=== PATIENT | male | born 1955 | race Caucasian/White ===

== ENCOUNTER → 2020-03-28 09:00 | Outpatient (BNVA) | payer MEDICARE, SELFPAY | PROVIDERS: PCP Internal Medicine; Visit Provider Internal Medicine | DX: I26.99 Other pulmonary embolism without acute cor pulmonale (principal); Z51.81 Encounter for therapeutic drug level monitoring; Z79.01 Long term (current) use of anticoagulants | CPT/HCPCS: 85610 ==

== ENCOUNTER → 2020-04-18 08:00 | Outpatient (BNVA) | payer MEDICARE, SELFPAY | PROVIDERS: PCP Internal Medicine; Visit Provider Internal Medicine | DX: I26.99 Other pulmonary embolism without acute cor pulmonale (principal); Z51.81 Encounter for therapeutic drug level monitoring; Z79.01 Long term (current) use of anticoagulants | CPT/HCPCS: 85610; 99211 ==

== ENCOUNTER 2020-05-01 13:41 | Outpatient (REF) | payer MEDICARE, SELFPAY ==
[2020-05-01 14:38] LABS: Influenza A PCR NEGATIVE (Negative); Influenza B PCR NEGATIVE (Negative); Resp Syncy Virus RNA Qual PCR NEGATIVE (Negative); SARS COV2 PCR INHOUSE NEGATIVE (Negative)
== END 2020-05-01 13:42 | disposition home or self-care (01) ==
LOC: HO.LNP 13:41
PROVIDERS: Visit Provider Internal Medicine
DX: Z20.828 Contact with and (suspected) exposure to other viral communicable diseases (principal)
CPT/HCPCS: 0241U

== ENCOUNTER → 2020-05-16 08:02 | Outpatient (BNVA) | payer MEDICARE, SELFPAY | PROVIDERS: PCP Internal Medicine; Visit Provider Internal Medicine | DX: I26.99 Other pulmonary embolism without acute cor pulmonale (principal); Z51.81 Encounter for therapeutic drug level monitoring; Z79.01 Long term (current) use of anticoagulants | CPT/HCPCS: 85610; 99211 ==

== ENCOUNTER → 2020-06-13 08:08 | Outpatient (BNVA) | payer MEDICARE, SELFPAY | PROVIDERS: PCP Internal Medicine; Visit Provider Internal Medicine | DX: I26.99 Other pulmonary embolism without acute cor pulmonale (principal); Z51.81 Encounter for therapeutic drug level monitoring; Z79.01 Long term (current) use of anticoagulants | CPT/HCPCS: 85610; 99211 ==

== ENCOUNTER → 2020-06-27 08:12 | Outpatient (BNVA) | payer MEDICARE, SELFPAY | PROVIDERS: PCP Internal Medicine; Visit Provider Internal Medicine | DX: I26.99 Other pulmonary embolism without acute cor pulmonale (principal); Z51.81 Encounter for therapeutic drug level monitoring; Z79.01 Long term (current) use of anticoagulants | CPT/HCPCS: 85610; 99211 ==

== ENCOUNTER → 2020-07-11 07:59 | Outpatient (BNVA) | payer MEDICARE, SELFPAY | PROVIDERS: PCP Internal Medicine; Visit Provider Internal Medicine | DX: I26.99 Other pulmonary embolism without acute cor pulmonale (principal); Z51.81 Encounter for therapeutic drug level monitoring; Z79.01 Long term (current) use of anticoagulants | CPT/HCPCS: 85610; 99211 ==

== ENCOUNTER 2020-08-10 06:35 | Outpatient (REF) | payer MEDICARE, SELFPAY ==
[2020-08-10 07:39] LABS: Appearance Urine CLEAR; Color Urine YELLOW; Glucose Urine UA NEG (NEG); Leukocyte Esterase Urine NEG (NEG); Nitrite Urine NEG (NEG); Specific Gravity - Urine 1.025 (1.005-1.025); Urine Blood TRACE (NEG); Urine Ketones NEG (NEG); Urine Protein 1+ MG/DL (NEG-TRACE)
[2020-08-10 07:39] LABS: MANUAL DIFF FLAG NO
[2020-08-10 07:43] LABS: Basophils Percent Auto 0.8 % (0-2); Eosinophils Absolute Auto 0.2 X10*3/uL (0.0-0.4); Hematocrit 40.6 % (42-52); Hemoglobin 13.8 g/dl (14.0-18.0); Imm Gran Abs Auto 0.01 X10*3/uL (0.00-0.03); Imm Gran Pct Auto 0.3 % (0.0-0.4); Lymphocytes Absolute Auto 1.4 X10*3/uL (1.2-4.9); Lymphocytes Percent Auto 35.3 % (20-40); Mean Corpuscular Hemoglobin 30.4 pg (27.0-33.0); Mean Corpuscular Volume 89.4 fL (80-98); Mean Platelet Volume 9.3 fL (9.4-12.4); Monocytes Absolute Auto 0.5 X10*3/uL (0.1-1.2); Monocytes Percent Auto 11.8 % (2-11); Neutrophils Absolute Auto 1.9 X10*3/uL (2.0-8.3); Neutrophils Percent Auto 47.8 % (45-73); Platelet Count 221 X10*3/uL (160-400); Red Blood Count 4.54 X10*6/uL (4.60-5.80); Red Cell Distribution Width 13.1 % (11.0-16.0)
[2020-08-10 07:49] LABS: RBC Urine 0-2 /HPF (0); Squamous Epithelial Cell Urine TRACE /LPF; WBC Urine 0 /HPF (0-4)
[2020-08-10 08:14] LABS: Creatinine Urine 102.89 mg/dL; Microalbum/Creatinine Ratio Ur 250.7 ug/mg cr
[2020-08-10 08:28] LABS: Alanine Aminotransferase 26 U/L (0-40); Albumin Level 4.5 g/dL (3.5-5.0); Alkaline Phosphatase 39 U/L (39-117); Anion Gap 16 (12-20); Aspartate Amino Transferase 19 U/L (5-37); Bilirubin Total 1.1 mg/dL (0.0-1.0); Blood Urea Nitrogen 23 mg/dL (9-16); Calcium 9.4 mg/dL (8.4-10.2); Carbon Dioxide 24 mmol/L (22-29); Chloride 105 mmol/L (96-108); Cholesterol 192 mg/dL; Estimated Glomerular Filt Rate > 60; Glucose Fasting 143 mg/dL (60-99); HDL Cholesterol 59 mg/dL; LDL Cholesterol Calculated 118 mg/dl; Potassium 4.8 mmol/L (3.3-5.1); Sodium 140 mmol/L (135-145); Total Protein 7.4 g/dL (6.5-8.0); Triglycerides 75 mg/dL
[2020-08-10 09:20] LABS: Estimated Average Glucose 151 mg/dL; Hemoglobin A1c % 6.9 %
[2020-08-10 11:11] LABS: Prostate Specific Antigen 0.61 ng/mL (<0.05-4.0)
== END 2020-08-10 06:36 | disposition home or self-care (01) ==
LOC: HO.LAB 06:35
PROVIDERS: PCP Internal Medicine; Visit Provider Internal Medicine
DX: I10 Essential (primary) hypertension (principal); E11.9 Type 2 diabetes mellitus without complications; K21.9 Gastro-esophageal reflux disease without esophagitis; R35.1 Nocturia; Z86.718 Personal history of other venous thrombosis and embolism; Z12.5 Encounter for screening for malignant neoplasm of prostate
CPT/HCPCS: 36415; 80053; 80061; 81001; 82043; 83036; 84153; 85025

== ENCOUNTER → 2020-08-15 08:11 | Outpatient (BNVA) | payer MEDICARE, SELFPAY | PROVIDERS: PCP Internal Medicine; Visit Provider Internal Medicine | DX: Z13.89 Encounter for screening for other disorder (principal) | CPT/HCPCS: 85610; 99211 ==

== ENCOUNTER 2020-08-15 11:17 | Outpatient (REF) | payer MEDICARE, SELFPAY ==
[2020-08-15 12:52] LABS: C Reactive Protein 0.04 mg/dL (< or = 0.50); Iron 90 mcg/dL (45-160); Percent Iron Saturation 22 % (15-50); Total Iron Binding Capacity 418 mcg/dL (228-428); Unsaturated Iron Binding 328 ug/dL
[2020-08-15 13:12] LABS: Free T4 (Free Thyroxine) 0.84 ng/dL (0.71-1.85); Thyroid Stimulating Hormone 1.12 uIU/mL (0.32-4.0)
[2020-08-15 13:27] LABS: Vitamin B12 273 pg/mL (200-900)
== END 2020-08-15 11:18 | disposition home or self-care (01) ==
LOC: HO.10HDL 11:17
PROVIDERS: Visit Provider Internal Medicine
DX: R53.83 Other fatigue (principal); I10 Essential (primary) hypertension; D64.9 Anemia, unspecified
CPT/HCPCS: 36415; 82550; 82607; 83540; 84439; 84443; 85610; 86140; 99211

== ENCOUNTER → 2020-08-29 08:17 | Outpatient (BNVA) | payer MEDICARE, SELFPAY | PROVIDERS: PCP Internal Medicine; Visit Provider Internal Medicine | DX: I26.99 Other pulmonary embolism without acute cor pulmonale (principal); Z51.81 Encounter for therapeutic drug level monitoring; Z79.01 Long term (current) use of anticoagulants | CPT/HCPCS: 85610; 99211 ==

== ENCOUNTER → 2020-09-05 08:10 | Outpatient (BNVA) | payer MEDICARE, SELFPAY | PROVIDERS: PCP Internal Medicine; Visit Provider Internal Medicine | DX: I26.99 Other pulmonary embolism without acute cor pulmonale (principal); Z51.81 Encounter for therapeutic drug level monitoring; Z79.01 Long term (current) use of anticoagulants | CPT/HCPCS: 85610; 99211 ==

== ENCOUNTER → 2020-09-12 08:18 | Outpatient (BNVA) | payer MEDICARE, SELFPAY | PROVIDERS: PCP Internal Medicine; Visit Provider Internal Medicine | DX: I26.99 Other pulmonary embolism without acute cor pulmonale (principal); Z51.81 Encounter for therapeutic drug level monitoring; Z79.01 Long term (current) use of anticoagulants | CPT/HCPCS: 85610; 99211 ==

== ENCOUNTER → 2020-09-26 09:49 | Outpatient (BNVA) | payer MEDICARE, SELFPAY | PROVIDERS: PCP Internal Medicine; Visit Provider Internal Medicine | DX: I26.99 Other pulmonary embolism without acute cor pulmonale (principal); Z79.01 Long term (current) use of anticoagulants; Z51.81 Encounter for therapeutic drug level monitoring | CPT/HCPCS: 85610; 99211 ==

== ENCOUNTER → 2020-10-10 09:49 | Outpatient (BNVA) | payer MEDICARE, SELFPAY | PROVIDERS: PCP Internal Medicine; Visit Provider Internal Medicine | DX: I26.99 Other pulmonary embolism without acute cor pulmonale (principal); Z51.81 Encounter for therapeutic drug level monitoring; Z79.01 Long term (current) use of anticoagulants | CPT/HCPCS: 85610; 99211 ==

== ENCOUNTER → 2020-10-31 08:10 | Outpatient (BNVA) | payer MEDICARE, SELFPAY | PROVIDERS: PCP Internal Medicine; Visit Provider Internal Medicine | DX: I26.99 Other pulmonary embolism without acute cor pulmonale (principal); Z51.81 Encounter for therapeutic drug level monitoring; Z79.01 Long term (current) use of anticoagulants | CPT/HCPCS: 85610; 99211 ==

== ENCOUNTER 2020-11-17 07:41 | Outpatient (REF) | payer MEDICARE, SELFPAY ==
[2020-11-17 10:11] LABS: MANUAL DIFF FLAG NO
[2020-11-17 10:17] LABS: Basophils Percent Auto 0.7 % (0-2); Eosinophils Absolute Auto 0.3 X10*3/uL (0.0-0.4); Eosinophils Percent Auto 6.9 % (0-4); Hematocrit 39.7 % (42-52); Hemoglobin 13.2 g/dl (14.0-18.0); Imm Gran Abs Auto 0.01 X10*3/uL (0.00-0.03); Imm Gran Pct Auto 0.2 % (0.0-0.4); Lymphocytes Absolute Auto 1.4 X10*3/uL (1.2-4.9); Lymphocytes Percent Auto 33.1 % (20-40); Mean Corpuscular HGB Conc 33.2 g/dl (31.0-36.0); Mean Corpuscular Hemoglobin 30.2 pg (27.0-33.0); Mean Corpuscular Volume 90.8 fL (80-98); Mean Platelet Volume 9.6 fL (9.4-12.4); Monocytes Absolute Auto 0.5 X10*3/uL (0.1-1.2); Monocytes Percent Auto 12.4 % (2-11); Neutrophils Percent Auto 46.7 % (45-73); Platelet Count 237 X10*3/uL (160-400); Red Blood Count 4.37 X10*6/uL (4.60-5.80); Red Cell Distribution Width 13.2 % (11.0-16.0); White Blood Count 4.2 X10*3/uL (4.8-10.8)
[2020-11-17 10:40] LABS: Alanine Aminotransferase 18 U/L (0-40); Albumin Level 4.4 g/dL (3.5-5.0); Alkaline Phosphatase 46 U/L (39-117); Anion Gap 13 (12-20); Aspartate Amino Transferase 17 U/L (5-37); Bilirubin Total 0.3 mg/dL (0.0-1.0); Blood Urea Nitrogen 15 mg/dL (9-16); Calcium 8.9 mg/dL (8.4-10.2); Carbon Dioxide 24 mmol/L (22-29); Chloride 105 mmol/L (96-108); Estimated Glomerular Filt Rate > 60; Glucose Random 129 mg/dL (60-115); Potassium 4.4 mmol/L (3.3-5.1); Sodium 138 mmol/L (135-145); Total Protein 7.2 g/dL (6.5-8.0)
[2020-11-17 10:43] LABS: Estimated Average Glucose 143 mg/dL; Hemoglobin A1c % 6.6 %
[2020-11-17 12:26] LABS: Creatinine Urine 106.26 mg/dL; Microalbum/Creatinine Ratio Ur 234.3 ug/mg cr
== END 2020-11-17 07:42 | disposition home or self-care (01) ==
LOC: HO.10HDL 07:41
PROVIDERS: Visit Provider Internal Medicine
DX: E11.9 Type 2 diabetes mellitus without complications (principal); D64.9 Anemia, unspecified; I10 Essential (primary) hypertension; I26.99 Other pulmonary embolism without acute cor pulmonale; Z51.81 Encounter for therapeutic drug level monitoring; Z79.01 Long term (current) use of anticoagulants
CPT/HCPCS: 36415; 80053; 82043; 83036; 85025; 85610; 99211

== ENCOUNTER 2020-11-20 07:10 | Outpatient (REF) | payer MEDICARE, SELFPAY ==
--- NOTE | ~2020-11-20 | XR_ITS ---
EXAMINATION: XR ELBOW, LEFT CLINICAL INFORMATION: Left elbow pain. COMPARISON: None TECHNIQUE: AP, lateral, and oblique views of the left elbow. FINDINGS: There is a lateral epicondyle or enthesophyte. No acute fracture or joint effusion. Alignment is anatomic. Joint spaces are maintained. XR/XR elbow LT min 3V IMPRESSION: Lateral elbow enthesophyte. No visible acute fracture or dislocation seen. No abnormal joint effusion.
== END 2020-11-20 07:11 | disposition home or self-care (01) ==
LOC: HO.HOSX 07:10
PROVIDERS: Visit Provider Physician Assistant
DX: M25.822 Other specified joint disorders, left elbow (principal)
CPT/HCPCS: 73080; 99202

== ENCOUNTER → 2020-12-15 08:06 | Outpatient (BNVA) | payer MEDICARE, SELFPAY | PROVIDERS: PCP Internal Medicine; Visit Provider Internal Medicine | DX: I26.99 Other pulmonary embolism without acute cor pulmonale (principal); Z51.81 Encounter for therapeutic drug level monitoring; Z79.01 Long term (current) use of anticoagulants | CPT/HCPCS: 85610; 99211 ==

== ENCOUNTER → 2021-01-12 08:02 | Outpatient (BNVA) | payer MEDICARE, SELFPAY | PROVIDERS: PCP Internal Medicine; Visit Provider Internal Medicine | DX: I26.99 Other pulmonary embolism without acute cor pulmonale (principal); Z51.81 Encounter for therapeutic drug level monitoring; Z79.01 Long term (current) use of anticoagulants | CPT/HCPCS: 85610; 99211 ==

== ENCOUNTER → 2021-02-09 08:03 | Outpatient (BNVA) | payer MEDICARE, SELFPAY | PROVIDERS: PCP Internal Medicine; Visit Provider Internal Medicine | DX: I26.99 Other pulmonary embolism without acute cor pulmonale (principal); Z51.81 Encounter for therapeutic drug level monitoring; Z79.01 Long term (current) use of anticoagulants | CPT/HCPCS: 85610; 99211 ==

== ENCOUNTER 2021-02-22 11:11 | Outpatient (REF) | payer MEDICARE, SELFPAY ==
[2021-02-22 14:00] LABS: MANUAL DIFF FLAG NO
[2021-02-22 14:24] LABS: Creatinine Urine 65.93 mg/dL; Microalbum/Creatinine Ratio Ur 241.1 ug/mg cr
[2021-02-22 14:32] LABS: Basophils Percent Auto 0.7 % (0-2); Eosinophils Absolute Auto 0.2 X10*3/uL (0.0-0.4); Eosinophils Percent Auto 5.5 % (0-4); Hematocrit 37.3 % (42-52); Hemoglobin 12.6 g/dl (14.0-18.0); Imm Gran Abs Auto 0.01 X10*3/uL (0.00-0.03); Imm Gran Pct Auto 0.3 % (0.0-0.4); Lymphocytes Absolute Auto 1.1 X10*3/uL (1.2-4.9); Lymphocytes Percent Auto 38.7 % (20-40); Mean Corpuscular HGB Conc 33.8 g/dl (31.0-36.0); Mean Corpuscular Hemoglobin 30.4 pg (27.0-33.0); Mean Corpuscular Volume 90.1 fL (80-98); Mean Platelet Volume 9.5 fL (9.4-12.4); Monocytes Absolute Auto 0.4 X10*3/uL (0.1-1.2); Neutrophils Absolute Auto 1.2 X10*3/uL (2.0-8.3); Neutrophils Percent Auto 41.8 % (45-73); Platelet Count 223 X10*3/uL (160-400); Red Blood Count 4.14 X10*6/uL (4.60-5.80); White Blood Count 2.9 X10*3/uL (4.8-10.8)
[2021-02-22 14:46] LABS: Estimated Average Glucose 134 mg/dL; Hemoglobin A1c % 6.3 %
[2021-02-22 14:48] LABS: Vitamin B12 214 pg/mL (200-900)
[2021-02-22 14:54] LABS: Alanine Aminotransferase 34 U/L (0-40); Albumin Level 4.4 g/dL (3.5-5.0); Alkaline Phosphatase 35 U/L (39-117); Anion Gap 13 (12-20); Aspartate Amino Transferase 25 U/L (5-37); Bilirubin Total 0.7 mg/dL (0.0-1.0); Blood Urea Nitrogen 14 mg/dL (9-16); Calcium 9.2 mg/dL (8.4-10.2); Carbon Dioxide 25 mmol/L (22-29); Chloride 104 mmol/L (96-108); Estimated Glomerular Filt Rate > 60; Glucose Random 115 mg/dL (60-115); Potassium 4.1 mmol/L (3.3-5.1); Sodium 138 mmol/L (135-145)
[2021-02-22 15:14] LABS: Free T4 (Free Thyroxine) 0.86 ng/dL (0.71-1.85); Thyroid Stimulating Hormone 0.98 uIU/mL (0.32-4.0)
== END 2021-02-22 11:12 | disposition home or self-care (01) ==
LOC: HO.10HDL 11:11
PROVIDERS: Visit Provider Internal Medicine
DX: E11.9 Type 2 diabetes mellitus without complications (principal); R53.83 Other fatigue; Z86.718 Personal history of other venous thrombosis and embolism
CPT/HCPCS: 36415; 80053; 82043; 82607; 83036; 84439; 84443; 85025

== ENCOUNTER → 2021-03-16 08:03 | Outpatient (BNVA) | payer MEDICARE, SELFPAY | PROVIDERS: PCP Internal Medicine; Visit Provider Internal Medicine | DX: I26.99 Other pulmonary embolism without acute cor pulmonale (principal); Z51.81 Encounter for therapeutic drug level monitoring; Z79.01 Long term (current) use of anticoagulants | CPT/HCPCS: 85610; 99211 ==

== ENCOUNTER 2021-03-28 08:13 | Outpatient (REF) | payer MEDICARE, SELFPAY ==
--- NOTE | 2021-03-28 08:17 | EMG_ITS ---
This is a 66-year-old man with history of numbness mostly along the left thumb and pain. He denies any numbness in the 5th finger. There is no weakness. No history of diabetes. Currently not on any medications. His neurological exam is normal. IMPRESSION: Rule out nerve entrapment. 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 No evidence of diffuse neuropathy. Normal EMG of the left C5-T1 innervated muscles. MD EVANGELISTA Jones/ALDEN / [phone]
== END 2021-03-28 08:14 | disposition home or self-care (01) ==
LOC: HO.NEURO 08:13
PROVIDERS: Visit Provider Physician Assistant
DX: M25.822 Other specified joint disorders, left elbow (principal); G56.22 Lesion of ulnar nerve, left upper limb
CPT/HCPCS: 95885; 95910

== ENCOUNTER → 2021-04-23 08:03 | Outpatient (BNVA) | payer MEDICARE, SELFPAY | PROVIDERS: PCP Internal Medicine; Visit Provider Internal Medicine | DX: I26.99 Other pulmonary embolism without acute cor pulmonale (principal); Z51.81 Encounter for therapeutic drug level monitoring; Z79.01 Long term (current) use of anticoagulants | CPT/HCPCS: 85610; 99211 ==

== ENCOUNTER → 2021-05-21 08:03 | Outpatient (BNVA) | payer MEDICARE, SELFPAY | PROVIDERS: PCP Internal Medicine; Visit Provider Internal Medicine | DX: I26.99 Other pulmonary embolism without acute cor pulmonale (principal); Z51.81 Encounter for therapeutic drug level monitoring; Z79.01 Long term (current) use of anticoagulants | CPT/HCPCS: 85610; 99211 ==

== ENCOUNTER 2021-06-07 08:24 | Outpatient (REF) | payer MEDICARE, SELFPAY ==
[2021-06-07 13:25] LABS: MANUAL DIFF FLAG NO
[2021-06-07 13:37] LABS: Basophils Percent Auto 1.1 % (0-2); Eosinophils Absolute Auto 0.2 X10*3/uL (0.0-0.4); Hemoglobin 13.2 g/dl (14.0-18.0); Imm Gran Abs Auto 0.01 X10*3/uL (0.00-0.03); Imm Gran Pct Auto 0.3 % (0.0-0.4); Lymphocytes Absolute Auto 1.1 X10*3/uL (1.2-4.9); Lymphocytes Percent Auto 31.1 % (20-40); Mean Corpuscular HGB Conc 33.8 g/dl (31.0-36.0); Mean Corpuscular Hemoglobin 30.6 pg (27.0-33.0); Mean Corpuscular Volume 90.3 fL (80.0-98.0); Mean Platelet Volume 9.6 fL (9.4-12.4); Monocytes Absolute Auto 0.4 X10*3/uL (0.1-1.2); Monocytes Percent Auto 11.6 % (2-11); Neutrophils Absolute Auto 1.9 x10*3/uL (2.0-8.3); Neutrophils Percent Auto 50.9 % (45-73); Platelet Count 234 X10*3/uL (160-400); Red Blood Count 4.32 X10*6/uL (4.60-5.80); Red Cell Distribution Width 13.4 % (11.0-16.0); White Blood Count 3.6 X10*3/uL (4.8-10.8)
[2021-06-07 13:54] LABS: Alanine Aminotransferase 38 U/L (0-40); Albumin Level 4.2 g/dL (3.5-5.0); Alkaline Phosphatase 34 U/L (39-117); Anion Gap 11 (12-20); Aspartate Amino Transferase 24 U/L (5-37); Bilirubin Total 0.8 mg/dL (0.0-1.0); Blood Urea Nitrogen 20 mg/dL (9-16); C Reactive Protein 0.04 mg/dL (< or = 0.50); Calcium 9.4 mg/dL (8.4-10.2); Carbon Dioxide 26 mmol/L (22-29); Chloride 106 mmol/L (96-108); Cholesterol 167 mg/dL; Estimated Glomerular Filt Rate > 60; Glucose Fasting 145 mg/dL (60-99); HDL Cholesterol 58 mg/dL; LDL Cholesterol Calculated 97 mg/dl; Potassium 4.3 mmol/L (3.3-5.1); Sodium 139 mmol/L (135-145); Triglycerides 63 mg/dL
[2021-06-07 13:55] LABS: Estimated Average Glucose 148 mg/dL; Hemoglobin A1c % 6.8 %
[2021-06-07 14:17] LABS: Vitamin B12 236 pg/mL (200-900)
[2021-06-07 14:18] LABS: Free T4 (Free Thyroxine) 0.95 ng/dL (0.71-1.85); Thyroid Stimulating Hormone 1.68 uIU/mL (0.32-4.0)
[2021-06-07 14:38] LABS: Creatinine Urine 104.44 mg/dL; Microalbum/Creatinine Ratio Ur 214.4 ug/mg cr
== END 2021-06-07 08:25 | disposition home or self-care (01) ==
LOC: HO.10HDL 08:24
PROVIDERS: Visit Provider Internal Medicine
DX: E11.9 Type 2 diabetes mellitus without complications (principal); R53.83 Other fatigue; Z86.718 Personal history of other venous thrombosis and embolism
CPT/HCPCS: 36415; 80053; 80061; 82043; 82607; 83036; 84439; 84443; 85025; 86140

== ENCOUNTER → 2021-06-18 08:01 | Outpatient (BNVA) | payer MEDICARE, SELFPAY | PROVIDERS: PCP Internal Medicine; Visit Provider Internal Medicine | DX: I26.99 Other pulmonary embolism without acute cor pulmonale (principal); Z51.81 Encounter for therapeutic drug level monitoring; Z79.01 Long term (current) use of anticoagulants | CPT/HCPCS: 85610; 99211 ==

== ENCOUNTER 2021-06-21 09:10 | Emergency (ER) | payer MEDICARE, SELFPAY ==
[2021-06-21 09:39] VITALS: BP 174/104; PULSE 74; RESP 16; TEMP 36.4; O2SAT 98; BMI 26.4
--- NOTE | 2021-06-21 10:25 | ED_ITS ---
HPI - Wound/Laceration General Chief Complaint: Wound/Laceration Stated Complaint: finger lac Time Seen by Provider: 06/21/21 10:25 History of Present Illness HPI narrative: Patient complains of laceration to left index finger sustained 24 hours ago, it has had some mild bleeding which has since stopped and he is concerned because he is on Coumadin inr was checked 2 days ago and was 2.2, he has no other bruising issue no bleeding from any orifice or any other site Related Data Home Medications Medication Instructions Recorded Confirmed amlodipine 2.5 mg tablet 2.5 mg PO DAILY 11/20/20 06/18/21 gemfibrozil 600 mg tablet 600 mg PO BID 11/20/20 06/18/21 losartan 50 mg tablet 50 mg PO DAILY 11/20/20 06/18/21 metformin 500 mg tablet 500 mg PO TID 11/20/20 06/18/21 lgrmrsey-cgo-ghbxk acid 0.4 1 tab PO DAILY 11/20/20 06/18/21 mg-lycopene 300 mcg-lutein 250 mcg tablet (Centrum Silver) omega-3 fatty acids [Fish Oil PO 11/20/20 06/18/21 Concentrate] omeprazole 20 mg capsule,delayed 20 mg PO DAILY 11/20/20 06/18/21 release blood sugar diagnostic (FreeStyle #10 ea 01/12/21 05/21/21 Lite Strips) Previous Rx's Medication Instructions Recorded warfarin 5 mg tablet 5 mg PO DAILY #90 tab 03/28/20 Allergies Allergy/AdvReac Type Severity Reaction Status Date / Time latex [Latex] Allergy Mild ALLERGIC Verified 06/18/21 08:05 TO POWDER glipizide [GLIPIZIDE] Allergy Unknown MUSCLES Verified 06/18/21 08:05 WEAK Review of Systems Review of Systems: Positive for left index finger laceration Negatives no fever no chills no redness no swelling no joint pains no numbness weakness or tingling no bleeding from any other site Yes all other systems are reviewed and are negative [facility] Past Medical History Source: nursing notes reviewed Medical History (Updated 06/21/21 @ 10:46 by MARIBEL Dennison) Diabetes History of blood clots Hypercholesteremia Hypertension Surgical History (Updated 11/20/20 @ 08:31 by Umu Farah CMA) History of appendectomy History of gastric surgery S/P hip replacement Social History Social History (Updated 11/20/20 @ 08:31 by Umu Farah CMA) Advance Directives: Yes Advance Directives Information Provided: No Advance Directives on File: No Current occupational status: employed Current occupation: [employer] Physical Exam Vital Signs: Vital Signs: Last Vital Signs Temp 97.5 F 06/21/21 09:39 Pulse 74 06/21/21 09:39 Resp 16 06/21/21 09:39 BP 174/104 H 06/21/21 09:39 Pulse Ox 98 06/21/21 09:39 BMI result Body Mass Index 26.4 General appearance is no acute distress Head is normocephalic atraumatic Neck is supple Respiratory no distress Extremities full range of motion x4 including left index finger which has of very small 0.5 cm laceration that is mostly closed but loses a drop of blood occasionally no significant bleeding, finger is otherwise neurovascular intact Skin no obvious bruising Course Course Course Narrative: Patient on Coumadin with INR checked 2 days ago and was 2.2 with very mild continued bleeding when he removed the bandage from his finger The wound was cleansed with saline and then Steri-Strips were placed with very good control of bleeding and bandage was placed over this and patient was discharged Discharge Plan Discharge Clinical Impression: Laceration of left index finger Patient Disposition: Home, Self-Care Additional Instructions: You can remove Steri-Strips in 3 or 4 days If they come off before just keep covered with a Band-Aid We gave you a small finger splint see do not keep the bending the finger which might open the wound Return any sign of infection You got a tetanus shot today Prescriptions: No Action (DME) FreeStyle Lite Strips Strip See Rx Instructions ea Not Applicable DAILY Qty: 10 RF: 0 warfarin 5 mg tablet 5 mg PO DAILY Qty: 90 RF: 0 metformin 500 mg tablet 500 mg PO TID RF: 0 gemfibrozil 600 mg tablet 600 mg PO BID RF: 0 amlodipine 2.5 mg tablet 2.5 mg PO DAILY RF: 0 omeprazole 20 mg capsule,delayed release(DR/EC) 20 mg PO DAILY RF: 0 losartan 50 mg tablet 50 mg PO DAILY RF: 0 omega-3 fatty acids PO RF: 0 Centrum Silver 0.4-300-250 mg-mcg-mcg tablet 1 tab PO DAILY RF: 0 Discharge Date/Time: 06/21/21 11:25
[2021-06-21] MEDS: Diphth,Pertus(ACell),Tet Adult 0.5 ML SYRINGE IM (11:01)
== END 2021-06-21 11:25 | disposition home or self-care (01) ==
PROVIDERS: Emergency Provider Emergency Medicine; PCP Internal Medicine
DX: S61.211A Laceration without foreign body of left index finger without damage to nail, initial encounter (principal); E11.9 Type 2 diabetes mellitus without complications; I10 Essential (primary) hypertension; Z86.718 Personal history of other venous thrombosis and embolism; Z79.01 Long term (current) use of anticoagulants
CPT/HCPCS: 29130; 90471; 90715; 99281; 99284

== ENCOUNTER → 2021-07-11 08:19 | Outpatient (REF) | payer MEDICARE, SELFPAY ==
--- NOTE | 2021-07-11 08:23 | CA_ITS ---
Transthoracic Echocardiogram Patient (Last, First, Middle): Dexter Francis W Gender: Male Date of : 1955 Age: 66 Procedure Date: 07/11/2021 Procedure Type: Transthoracic Echocardiogram Location: OP Height: 182.88 cm Weight: 87.54 kg BSA: 2.10 m2 Heart Rate: bpm BP: 142 / 86 mmHg Drawing Frame Tender: KAUSHIK Referring MD: Tj Bird MD Symptoms: R53.83 OTHER FATIGUE. R06.02 SOB Study Quality: Good ECG Rhythm: Sinus Conclusions: - The left ventricular systolic function is normal. The calculated ejection fraction is 61% by biplane method. - No obvious valvular pathology seen on this study. - Top normal ascending aortic size at 3.7 cm. Findings Left Ventricle Normal left ventricular cavity size. There is normal left ventricular wall thickness. The left ventricular systolic function is normal. The calculated ejection fraction is 61% by biplane method. There is no evidence of regional wall motion abnormalities. Diastolic function is normal for age. Right Ventricle Normal right ventricular cavity size and systolic function. Atria Both atria are normal in size. Aortic Valve There is a normal trileaflet aortic valve. There is no aortic valve stenosis. There is no aortic valve regurgitation. Mitral Valve There is mild anterior mitral leaflet thickening. There is trace mitral valve regurgitation. There is no mitral valve stenosis. Pulmonic Valve The pulmonic valve was not well visualized. Tricuspid Valve Normal tricuspid valve structure. There is trace tricuspid valve regurgitation. The pulmonary artery systolic pressure is normal. Great Vessels Top normal ascending aortic size at 3.7 cm. Venous The inferior vena cava is normal in size and collapses greater than 50% with inspiration. Pericardium/Pleural There is no evidence of pericardial effusion. Prior Study Comparison No prior study available for comparison. Recommendations, Care & Conclusions No obvious valvular pathology seen on this study. Measurements 2D Linear Measurements IVSd: 0.93 0.6-0.9/0.6-1.0 cm LVIDd: 5.01 3.9-5.3/4.2-5.9 cm LVIDd Index: 2.39 2.4-3.2/2.2-3.1 cm/m2 LVIDs: 3.03 2.0-3.6 cm LVPWd: 1.06 0.7-1.1 cm Ao Root: 3.70 2.1-3.5 cm LA Diam: 3.70 2.7-3.8/3.0-4.0 cm LAIDs Index: 1.76 1.5-2.3 cm/m2 LV Mass: 226.55 67-162/88-224 g LV Mass Index: 107.88 43-95/49-115 g/m2 LVOT Diam: 2.00 3.0+(-)1.3 cm 2D Systolic Function EF 4C: 59.00 >55% EF 2C: 63.00 >55% EF BiP: 60.50 >55% Mitral Valve MV Pk E: 0.89 MV PK A: 0.68 MV Decel Time: 196.00 E/A: 1.30 E'Lateral: 9.14 E'Medial: 7.40 E/E' Med: 12.10 E/E' Lat: 9.80 PHT: 57.00 MVA PHT: 3.86 Decel [place]: 4.56 Aortic Valve AoV Pk Jaya: 1.40 AoV Mn Jaya: 0.96 AoV VTI: 0.30 AoV Pk Grad: 8.00 Aov Mn Grad: 4.00 GUNNER Cont.VTI: 2.47 LVOT LVOT Pk Jaya: 1.13 LVOT Mn Jaya: 0.75 LVOT VTI: 0.24 LVOT Pk Grad: 5.00 LVOT Mn Grad: 3.00 LVOT Diam: 2.00 LVOT Area: 3.14 Diastolic Function MV Pk E: 0.89 MV Pk A: 0.68 E/A: 1.30 E'Medial: 7.40 E/E' Med: 12.10 E' Laterial: 9.14 E/E' Lat: 9.80 Right Ventricle TAPSE (mm): 27.80 TVS' Jaya: 12.40 Tricuspid Valve TR Pk Jaya: 1.44 TR Pk Grad: 8.00 RA Press: 3.00 RVSP: 11.00 Great Vessels Aorta Ao Root-2D: 3.70 2.0-3.7 cm Ao Asc: 3.70 2.1-3.4 cm Ao Arch: 3.20 Updated in Other Vendor System with Status of Final Oren Whitlock MD electronically signed on 07/13/2021 11:34:27 AM with status of Final
== END ==
LOC: HO.CARD 08:19
PROVIDERS: PCP Internal Medicine; Visit Provider Internal Medicine
DX: R06.02 Shortness of breath (principal); R53.83 Other fatigue
CPT/HCPCS: 93306

== ENCOUNTER → 2021-07-16 08:04 | Outpatient (BNVA) | payer MEDICARE, SELFPAY | PROVIDERS: PCP Internal Medicine; Visit Provider Internal Medicine | DX: I26.99 Other pulmonary embolism without acute cor pulmonale (principal); Z51.81 Encounter for therapeutic drug level monitoring; Z79.01 Long term (current) use of anticoagulants | CPT/HCPCS: 85610; 99211 ==

== ENCOUNTER → 2021-07-31 08:03 | Outpatient (BNVA) | payer MEDICARE, SELFPAY | PROVIDERS: PCP Internal Medicine; Visit Provider Internal Medicine | DX: I26.99 Other pulmonary embolism without acute cor pulmonale (principal); Z51.81 Encounter for therapeutic drug level monitoring; Z79.01 Long term (current) use of anticoagulants | CPT/HCPCS: 85610; 99211 ==

== ENCOUNTER → 2021-08-30 08:14 | Outpatient (BNVA) | payer MEDICARE, SELFPAY | PROVIDERS: PCP Internal Medicine; Visit Provider Internal Medicine | DX: I26.99 Other pulmonary embolism without acute cor pulmonale (principal); Z51.81 Encounter for therapeutic drug level monitoring; Z79.01 Long term (current) use of anticoagulants | CPT/HCPCS: 85610; 99211 ==

== ENCOUNTER 2021-09-05 11:26 | Outpatient (REF) | payer MEDICARE, SELFPAY ==
[2021-09-05 13:17] LABS: MANUAL DIFF FLAG NO
[2021-09-05 13:28] LABS: Basophils Percent Auto 0.8 % (0-2); Eosinophils Absolute Auto 0.2 X10*3/uL (0.0-0.4); Eosinophils Percent Auto 6.1 % (0-4); Hematocrit 39.5 % (42.0-52.0); Hemoglobin 13.4 g/dl (14.0-18.0); Lymphocytes Absolute Auto 1.2 X10*3/uL (1.2-4.9); Lymphocytes Percent Auto 34.2 % (20-40); Mean Corpuscular HGB Conc 33.9 g/dl (31.0-36.0); Mean Corpuscular Hemoglobin 30.2 pg (27.0-33.0); Mean Platelet Volume 9.5 fL (9.4-12.4); Monocytes Absolute Auto 0.5 X10*3/uL (0.1-1.2); Monocytes Percent Auto 13.2 % (2-11); Neutrophils Absolute Auto 1.7 x10*3/uL (2.0-8.3); Neutrophils Percent Auto 45.7 % (45-73); Platelet Count 234 X10*3/uL (160-400); Red Blood Count 4.44 X10*6/uL (4.60-5.80); Red Cell Distribution Width 13.2 % (11.0-16.0); White Blood Count 3.6 X10*3/uL (4.8-10.8)
[2021-09-05 13:33] LABS: Estimated Average Glucose 148 mg/dL; Hemoglobin A1c % 6.8 %
[2021-09-05 13:42] LABS: Anion Gap 15 (12-20); Blood Urea Nitrogen 16 mg/dL (9-16); Calcium 9.7 mg/dL (8.4-10.2); Carbon Dioxide 24 mmol/L (22-29); Chloride 104 mmol/L (96-108); Estimated Glomerular Filt Rate > 60; Glucose Random 128 mg/dL (60-115); Potassium 5.2 mmol/L (3.3-5.1); Sodium 138 mmol/L (135-145)
[2021-09-05 13:58] LABS: Vitamin B12 203 pg/mL (200-900)
[2021-09-06 19:45] LABS: Triiodothyronine T3 Free 3.2 pg/mL (2.3-4.2)
== END 2021-09-05 11:27 | disposition home or self-care (01) ==
LOC: HO.10HDL 11:26
PROVIDERS: Visit Provider Internal Medicine
DX: E11.9 Type 2 diabetes mellitus without complications (principal); R53.83 Other fatigue; D64.9 Anemia, unspecified; D72.819 Decreased white blood cell count, unspecified
CPT/HCPCS: 36415; 80048; 82607; 83036; 84481; 85025

== ENCOUNTER 2021-09-18 13:30 | Outpatient (REF) | payer MEDICARE, SELFPAY ==
[2021-09-18 14:42] LABS: Alanine Aminotransferase 41 U/L (0-40); Albumin Level 4.2 g/dL (3.5-5.0); Alkaline Phosphatase 37 U/L (39-117); Anion Gap 13 (12-20); Aspartate Amino Transferase 28 U/L (5-37); Bilirubin Direct 0.2 mg/dL (0.0-0.5); Bilirubin Total 0.4 mg/dL (0.0-1.0); Blood Urea Nitrogen 13 mg/dL (9-16); Calcium 9.4 mg/dL (8.4-10.2); Carbon Dioxide 25 mmol/L (22-29); Chloride 105 mmol/L (96-108); Estimated Glomerular Filt Rate 56; Glucose Random 164 mg/dL (60-115); Potassium 4.8 mmol/L (3.3-5.1); Sodium 138 mmol/L (135-145); Total Protein 7.2 g/dL (6.5-8.0)
[2021-09-18 14:54] LABS: Thyroid Stimulating Hormone 1.19 uIU/mL (0.32-4.0)
[2021-09-18 15:09] LABS: Folate 19.1 ng/mL (> or = 4.0); Vitamin B12 257 pg/mL (200-900)
== END 2021-09-18 13:31 | disposition home or self-care (01) ==
LOC: HO.LAB 13:30
PROVIDERS: PCP Internal Medicine; Visit Provider Psychiatry & Neurology Neurology
DX: G31.84 Mild cognitive impairment of uncertain or unknown etiology (principal)
CPT/HCPCS: 36415; 80048; 80076; 82607; 82746; 84443

== ENCOUNTER 2021-09-26 09:00 | Outpatient (REF) | payer MEDICARE, SELFPAY ==
--- NOTE | ~2021-09-26 | CT_ITS ---
EXAMINATION: CT HEAD WITHOUT CONTRAST CLINICAL INFORMATION: Mild cognitive impairment. COMPARISON: None TECHNIQUE: Contiguous axial imaging was performed from the skull base to vertex without intravenous administration of contrast. This CT examination was performed using dose optimization techniques as appropriate, variously including the following: *Automated exposure control *Adjustment of mA and/or kV according to patient size (this includes techniques or standardized protocols for targeted exams where dose is matched to indication/reason for exam; i.e. extremities or head) *Use of iterative reconstruction technique DLP: 793 mGy-cm FINDINGS: There is no evidence of acute intracranial hemorrhage or territorial infarction. No abnormal mass effect or midline shift is seen. Reynolds to white matter differentiation is well preserved. No extra-axial fluid collections are identified. The ventricles are normal in size. There is no abnormal attenuation within the brain parenchyma. The osseous structures and soft tissues are normal. The mastoid air cells and visualized portions of the paranasal sinuses are well aerated. CT/CT head/brain wo con IMPRESSION: No acute intracranial process seen.
== END 2021-09-26 09:01 | disposition home or self-care (01) ==
LOC: HO.CT 09:00
PROVIDERS: PCP Internal Medicine; Visit Provider Psychiatry & Neurology Neurology
DX: G31.84 Mild cognitive impairment of uncertain or unknown etiology (principal)
CPT/HCPCS: 70450

== ENCOUNTER → 2021-09-28 08:25 | Outpatient (BNVA) | payer MEDICARE, SELFPAY | PROVIDERS: PCP Internal Medicine; Visit Provider Internal Medicine | DX: I26.99 Other pulmonary embolism without acute cor pulmonale (principal); Z79.01 Long term (current) use of anticoagulants; Z51.81 Encounter for therapeutic drug level monitoring | CPT/HCPCS: 85610; 99211 ==

== ENCOUNTER → 2021-10-12 08:17 | Outpatient (BNVA) | payer MEDICARE, SELFPAY | PROVIDERS: PCP Internal Medicine; Visit Provider Internal Medicine | DX: I26.99 Other pulmonary embolism without acute cor pulmonale (principal); Z79.01 Long term (current) use of anticoagulants; Z51.81 Encounter for therapeutic drug level monitoring | CPT/HCPCS: 85610; 99211 ==

== ENCOUNTER → 2021-10-26 08:01 | Outpatient (BNVA) | payer MEDICARE, SELFPAY | PROVIDERS: PCP Internal Medicine; Visit Provider Internal Medicine | DX: I26.99 Other pulmonary embolism without acute cor pulmonale (principal); Z79.01 Long term (current) use of anticoagulants; Z51.81 Encounter for therapeutic drug level monitoring | CPT/HCPCS: 85610; 99211 ==

== ENCOUNTER → 2021-11-13 08:25 | Outpatient (BNVA) | payer MEDICARE, SELFPAY | PROVIDERS: PCP Internal Medicine; Visit Provider Internal Medicine | DX: I26.99 Other pulmonary embolism without acute cor pulmonale (principal); Z79.01 Long term (current) use of anticoagulants; Z51.81 Encounter for therapeutic drug level monitoring | CPT/HCPCS: 85610; 99211 ==

== ENCOUNTER 2021-11-30 09:40 | Outpatient (REF) | payer MEDICARE, SELFPAY ==
[2021-11-30 11:17] LABS: Estimated Average Glucose 148 mg/dL; Hemoglobin A1c % 6.8 %
[2021-11-30 11:31] LABS: Anion Gap 13 (12-20); Blood Urea Nitrogen 14 mg/dL (9-16); Calcium 9.3 mg/dL (8.4-10.2); Carbon Dioxide 24 mmol/L (22-29); Chloride 105 mmol/L (96-108); Estimated Glomerular Filt Rate > 60; Glucose Random 138 mg/dL (60-115); Potassium 4.7 mmol/L (3.3-5.1); Sodium 137 mmol/L (135-145)
[2021-11-30 12:08] LABS: Vitamin B12 301 pg/mL (200-900)
== END 2021-11-30 09:41 | disposition home or self-care (01) ==
LOC: HO.10HDL 09:40
PROVIDERS: Visit Provider Internal Medicine
DX: I10 Essential (primary) hypertension (principal); E11.9 Type 2 diabetes mellitus without complications; E53.8 Deficiency of other specified B group vitamins
CPT/HCPCS: 36415; 80048; 82607; 83036

== ENCOUNTER → 2021-12-11 07:58 | Outpatient (BNVA) | payer MEDICARE, SELFPAY | PROVIDERS: PCP Internal Medicine; Visit Provider Internal Medicine | DX: I26.99 Other pulmonary embolism without acute cor pulmonale (principal); Z51.81 Encounter for therapeutic drug level monitoring; Z79.01 Long term (current) use of anticoagulants | CPT/HCPCS: 85610; 99211 ==

== ENCOUNTER → 2021-12-25 08:03 | Outpatient (BNVA) | payer MEDICARE, SELFPAY | PROVIDERS: PCP Internal Medicine; Visit Provider Internal Medicine | DX: I26.99 Other pulmonary embolism without acute cor pulmonale (principal); Z79.01 Long term (current) use of anticoagulants; Z51.81 Encounter for therapeutic drug level monitoring | CPT/HCPCS: 85610; 99211 ==

== ENCOUNTER → 2022-01-31 13:10 | Outpatient (BNVA) | payer MEDICARE, SELFPAY | PROVIDERS: PCP Internal Medicine; Visit Provider Internal Medicine | DX: I26.99 Other pulmonary embolism without acute cor pulmonale (principal); Z79.01 Long term (current) use of anticoagulants; Z51.81 Encounter for therapeutic drug level monitoring | CPT/HCPCS: 85610; 99211 ==

== ENCOUNTER → 2022-02-13 08:12 | Outpatient (BNVA) | payer MEDICARE, SELFPAY | PROVIDERS: PCP Internal Medicine; Visit Provider Internal Medicine | DX: I26.99 Other pulmonary embolism without acute cor pulmonale (principal); Z79.01 Long term (current) use of anticoagulants; Z51.81 Encounter for therapeutic drug level monitoring | CPT/HCPCS: 85610; 99211 ==

== ENCOUNTER → 2022-02-21 08:00 | Outpatient (BNVA) | payer MEDICARE, SELFPAY | PROVIDERS: PCP Internal Medicine; Visit Provider Internal Medicine | DX: I26.99 Other pulmonary embolism without acute cor pulmonale (principal); Z79.01 Long term (current) use of anticoagulants; Z51.81 Encounter for therapeutic drug level monitoring | CPT/HCPCS: 85610; 99211 ==

== ENCOUNTER 2022-02-25 07:53 | Outpatient (REF) | payer MEDICARE, SELFPAY ==
[2022-02-25 10:28] LABS: MANUAL DIFF FLAG NO
[2022-02-25 10:37] LABS: Basophils Percent Auto 0.8 % (0-2); Eosinophils Absolute Auto 0.3 X10*3/uL (0.0-0.4); Eosinophils Percent Auto 7.3 % (0-4); Hematocrit 39.1 % (42.0-52.0); Hemoglobin 13.1 g/dl (14.0-18.0); Lymphocytes Absolute Auto 1.2 X10*3/uL (1.2-4.9); Lymphocytes Percent Auto 32.4 % (20-40); Mean Corpuscular HGB Conc 33.5 g/dl (31.0-36.0); Mean Corpuscular Hemoglobin 30.4 pg (27.0-33.0); Mean Corpuscular Volume 90.7 fL (80.0-98.0); Mean Platelet Volume 9.4 fL (9.4-12.4); Monocytes Absolute Auto 0.4 X10*3/uL (0.1-1.2); Monocytes Percent Auto 10.1 % (2-11); Neutrophils Absolute Auto 1.8 x10*3/uL (2.0-8.3); Neutrophils Percent Auto 49.4 % (45-73); Platelet Count 220 X10*3/uL (160-400); Red Blood Count 4.31 X10*6/uL (4.60-5.80); Red Cell Distribution Width 13.2 % (11.0-16.0); White Blood Count 3.6 X10*3/uL (4.8-10.8)
[2022-02-25 10:49] LABS: Estimated Average Glucose 154 mg/dL
[2022-02-25 11:05] LABS: Alanine Aminotransferase 67 U/L (0-40); Albumin Level 4.3 g/dL (3.5-5.0); Alkaline Phosphatase 29 U/L (39-117); Anion Gap 14 (12-20); Aspartate Amino Transferase 29 U/L (5-37); Bilirubin Total 0.4 mg/dL (0.0-1.0); Blood Urea Nitrogen 17 mg/dL (9-16); Calcium 9.3 mg/dL (8.4-10.2); Carbon Dioxide 22 mmol/L (22-29); Chloride 107 mmol/L (96-108); Cholesterol 190 mg/dL; Estimated Glomerular Filt Rate > 60; Glucose Fasting 142 mg/dL (60-99); HDL Cholesterol 45 mg/dL; LDL Cholesterol Calculated 128 mg/dl; Potassium 4.3 mmol/L (3.3-5.1); Sodium 139 mmol/L (135-145); Total Protein 7.2 g/dL (6.5-8.0); Triglycerides 88 mg/dL
[2022-02-25 11:27] LABS: Prostate Specific Antigen Scr 0.62 ng/mL (<0.05-4.0)
[2022-02-25 11:35] LABS: Microalbum/Creatinine Ratio Ur 163.6 ug/mg cr
== END 2022-02-25 07:54 | disposition home or self-care (01) ==
LOC: HO.10HDL 07:53
PROVIDERS: Visit Provider Internal Medicine
DX: Z12.5 Encounter for screening for malignant neoplasm of prostate (principal); E11.9 Type 2 diabetes mellitus without complications; I10 Essential (primary) hypertension; E78.00 Pure hypercholesterolemia, unspecified; E78.5 Hyperlipidemia, unspecified
CPT/HCPCS: 36415; 80053; 80061; 82043; 83036; 84153; 85025

== ENCOUNTER → 2022-02-27 08:08 | Outpatient (BNVA) | payer MEDICARE, SELFPAY | PROVIDERS: PCP Internal Medicine; Visit Provider Internal Medicine | DX: I26.99 Other pulmonary embolism without acute cor pulmonale (principal); Z79.01 Long term (current) use of anticoagulants; Z51.81 Encounter for therapeutic drug level monitoring | CPT/HCPCS: 85610; 99211 ==

== ENCOUNTER → 2022-03-13 08:02 | Outpatient (BNVA) | payer MEDICARE, SELFPAY | PROVIDERS: PCP Internal Medicine; Visit Provider Internal Medicine | DX: I26.99 Other pulmonary embolism without acute cor pulmonale (principal); Z79.01 Long term (current) use of anticoagulants; Z51.81 Encounter for therapeutic drug level monitoring | CPT/HCPCS: 85610; 99211 ==

== ENCOUNTER → 2022-03-28 08:29 | Outpatient (BNVA) | payer MEDICARE, SELFPAY | PROVIDERS: PCP Internal Medicine; Visit Provider Internal Medicine | DX: I26.99 Other pulmonary embolism without acute cor pulmonale (principal); Z79.01 Long term (current) use of anticoagulants; Z51.81 Encounter for therapeutic drug level monitoring | CPT/HCPCS: 85610; 99211 ==

== ENCOUNTER → 2022-04-11 08:13 | Outpatient (BNVA) | payer MEDICARE, SELFPAY | PROVIDERS: PCP Internal Medicine; Visit Provider Internal Medicine | DX: I26.99 Other pulmonary embolism without acute cor pulmonale (principal); Z79.01 Long term (current) use of anticoagulants; Z51.81 Encounter for therapeutic drug level monitoring | CPT/HCPCS: 85610; 99211 ==

== ENCOUNTER → 2022-04-30 08:24 | Outpatient (BNVA) | payer MEDICARE, SELFPAY | PROVIDERS: PCP Internal Medicine; Visit Provider Internal Medicine | DX: I26.99 Other pulmonary embolism without acute cor pulmonale (principal); Z79.01 Long term (current) use of anticoagulants; Z51.81 Encounter for therapeutic drug level monitoring | CPT/HCPCS: 85610; 99211 ==

== ENCOUNTER → 2022-05-14 08:11 | Outpatient (BNVA) | payer MEDICARE, SELFPAY | PROVIDERS: PCP Internal Medicine; Visit Provider Internal Medicine | DX: I26.99 Other pulmonary embolism without acute cor pulmonale (principal); Z79.01 Long term (current) use of anticoagulants; Z51.81 Encounter for therapeutic drug level monitoring | CPT/HCPCS: 85610; 99211 ==

== ENCOUNTER 2022-05-24 10:45 | Outpatient (REF) | payer MEDICARE, SELFPAY ==
--- NOTE | ~2022-05-24 | XR_ITS ---
EXAMINATION: XR CHEST CLINICAL INFORMATION: Question lesion. COMPARISON: Chest radiographs 07/06/2019, 07/14/2018 TECHNIQUE: 2 views of the chest were obtained. FINDINGS: The lungs are clear. There is no visible mass, airspace consolidation, groundglass opacity. No pleural reaction or effusion. Heart size normal. The hilar and mediastinal contours and visualized bony structures are unremarkable. XR/XR chest 2V IMPRESSION: Unremarkable examination.
[2022-05-24 15:03] LABS: Alanine Aminotransferase 55 U/L (0-40); Albumin Level 4.4 g/dL (3.5-5.0); Alkaline Phosphatase 35 U/L (39-117); Anion Gap 12 (12-20); Aspartate Amino Transferase 31 U/L (5-37); Bilirubin Total 0.5 mg/dL (0.0-1.0); Blood Urea Nitrogen 13 mg/dL (9-16); C Reactive Protein < 0.10 mg/dL (< or = 0.50); Calcium 9.6 mg/dL (8.4-10.2); Carbon Dioxide 27 mmol/L (22-29); Chloride 104 mmol/L (96-108); Estimated Glomerular Filt Rate > 60; Free T4 (Free Thyroxine) 0.96 ng/dL (0.71-1.85); Glucose Random 131 mg/dL (60-115); Sodium 138 mmol/L (135-145); Thyroid Stimulating Hormone 1.22 uIU/mL (0.32-4.0); Total Protein 7.2 g/dL (6.5-8.0)
[2022-05-24 15:07] LABS: Vitamin B12 336 pg/mL (200-900)
== END 2022-05-24 10:46 | disposition home or self-care (01) ==
LOC: HO.10HDL 10:45
PROVIDERS: Visit Provider Internal Medicine
DX: R53.83 Other fatigue (principal); E11.9 Type 2 diabetes mellitus without complications; R79.89 Other specified abnormal findings of blood chemistry
CPT/HCPCS: 36415; 71046; 80053; 82550; 82607; 84439; 84443; 86140

== ENCOUNTER → 2022-06-04 08:01 | Outpatient (BNVA) | payer MEDICARE, SELFPAY | PROVIDERS: PCP Internal Medicine; Visit Provider Internal Medicine | DX: I26.99 Other pulmonary embolism without acute cor pulmonale (principal); Z79.01 Long term (current) use of anticoagulants; Z51.81 Encounter for therapeutic drug level monitoring | CPT/HCPCS: 85610; 99211 ==

== ENCOUNTER → 2022-06-26 08:03 | Outpatient (BNVA) | payer MEDICARE, SELFPAY | PROVIDERS: PCP Internal Medicine; Visit Provider Internal Medicine | DX: I26.99 Other pulmonary embolism without acute cor pulmonale (principal); Z79.01 Long term (current) use of anticoagulants; Z51.81 Encounter for therapeutic drug level monitoring | CPT/HCPCS: 85610; 99211 ==

== ENCOUNTER → 2022-07-10 14:45 | Outpatient (BNVA) | payer MEDICARE, SELFPAY | PROVIDERS: PCP Internal Medicine; Referring Provider Internal Medicine; Visit Provider Internal Medicine | DX: R07.2 Precordial pain (principal); R06.02 Shortness of breath; I10 Essential (primary) hypertension; R53.83 Other fatigue; E78.00 Pure hypercholesterolemia, unspecified | CPT/HCPCS: 93005; 99202 ==

== ENCOUNTER → 2022-07-11 08:15 | Outpatient (BNVA) | payer MEDICARE, SELFPAY | PROVIDERS: PCP Internal Medicine; Visit Provider Internal Medicine | DX: I26.99 Other pulmonary embolism without acute cor pulmonale (principal); Z79.01 Long term (current) use of anticoagulants; Z51.81 Encounter for therapeutic drug level monitoring | CPT/HCPCS: 85610; 99211 ==

== ENCOUNTER → 2022-07-18 08:01 | Outpatient (REF) | payer MEDICARE, SELFPAY ==
--- NOTE | ~2022-07-18 | NM_ITS ---
Exercise Myocardial perfusion study Indication: Precordial chest pain Technique: The patient was brought in for an exercise perfusion study on 07/18/2022. Patient performed exercise as per Pascual protocol and was injected 35 mCi of sestamibi was given intravenously one target HR was achieved. Images were obtained using the SPECT gamma camera interlaced with the gating device. Images were obtained in supine position. Resting perfusion study was performed on 07/22/2022. Patient was administered 35 mCi of sestamibi intravenously at rest. Images were then obtained in supine position. Images obtained with and without CT attenuation. Total DLP 95 mGy-cm. Images were processed with the software and compared side to side in short axis, horizontal long axis and vertical long axis views. Findings: The stress perfusion study showed non attenuated images show minimally reduced uptake in the basal inferior wall of the LV myocardium. Remainder of the LV myocardium is normally perfused. Attenuation corrected images show normal uptake of radiotracer in all segments of LV myocardium. The gated study shows normal LV systolic function with calculated LVEF of 62%. LV cavity is normal in size. The gated study shows normal systolic wall thickening and contraction of all segments. There is no transient ischemic dilation. Resting study shows no change in perfusion pattern compared to stress perfusion study. Gating at rest reveals normal systolic wall motion with ejection fraction at 55%. The findings are consistent with normal myocardial perfusion. NM/NM cardiolite stress test Impression: 1. Normal myocardial perfusion 2. Gated LVEF is 62% 3. Transient ischemic dilatation not present Stress EKG is equivocal for ischemia
--- NOTE | 2022-07-18 08:04 | CA_ITS ---
Transthoracic Echocardiogram Patient (Last, First, Middle): Dexter Francis W Gender: Male Date of : 1955 Age: 67 Procedure Date: 07/18/2022 Procedure Type: Transthoracic Echocardiogram Location: OP Height: 182.88 cm Weight: 87.54 kg BSA: 2.10 m2 Heart Rate: bpm BP: 142 / 100 mmHg Offset Platemaker: KAUSHIK Referring MD: Oren Whitlock MD Rail Bender: Omi Ross MD Symptoms: I25.10 - Atherosclerotic heart disease of [place] coronary artery without... Study Quality: Adequate ECG Rhythm: Sinus Conclusions: - 1. Normal LV systolic function with impaired relaxation filling pattern 2. Normal cardiac valvular Doppler 3. Mildly dilated ascending aorta at 3.8 cm 4. Normal RV systolic pressure 5. No gross pericardial effusion Findings Left Ventricle Normal left ventricular size, thickness, and systolic function. The visually estimated ejection fraction is between 60-65%. Spectral Doppler is indicative of an impaired relaxation filling pattern. E/E prime ratio is between 8 and 15 consistent with indeterminate filling pressures. Peak GLS is -18.4%, within normal limits Right Ventricle Normal right ventricular cavity size and systolic function. Atria The left atrium is mildly dilated. There is no evidence of interatrial shunt. The right atrium is normal in size. Aortic Valve Normal aortic valve structure and function. There is mild thickening of the aortic valve. There is no aortic valve stenosis. There is no aortic valve regurgitation. Mitral Valve There is mild anterior and posterior mitral leaflet thickening. There is trace mitral valve regurgitation. There is no mitral valve stenosis. Pulmonic Valve The pulmonic valve is likely normal. There is trace pulmonic valve regurgitation. Tricuspid Valve Normal tricuspid valve structure. There is trace tricuspid valve regurgitation. The right ventricular systolic pressure is normal. The right ventricular systolic pressure is 18 mmHg. Normal right atrial pressure. Great Vessels The pulmonary artery was not well visualized. There is mild dilatation of the ascending aorta measuring 3.80 cm. Venous The inferior vena cava is normal in size and collapses greater than 50% with inspiration. Pericardium/Pleural There is no evidence of pericardial effusion. Prior Study Comparison Changes noted compared to prior study dated: 07/11/2021. Ascending aorta is 3.8 cm Measurements 2D Linear Measurements IVSd: 1.04 0.6-0.9/0.6-1.0 cm LVIDd: 4.74 3.9-5.3/4.2-5.9 cm LVIDd Index: 2.26 2.4-3.2/2.2-3.1 cm/m2 LVIDs: 3.16 2.0-3.6 cm LVPWd: 1.06 0.7-1.1 cm LA Diam: 3.20 2.7-3.8/3.0-4.0 cm LAIDs Index: 1.52 1.5-2.3 cm/m2 LV Mass: 222.06 67-162/88-224 g LV Mass Index: 105.74 43-95/49-115 g/m2 LVOT Diam: 2.00 3.0+(-)1.3 cm 2D Systolic Function EF 4C: 66.70 >55% EF 2C: 62.30 >55% EF BiP: 64.50 >55% Mitral Valve MV Pk E: 0.91 MV PK A: 1.02 MV Decel Time: 200.00 E/A: 0.90 E'Lateral: 10.30 E'Medial: 7.94 E/E' Med: 11.50 E/E' Lat: 8.80 PHT: 58.00 MVA PHT: 3.79 Decel [place]: 4.56 Aortic Valve AoV Pk Jaya: 1.98 AoV Mn Jaya: 1.27 AoV VTI: 0.42 AoV Pk Grad: 16.00 Aov Mn Grad: 8.00 GUNNER Cont.VTI: 2.05 LVOT LVOT Pk Jaya: 1.38 LVOT Mn Jaya: 0.95 LVOT VTI: 0.27 LVOT Pk Grad: 8.00 LVOT Mn Grad: 4.00 LVOT Diam: 2.00 LVOT Area: 3.14 Diastolic Function MV Pk E: 0.91 MV Pk A: 1.02 E/A: 0.90 E'Medial: 7.94 E/E' Med: 11.50 E' Laterial: 10.30 E/E' Lat: 8.80 Right Ventricle TAPSE (mm): 28.60 TVS' Jaya: 12.70 Tricuspid Valve TR Pk Jaya: 1.91 TR Pk Grad: 15.00 RA Press: 3.00 RVSP: 18.00 Great Vessels Aorta Sinus of Valsalva: 3.70 2.0-3.[address] [place]: 2.79 1.7-3.4 cm Ao Asc: 3.80 2.1-3.4 cm Ao Arch: 2.70 Updated in Other Vendor System with Status of Final Omi Ross MD electronically signed on 07/20/2022 12:39:02 PM with status of Final
--- NOTE | 2022-07-18 08:04 | CA_ITS ---
Acquisition Time: 2022-07-18 08:54:14 Total Exercise Time: 00:04:51 Test Indications: CP, SOB Medications: SEE CHART Protocol: ARYAN Max HR: 139 BPM 90% of Pred: 153 BPM Max BP: 194/088 mmHG Max Work Load: 6.8 METS Exercise stress test with exercise 4 min 51 sec of Aryan protocol, achieving 90% MPHR, 6.8 METs, with need to stop due to moderate sob, dizziness and 6/10 mid chest pressure, without arrythmia, with normal chronotropic response and hypertensive response to exercise with max BP 194/88, without EKG changes meeting criteria for ischemia. In recovery his symptoms gradually resolved and BP returned to 144/94. Nuclear images pending. Test reviewed with Dr. Ross Referred By: Oren Whitlock Overread By: CUBA PAR[place]
== END ==
LOC: HO.CARD 08:01
PROVIDERS: PCP Internal Medicine; Visit Provider Internal Medicine
DX: R07.2 Precordial pain (principal); I25.10 Atherosclerotic heart disease of native coronary artery without angina pectoris; R06.02 Shortness of breath
CPT/HCPCS: 78452; 93017; 93306; 93356; A9500

== ENCOUNTER → 2022-08-01 08:03 | Outpatient (BNVA) | payer MEDICARE, SELFPAY | PROVIDERS: PCP Internal Medicine; Visit Provider Internal Medicine | DX: I26.99 Other pulmonary embolism without acute cor pulmonale (principal); Z79.01 Long term (current) use of anticoagulants; Z51.81 Encounter for therapeutic drug level monitoring | CPT/HCPCS: 85610; 99211 ==

== ENCOUNTER → 2022-08-22 08:02 | Outpatient (BNVA) | payer MEDICARE, SELFPAY | PROVIDERS: PCP Internal Medicine; Visit Provider Internal Medicine | DX: I26.99 Other pulmonary embolism without acute cor pulmonale (principal); Z79.01 Long term (current) use of anticoagulants; Z51.81 Encounter for therapeutic drug level monitoring | CPT/HCPCS: 85610; 99211 ==

== ENCOUNTER → 2022-08-23 12:52 | Outpatient (BNVA) | payer MEDICARE, SELFPAY | PROVIDERS: PCP Internal Medicine; Referring Provider Internal Medicine; Visit Provider Nurse Practitioner Family | DX: R07.2 Precordial pain (principal); R06.02 Shortness of breath; R53.82 Chronic fatigue, unspecified; R94.39 Abnormal result of other cardiovascular function study; I10 Essential (primary) hypertension; E78.00 Pure hypercholesterolemia, unspecified; E11.9 Type 2 diabetes mellitus without complications; Z98.84 Bariatric surgery status | CPT/HCPCS: 99212 ==

== ENCOUNTER 2022-09-11 09:16 | Outpatient (REF) | payer MEDICARE, SELFPAY ==
[2022-09-11 10:49] LABS: MANUAL DIFF FLAG NO
[2022-09-11 11:06] LABS: Basophils Percent Auto 0.6 % (0-2); Eosinophils Absolute Auto 0.1 X10*3/uL (0.0-0.4); Eosinophils Percent Auto 4.2 % (0-4); Hematocrit 38.9 % (42.0-52.0); Hemoglobin 13.2 g/dl (14.0-18.0); Lymphocytes Absolute Auto 1.2 X10*3/uL (1.2-4.9); Lymphocytes Percent Auto 35.6 % (20-40); Mean Corpuscular HGB Conc 33.9 g/dl (31.0-36.0); Mean Corpuscular Hemoglobin 30.8 pg (27.0-33.0); Mean Corpuscular Volume 90.7 fL (80.0-98.0); Mean Platelet Volume 9.4 fL (9.4-12.4); Monocytes Absolute Auto 0.5 X10*3/uL (0.1-1.2); Monocytes Percent Auto 13.6 % (2-11); Neutrophils Absolute Auto 1.5 x10*3/uL (2.0-8.3); Platelet Count 218 X10*3/uL (160-400); Red Blood Count 4.29 X10*6/uL (4.60-5.80); Red Cell Distribution Width 13.5 % (11.0-16.0); White Blood Count 3.3 X10*3/uL (4.8-10.8)
[2022-09-11 11:14] LABS: Estimated Average Glucose 160 mg/dL; Hemoglobin A1c % 7.2 %
[2022-09-11 11:27] LABS: Alanine Aminotransferase 113 U/L (0-40); Albumin Level 4.4 g/dL (3.5-5.0); Alkaline Phosphatase 36 U/L (39-117); Anion Gap 13 (12-20); Aspartate Amino Transferase 111 U/L (5-37); Bilirubin Total 0.5 mg/dL (0.0-1.0); Blood Urea Nitrogen 14 mg/dL (9-16); Calcium 9.3 mg/dL (8.4-10.2); Carbon Dioxide 26 mmol/L (22-29); Chloride 104 mmol/L (96-108); Estimated Glomerular Filt Rate > 60; Glucose Random 132 mg/dL (60-115); Potassium 5.2 mmol/L (3.3-5.1); Sodium 138 mmol/L (135-145); Total Protein 7.2 g/dL (6.5-8.0)
[2022-09-11 11:29] LABS: Creatinine Urine 20.14 mg/dL; Microalbum/Creatinine Ratio Ur 198.6 ug/mg cr
== END 2022-09-11 09:17 | disposition home or self-care (01) ==
LOC: HO.10HDL 09:16
PROVIDERS: Visit Provider Internal Medicine
DX: E11.9 Type 2 diabetes mellitus without complications (principal); I10 Essential (primary) hypertension; Z86.718 Personal history of other venous thrombosis and embolism
CPT/HCPCS: 36415; 80053; 82043; 83036; 83735; 85025

== ENCOUNTER 2022-09-26 15:12 | Outpatient (REF) | payer MEDICARE, SELFPAY ==
--- NOTE | ~2022-09-26 | US_ITS ---
EXAMINATION: US ABDOMEN COMPLETE CLINICAL INFORMATION: Elevated liver enzymes. COMPARISON: CT abdomen and pelvis without contrast 12/08/2018. TECHNIQUE: Real-time imaging of the abdominal viscera. FINDINGS: PANCREAS: Normal. ABDOMINAL AORTA: The proximal, mid, and distal segments are normal in caliber. INFERIOR VENA CAVA: Visualized portions are normal. LIVER: Liver is borderline enlarged measuring 16.9 cm in span. The liver contour is normal. There is diffuse increased liver parenchymal echogenicity, consistent with hepatic steatosis, with focal fatty sparing. No focal hepatic lesion. There is no intrahepatic biliary duct dilatation seen. GALLBLADDER: Normal. The gallbladder is physiologically distended without evidence of stones, sludge, polyps, wall thickening or pericholecystic fluid. COMMON BILE DUCT: Normal in caliber measuring 0.4 cm in diameter. RIGHT KIDNEY: Normal. No hydronephrosis. No renal calculi or focal parenchymal lesions. The kidney measures 9.8 cm in maximum dimension. LEFT KIDNEY: Lobular renal contour. No hydronephrosis. No renal calculi or focal parenchymal lesions. The kidney measures 12.6 cm in maximum dimension. SPLEEN: Normal. The spleen measures 8.2 cm in maximum dimension. FREE FLUID: None. US/US abdomen complete IMPRESSION: Hepatic steatosis and borderline hepatomegaly.
== END 2022-09-26 15:13 | disposition home or self-care (01) ==
LOC: HO.US 15:12
PROVIDERS: PCP Internal Medicine; Visit Provider Internal Medicine
DX: I26.99 Other pulmonary embolism without acute cor pulmonale (principal); R74.01 Elevation of levels of liver transaminase levels; Z51.81 Encounter for therapeutic drug level monitoring; Z79.01 Long term (current) use of anticoagulants
CPT/HCPCS: 76700; 85610; 99211

== ENCOUNTER → 2022-10-25 08:04 | Outpatient (BNVA) | payer MEDICARE, SELFPAY | PROVIDERS: PCP Internal Medicine; Visit Provider Internal Medicine | DX: I26.99 Other pulmonary embolism without acute cor pulmonale (principal); Z79.01 Long term (current) use of anticoagulants; Z51.81 Encounter for therapeutic drug level monitoring | CPT/HCPCS: 85610; 99211 ==

== ENCOUNTER 2022-11-08 09:33 | Outpatient (REF) | payer MEDICARE, SELFPAY ==
[2022-11-08 11:19] LABS: Estimated Average Glucose 148 mg/dL; Hemoglobin A1c % 6.8 %
[2022-11-08 11:58] LABS: Alanine Aminotransferase 119 U/L (0-40); Albumin Level 4.5 g/dL (3.5-5.0); Alkaline Phosphatase 36 U/L (39-117); Anion Gap 15 (12-20); Aspartate Amino Transferase 127 U/L (5-37); Bilirubin Total 0.6 mg/dL (0.0-1.0); Blood Urea Nitrogen 17 mg/dL (9-16); Calcium 9.8 mg/dL (8.4-10.2); Carbon Dioxide 23 mmol/L (22-29); Chloride 103 mmol/L (96-108); Estimated Glomerular Filt Rate > 60; Glucose Random 117 mg/dL (60-115); Potassium 4.5 mmol/L (3.3-5.1); Sodium 136 mmol/L (135-145); Total Protein 7.7 g/dL (6.5-8.0)
== END 2022-11-08 09:34 | disposition home or self-care (01) ==
LOC: HO.10HDL 09:33
PROVIDERS: Visit Provider Internal Medicine
DX: E11.9 Type 2 diabetes mellitus without complications (principal); R94.5 Abnormal results of liver function studies
CPT/HCPCS: 36415; 80053; 83036

== ENCOUNTER → 2022-11-15 08:00 | Outpatient (BNVA) | payer MEDICARE, SELFPAY | PROVIDERS: PCP Internal Medicine; Visit Provider Internal Medicine | DX: I26.99 Other pulmonary embolism without acute cor pulmonale (principal); Z79.01 Long term (current) use of anticoagulants; Z51.81 Encounter for therapeutic drug level monitoring | CPT/HCPCS: 85610; 99211 ==

== ENCOUNTER 2022-11-22 09:59 | Outpatient (REF) | payer MEDICARE, SELFPAY ==
[2022-11-22 13:28] LABS: MANUAL DIFF FLAG NO
[2022-11-22 13:33] LABS: Basophils Percent Auto 0.8 % (0-2); Eosinophils Absolute Auto 0.2 X10*3/uL (0.0-0.4); Eosinophils Percent Auto 4.8 % (0-4); Hemoglobin 13.1 g/dl (14.0-18.0); Imm Gran Abs Auto 0.01 X10*3/uL (0.00-0.03); Imm Gran Pct Auto 0.3 % (0.0-0.4); Lymphocytes Absolute Auto 1.2 X10*3/uL (1.2-4.9); Lymphocytes Percent Auto 31.4 % (20-40); Mean Corpuscular HGB Conc 34.5 g/dl (31.0-36.0); Mean Corpuscular Hemoglobin 31.4 pg (27.0-33.0); Mean Corpuscular Volume 91.1 fL (80.0-98.0); Mean Platelet Volume 9.8 fL (9.4-12.4); Monocytes Absolute Auto 0.4 X10*3/uL (0.1-1.2); Monocytes Percent Auto 10.7 % (2-11); Neutrophils Absolute Auto 1.9 x10*3/uL (2.0-8.3); Platelet Count 242 X10*3/uL (160-400); Red Blood Count 4.17 X10*6/uL (4.60-5.80); Red Cell Distribution Width 13.2 % (11.0-16.0); White Blood Count 3.7 X10*3/uL (4.8-10.8)
[2022-11-22 13:41] LABS: INTERNATIONAL NORM RATIO 1.8 (0.9-1.1); Prothrombin Time 21.4 SEC (10.0-13.1)
[2022-11-22 14:10] LABS: Alanine Aminotransferase 76 U/L (0-40); Albumin Level 4.2 g/dL (3.5-5.0); Alkaline Phosphatase 34 U/L (39-117); Aspartate Amino Transferase 54 U/L (5-37); Bilirubin Direct 0.2 mg/dL (0.0-0.5); Bilirubin Total 0.7 mg/dL (0.0-1.0); Iron 96 mcg/dL (45-160); Percent Iron Saturation 25 % (15-50); Total Iron Binding Capacity 390 mcg/dL (228-428); Total Protein 7.5 g/dL (6.5-8.0); Unsaturated Iron Binding 294 ug/dL
[2022-11-22 14:29] LABS: Ferritin 119 ng/mL (20-250)
[2022-11-25 04:18] LABS: HBS Num1 12.73 mIU/mL (0-7.99); HBc Num1 0.06 S/CO (0.00-0.79); HBsAGNum1 0.34 S/CO (0.00-0.99); Hepatitis A Antibody IgM 0.16 Index (0-0.79); Hepatitis B Core Antibody Nonreactive (Nonreactive); Hepatitis B Surface Antigen Negative (Negative); ~HepC Num1 0.05 S/CO (0.00-0.79); ~Hepatitis A Antibody IgM Nonreactive (Nonreactive); ~Hepatitis B Surface Antibody REACTIVE (Nonreactive); ~Hepatitis C Antibody Nonreactive (Nonreactive)
[2022-11-25 16:59] LABS: Alpha 1 Anti-trypsin 132 mg/dL (83-199)
[2022-11-26 15:13] LABS: Mitochondrial Antibodies NEGATIVE (NEGATIVE)
[2022-11-26 16:19] LABS: Anti Nuclear Antibody Pattern Nuclear, Homogeneous; Anti Nuclear Antibody Screen POSITIVE (NEGATIVE)
[2022-11-29 16:08] LABS: Smooth Muscle Antibody <20 U (<20)
[2022-12-03 00:44] LABS: FIB-ALT 62 U/L (9-46); FIB-Alpha-2-Macroglobulin 291 mg/dL (106-279); FIB-Apolipoprotein A1 181 mg/dL (94-176); FIB-GGT 75 U/L (3-70); FIB-Haptoglobin 112 mg/dL (43-212); FIB-Total Bilirubin 0.4 mg/dL (0.2-1.2); Liver Fibrosis Score 0.47; Liver Fibrosis Stage F1-F2; Nec Inflam Act Grade A1-A2; Nec Inflam Act Score 0.43
== END 2022-11-22 10:00 | disposition home or self-care (01) ==
LOC: HO.10HDL 09:59
PROVIDERS: Visit Provider Internal Medicine
DX: R79.89 Other specified abnormal findings of blood chemistry (principal); Z11.59 Encounter for screening for other viral diseases; Z72.89 Other problems related to lifestyle
CPT/HCPCS: 36415; 80076; 81596; 82103; 82728; 83540; 85025; 85610; 86015; 86038; 86039; 86255; 86256; 86704; 86706; 86709; 86803; 87340

== ENCOUNTER 2022-12-20 08:12 | Outpatient (AMB) | payer MEDICARE, SELFPAY ==
[2022-12-20 08:26] LABS: Prothrombin Time Whole Bld POC 18.8 sec (11.1-13.5); ~PT, ~INR - Anti Coag Clinic 1.6 (0.9-1.1)
--- NOTE | 2022-12-20 08:30 | MHC.OFFVISCO ---
Intake Intake Visit Reasons: Anticoagulation Allergies latex [Latex] Allergy (Mild, Verified 12/20/22 08:21) ALLERGIC TO POWDER glipizide [GLIPIZIDE] Allergy (Unknown, Verified 12/20/22 08:21) MUSCLES WEAK Medication List - Last Reconciled 12/20/22 by Edelmira Hodges RN amlodipine 2.5 mg PO DAILY amoxicillin 2,000 mg PO blood sugar diagnostic (FreeStyle Lite Strips) As directed gemfibrozil 600 mg PO BID lancets (FreeStyle Lancets) As directed losartan 50 mg PO DAILY metformin 500 mg PO BID kgqahblz-veu-IK-lycopen-lutein 0.4 mg-300 mcg- 250 mcg (Centrum Silver) 1 tab PO DAILY omega-3 fatty acids (Fish Oil Concentrate) PO omeprazole 20 mg PO DAILY warfarin 5 mg See Protocol PO DAILY Nursing Note NO CP,SOB,DIET/MED CHANGES,FALLS OR SX OF BLEEDING. NO MISSED DOSES 12.5MGM TODAY THEN RESUME USUAL DOSE AND FOLLOW-UP IN 2 WEEKS. GOOD UNDERSTANDING OF DOSING INSTR. 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
== END 2022-12-20 08:35 | disposition home or self-care (01) ==
LOC: HO.ACS 08:12
PROVIDERS: PCP Internal Medicine; Visit Provider Internal Medicine
DX: Z79.01 Long term (current) use of anticoagulants (principal)

== ENCOUNTER → 2022-12-20 08:12 | Outpatient (BNVA) | payer MEDICARE, SELFPAY | PROVIDERS: PCP Internal Medicine; Visit Provider Internal Medicine | DX: I26.99 Other pulmonary embolism without acute cor pulmonale (principal); Z79.01 Long term (current) use of anticoagulants; Z51.81 Encounter for therapeutic drug level monitoring | CPT/HCPCS: 85610; 99211 ==

== ENCOUNTER 2023-01-02 08:12 | Outpatient (AMB) | payer MEDICARE, SELFPAY ==
[2023-01-02 08:22] LABS: Prothrombin Time Whole Bld POC 20.1 sec (11.1-13.5); ~PT, ~INR - Anti Coag Clinic 1.7 (0.9-1.1)
--- NOTE | 2023-01-02 08:25 | MHC.OFFVISCO ---
Intake Intake Visit Reasons: Anticoagulation Allergies latex [Latex] Allergy (Mild, Verified 01/02/23 08:16) ALLERGIC TO POWDER glipizide [GLIPIZIDE] Allergy (Unknown, Verified 01/02/23 08:16) MUSCLES WEAK Medication List - Last Reconciled 01/02/23 by Glenis Lantigua, RN amlodipine 2.5 mg PO DAILY amoxicillin 2,000 mg PO blood sugar diagnostic (FreeStyle Lite Strips) As directed gemfibrozil 600 mg PO BID lancets (FreeStyle Lancets) As directed losartan 50 mg PO DAILY metformin 500 mg PO BID kqhegbtg-lbu-QA-lycopen-lutein 0.4 mg-300 mcg- 250 mcg (Centrum Silver) 1 tab PO DAILY omega-3 fatty acids (Fish Oil Concentrate) PO omeprazole 20 mg PO DAILY warfarin 5 mg See Protocol PO DAILY Nursing Note Amb to [facility] feeling frustrated , sts he is undergoing lab testing for enlarged liver, sts he has had an enlarged liver for twenty years, sts now his A1C is also off Medications and supplements reviewed No other changes in health, diet, medications, or supplements Denies any unusual signs and symptoms of bruising, bleeding Denies any new Chest pain, SOB, or clotting INR: 1.7 just below his therapeutic range (1.8-2.5) Nutritional guidance given: no greens today then balance greens and reds in diet Dose: increase today to 7.5mg then resume usual dosing tomorrow 10mg x 3 days and 5mg x 4 days F/U INR: 2 weeks Patient verbalizes understanding of instructions given with accurate read back/ teach back of dosing Anti-Coag Initial Assessment Social Hx Patient Tobacco Use Status: Never used Tobacco alcohol intake: current Alcohol intake frequency: holidays/special occasions only Coding Level of Care Code Est Patient Level 1 Diagnoses Current use of anticoagulant therapy Z79.01 Time Spent (min) 15 Assessment & Plan Assessment & Plan (1) Current use of anticoagulant therapy: Code(s): Z79.01 - [facility] (current) use of anticoagulants Category: Medical
== END 2023-01-02 08:31 | disposition home or self-care (01) ==
LOC: HO.ACS 08:12
PROVIDERS: PCP Internal Medicine; Visit Provider Internal Medicine
DX: Z79.01 Long term (current) use of anticoagulants (principal)

== ENCOUNTER → 2023-01-02 08:12 | Outpatient (BNVA) | payer MEDICARE, SELFPAY | PROVIDERS: PCP Internal Medicine; Visit Provider Internal Medicine | DX: I26.99 Other pulmonary embolism without acute cor pulmonale (principal); Z79.01 Long term (current) use of anticoagulants; Z51.81 Encounter for therapeutic drug level monitoring | CPT/HCPCS: 85610; 99211 ==

== ENCOUNTER 2023-01-20 09:33 | Outpatient (AMB) | payer MEDICARE, SELFPAY ==
[2023-01-20 09:47] LABS: ~PT, ~INR - Anti Coag Clinic 1.6 (0.9-1.1)
--- NOTE | 2023-01-20 09:49 | MHC.OFFVISCO ---
Intake Intake Visit Reasons: Anticoagulation Allergies latex [Latex] Allergy (Mild, Verified 01/20/23 09:41) ALLERGIC TO POWDER glipizide [GLIPIZIDE] Allergy (Unknown, Verified 01/20/23 09:41) MUSCLES WEAK Medication List - Last Reconciled 01/20/23 by Kimber Patel, RN amlodipine 2.5 mg PO DAILY amoxicillin 2,000 mg PO blood sugar diagnostic (FreeStyle Lite Strips) As directed gemfibrozil 600 mg PO BID lancets (FreeStyle Lancets) As directed losartan 50 mg PO DAILY metformin 500 mg PO BID ttulieis-rwf-CC-lycopen-lutein 0.4 mg-300 mcg- 250 mcg (Centrum Silver) 1 tab PO DAILY omega-3 fatty acids (Fish Oil Concentrate) PO omeprazole 20 mg PO DAILY warfarin 5 mg See Protocol PO DAILY Nursing Note INR 1.6?? out of therapeutic range Medications and supplements reviewed Patient status: HAVING LIVER WORK UP WITH DR AMADO, HAS LOST 10LBS TO HELP WITH DIABETES Medications or supplements: NO CHANGES AT THIS TIME APPETITE IS GOOD, HAS DECREASED ETOH SIGNIFICANTLY BARELY ANY X 8 WEEKS Denies any signs and symptoms of bleeding or clotting or unusual bruising Bleeding, bruising, clotting discussed Nutritional guidance given: AVOID GREENS TODAY AND TOMORROW, Dose: INCREASE 10MG X 4 DAYS/ 5MG X 3 DAYS F/U INR Date : 2 WEEKS ?? Patient verbalizing understanding of instructions given. Anti-Coag Initial Assessment Social Hx Patient Tobacco Use Status: Never used Tobacco alcohol intake: current Alcohol intake frequency: holidays/special occasions only Coding Level of Care Code Est Patient Level 1 Diagnoses Current use of anticoagulant therapy Z79.01 Assessment & Plan Assessment & Plan (1) Current use of anticoagulant therapy: Code(s): Z79.01 - USP (current) use of anticoagulants Category: Medical
== END 2023-01-20 10:03 | disposition home or self-care (01) ==
LOC: HO.ACS 09:34
PROVIDERS: PCP Internal Medicine; Visit Provider Internal Medicine
DX: Z79.01 Long term (current) use of anticoagulants (principal)

== ENCOUNTER 2023-01-20 09:33 | Outpatient (REF) | payer MEDICARE, SELFPAY ==
[2023-01-20 10:17] LABS: MANUAL DIFF FLAG NO
[2023-01-20 10:29] LABS: Basophils Percent Auto 0.7 % (0-2); Eosinophils Absolute Auto 0.4 X10*3/uL (0.0-0.4); Eosinophils Percent Auto 9.6 % (0-4); Hematocrit 39.1 % (42.0-52.0); Hemoglobin 13.1 g/dl (14.0-18.0); Imm Gran Abs Auto 0.01 X10*3/uL (0.00-0.03); Imm Gran Pct Auto 0.2 % (0.0-0.4); Lymphocytes Absolute Auto 1.4 X10*3/uL (1.2-4.9); Lymphocytes Percent Auto 30.6 % (20-40); Mean Corpuscular HGB Conc 33.5 g/dl (31.0-36.0); Mean Corpuscular Hemoglobin 30.3 pg (27.0-33.0); Mean Corpuscular Volume 90.5 fL (80.0-98.0); Mean Platelet Volume 9.5 fL (9.4-12.4); Monocytes Absolute Auto 0.5 X10*3/uL (0.1-1.2); Monocytes Percent Auto 10.5 % (2-11); Neutrophils Absolute Auto 2.2 x10*3/uL (2.0-8.3); Neutrophils Percent Auto 48.4 % (45-73); Platelet Count 235 X10*3/uL (160-400); Red Blood Count 4.32 X10*6/uL (4.60-5.80); Red Cell Distribution Width 12.4 % (11.0-16.0); White Blood Count 4.6 X10*3/uL (4.8-10.8)
[2023-01-20 10:38] LABS: INTERNATIONAL NORM RATIO 1.6 (0.9-1.1); Prothrombin Time 19.1 SEC (11.1-13.3)
[2023-01-20 11:39] LABS: Alanine Aminotransferase 51 U/L (0-40); Albumin Level 4.2 g/dL (3.5-5.0); Alkaline Phosphatase 37 U/L (39-117); Aspartate Amino Transferase 31 U/L (5-37); Bilirubin Direct 0.2 mg/dL (0.0-0.5); Bilirubin Total 0.4 mg/dL (0.0-1.0); Total Protein 7.4 g/dL (6.5-8.0)
== END 2023-01-20 09:34 | disposition home or self-care (01) ==
LOC: HO.LAB 09:33
PROVIDERS: PCP Internal Medicine; Visit Provider Internal Medicine
DX: I26.99 Other pulmonary embolism without acute cor pulmonale (principal); R79.89 Other specified abnormal findings of blood chemistry; Z51.81 Encounter for therapeutic drug level monitoring; Z79.01 Long term (current) use of anticoagulants
CPT/HCPCS: 36415; 80076; 85025; 85610; 99211

== ENCOUNTER 2023-02-07 07:59 | Outpatient (AMB) | payer MEDICARE, SELFPAY ==
[2023-02-07 08:09] LABS: Prothrombin Time Whole Bld POC 30.1 sec (11.1-13.5); ~PT, ~INR - Anti Coag Clinic 2.5 (0.9-1.1)
--- NOTE | 2023-02-07 08:14 | MHC.OFFVISCO ---
Intake Intake Visit Reasons: Anticoagulation Allergies latex [Latex] Allergy (Mild, Verified 02/07/23 08:03) ALLERGIC TO POWDER glipizide [GLIPIZIDE] Allergy (Unknown, Verified 02/07/23 08:03) MUSCLES WEAK Medication List - Last Reconciled 02/07/23 by Edelmira Hodges, RN amlodipine 2.5 mg PO DAILY amoxicillin 2,000 mg PO blood sugar diagnostic (FreeStyle Lite Strips) As directed gemfibrozil 600 mg PO BID lancets (FreeStyle Lancets) As directed losartan 50 mg PO DAILY metformin 500 mg PO BID vigyioez-qln-RB-lycopen-lutein 0.4 mg-300 mcg- 250 mcg (Centrum Silver) 1 tab PO DAILY omega-3 fatty acids (Fish Oil Concentrate) PO omeprazole 20 mg PO DAILY warfarin 5 mg See Protocol PO DAILY Nursing Note NO CP,SOB,DIET/MED CHANGES,FALLS OR SX OF BLEEDING. CONTINUE PRESENT DOSE AND FOLLOW-UP IN WWWKS GOOD UNDERSTANDING OF DOSING INSTR. 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
== END 2023-02-07 08:17 | disposition home or self-care (01) ==
LOC: HO.ACS 07:59
PROVIDERS: PCP Internal Medicine; Visit Provider Internal Medicine
DX: Z79.01 Long term (current) use of anticoagulants (principal)

== ENCOUNTER → 2023-02-07 07:59 | Outpatient (BNVA) | payer MEDICARE, SELFPAY | PROVIDERS: PCP Internal Medicine; Visit Provider Internal Medicine | DX: I26.99 Other pulmonary embolism without acute cor pulmonale (principal); Z79.01 Long term (current) use of anticoagulants; Z51.81 Encounter for therapeutic drug level monitoring | CPT/HCPCS: 85610; 99211 ==

== ENCOUNTER 2023-02-21 07:14 | Outpatient (REF) | payer MEDICARE, SELFPAY ==
[2023-02-21 08:51] LABS: C Reactive Protein < 0.10 mg/dL (< or = 0.50); Cholesterol 148 mg/dL (<200); HDL Cholesterol 41 mg/dL (>40); LDL Cholesterol Calculated 99 mg/dL (<100); Triglycerides 41 mg/dL (<150)
[2023-02-21 08:57] LABS: Erythrocyte Sedimentation Rate 9 MM/HR (0-15)
[2023-02-21 09:12] LABS: Free T4 (Free Thyroxine) 0.73 ng/dL (0.71-1.85); Thyroid Stimulating Hormone 2.41 uIU/mL (0.32-4.0); Vitamin B12 372 pg/mL (200-900)
[2023-02-24 10:59] LABS: Free Prostate Spec Ag 0.2 ng/mL; Percent Free Prostate Spec Ag 25 % (calc) (>25); Prostate Specific Ag Total 0.8 ng/mL (< OR = 4.0)
== END 2023-02-21 07:15 | disposition home or self-care (01) ==
LOC: HO.LAB 07:14
PROVIDERS: PCP Internal Medicine; Visit Provider Internal Medicine
DX: E11.9 Type 2 diabetes mellitus without complications (principal); E78.00 Pure hypercholesterolemia, unspecified; R35.1 Nocturia; R53.83 Other fatigue; I26.99 Other pulmonary embolism without acute cor pulmonale; Z51.81 Encounter for therapeutic drug level monitoring; Z79.01 Long term (current) use of anticoagulants
CPT/HCPCS: 36415; 80061; 82607; 84154; 84439; 84443; 85610; 85652; 86140; 99211

== ENCOUNTER 2023-02-21 08:02 | Outpatient (AMB) | payer MEDICARE, SELFPAY ==
[2023-02-21 08:18] LABS: ~PT, ~INR - Anti Coag Clinic 2.1 (0.9-1.1)
--- NOTE | 2023-02-21 08:20 | MHC.OFFVISCO ---
Intake Intake Visit Reasons: Anticoagulation Allergies latex [Latex] Allergy (Mild, Verified 02/21/23 08:06) ALLERGIC TO POWDER glipizide [GLIPIZIDE] Allergy (Unknown, Verified 02/21/23 08:06) MUSCLES WEAK Medication List - Last Reconciled 02/21/23 by Kimber Patel RN amlodipine 2.5 mg PO DAILY amoxicillin 2,000 mg PO blood sugar diagnostic (FreeStyle Lite Strips) As directed gemfibrozil 600 mg PO BID lancets (FreeStyle Lancets) As directed losartan 50 mg PO DAILY metformin 500 mg PO BID enlsvrlr-mdj-UB-lycopen-lutein 0.4 mg-300 mcg- 250 mcg (Centrum Silver) 1 tab PO DAILY omega-3 fatty acids (Fish Oil Concentrate) PO omeprazole 20 mg PO DAILY warfarin 5 mg See Protocol PO DAILY Nursing Note INR: 2.1 in therapeutic range Medications and supplements reviewed No changes in health, diet, medications, or supplements, Denies any signs and symptoms of bleeding or bruising or clotting. 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
== END 2023-02-21 08:23 | disposition home or self-care (01) ==
LOC: HO.ACS 08:02
PROVIDERS: PCP Internal Medicine; Visit Provider Internal Medicine
DX: Z79.01 Long term (current) use of anticoagulants (principal)

== ENCOUNTER 2023-03-21 08:08 | Outpatient (AMB) | payer MEDICARE, SELFPAY ==
--- NOTE | 2023-03-21 08:13 | MHC.OFFVISCO ---
Intake Intake Visit Reasons: Anticoagulation Allergies latex [Latex] Allergy (Mild, Verified 03/21/23 08:09) ALLERGIC TO POWDER glipizide [GLIPIZIDE] Allergy (Unknown, Verified 03/21/23 08:09) MUSCLES WEAK Medication List - Last Reconciled 03/21/23 by Juanita Ibarra, RN amlodipine 2.5 mg PO DAILY amoxicillin 2,000 mg PO blood sugar diagnostic (FreeStyle Lite Strips) As directed gemfibrozil 600 mg PO BID lancets (FreeStyle Lancets) As directed losartan 50 mg PO DAILY metformin 500 mg PO BID dxiogphs-keg-LV-lycopen-lutein 0.4 mg-300 mcg- 250 mcg (Centrum Silver) 1 tab PO DAILY omega-3 fatty acids (Fish Oil Concentrate) PO omeprazole 20 mg PO DAILY warfarin 5 mg See Protocol PO DAILY Nursing Note INR: 1.8-in therapeutic range 1.8-2.5 Medications and supplements reviewed No changes in health, diet, medications, or supplements, Denies any signs and symptoms of bleeding or bruising or clotting. 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
[2023-03-21 08:14] LABS: Prothrombin Time Whole Bld POC 21.2 sec (11.1-13.5); ~PT, ~INR - Anti Coag Clinic 1.8 (0.9-1.1)
== END 2023-03-21 08:45 | disposition home or self-care (01) ==
LOC: HO.ACS 08:08
PROVIDERS: PCP Internal Medicine; Visit Provider Internal Medicine
DX: Z79.01 Long term (current) use of anticoagulants (principal)

== ENCOUNTER → 2023-03-21 08:08 | Outpatient (BNVA) | payer MEDICARE, SELFPAY | PROVIDERS: PCP Internal Medicine; Visit Provider Internal Medicine | DX: I26.99 Other pulmonary embolism without acute cor pulmonale (principal); Z79.01 Long term (current) use of anticoagulants; Z51.81 Encounter for therapeutic drug level monitoring | CPT/HCPCS: 85610; 99211 ==

== ENCOUNTER 2023-03-25 09:57 | Outpatient (REF) | payer MEDICARE, SELFPAY ==
[2023-03-25 11:06] LABS: MANUAL DIFF FLAG NO
[2023-03-25 11:13] LABS: Basophils Percent Auto 0.6 % (0-2); Eosinophils Absolute Auto 0.2 X10*3/uL (0.0-0.4); Eosinophils Percent Auto 4.6 % (0-4); Hematocrit 39.9 % (42.0-52.0); Hemoglobin 13.3 g/dl (14.0-18.0); Imm Gran Abs Auto 0.01 X10*3/uL (0.00-0.03); Imm Gran Pct Auto 0.2 % (0.0-0.4); Lymphocytes Absolute Auto 1.3 X10*3/uL (1.2-4.9); Mean Corpuscular HGB Conc 33.3 g/dl (31.0-36.0); Mean Corpuscular Hemoglobin 29.8 pg (27.0-33.0); Mean Corpuscular Volume 89.3 fL (80.0-98.0); Mean Platelet Volume 9.6 fL (9.4-12.4); Monocytes Absolute Auto 0.5 X10*3/uL (0.1-1.2); Monocytes Percent Auto 10.1 % (2-11); Neutrophils Absolute Auto 2.7 x10*3/uL (2.0-8.3); Neutrophils Percent Auto 56.5 % (45-73); Platelet Count 264 X10*3/uL (160-400); Red Blood Count 4.47 X10*6/uL (4.60-5.80); Red Cell Distribution Width 12.9 % (11.0-16.0); White Blood Count 4.8 X10*3/uL (4.8-10.8)
[2023-03-25 11:20] LABS: Estimated Average Glucose 131 mg/dL; Hemoglobin A1c % 6.2 % (<6.0)
[2023-03-25 11:30] LABS: Alanine Aminotransferase 20 U/L (0-40); Albumin Level 4.3 g/dL (3.5-5.0); Alkaline Phosphatase 42 U/L (39-117); Anion Gap 14 (12-20); Aspartate Amino Transferase 15 U/L (5-37); Bilirubin Total 0.3 mg/dL (0.0-1.0); Blood Urea Nitrogen 17 mg/dL (9-16); Calcium 9.7 mg/dL (8.4-10.2); Carbon Dioxide 25 mmol/L (22-29); Chloride 104 mmol/L (96-108); Estimated Glomerular Filt Rate > 60; Glucose Random 110 mg/dL (60-115); Potassium 4.9 mmol/L (3.3-5.1); Sodium 138 mmol/L (135-145); Total Protein 7.7 g/dL (6.5-8.0)
[2023-03-29 09:54] LABS: Apolipoprotein A1 134 mg/dL (>=115)
[2023-03-31 14:44] LABS: FIB-ALT 18 U/L (9-46); FIB-Alpha-2-Macroglobulin 274 mg/dL (106-279); FIB-Apolipoprotein A1 117 mg/dL (94-176); FIB-GGT 17 U/L (3-70); FIB-Haptoglobin 79 mg/dL (43-212); FIB-Total Bilirubin 0.4 mg/dL (0.2-1.2); Liver Fibrosis Score 0.52; Liver Fibrosis Stage F2; Nec Inflam Act Grade A0; Nec Inflam Act Score 0.09
== END 2023-03-25 09:58 | disposition home or self-care (01) ==
LOC: HO.10HDL 09:57
PROVIDERS: Visit Provider Internal Medicine
DX: R79.89 Other specified abnormal findings of blood chemistry (principal); E11.9 Type 2 diabetes mellitus without complications; D64.9 Anemia, unspecified; E78.5 Hyperlipidemia, unspecified; Z86.718 Personal history of other venous thrombosis and embolism
CPT/HCPCS: 36415; 80053; 81596; 82172; 82232; 83036; 85025

== ENCOUNTER 2023-04-10 09:44 | Outpatient (REF) | payer MEDICARE, SELFPAY ==
--- NOTE | ~2023-04-10 | XR_ITS ---
EXAMINATION: XR SHOULDER, LEFT CLINICAL INFORMATION: Left shoulder pain COMPARISON: None available. TECHNIQUE: AP external rotation, Grashey, scapular Y, and axillary views of the left shoulder. FINDINGS: The bones and soft tissues are normal. No fracture. Glenohumeral and acromioclavicular alignment is anatomic with normal glenohumeral joint space. There are mild degenerative changes of the acromioclavicular joint. No abnormal soft tissue calcifications. XR/XR shoulder LT min 2V IMPRESSION: Mild degenerative changes of the acromioclavicular joint.
== END 2023-04-10 09:45 | disposition home or self-care (01) ==
LOC: HO.XRAY 09:44
PROVIDERS: PCP Internal Medicine; Visit Provider Internal Medicine
DX: M25.512 Pain in left shoulder (principal); R53.83 Other fatigue
CPT/HCPCS: 73030

== ENCOUNTER 2023-04-18 08:01 | Outpatient (AMB) | payer MEDICARE, SELFPAY ==
--- NOTE | 2023-04-18 08:08 | MHC.OFFVISCO ---
Intake Intake Visit Reasons: Anticoagulation Allergies latex [Latex] Allergy (Mild, Verified 04/18/23 08:04) ALLERGIC TO POWDER glipizide [GLIPIZIDE] Allergy (Unknown, Verified 04/18/23 08:04) MUSCLES WEAK Medication List - Last Reconciled 04/18/23 by Juanita Ibarra, RN amlodipine 2.5 mg PO DAILY amoxicillin 2,000 mg PO blood sugar diagnostic (FreeStyle Lite Strips) As directed gemfibrozil 600 mg PO BID lancets (FreeStyle Lancets) As directed losartan 50 mg PO DAILY metformin 500 mg PO BID klfvruju-wtm-BP-lycopen-lutein 0.4 mg-300 mcg- 250 mcg (Centrum Silver) 1 tab PO DAILY omega-3 fatty acids (Fish Oil Concentrate) PO omeprazole 20 mg PO DAILY warfarin 5 mg See Protocol PO DAILY Nursing Note INR: 2.4- in therapeutic range of 1.8-2.5 Medications and supplements reviewed- had covid booster yesterday No changes in health, diet, medications, or supplements, Denies any signs and symptoms of bleeding or bruising or clotting. Bleeding, bruising, clotting discussed Nutritional guidance given Dose: 5mg x 3, 10mg x 4 F/U INR: 2 weeks due to covid booster Patient verbalizes understanding of instructions given Anti-Coag Initial Assessment Social Hx Patient Tobacco Use Status: Never used Tobacco alcohol intake: current Alcohol intake frequency: holidays/special occasions only Coding Level of Care Code Est Patient Level 1 Diagnoses Current use of anticoagulant therapy Z79.01 Assessment & Plan Assessment & Plan (1) Current use of anticoagulant therapy: Code(s): Z79.01 - residential (current) use of anticoagulants Category: Medical
[2023-04-18 08:09] LABS: ~PT, ~INR - Anti Coag Clinic 2.4 (0.9-1.1)
== END 2023-04-18 08:45 | disposition home or self-care (01) ==
LOC: HO.ACS 08:01
PROVIDERS: PCP Internal Medicine; Visit Provider Internal Medicine
DX: Z79.01 Long term (current) use of anticoagulants (principal)

== ENCOUNTER → 2023-04-18 08:01 | Outpatient (BNVA) | payer MEDICARE, SELFPAY | PROVIDERS: PCP Internal Medicine; Visit Provider Internal Medicine | DX: I26.99 Other pulmonary embolism without acute cor pulmonale (principal); Z79.01 Long term (current) use of anticoagulants; Z51.81 Encounter for therapeutic drug level monitoring | CPT/HCPCS: 85610; 99211 ==

== ENCOUNTER 2023-05-05 08:25 | Outpatient (AMB) | payer MEDICARE, SELFPAY ==
--- NOTE | 2023-05-05 08:33 | MHC.OFFVISCO ---
Intake Intake Visit Reasons: Anticoagulation Allergies latex [Latex] Allergy (Mild, Verified 05/05/23 08:26) ALLERGIC TO POWDER glipizide [GLIPIZIDE] Allergy (Unknown, Verified 05/05/23 08:26) MUSCLES WEAK Medication List - Last Reconciled 05/05/23 by Kimber Patel RN amlodipine 2.5 mg PO DAILY amoxicillin 2,000 mg PO blood sugar diagnostic (FreeStyle Lite Strips) As directed gemfibrozil 600 mg PO BID lancets (FreeStyle Lancets) As directed losartan 50 mg PO DAILY metformin 500 mg PO BID wwrbpgar-noz-SO-lycopen-lutein 0.4 mg-300 mcg- 250 mcg (Centrum Silver) 1 tab PO DAILY omega-3 fatty acids (Fish Oil Concentrate) PO omeprazole 20 mg PO DAILY warfarin 5 mg See Protocol PO DAILY Nursing Note INR: 2.6 in therapeutic range Medications and supplements reviewed No changes in health, diet, medications, or supplements, Denies any signs and symptoms of bleeding or bruising or clotting. Bleeding, bruising, clotting discussed Nutritional guidance given Dose: 5mg x 3 days/ 10mg x 4 days F/U INR: 06/04/23 Patient verbalizes understanding of instructions given Anti-Coag Initial Assessment Social Hx Patient Tobacco Use Status: Never used Tobacco alcohol intake: current Alcohol intake frequency: holidays/special occasions only Coding Level of Care Code Est Patient Level 1 Results AMB INR Fingerstick AMB INR Fingerstick 2.6 Last Edit by Kimber Patel RN on 05/05/23 08:31 interface issues!
[2023-05-05 08:40] LABS: Prothrombin Time Whole Bld POC 31.4 sec (11.1-13.5); ~PT, ~INR - Anti Coag Clinic 2.6 (0.9-1.1)
== END 2023-05-05 08:35 | disposition home or self-care (01) ==
LOC: HO.ACS 08:25
PROVIDERS: PCP Internal Medicine; Visit Provider Internal Medicine
DX: Z79.01 Long term (current) use of anticoagulants (principal)

== ENCOUNTER → 2023-05-05 08:25 | Outpatient (BNVA) | payer MEDICARE, SELFPAY | PROVIDERS: PCP Internal Medicine; Visit Provider Internal Medicine | DX: I26.99 Other pulmonary embolism without acute cor pulmonale (principal); Z79.01 Long term (current) use of anticoagulants; Z51.81 Encounter for therapeutic drug level monitoring | CPT/HCPCS: 85610; 99211 ==

== ENCOUNTER 2023-06-05 08:23 | Outpatient (AMB) | payer MEDICARE, SELFPAY ==
--- NOTE | 2023-06-05 08:28 | MHC.OFFVISCO ---
Intake Intake Visit Reasons: Anticoagulation Allergies latex [Latex] Allergy (Mild, Verified 06/05/23 08:25) ALLERGIC TO POWDER glipizide [GLIPIZIDE] Allergy (Unknown, Verified 06/05/23 08:25) MUSCLES WEAK Medication List - Last Reconciled 06/05/23 by Juanita Ibarra RN amlodipine 2.5 mg PO DAILY amoxicillin 2,000 mg PO blood sugar diagnostic (FreeStyle Lite Strips) As directed gemfibrozil 600 mg PO BID lancets (FreeStyle Lancets) As directed losartan 50 mg PO DAILY metformin 500 mg PO BID eouklttt-buy-CO-lycopen-lutein 0.4 mg-300 mcg- 250 mcg (Centrum Silver) 1 tab PO DAILY omega-3 fatty acids (Fish Oil Concentrate) PO omeprazole 20 mg PO DAILY warfarin 5 mg See Protocol PO DAILY Nursing Note INR: 1.9- in therapeutic range- 1.8-2.5 Medications and supplements reviewed- no changes No changes in health, diet, medications, or supplements, Denies any signs and symptoms of bleeding or bruising or clotting. Bleeding, bruising, clotting discussed Nutritional guidance given Dose: 5mg x 3, 10mg x 4 F/U INR: 4 weeks Patient verbalizes understanding of instructions given Anti-Coag Initial Assessment Social Hx Patient Tobacco Use Status: Never used Tobacco alcohol intake: current Alcohol intake frequency: holidays/special occasions only Coding Level of Care Code Est Patient Level 1 Diagnoses Current use of anticoagulant therapy Z79.01 Results AMB INR Fingerstick AMB INR Fingerstick 1.9 Last Edit by Juanita Ibarra RN on 06/05/23 08:30 Assessment & Plan Assessment & Plan (1) Current use of anticoagulant therapy: 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
[2023-06-05 08:30] LABS: Prothrombin Time Whole Bld POC 22.4 sec (11.1-13.5); ~PT, ~INR - Anti Coag Clinic 1.9 (0.9-1.1)
== END 2023-06-05 08:33 | disposition home or self-care (01) ==
LOC: HO.ACS 08:23
PROVIDERS: PCP Internal Medicine; Visit Provider Internal Medicine
DX: Z79.01 Long term (current) use of anticoagulants (principal)

== ENCOUNTER → 2023-06-05 08:23 | Outpatient (BNVA) | payer MEDICARE, SELFPAY | PROVIDERS: PCP Internal Medicine; Visit Provider Internal Medicine | DX: I26.99 Other pulmonary embolism without acute cor pulmonale (principal); Z51.81 Encounter for therapeutic drug level monitoring; Z79.01 Long term (current) use of anticoagulants | CPT/HCPCS: 85610; 99211 ==

== ENCOUNTER 2023-07-03 08:01 | Outpatient (AMB) | payer MEDICARE, SELFPAY ==
--- NOTE | 2023-07-03 08:09 | MHC.OFFVISCO ---
Intake Intake Visit Reasons: Anticoagulation Allergies latex [Latex] Allergy (Mild, Verified 07/03/23 08:02) ALLERGIC TO POWDER glipizide [GLIPIZIDE] Allergy (Unknown, Verified 07/03/23 08:02) MUSCLES WEAK Medication List - Last Reconciled 07/03/23 by Juanita Ibarra, RN amlodipine 2.5 mg PO DAILY amoxicillin 2,000 mg PO blood sugar diagnostic (FreeStyle Lite Strips) As directed gemfibrozil 600 mg PO BID lancets (FreeStyle Lancets) As directed losartan 50 mg PO DAILY metformin 500 mg PO BID wbeqdjzu-kso-YD-lycopen-lutein 0.4 mg-300 mcg- 250 mcg (Centrum Silver) 1 tab PO DAILY omega-3 fatty acids (Fish Oil Concentrate) PO omeprazole 20 mg PO DAILY warfarin 5 mg See Protocol PO DAILY Nursing Note INR: 2.3- in therapeutic range 1.8-2.5 Medications and supplements reviewed- no changes No changes in health, diet, medications, or supplements, Denies any signs and symptoms of bleeding or bruising or clotting. 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
[2023-07-03 08:10] LABS: Prothrombin Time Whole Bld POC 27.3 sec (11.1-13.5); ~PT, ~INR - Anti Coag Clinic 2.3 (0.9-1.1)
== END 2023-07-03 08:18 | disposition home or self-care (01) ==
LOC: HO.ACS 08:01
PROVIDERS: PCP Internal Medicine; Visit Provider Internal Medicine
DX: Z79.01 Long term (current) use of anticoagulants (principal)

== ENCOUNTER → 2023-07-03 08:01 | Outpatient (BNVA) | payer MEDICARE, SELFPAY | PROVIDERS: PCP Internal Medicine; Visit Provider Internal Medicine | DX: I26.99 Other pulmonary embolism without acute cor pulmonale (principal); Z79.01 Long term (current) use of anticoagulants; Z51.81 Encounter for therapeutic drug level monitoring | CPT/HCPCS: 85610; 99211 ==

== ENCOUNTER 2023-07-15 07:09 | Outpatient (REF) | payer MEDICARE, SELFPAY ==
[2023-07-15 08:31] LABS: Alanine Aminotransferase 18 U/L (0-40); Alkaline Phosphatase 49 U/L (39-117); Aspartate Amino Transferase 15 U/L (5-37); Bilirubin Direct 0.1 mg/dL (0.0-0.5); Bilirubin Total 0.3 mg/dL (0.0-1.0); Total Protein 7.3 g/dL (6.5-8.0)
== END 2023-07-15 07:10 | disposition home or self-care (01) ==
LOC: HO.LAB 07:09
PROVIDERS: Internal Medicine; Absent Provider Internal Medicine; PCP Internal Medicine; Visit Provider Internal Medicine
DX: R79.89 Other specified abnormal findings of blood chemistry (principal); K70.9 Alcoholic liver disease, unspecified
CPT/HCPCS: 36415; 80076

== ENCOUNTER 2023-07-17 10:12 | Outpatient (REF) | payer MEDICARE, SELFPAY ==
[2023-07-17 10:47] LABS: MANUAL DIFF FLAG NO
[2023-07-17 11:09] LABS: Basophils Percent Auto 0.7 % (0-2); Eosinophils Absolute Auto 0.2 X10*3/uL (0.0-0.4); Eosinophils Percent Auto 4.9 % (0-4); Hematocrit 40.8 % (42.0-52.0); Hemoglobin 13.6 g/dl (14.0-18.0); Imm Gran Abs Auto 0.01 X10*3/uL (0.00-0.03); Imm Gran Pct Auto 0.2 % (0.0-0.4); Lymphocytes Absolute Auto 1.5 X10*3/uL (1.2-4.9); Lymphocytes Percent Auto 32.5 % (20-40); Mean Corpuscular HGB Conc 33.3 g/dl (31.0-36.0); Mean Corpuscular Hemoglobin 28.9 pg (27.0-33.0); Mean Corpuscular Volume 86.8 fL (80.0-98.0); Mean Platelet Volume 9.2 fL (9.4-12.4); Monocytes Absolute Auto 0.5 X10*3/uL (0.1-1.2); Monocytes Percent Auto 10.4 % (2-11); Neutrophils Absolute Auto 2.3 x10*3/uL (2.0-8.3); Neutrophils Percent Auto 51.3 % (45-73); Platelet Count 252 X10*3/uL (160-400); Red Cell Distribution Width 13.5 % (11.0-16.0); White Blood Count 4.5 X10*3/uL (4.8-10.8)
[2023-07-17 11:12] LABS: Estimated Average Glucose 134 mg/dL; Hemoglobin A1c % 6.3 % (<6.0)
[2023-07-17 12:22] LABS: Anion Gap 14 (12-20); Blood Urea Nitrogen 16 mg/dL (9-16); Calcium 9.5 mg/dL (8.4-10.2); Carbon Dioxide 25 mmol/L (22-29); Chloride 103 mmol/L (96-108); Estimated Glomerular Filt Rate > 60; Glucose Random 102 mg/dL (60-115); Potassium 4.6 mmol/L (3.3-5.1); Sodium 137 mmol/L (135-145)
== END 2023-07-17 10:13 | disposition home or self-care (01) ==
LOC: HO.LAB 10:12
PROVIDERS: PCP Internal Medicine; Visit Provider Internal Medicine
DX: E11.9 Type 2 diabetes mellitus without complications (principal); I10 Essential (primary) hypertension; E78.5 Hyperlipidemia, unspecified; K21.9 Gastro-esophageal reflux disease without esophagitis
CPT/HCPCS: 36415; 80048; 83036; 85025

== ENCOUNTER 2023-07-31 08:04 | Outpatient (AMB) | payer MEDICARE, SELFPAY ==
--- NOTE | 2023-07-31 08:11 | MHC.OFFVISCO ---
Intake Intake Visit Reasons: Anticoagulation Allergies latex [Latex] Allergy (Mild, Verified 07/31/23 08:07) ALLERGIC TO POWDER glipizide [GLIPIZIDE] Allergy (Unknown, Verified 07/31/23 08:07) MUSCLES WEAK Medication List - Last Reconciled 07/31/23 by Juanita Ibarra RN amlodipine 2.5 mg PO DAILY amoxicillin 2,000 mg PO blood sugar diagnostic (FreeStyle Lite Strips) As directed gemfibrozil 600 mg PO BID lancets (FreeStyle Lancets) As directed losartan 50 mg PO DAILY metformin 500 mg PO BID mzuwqvxz-zlt-AW-lycopen-lutein 0.4 mg-300 mcg- 250 mcg (Centrum Silver) 1 tab PO DAILY omega-3 fatty acids (Fish Oil Concentrate) PO omeprazole 20 mg PO DAILY warfarin 5 mg See Protocol PO DAILY Nursing Note INR: 2.5- in therapeutic range of 1.8-2.5 Medications and supplements reviewed- no changes No changes in health, diet, medications, or supplements, Denies any signs and symptoms of bleeding or bruising or clotting. Bleeding, bruising, clotting discussed Nutritional guidance given Dose: 5mg x 3, 10mg x 4 F/U INR: 4 weeks Patient verbalizes understanding of instructions given Anti-Coag Initial Assessment Social Hx Patient Tobacco Use Status: Never used Tobacco alcohol intake: current Alcohol intake frequency: holidays/special occasions only Coding Level of Care Code Est Patient Level 1 Diagnoses Current use of anticoagulant therapy Z79.01 Results AMB INR Fingerstick AMB INR Fingerstick 2.5 Last Edit by Juanita Ibarra RN on 07/31/23 08:12 Assessment & Plan Assessment & Plan (1) Current use of anticoagulant therapy: 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
[2023-07-31 08:12] LABS: Prothrombin Time Whole Bld POC 30.3 sec (11.1-13.5); ~PT, ~INR - Anti Coag Clinic 2.5 (0.9-1.1)
== END 2023-07-31 08:31 | disposition home or self-care (01) ==
LOC: HO.ACS 08:04
PROVIDERS: PCP Internal Medicine; Visit Provider Internal Medicine
DX: Z79.01 Long term (current) use of anticoagulants (principal)

== ENCOUNTER → 2023-07-31 08:04 | Outpatient (BNVA) | payer MEDICARE, SELFPAY | PROVIDERS: PCP Internal Medicine; Visit Provider Internal Medicine | DX: I26.99 Other pulmonary embolism without acute cor pulmonale (principal); Z79.01 Long term (current) use of anticoagulants; Z51.81 Encounter for therapeutic drug level monitoring | CPT/HCPCS: 85610; 99211 ==

== ENCOUNTER 2023-08-28 07:57 | Outpatient (AMB) | payer MEDICARE, SELFPAY ==
[2023-08-28 08:05] LABS: Prothrombin Time Whole Bld POC 28.9 sec (11.1-13.5); ~PT, ~INR - Anti Coag Clinic 2.4 (0.9-1.1)
--- NOTE | 2023-08-28 08:10 | MHC.OFFVISCO ---
Intake Intake Visit Reasons: Anticoagulation Allergies latex [Latex] Allergy (Mild, Verified 08/28/23 07:59) ALLERGIC TO POWDER glipizide [GLIPIZIDE] Allergy (Unknown, Verified 08/28/23 07:59) MUSCLES WEAK Medication List - Last Reconciled 08/28/23 by Kimber Patel RN amlodipine 2.5 mg PO DAILY amoxicillin 2,000 mg PO blood sugar diagnostic (FreeStyle Lite Strips) As directed gemfibrozil 600 mg PO BID lancets (FreeStyle Lancets) As directed losartan 50 mg PO DAILY metformin 500 mg PO BID ktstdpew-glv-RU-lycopen-lutein 0.4 mg-300 mcg- 250 mcg (Centrum Silver) 1 tab PO DAILY omega-3 fatty acids (Fish Oil Concentrate) PO omeprazole 20 mg PO DAILY warfarin 5 mg See Protocol PO DAILY Nursing Note INR: 2.4 in therapeutic range Medications and supplements reviewed No changes in health, diet, medications, or supplements, Denies any signs and symptoms of bleeding or bruising or clotting. Bleeding, bruising, clotting discussed Nutritional guidance given Dose: 5MG X 3 DAYS/ 10MG X 4 DAYS F/U INR: 4 WEEKS Patient verbalizes understanding of instructions given Anti-Coag Initial Assessment Social Hx Patient Tobacco Use Status: Never used Tobacco alcohol intake: current Alcohol intake frequency: holidays/special occasions only Coding Level of Care Code Est Patient Level 1 Diagnoses Current use of anticoagulant therapy Z79.01 Assessment & Plan Assessment & Plan (1) Current use of anticoagulant therapy: Code(s): Z79.01 - [facility] (current) use of anticoagulants Category: Medical
== END 2023-08-28 08:11 | disposition home or self-care (01) ==
LOC: HO.ACS 07:57
PROVIDERS: PCP Internal Medicine; Visit Provider Internal Medicine
DX: Z79.01 Long term (current) use of anticoagulants (principal)

== ENCOUNTER → 2023-08-28 07:57 | Outpatient (BNVA) | payer MEDICARE, SELFPAY | PROVIDERS: PCP Internal Medicine; Visit Provider Internal Medicine | DX: I26.99 Other pulmonary embolism without acute cor pulmonale (principal); Z79.01 Long term (current) use of anticoagulants; Z51.81 Encounter for therapeutic drug level monitoring | CPT/HCPCS: 85610; 99211 ==

== ENCOUNTER → 2023-09-25 08:00 | Outpatient (BNVA) | payer MEDICARE, SELFPAY | PROVIDERS: PCP Internal Medicine; Visit Provider Internal Medicine | DX: I26.99 Other pulmonary embolism without acute cor pulmonale (principal); Z79.01 Long term (current) use of anticoagulants; Z51.81 Encounter for therapeutic drug level monitoring | CPT/HCPCS: 85610; 99211 ==

== ENCOUNTER 2023-10-09 08:13 | Outpatient (AMB) | payer MEDICARE, SELFPAY ==
[2023-10-09 08:32] LABS: Prothrombin Time Whole Bld POC 51.7 sec (11.1-13.5); ~PT, ~INR - Anti Coag Clinic 4.3 (0.9-1.1)
--- NOTE | 2023-10-09 08:34 | MHC.OFFVISCO ---
Intake Intake Visit Reasons: Anticoagulation Allergies latex [Latex] Allergy (Mild, Verified 10/09/23 08:19) ALLERGIC TO POWDER glipizide [GLIPIZIDE] Allergy (Unknown, Verified 10/09/23 08:19) MUSCLES WEAK Medication List - Last Reconciled 10/09/23 by Glenis Salinas, RN amlodipine 2.5 mg PO DAILY amoxicillin 2,000 mg PO blood sugar diagnostic (FreeStyle Lite Strips) As directed gemfibrozil 600 mg PO BID lancets (FreeStyle Lancets) As directed losartan 50 mg PO DAILY metformin 500 mg PO BID wvocpndt-opo-FI-lycopen-lutein 0.4 mg-300 mcg- 250 mcg (Centrum Silver) 1 tab PO DAILY omega-3 fatty acids (Fish Oil Concentrate) PO omeprazole 20 mg PO DAILY warfarin 5 mg See Protocol PO DAILY Nursing Note INR 4.3?out of therapeutic range of 1.8-2.5 Medications and supplements reviewed Patient status: well but states he has not slept well in 3 days as he is going on vacation to [place], leaving tomorrow, and his dogs sense this and have been waking him up at night Medications or supplements: no change Diet: no change Denies any signs and symptoms of bleeding or clotting or unusual bruising Bleeding, bruising, clotting discussed Nutritional guidance given: to have greens today and tomorrow and avoid foods that raise the INR. New food list discussed and given to pt Dose: decrease today to 5mg then resume usual dose of 5mg X 3 days and 10mg X 4 days F/U INR Date : 12 days?? Patient verbalizing understanding of instructions given. 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
== END 2023-10-09 09:16 | disposition home or self-care (01) ==
LOC: HO.ACS 08:13
PROVIDERS: PCP Internal Medicine; Visit Provider Internal Medicine
DX: Z79.01 Long term (current) use of anticoagulants (principal)

== ENCOUNTER → 2023-10-09 08:13 | Outpatient (BNVA) | payer MEDICARE, SELFPAY | PROVIDERS: PCP Internal Medicine; Visit Provider Internal Medicine | DX: I26.99 Other pulmonary embolism without acute cor pulmonale (principal); Z51.81 Encounter for therapeutic drug level monitoring; Z79.01 Long term (current) use of anticoagulants | CPT/HCPCS: 85610; 99211 ==

== ENCOUNTER 2023-10-21 08:13 | Outpatient (AMB) | payer MEDICARE, SELFPAY ==
--- NOTE | 2023-10-21 08:17 | MHC.OFFVISCO ---
Intake Intake Visit Reasons: Anticoagulation Allergies latex [Latex] Allergy (Mild, Verified 10/21/23 08:13) ALLERGIC TO POWDER glipizide [GLIPIZIDE] Allergy (Unknown, Verified 10/21/23 08:13) MUSCLES WEAK Medication List - Last Reconciled 10/21/23 by Juanita Ibarra, RN amlodipine 2.5 mg PO DAILY amoxicillin 2,000 mg PO blood sugar diagnostic (FreeStyle Lite Strips) As directed gemfibrozil 600 mg PO BID lancets (FreeStyle Lancets) As directed losartan 50 mg PO DAILY metformin 500 mg PO BID svpendto-mdp-MT-lycopen-lutein 0.4 mg-300 mcg- 250 mcg (Centrum Silver) 1 tab PO DAILY omega-3 fatty acids (Fish Oil Concentrate) PO omeprazole 20 mg PO DAILY warfarin 5 mg See Protocol PO DAILY Nursing Note INR 1.7-? out of therapeutic range of 1.8-2.5 denies missed dose, previously elev inr's, pt req dietary management rather than dose increase to raise inr Medications and supplements reviewed Patient status: pt returned from [place] Medications or supplements: no changes Diet: same Denies any signs and symptoms of bleeding or clotting or unusual bruising Bleeding, bruising, clotting discussed Nutritional guidance given: no greens, eat reds to raise Dose: 10mg x 4, 5mg x 3 F/U INR Date : 2 weeks?? Patient verbalizing understanding of instructions given. 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
[2023-10-21 08:18] LABS: Prothrombin Time Whole Bld POC 20.8 sec (11.1-13.5); ~PT, ~INR - Anti Coag Clinic 1.7 (0.9-1.1)
== END 2023-10-21 08:29 | disposition home or self-care (01) ==
LOC: HO.ACS 08:13
PROVIDERS: PCP Internal Medicine; Visit Provider Internal Medicine
DX: Z79.01 Long term (current) use of anticoagulants (principal)

== ENCOUNTER → 2023-10-21 08:13 | Outpatient (BNVA) | payer MEDICARE, SELFPAY | PROVIDERS: PCP Internal Medicine; Visit Provider Internal Medicine | DX: I26.99 Other pulmonary embolism without acute cor pulmonale (principal); Z51.81 Encounter for therapeutic drug level monitoring; Z79.01 Long term (current) use of anticoagulants | CPT/HCPCS: 85610; 99211 ==

== ENCOUNTER 2023-11-05 07:58 | Outpatient (AMB) | payer MEDICARE, SELFPAY ==
--- NOTE | 2023-11-05 08:08 | MHC.OFFVISCO ---
Intake Intake Visit Reasons: Anticoagulation Allergies latex [Latex] Allergy (Mild, Verified 11/05/23 08:04) ALLERGIC TO POWDER glipizide [GLIPIZIDE] Allergy (Unknown, Verified 11/05/23 08:04) MUSCLES WEAK Medication List - Last Reconciled 11/05/23 by Juanita Ibarra, RN amlodipine 2.5 mg PO DAILY amoxicillin 2,000 mg PO blood sugar diagnostic (FreeStyle Lite Strips) As directed gemfibrozil 600 mg PO BID lancets (FreeStyle Lancets) As directed losartan 50 mg PO DAILY metformin 500 mg PO BID yqjfdjxq-cle-EC-lycopen-lutein 0.4 mg-300 mcg- 250 mcg (Centrum Silver) 1 tab PO DAILY omega-3 fatty acids (Fish Oil Concentrate) PO omeprazole 20 mg PO DAILY warfarin 5 mg See Protocol PO DAILY Nursing Note INR 3.2-?? out of therapeutic range of 1.8-2.5 unsure why inr is elev Medications and supplements reviewed Patient status: no c.o Medications or supplements: no changes Diet: somewhat less Denies any signs and symptoms of bleeding or clotting or unusual bruising Bleeding, bruising, clotting discussed Nutritional guidance given: eat greens to lower Dose: 5 mg today and tomm then cont 5mg x 3 10mg x 4 F/U INR Date : 2 weeks? Patient verbalizing understanding of instructions given. 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
[2023-11-05 08:09] LABS: ~PT, ~INR - Anti Coag Clinic 3.2 (0.9-1.1)
== END 2023-11-05 08:15 | disposition home or self-care (01) ==
LOC: HO.ACS 07:58
PROVIDERS: PCP Internal Medicine; Visit Provider Internal Medicine
DX: Z79.01 Long term (current) use of anticoagulants (principal)

== ENCOUNTER → 2023-11-05 07:58 | Outpatient (BNVA) | payer MEDICARE, SELFPAY | PROVIDERS: PCP Internal Medicine; Visit Provider Internal Medicine | DX: I26.99 Other pulmonary embolism without acute cor pulmonale (principal); Z79.01 Long term (current) use of anticoagulants; Z51.81 Encounter for therapeutic drug level monitoring | CPT/HCPCS: 85610; 99211 ==

== ENCOUNTER 2023-11-18 08:16 | Outpatient (AMB) | payer MEDICARE, SELFPAY ==
--- NOTE | 2023-11-18 08:30 | MHC.OFFVISCO ---
Intake Intake Visit Reasons: Anticoagulation Allergies latex [Latex] Allergy (Mild, Verified 11/18/23 08:18) ALLERGIC TO POWDER glipizide [GLIPIZIDE] Allergy (Unknown, Verified 11/18/23 08:18) MUSCLES WEAK Medication List - Last Reconciled 11/18/23 by Gelnis Lantigua, RN amlodipine 2.5 mg PO DAILY amoxicillin 2,000 mg PO blood sugar diagnostic (FreeStyle Lite Strips) As directed gemfibrozil 600 mg PO BID lancets (FreeStyle Lancets) As directed losartan 50 mg PO DAILY metformin 500 mg PO BID exhmabow-ayj-FV-lycopen-lutein 0.4 mg-300 mcg- 250 mcg (Centrum Silver) 1 tab PO DAILY omega-3 fatty acids (Fish Oil Concentrate) PO omeprazole 20 mg PO DAILY warfarin 5 mg See Protocol PO DAILY Nursing Note AMb to [facility] feeling well Medications and supplements reviewed No changes in health, diet, medications, or supplements, Denies any signs and symptoms of bleeding or bruising or clotting. INR 3.5 above therapeutic range (1.8-2.5) pt denies any ETOH, INR labile since travel to [facility] (see prev) last visit INR 3.2 pt sts not coming back for 4 weeks, discussion regarding dosing and change in dosing best to return 2 weeks, pt adamant about 4 weeks Dose:To hold warfarin today, take 5mg on Fri and Friday, 10mg on and Friday this week then follow dosing week 2 10mg M/W/F and 5mg Hernandez///sat which is a decrease by 5mg Nutritional guidance given- ok for serving cooked spinach today only then balance and try to be consistent F/U INR:as noted above recommended 2 weeks booked for 4 weeks Patient verbalizes understanding of instructions given Anti-Coag Initial Assessment Social Hx Patient Tobacco Use Status: Never used Tobacco alcohol intake: current Alcohol intake frequency: holidays/special occasions only Coding Level of Care Code Est Patient Level 1 Diagnoses Current use of anticoagulant therapy Z79.01 Time Spent (min) 15 Results AMB INR Fingerstick AMB INR Fingerstick 3.5 Last Edit by Glenis Lantigua RN on 11/18/23 08:32 interface failure Assessment & Plan Assessment & Plan (1) Current use of anticoagulant therapy: 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
[2023-11-18 08:33] LABS: Prothrombin Time Whole Bld POC 42.5 sec (11.1-13.5); ~PT, ~INR - Anti Coag Clinic 3.5 (0.9-1.1)
== END 2023-11-18 08:44 | disposition home or self-care (01) ==
LOC: HO.ACS 08:16
PROVIDERS: PCP Internal Medicine; Visit Provider Internal Medicine
DX: Z79.01 Long term (current) use of anticoagulants (principal)

== ENCOUNTER → 2023-11-18 08:16 | Outpatient (BNVA) | payer MEDICARE, SELFPAY | PROVIDERS: PCP Internal Medicine; Visit Provider Internal Medicine | DX: I26.99 Other pulmonary embolism without acute cor pulmonale (principal); Z79.01 Long term (current) use of anticoagulants; Z51.81 Encounter for therapeutic drug level monitoring | CPT/HCPCS: 85610; 99211 ==

== ENCOUNTER 2023-12-19 08:00 | Outpatient (AMB) | payer MEDICARE, SELFPAY ==
[2023-12-19 08:07] LABS: Prothrombin Time Whole Bld POC 24.4 sec (11.1-13.5)
--- NOTE | 2023-12-19 08:10 | MHC.OFFVISCO ---
Intake Intake Visit Reasons: Anticoagulation Allergies latex [Latex] Allergy (Mild, Verified 12/19/23 08:02) ALLERGIC TO POWDER glipizide [GLIPIZIDE] Allergy (Unknown, Verified 12/19/23 08:02) MUSCLES WEAK Medication List - Last Reconciled 12/19/23 by Glenis Salinas, RN amlodipine 2.5 mg PO DAILY amoxicillin 2,000 mg PO blood sugar diagnostic (FreeStyle Lite Strips) As directed gemfibrozil 600 mg PO BID lancets (FreeStyle Lancets) As directed losartan 50 mg PO DAILY metformin 500 mg PO BID ezickycb-klb-UB-lycopen-lutein 0.4 mg-300 mcg- 250 mcg (Centrum Silver) 1 tab PO DAILY omega-3 fatty acids (Fish Oil Concentrate) PO omeprazole 20 mg PO DAILY warfarin 5 mg See Protocol PO DAILY Nursing Note INR: 2.0 in therapeutic range 1.8-2.5 Medications and supplements reviewed No changes in health, diet, medications, or supplements, Denies any signs and symptoms of bleeding or bruising or clotting. 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
== END 2023-12-19 08:26 | disposition home or self-care (01) ==
LOC: HO.ACS 08:00
PROVIDERS: PCP Internal Medicine; Visit Provider Internal Medicine
DX: Z79.01 Long term (current) use of anticoagulants (principal)

== ENCOUNTER → 2023-12-19 08:00 | Outpatient (BNVA) | payer MEDICARE, SELFPAY | PROVIDERS: PCP Internal Medicine; Visit Provider Internal Medicine | DX: I26.99 Other pulmonary embolism without acute cor pulmonale (principal); Z79.01 Long term (current) use of anticoagulants; Z51.81 Encounter for therapeutic drug level monitoring | CPT/HCPCS: 85610; 99211 ==

== ENCOUNTER 2023-12-19 09:18 | Outpatient (REF) | payer MEDICARE, SELFPAY ==
[2023-12-19 11:23] LABS: Alanine Aminotransferase 23 U/L (0-40); Albumin Level 4.2 g/dL (3.5-5.0); Alkaline Phosphatase 55 U/L (39-117); Anion Gap 14 (12-20); Aspartate Amino Transferase 17 U/L (5-37); Bilirubin Total 0.4 mg/dL (0.0-1.0); Blood Urea Nitrogen 17 mg/dL (9-16); C Reactive Protein < 0.04 mg/dL (< or = 0.50); Calcium 9.7 mg/dL (8.4-10.2); Carbon Dioxide 25 mmol/L (22-29); Chloride 103 mmol/L (96-108); Estimated Glomerular Filt Rate 55; Glucose Random 209 mg/dL (60-115); Iron 134 mcg/dL (45-160); MANUAL DIFF FLAG NO; Percent Iron Saturation 32 % (15-50); Sodium 137 mmol/L (135-145); Total Iron Binding Capacity 414 mcg/dL (228-428); Total Protein 7.6 g/dL (6.5-8.0); Unsaturated Iron Binding 280 ug/dL
[2023-12-19 11:38] LABS: Eosinophils Absolute Auto 0.2 X10*3/uL (0.0-0.4); Hemoglobin 13.2 g/dl (14.0-18.0); Lymphocytes Absolute Auto 1.1 X10*3/uL (1.2-4.9); Lymphocytes Percent Auto 27.1 % (20-40); Mean Corpuscular HGB Conc 33.8 g/dl (31.0-36.0); Mean Corpuscular Hemoglobin 29.9 pg (27.0-33.0); Mean Corpuscular Volume 88.4 fL (80.0-98.0); Mean Platelet Volume 9.8 fL (9.4-12.4); Monocytes Absolute Auto 0.5 X10*3/uL (0.1-1.2); Monocytes Percent Auto 11.2 % (2-11); Neutrophils Absolute Auto 2.4 x10*3/uL (2.0-8.3); Neutrophils Percent Auto 55.7 % (45-73); Platelet Count 239 X10*3/uL (160-400); Red Blood Count 4.41 X10*6/uL (4.60-5.80); Red Cell Distribution Width 13.9 % (11.0-16.0); White Blood Count 4.2 X10*3/uL (4.8-10.8)
[2023-12-19 11:46] LABS: Vitamin B12 339 pg/mL (200-900)
[2023-12-19 12:09] LABS: Estimated Average Glucose 157 mg/dL; Hemoglobin A1C 193.4026 umol/L; Hemoglobin A1c % 7.1 % (<6.0)
== END 2023-12-19 09:19 | disposition home or self-care (01) ==
LOC: HO.10HDL 09:18
PROVIDERS: Visit Provider Internal Medicine
DX: E11.9 Type 2 diabetes mellitus without complications (principal); D64.9 Anemia, unspecified; K21.9 Gastro-esophageal reflux disease without esophagitis; K76.0 Fatty (change of) liver, not elsewhere classified
CPT/HCPCS: 36415; 80053; 82607; 83036; 83540; 85025; 86140

== ENCOUNTER 2024-01-02 07:59 | Outpatient (AMB) | payer MEDICARE, SELFPAY ==
--- NOTE | 2024-01-02 08:10 | MHC.OFFVISCO ---
Intake Intake Visit Reasons: Anticoagulation Allergies latex [Latex] Allergy (Mild, Verified 01/02/24 08:05) ALLERGIC TO POWDER glipizide [GLIPIZIDE] Allergy (Unknown, Verified 01/02/24 08:05) MUSCLES WEAK Medication List - Last Reconciled 01/02/24 by Juanita Ibarra, RN amlodipine 2.5 mg PO DAILY amoxicillin 2,000 mg PO blood sugar diagnostic (FreeStyle Lite Strips) As directed gemfibrozil 600 mg PO BID lancets (FreeStyle Lancets) As directed losartan 50 mg PO DAILY metformin 500 mg PO BID mldojfpq-tny-MO-lycopen-lutein 0.4 mg-300 mcg- 250 mcg (Centrum Silver) 1 tab PO DAILY omega-3 fatty acids (Fish Oil Concentrate) PO omeprazole 20 mg PO DAILY warfarin 5 mg See Protocol PO DAILY Nursing Note INR 1.7-?? out of therapeutic range Medications and supplements reviewed Patient status: pt retired for 2 months Medications or supplements: no changes Diet: same Denies any signs and symptoms of bleeding or clotting or unusual bruising Bleeding, bruising, clotting discussed Nutritional guidance given: pt req to raise inr with dietary management- no greens for 2 days, eat reds tor raise Dose: pt req to cont same dosing- 5mg x 3, 10mg x 4 F/U INR Date : 2 weeks? Patient verbalizing understanding of instructions given. Anti-Coag Initial Assessment Social Hx Patient Tobacco Use Status: Never used Tobacco alcohol intake: current Alcohol intake frequency: holidays/special occasions only Coding Level of Care Code Est Patient Level 1 Diagnoses Current use of anticoagulant therapy Z79.01 Assessment & Plan Assessment & Plan (1) Current use of anticoagulant therapy: Code(s): Z79.01 - [facility] (current) use of anticoagulants Category: Medical
[2024-01-02 08:11] LABS: Prothrombin Time Whole Bld POC 20.5 sec (11.1-13.5); ~PT, ~INR - Anti Coag Clinic 1.7 (0.9-1.1)
== END 2024-01-02 08:18 | disposition home or self-care (01) ==
LOC: HO.ACS 07:59
PROVIDERS: PCP Internal Medicine; Visit Provider Internal Medicine
DX: Z79.01 Long term (current) use of anticoagulants (principal)

== ENCOUNTER → 2024-01-02 07:59 | Outpatient (BNVA) | payer MEDICARE, SELFPAY | PROVIDERS: PCP Internal Medicine; Visit Provider Internal Medicine | DX: I26.99 Other pulmonary embolism without acute cor pulmonale (principal); Z79.01 Long term (current) use of anticoagulants; Z51.81 Encounter for therapeutic drug level monitoring | CPT/HCPCS: 85610; 99211 ==

== ENCOUNTER 2024-01-21 08:23 | Outpatient (AMB) | payer MEDICARE, SELFPAY ==
--- NOTE | 2024-01-21 08:54 | MHC.OFFVISCO ---
Intake Intake Visit Reasons: Anticoagulation Allergies latex [Latex] Allergy (Mild, Verified 01/21/24 08:42) ALLERGIC TO POWDER glipizide [GLIPIZIDE] Allergy (Unknown, Verified 01/21/24 08:42) MUSCLES WEAK Medication List - Last Reconciled 01/21/24 by Glenis Salinas, RN amlodipine 2.5 mg PO DAILY amoxicillin 2,000 mg PO blood sugar diagnostic (FreeStyle Lite Strips) As directed gemfibrozil 600 mg PO BID lancets (FreeStyle Lancets) As directed losartan 50 mg PO DAILY metformin 500 mg PO BID cmsaoggt-opu-YF-lycopen-lutein 0.4 mg-300 mcg- 250 mcg (Centrum Silver) 1 tab PO DAILY omega-3 fatty acids (Fish Oil Concentrate) PO omeprazole 20 mg PO DAILY warfarin 5 mg See Protocol PO DAILY Nursing Note INR: 2.3 in therapeutic range of 1.8-2.5 Medications and supplements reviewed No changes in health, diet, medications, or supplements, Denies any signs and symptoms of bleeding or bruising or clotting. Bleeding, bruising, clotting discussed Nutritional guidance given to continue to balance reds and greens Dose: 10mg X4 days and 5mg X 3 days F/U INR: 1 month, 2 weeks preferred but pt insists on 4 weeks Patient verbalizes understanding of instructions given Anti-Coag Initial Assessment Social Hx Patient Tobacco Use Status: Never used Tobacco alcohol intake: current Alcohol intake frequency: holidays/special occasions only Coding Level of Care Code Est Patient Level 1 Diagnoses Current use of anticoagulant therapy Z79.01 Results AMB INR Fingerstick AMB INR Fingerstick 2.3 Last Edit by Glenis Salinas, TUAN on 01/21/24 08:52 interface delay Assessment & Plan Assessment & Plan (1) Current use of anticoagulant therapy: Code(s): Z79.01 - [facility] (current) use of anticoagulants Category: Medical
[2024-01-21 09:10] LABS: Prothrombin Time Whole Bld POC 27.8 sec (11.1-13.5); ~PT, ~INR - Anti Coag Clinic 2.3 (0.9-1.1)
== END 2024-01-21 10:35 | disposition home or self-care (01) ==
LOC: HO.ACS 08:23
PROVIDERS: PCP Internal Medicine; Visit Provider Internal Medicine
DX: Z79.01 Long term (current) use of anticoagulants (principal)

== ENCOUNTER → 2024-01-21 08:23 | Outpatient (BNVA) | payer MEDICARE, SELFPAY | PROVIDERS: PCP Internal Medicine; Visit Provider Internal Medicine | DX: I26.99 Other pulmonary embolism without acute cor pulmonale (principal); Z79.01 Long term (current) use of anticoagulants; Z51.81 Encounter for therapeutic drug level monitoring | CPT/HCPCS: 85610; 99211 ==

== ENCOUNTER 2024-02-18 07:59 | Outpatient (AMB) | payer MEDICARE, SELFPAY ==
--- NOTE | 2024-02-18 08:07 | MHC.OFFVISCO ---
Intake Intake Visit Reasons: Anticoagulation Allergies latex [Latex] Allergy (Mild, Verified 02/18/24 08:02) ALLERGIC TO POWDER glipizide [GLIPIZIDE] Allergy (Unknown, Verified 02/18/24 08:02) MUSCLES WEAK Medication List - Last Reconciled 02/18/24 by Juanita Ibarra, RN amlodipine 2.5 mg PO DAILY amoxicillin 2,000 mg PO blood sugar diagnostic (FreeStyle Lite Strips) As directed gemfibrozil 600 mg PO BID lancets (FreeStyle Lancets) As directed losartan 50 mg PO DAILY metformin 500 mg PO BID rdxmqhgt-ylk-YJ-lycopen-lutein 0.4 mg-300 mcg- 250 mcg (Centrum Silver) 1 tab PO DAILY omega-3 fatty acids (Fish Oil Concentrate) PO omeprazole 20 mg PO DAILY warfarin 5 mg See Protocol PO DAILY Nursing Note INR 2.6-?? out of therapeutic range of 1.8-2.5 Medications and supplements reviewed Patient status: no c.o Medications or supplements: no changes Diet: appetite good Denies any signs and symptoms of bleeding or clotting or unusual bruising Bleeding, bruising, clotting discussed Nutritional guidance given: eat greens to lower Dose: 5mg x 3, 10mg x 4 F/U INR Date : pt req 4 weeks?? Patient verbalizing understanding of instructions given. 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
[2024-02-18 08:08] LABS: Prothrombin Time Whole Bld POC 30.9 sec (11.1-13.5); ~PT, ~INR - Anti Coag Clinic 2.6 (0.9-1.1)
== END 2024-02-18 08:14 | disposition home or self-care (01) ==
LOC: HO.ACS 07:59
PROVIDERS: PCP Internal Medicine; Visit Provider Internal Medicine
DX: Z79.01 Long term (current) use of anticoagulants (principal)

== ENCOUNTER → 2024-02-18 07:59 | Outpatient (BNVA) | payer MEDICARE, SELFPAY | PROVIDERS: PCP Internal Medicine; Visit Provider Internal Medicine | DX: I26.99 Other pulmonary embolism without acute cor pulmonale (principal); Z79.01 Long term (current) use of anticoagulants; Z51.81 Encounter for therapeutic drug level monitoring | CPT/HCPCS: 85610; 99211 ==

== ENCOUNTER 2024-03-17 07:54 | Outpatient (AMB) | payer MEDICARE, SELFPAY ==
[2024-03-17 08:01] LABS: Prothrombin Time Whole Bld POC 26.7 sec (11.1-13.5); ~PT, ~INR - Anti Coag Clinic 2.2 (0.9-1.1)
--- NOTE | 2024-03-17 08:06 | MHC.OFFVISCO ---
Intake Intake Visit Reasons: Anticoagulation Allergies latex [Latex] Allergy (Mild, Verified 03/17/24 07:56) ALLERGIC TO POWDER glipizide [GLIPIZIDE] Allergy (Unknown, Verified 03/17/24 07:56) MUSCLES WEAK Medication List - Last Reconciled 03/17/24 by Edelmira Hodges RN amlodipine 2.5 mg PO DAILY amoxicillin 2,000 mg PO blood sugar diagnostic (FreeStyle Lite Strips) As directed gemfibrozil 600 mg PO BID lancets (FreeStyle Lancets) As directed losartan 50 mg PO DAILY metformin 500 mg PO BID mzigxcdt-nqn-HR-lycopen-lutein 0.4 mg-300 mcg- 250 mcg (Centrum Silver) 1 tab PO DAILY omega-3 fatty acids (Fish Oil Concentrate) PO omeprazole 20 mg PO DAILY warfarin 5 mg See Protocol PO DAILY Nursing Note NO CP, SOB,DIET/ME CHANGES,FALLS OR SX OF BLEEDING. CONTINUE PRESENT DOSE AND FOLLOW-UP IN 4 WEEKS. GOOD UNDERSTANDING OF DOSING INSTR. 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
== END 2024-03-17 08:09 | disposition home or self-care (01) ==
LOC: HO.ACS 07:54
PROVIDERS: PCP Internal Medicine; Visit Provider Internal Medicine
DX: Z79.01 Long term (current) use of anticoagulants (principal)

== ENCOUNTER → 2024-03-17 07:54 | Outpatient (BNVA) | payer MEDICARE, SELFPAY | PROVIDERS: PCP Internal Medicine; Visit Provider Internal Medicine | DX: I26.99 Other pulmonary embolism without acute cor pulmonale (principal); Z79.01 Long term (current) use of anticoagulants; Z51.81 Encounter for therapeutic drug level monitoring | CPT/HCPCS: 85610; 99211 ==

== ENCOUNTER 2024-03-29 15:22 | Outpatient (REF) | payer MEDICARE, SELFPAY ==
--- NOTE | ~2024-03-29 | XR_ITS ---
EXAMINATION: XR FOOT, RIGHT CLINICAL INFORMATION: Right foot injury COMPARISON: None available. TECHNIQUE: AP, lateral, and oblique views of the right foot. FINDINGS: Nondisplaced fracture identified at lateral base of the first distal phalanx with intra-articular extension. There is diffuse swelling of the great toe. Alignment is maintained. Benign-appearing sclerotic density identified medial aspect of second proximal phalanx distally. Calcaneal spurring. XR/XR foot RT min 3V IMPRESSION: First distal phalangeal fracture. Electronically signed by: Kailey Mcmnaus MD 03/30/2024 10:18 AM EDT
== END 2024-03-29 15:23 | disposition home or self-care (01) ==
LOC: HO.XRAY 15:22
PROVIDERS: PCP Internal Medicine; Visit Provider Internal Medicine
DX: M79.671 Pain in right foot (principal)
CPT/HCPCS: 73630

== ENCOUNTER 2024-04-14 08:01 | Outpatient (REF) | payer MEDICARE, SELFPAY ==
[2024-04-14 11:10] LABS: MANUAL DIFF FLAG NO
[2024-04-14 11:22] LABS: Basophils Percent Auto 0.5 % (0-2); Eosinophils Absolute Auto 0.2 X10*3/uL (0.0-0.4); Eosinophils Percent Auto 5.1 % (0-4); Hematocrit 37.2 % (42.0-52.0); Hemoglobin 12.8 g/dl (14.0-18.0); Imm Gran Abs Auto 0.01 X10*3/uL (0.00-0.03); Imm Gran Pct Auto 0.3 % (0.0-0.4); Lymphocytes Absolute Auto 1.3 X10*3/uL (1.2-4.9); Lymphocytes Percent Auto 36.2 % (20-40); Mean Corpuscular HGB Conc 34.4 g/dl (31.0-36.0); Mean Corpuscular Hemoglobin 30.5 pg (27.0-33.0); Mean Corpuscular Volume 88.8 fL (80.0-98.0); Mean Platelet Volume 9.2 fL (9.4-12.4); Monocytes Absolute Auto 0.5 X10*3/uL (0.1-1.2); Neutrophils Absolute Auto 1.7 x10*3/uL (2.0-8.3); Neutrophils Percent Auto 44.9 % (45-73); Platelet Count 243 X10*3/uL (160-400); Red Blood Count 4.19 X10*6/uL (4.60-5.80); Red Cell Distribution Width 13.9 % (11.0-16.0); White Blood Count 3.7 X10*3/uL (4.8-10.8)
[2024-04-14 11:43] LABS: Estimated Average Glucose 174 mg/dL; Hemoglobin A1C 205.2742 umol/L; Hemoglobin A1c % 7.7 % (<6.0); Total Hemoglobin (HGBA1C) 3395.0782 umol/L
[2024-04-14 12:23] LABS: Alanine Aminotransferase 70 U/L (0-40); Albumin Level 4.2 g/dL (3.5-5.0); Alkaline Phosphatase 45 U/L (39-117); Anion Gap 14 (12-20); Aspartate Amino Transferase 46 U/L (5-37); Bilirubin Total 0.3 mg/dL (0.0-1.0); Blood Urea Nitrogen 16 mg/dL (9-16); C Reactive Protein 0.13 mg/dL (< or = 0.50); Calcium 9.5 mg/dL (8.4-10.2); Carbon Dioxide 23 mmol/L (22-29); Chloride 106 mmol/L (96-108); Estimated Glomerular Filt Rate > 60; Glucose Random 173 mg/dL (60-115); Iron 76 mcg/dL (45-160); Percent Iron Saturation 19 % (15-50); Potassium 4.7 mmol/L (3.3-5.1); Sodium 138 mmol/L (135-145); Total Iron Binding Capacity 392 mcg/dL (228-428); Total Protein 7.5 g/dL (6.5-8.0); Unsaturated Iron Binding 316 ug/dL
[2024-04-14 12:32] LABS: Vitamin B12 296 pg/mL (200-900)
[2024-04-14 12:43] LABS: Free T4 (Free Thyroxine) 0.98 ng/dL (0.71-1.85); Thyroid Stimulating Hormone 1.49 uIU/mL (0.32-4.0)
== END 2024-04-14 08:02 | disposition home or self-care (01) ==
LOC: HO.10HDL 08:01
PROVIDERS: Visit Provider Internal Medicine
DX: R53.83 Other fatigue (principal); D64.9 Anemia, unspecified; E11.9 Type 2 diabetes mellitus without complications; I10 Essential (primary) hypertension; K21.9 Gastro-esophageal reflux disease without esophagitis
CPT/HCPCS: 36415; 80053; 82607; 83036; 83540; 84439; 84443; 85025; 85610; 86140; 99211

== ENCOUNTER 2024-04-14 08:01 | Outpatient (AMB) | payer MEDICARE, SELFPAY ==
[2024-04-14 08:08] LABS: Prothrombin Time Whole Bld POC 32.7 sec (11.1-13.5); ~PT, ~INR - Anti Coag Clinic 2.7 (0.9-1.1)
--- NOTE | 2024-04-14 08:13 | MHC.OFFVISCO ---
Intake Intake Visit Reasons: Anticoagulation Allergies latex [Latex] Allergy (Mild, Verified 04/14/24 08:02) ALLERGIC TO POWDER glipizide [GLIPIZIDE] Allergy (Unknown, Verified 04/14/24 08:02) MUSCLES WEAK Medication List - Last Reconciled 04/14/24 by Glenis Lantigua, RN amlodipine 2.5 mg PO DAILY amoxicillin 2,000 mg PO blood sugar diagnostic (FreeStyle Lite Strips) As directed gemfibrozil 600 mg PO BID lancets (FreeStyle Lancets) As directed losartan 50 mg PO DAILY metformin 500 mg PO BID deczrdom-uva-RQ-lycopen-lutein 0.4 mg-300 mcg- 250 mcg (Centrum Silver) 1 tab PO DAILY omega-3 fatty acids (Fish Oil Concentrate) PO omeprazole 20 mg PO DAILY warfarin 5 mg See Protocol PO DAILY Nursing Note Amb to [facility] feeling well- sts he saw PCP yesterday sts he is going for bloodwork after this visit sts he fractured his right big toe a couple weeks ago, denies any pain, denies use of tylenol or other pain meds sts no bruising to great toe Medications and supplements reviewed No other changes in health, diet, medications, or supplements, Denies any signs and symptoms of bleeding, bruising, or clotting. Bleeding, bruising, clotting discussed INR: 2.7 above pts therapeutic range (1.8-2.5) Dose: continue usual dosing 5mg x 3 days and 10mg x 4 days Nutritional guidance given: good green today then balance diet F/U INR: 1 month Patient verbalizes understanding of instructions given Anti-Coag Initial Assessment Social Hx Patient Tobacco Use Status: Never used Tobacco alcohol intake: current Alcohol intake frequency: holidays/special occasions only Questionnaires HAS-BLED Does the patient had uncontrolled Hypertension?: No Does the patient have renal disease?: No Does the patient have liver disease?: No Does the patient have a history of stroke?: No Has the patient had major bleeding or predisposition to bleeding?: No Does the patient have labile INRs?: No Is the patient over 65 years of age?: Yes Is the patient on medications that gives them a predisposition to bleeding?: Yes Does the patient use alcohol?: Yes HAS-BLED Score: 3 CHADSVASC Age: 66-74 Gender: Male Does the patient have a history of CHF?: No Does the patient have a history of Hypertension?: Yes Does the patient have a history of Stroke/TIA/Thromboembolism?: Yes Does the patient have a history of Vascular Disease (prior RI, PAD or aortic plaque)?: No Does the patient have a history of Diabetes?: Yes CHADS VACS Score: 5 Aime Prediction Score Rsk VTE Active Cancer: No Previous VTE, excluding superficial vein thrombosis: Yes Reduced mobility: No Already known Thrombophilic Condition: Yes With-in last month Trauma and/or Surgery: No Elderly 70 year or older: No Heart and/or Respiratory Failure: No Acute Myocardial infarction and/or Ischemic Stroke: No Acute Infection and/or Rheumatologic Disorder: No Obesity (BMI 30 or greater): No Ongoing Hormonal Treatment: No Score: 6 Aime Score less than 4; Low Risk of VTE Aime Score 4 or greater; High Risk of VTE Coding Level of Care Code Est Patient Level 1 Diagnoses Current use of anticoagulant therapy Z79.01 Time Spent (min) 15 Assessment & Plan Assessment & Plan (1) Current use of anticoagulant therapy: 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
== END 2024-04-14 08:21 | disposition home or self-care (01) ==
LOC: HO.ACS 08:01
PROVIDERS: PCP Internal Medicine; Visit Provider Internal Medicine
DX: Z79.01 Long term (current) use of anticoagulants (principal)

== ENCOUNTER 2024-05-12 08:06 | Outpatient (AMB) | payer MEDICARE, SELFPAY ==
--- NOTE | 2024-05-12 08:10 | MHC.OFFVISCO ---
Intake Intake Visit Reasons: Anticoagulation Allergies latex [Latex] Allergy (Mild, Verified 05/12/24 08:07) ALLERGIC TO POWDER glipizide [GLIPIZIDE] Allergy (Unknown, Verified 05/12/24 08:07) MUSCLES WEAK Medication List - Last Reconciled 05/12/24 by Juanita Ibarra, RN amlodipine 2.5 mg PO DAILY amoxicillin 2,000 mg PO blood sugar diagnostic (FreeStyle Lite Strips) As directed gemfibrozil 600 mg PO BID lancets (FreeStyle Lancets) As directed losartan 50 mg PO DAILY metformin 500 mg PO BID ayigcrfj-jes-HW-lycopen-lutein 0.4 mg-300 mcg- 250 mcg (Centrum Silver) 1 tab PO DAILY omega-3 fatty acids (Fish Oil Concentrate) PO omeprazole 20 mg PO DAILY warfarin 5 mg See Protocol PO DAILY Nursing Note INR: 2.5- in therapeutic range of 1.8-2.5 Medications and supplements reviewed- NO CHANGES No changes in health, diet, medications, or supplements, Denies any signs and symptoms of bleeding or bruising or clotting. 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
[2024-05-12 08:12] LABS: Prothrombin Time Whole Bld POC 30.1 sec (11.1-13.5); ~PT, ~INR - Anti Coag Clinic 2.5 (0.9-1.1)
== END 2024-05-12 08:34 | disposition home or self-care (01) ==
LOC: HO.ACS 08:06
PROVIDERS: PCP Internal Medicine; Visit Provider Internal Medicine
DX: Z79.01 Long term (current) use of anticoagulants (principal)

== ENCOUNTER → 2024-05-12 08:06 | Outpatient (BNVA) | payer MEDICARE, SELFPAY | PROVIDERS: PCP Internal Medicine; Visit Provider Internal Medicine | DX: I26.99 Other pulmonary embolism without acute cor pulmonale (principal); Z79.01 Long term (current) use of anticoagulants; Z51.81 Encounter for therapeutic drug level monitoring | CPT/HCPCS: 85610; 99211 ==

== ENCOUNTER 2024-06-04 07:55 | Outpatient (AMB) | payer MEDICARE, SELFPAY ==
[2024-06-04 08:04] LABS: Prothrombin Time Whole Bld POC 20.1 sec (11.1-13.5); ~PT, ~INR - Anti Coag Clinic 1.7 (0.9-1.1)
--- NOTE | 2024-06-04 08:10 | MHC.OFFVISCO ---
Intake Intake Visit Reasons: Anticoagulation Allergies latex [Latex] Allergy (Mild, Verified 06/04/24 07:58) ALLERGIC TO POWDER glipizide [GLIPIZIDE] Allergy (Unknown, Verified 06/04/24 07:58) MUSCLES WEAK Medication List - Last Reconciled 06/04/24 by Kimber Patel RN amlodipine 2.5 mg PO DAILY amoxicillin 2,000 mg PO blood sugar diagnostic (FreeStyle Lite Strips) As directed gemfibrozil 600 mg PO BID lancets (FreeStyle Lancets) As directed losartan 50 mg PO DAILY metformin 500 mg PO BID htdhyjiy-ovj-GP-lycopen-lutein 0.4 mg-300 mcg- 250 mcg (Centrum Silver) 1 tab PO DAILY omega-3 fatty acids (Fish Oil Concentrate) PO omeprazole 20 mg PO DAILY warfarin 5 mg See Protocol PO DAILY Nursing Note INR: 1.7 JUST BELOW therapeutic range- perhaps eatuing during the holidays Medications and supplements reviewed BLOOD SUGARS RUNNING HIGH - MD AWARE AND TO HAVE A SLEEP STUDY END OF MAY AND TO ALSO F/U WITH CARDIOLOGY Denies any signs and symptoms of bleeding or bruising or clotting. Bleeding, bruising, clotting discussed Nutritional guidance given -avoid greens today and tomorrow Dose: 5mg mwf/ 10mg x 4 days F/U INR: 2 weeks Patient verbalizes understanding of instructions given Anti-Coag Initial Assessment Social Hx Patient Tobacco Use Status: Never used Tobacco alcohol intake: current Alcohol intake frequency: holidays/special occasions only Coding Level of Care Code Est Patient Level 1 Diagnoses Current use of anticoagulant therapy Z79.01 Results AMB INR Fingerstick AMB INR Fingerstick 1.7 Last Edit by Kimber Patel RN on 06/04/24 08:04 manual entry Assessment & Plan Assessment & Plan (1) Current use of anticoagulant therapy: Code(s): Z79.01 - [facility] (current) use of anticoagulants Category: Medical
== END 2024-06-04 08:17 | disposition home or self-care (01) ==
LOC: HO.ACS 07:55
PROVIDERS: PCP Internal Medicine; Visit Provider Internal Medicine
DX: Z79.01 Long term (current) use of anticoagulants (principal)

== ENCOUNTER → 2024-06-04 07:55 | Outpatient (BNVA) | payer MEDICARE, SELFPAY | PROVIDERS: PCP Internal Medicine; Visit Provider Internal Medicine | DX: I26.99 Other pulmonary embolism without acute cor pulmonale (principal); Z79.01 Long term (current) use of anticoagulants; Z51.81 Encounter for therapeutic drug level monitoring | CPT/HCPCS: 85610; 99211 ==

== ENCOUNTER 2024-06-21 08:00 | Outpatient (AMB) | payer MEDICARE, SELFPAY ==
[2024-06-21 08:08] LABS: Prothrombin Time Whole Bld POC 28.3 sec (11.1-13.5); ~PT, ~INR - Anti Coag Clinic 2.4 (0.9-1.1)
--- NOTE | 2024-06-21 08:13 | MHC.OFFVISCO ---
Intake Intake Visit Reasons: Anticoagulation Allergies latex [Latex] Allergy (Mild, Verified 06/21/24 08:03) ALLERGIC TO POWDER glipizide [GLIPIZIDE] Allergy (Unknown, Verified 06/21/24 08:03) MUSCLES WEAK Medication List - Last Reconciled 06/21/24 by Glenis Salinas, RN amlodipine 2.5 mg PO DAILY amoxicillin 2,000 mg PO blood sugar diagnostic (FreeStyle Lite Strips) As directed gemfibrozil 600 mg PO BID lancets (FreeStyle Lancets) As directed losartan 50 mg PO DAILY metformin 500 mg PO BID nlctfsmh-dug-NS-lycopen-lutein 0.4 mg-300 mcg- 250 mcg (Centrum Silver) 1 tab PO DAILY omega-3 fatty acids (Fish Oil Concentrate) PO omeprazole 20 mg PO DAILY warfarin 5 mg See Protocol PO DAILY Nursing Note INR: 2.4 in therapeutic range of 1.8-2.5 Medications and supplements reviewed No changes in health, diet, medications, or supplements, Denies any signs and symptoms of bleeding or bruising or clotting. 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
== END 2024-06-21 08:15 | disposition home or self-care (01) ==
PROVIDERS: PCP Internal Medicine; Visit Provider Internal Medicine
DX: Z79.01 Long term (current) use of anticoagulants (principal)

== ENCOUNTER → 2024-06-21 08:00 | Outpatient (BNVA) | payer MEDICARE, SELFPAY | PROVIDERS: PCP Internal Medicine; Visit Provider Internal Medicine | DX: I26.99 Other pulmonary embolism without acute cor pulmonale (principal); Z79.01 Long term (current) use of anticoagulants; Z51.81 Encounter for therapeutic drug level monitoring | CPT/HCPCS: 85610; 99211 ==

== ENCOUNTER → 2024-07-15 10:17 | Outpatient (REF) | payer MEDICARE, SELFPAY | LOC: HO.SL 10:17 | PROVIDERS: PCP Internal Medicine; Visit Provider Internal Medicine | DX: G47.33 Obstructive sleep apnea (adult) (pediatric) (principal); R53.82 Chronic fatigue, unspecified; R06.83 Snoring | CPT/HCPCS: 95806 ==

== ENCOUNTER 2024-07-19 08:07 | Outpatient (AMB) | payer MEDICARE, SELFPAY ==
[2024-07-19 08:15] LABS: Prothrombin Time Whole Bld POC 33.9 sec (11.1-13.5); ~PT, ~INR - Anti Coag Clinic 2.8 (0.9-1.1)
--- NOTE | 2024-07-19 08:23 | MHC.OFFVISCO ---
Intake Intake Visit Reasons: Anticoagulation Allergies latex [Latex] Allergy (Mild, Verified 07/19/24 08:09) ALLERGIC TO POWDER glipizide [GLIPIZIDE] Allergy (Unknown, Verified 07/19/24 08:09) MUSCLES WEAK Medication List - Last Reconciled 07/19/24 by Kimber Patel RN amlodipine 2.5 mg PO DAILY amoxicillin 2,000 mg PO blood sugar diagnostic (FreeStyle Lite Strips) As directed gemfibrozil 600 mg PO BID lancets (FreeStyle Lancets) As directed losartan 50 mg PO DAILY metformin 500 mg PO BID dxipxiak-fdo-KC-lycopen-lutein 0.4 mg-300 mcg- 250 mcg (Centrum Silver) 1 tab PO DAILY omega-3 fatty acids (Fish Oil Concentrate) PO omeprazole 20 mg PO DAILY warfarin 5 mg See Protocol PO DAILY Nursing Note INR: 2.8 NOT therapeutic range-1.8-2.5 Medications and supplements reviewed No changes in diet, medications, or supplements, BLOOD SUGARS ELEVATED AND A1C ELEVATED - HAVING LAB WORK DONE - WILL ASK IF DR MERRITT CAN ORDER -ULTRA SOUND Denies any signs and symptoms of bleeding or bruising or clotting. Bleeding, bruising, clotting discussed Nutritional guidance given Dose: KEEP SAME [id number] X 3 DAYS/ 10MG X 4 DAYS F/U INR: 3 WEEKS Patient verbalizes understanding of instructions given Anti-Coag Initial Assessment Social Hx Patient Tobacco Use Status: Never used Tobacco alcohol intake: current Alcohol intake frequency: holidays/special occasions only Coding Level of Care Code Est Patient Level 1 Diagnoses Current use of anticoagulant therapy Z79.01 Results AMB INR Fingerstick AMB INR Fingerstick 2.8 Last Edit by Kimber Patel RN on 07/19/24 08:17 EXPANSE DELAYED INTERFACIN Assessment & Plan Assessment & Plan (1) Current use of anticoagulant therapy: Code(s): Z79.01 - intermediate (current) use of anticoagulants Category: Medical
== END 2024-07-19 08:26 | disposition home or self-care (01) ==
LOC: HO.ACS 08:07
PROVIDERS: PCP Internal Medicine; Visit Provider Internal Medicine
DX: Z79.01 Long term (current) use of anticoagulants (principal)

== ENCOUNTER → 2024-07-19 08:07 | Outpatient (BNVA) | payer MEDICARE, SELFPAY | PROVIDERS: PCP Internal Medicine; Visit Provider Internal Medicine | DX: I26.99 Other pulmonary embolism without acute cor pulmonale (principal); Z79.01 Long term (current) use of anticoagulants; Z51.81 Encounter for therapeutic drug level monitoring | CPT/HCPCS: 85610; 99211 ==

== ENCOUNTER 2024-07-20 08:41 | Outpatient (REF) | payer MEDICARE, SELFPAY ==
--- OUTSIDE RECORDS SUMMARY | 2024-07-20 09:00 | XMS_ITS | Patient Health Record ---
Author Organization [facility] Address [address] [place] [address] Care Team Providers Care Chief I Dispatcher Name Role Phone Tj Bird MD Primary Care Provider Al Vigil Unavailable [phone] ALLERGIES No Known Allergies REASON FOR REFERRAL No Information MEDICATIONS Medication SIG (Take, Route, Frequency, Duration) Notes Start Date End Date Status Gemfibrozil Active Losartan Potassium 50 MG TAKE 1 TABLET B Y MOUTH EVERY DAY Oral for 90 Active Centrum Silver Adult 50+ Active Fish Oil Active metFORMIN HCl Active Omeprazole 20 MG 1 capsule Orally Once a day Active Warfarin Sodium Acti ve SOCIAL HISTORY Sex Assigned At : Social History Observation Description Sex Assigned At Unknown Alcohol Screen Question Answer Notes Did you have a drink containing alcohol in the p ast year? No Points 0 Interpretation Negative PROBLEMS Problem Type ICD Code Onset Dates Problem Status W/U Status Risk SNOMED Code Notes Problem Change in bowel function (R19.4) Active confirmed 07047748 Problem Constipation, unspecified constipation type (K59.00) Active confirmed 17045641 Problem Elevated liver function tests (R79.89) Active confirmed 935631495 Problem Fatty liver (K76.0) Active confirmed 282044854 Problem Alcoholic liver disease (K70.9) Active confirmed 01906191 VITAL SIGNS Blood pressure diastolic 00 mm Hg 02/03/2024 Height 73 in 02/03/2024 Blood pressure systolic 00 mm Hg 02/03/2024 Weight 196 lbs 02/03/2024 BMI 25.86 kg/m2 02/03/2024 Encounters Encounter Location Date Provider Diagnosis [facility] [address] [place] [address] 02/03/2024 Al Martins Elevated liver function tests R79.89 and Fatty liver K76.0 ASSESSMENTS Encounter Date Diagnosis Assessment Notes Treatment Notes Treatment Clinical Notes 02/03/2024 Elevated liver function tests (ICD-10 - R79.89) Continue to avoid alcohol 02/03/2024 Fatty liver (ICD-10 - K76.0) 02/03/2024 Other Repeat colonosc opy in 2025 PLAN OF TREATMENT Pending Test Test Name Order Date LIVER PROFILE 01/31/2023 LIVER PROFILE 11/12/2022 LIVER PROFILE 12/04/2022 CBC w DIFF 11/12/2022 CBC w DIFF 12/04/2022 FLUOR. ANTINUCLEAR AB SCREEN (MARISA) 11/2022 Prothrombin Time INR 11/12/2022 Prothrombin Time INR 12/04/2022 IRON PROFILE 11/12/2022 Ferritin 11/12/2022 Alpha 1 Anti-trypsin 11/12/2022 Liver Fibrosis Pnl 11/12/2022 Mitochondrial Antibody 11/12/2022 Smooth Muscle Antibody 11/12/2022 Hepatitis A,B,C Profile 11/12/2022 US abdomen comp w elastography Future Test Test Name Order Date COLONOSCOPY 07/26/2015 Insurance Providers Payer Name Payer Address Payer Phone Subscriber Number Group Number Insured Name Patient Relationship to Insured Coverage Start Date Coverage End Date MEDICARE OF [place] [address] 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 Patino. No resection done.Everything appeared WNL. 2019
--- OUTSIDE RECORDS SUMMARY | 2024-07-20 09:00 | XMS_ITS ---
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 Role Phone Tj Bird MD Primary Care Provider Al Vigil [phone] ALLERGIES No Known Allergies REASON FOR VISIT Patient presents today for ELEVATED LFTS MEDICATIONS Medication SIG (Take, Route, Frequency, Duration) Notes Start Date End Date Status Fish Oil Active Losartan Potassium 50 MG TAKE 1 TABLET B Y MOUTH EVERY DAY Oral for 90 Active metFORMIN HCl Active Centrum Silver Adult 50+ Active Vitamin B12 100 MCG as directed Orally Active Gemfibrozil Active amLODIPine Besylate Active Omeprazole 20 MG 1 capsule Orally [...] W/U Status Risk SNOMED Code Notes Problem Fatty liver (K76.0) Active confirmed Problem Alcoholic liver disease (K70.9) Active confirmed [id number] VITAL SIGNS BMI 24.80 kg/m2 01/31/2023 Blood pressure systolic 000 mm Hg 02/01/20 23 Blood pressure diastolic 00 mm Hg 023 Height 73 in 01/31/2023 Temperature 98.9 degrees Fahrenheit 02/01/20 23 Weight 188 lbs 01/31/2023 Encounters Encounter Location Date Provider Diagnosis [facility] [address] [place] [address] 01/31/2023 Al Martins Elevated liver function tests R79.89 ; Fatty liver K76.0 and Alcoholic liver disease K70.9 ASSESSMENTS Encounter Date Diagnosis Assessment Notes Treatment Notes Treatment Clinical Notes 01/31/2023 Elevated liver function tests (ICD-10 - R79.89) For the liver: Avoid beer and all other alcohol, watch weight and diet, and keep the diabetes well-controlled 01/31/2023 Fatty liver (ICD-10 - K76.0) 01/31/2023 Alcoholic liver disease (ICD-10 - K70.9) 01/31/2023 Other Repeat colonosc opy in 2025 PLAN OF TREATMENT Treatment Notes Assessment Notes Elevated liver function tests For the liver: Avoid beer and all other alcohol, watch weight and diet, and keep the diabetes well-controlled Other Repeat colonoscopy i n 2025 Pending Test Test Name Order Date LIVER PROFILE 01/31/2023 Next Appt Details Follow Up: 1 Year, Reason: Progress Notes * Examination Category Sub-Category Detail Notes General Examination GENERAL APPEARANCE: pleasant , well nourished, well developed, in no acute distress HEAD: EYES: sclera non-icteric EARS: NOSE: THROAT: NECK/THYROID: no cervical lymphade nopathy, neck supple HEART: S1, S2 normal CHEST: LUNGS: clear to auscultatio n bilaterally ABDOMEN: normal bowel sounds, no guarding or rigidity, no guarding or rigidity, no masses palpable, soft, nontender, nondistended NEUROLOGIC: alert and oriented SKIN: nonjaundiced, no spi cinyd angiomata EXTREMITIES: no edema PERIPHERAL PULSES: BACK: BREASTS: MUSCULOSKELETAL: MALE GENITOURINARY: LYMPH NODES: RECTAL EXAM: FEMALE GENITOURINARY: ORAL CAVITY: mucosa moist
--- OUTSIDE RECORDS SUMMARY | 2024-07-20 09:01 | XMS_ITS ---
Author Organization [facility] Address [address] [place] [address] Care Team Providers Care Microbiological Analyst Name Role Phone Tj Bird MD Primary Care Provider Al Vigil [phone] ALLERGIES No Known Allergies REASON FOR VISIT Patient presents today for elevated lft's MEDICATIONS Medication SIG (Take, Route, Frequency, Duration) Notes Start Date End Date Status Losartan Potassium 50 MG TAKE 1 TABLET B Y MOUTH EVERY DAY Oral for 90 Active Centrum Silver Adult 50+ Active Fish Oil Active metFORMIN HCl Active Warfarin Sodium Acti ve Gemfibrozil Active Omeprazole 20 MG 1 capsule Orally Once a day Active SOCIAL HISTORY Sex Assigned At : Social History Observation Description Sex Assigned At Unknown Alcohol Screen Question Answer Notes Did you have a drink containing alcohol in the p ast year? No Points 0 Interpretation Negative VITAL SIGNS BMI 25.86 kg/m2 02/03/2024 Blood pressure systolic 00 mm Hg 02/03/20 24 Blood pressure diastolic 00 mm Hg 024 Height 73 in 02/03/2024 Weight 196 lbs 02/03/2024 Encounters Encounter Location Date Provider Diagnosis [facility] [address] [place] [phone] 02/03/2024 Al Martins Elevated liver function tests R79.89 and Fatty liver K76.0 ASSESSMENTS Encounter Date Diagnosis Assessment Notes Treatment Notes Treatment Clinical Notes 02/03/2024 Elevated liver function tests (ICD-10 - R79.89) Continue to avoid alcohol 02/03/2024 Fatty liver (ICD-10 - K76.0) 02/03/2024 Other Repeat colonosc opy in 2025 PLAN OF TREATMENT Treatment Notes Assessment Notes Elevated liver function tests Continue t o avoid alcohol Other Repeat colonoscopy i n 2025 Next Appt Details Follow Up: prn, Reason: Progress Notes * Examination Category Sub-Category [...] alert and oriented SKIN: nonjaundiced, no spi cindy angiomata EXTREMITIES: no edema PERIPHERAL PULSES: BACK: BREASTS: MUSCULOSKELETAL: MALE GENITOURINARY: LYMPH NODES: RECTAL EXAM: FEMALE GENITOURINARY: ORAL CAVITY: mucosa moist
[2024-07-20 10:24] LABS: MANUAL DIFF FLAG NO
[2024-07-20 10:31] LABS: Basophils Percent Auto 0.8 % (0-2); Eosinophils Absolute Auto 0.2 X10*3/uL (0.0-0.4); Eosinophils Percent Auto 6.2 % (0-4); Hematocrit 36.5 % (42.0-52.0); Hemoglobin 12.1 g/dl (14.0-18.0); Imm Gran Abs Auto 0.01 X10*3/uL (0.00-0.03); Imm Gran Pct Auto 0.3 % (0.0-0.4); Lymphocytes Percent Auto 28.2 % (20-40); Mean Corpuscular HGB Conc 33.2 g/dl (31.0-36.0); Mean Corpuscular Hemoglobin 29.9 pg (27.0-33.0); Mean Corpuscular Volume 90.1 fL (80.0-98.0); Mean Platelet Volume 9.3 fL (9.4-12.4); Monocytes Absolute Auto 0.5 X10*3/uL (0.1-1.2); Monocytes Percent Auto 13.8 % (2-11); Neutrophils Absolute Auto 1.8 x10*3/uL (2.0-8.3); Neutrophils Percent Auto 50.7 % (45-73); Platelet Count 224 X10*3/uL (160-400); Red Blood Count 4.05 X10*6/uL (4.60-5.80); Red Cell Distribution Width 13.3 % (11.0-16.0); White Blood Count 3.5 X10*3/uL (4.8-10.8)
[2024-07-20 10:37] LABS: Appearance Urine Clear; Color Urine Yellow; Glucose Urine UA 100 mg/dL (Negative); Leukocyte Esterase Urine Negative (Negative); Nitrite Urine Negative (Negative); PH 5.5 (5.0-9.0); Specific Gravity - Urine 1.015 (1.005-1.025); UMIC TRIGGER UA YES; Urine Blood Negative (Negative); Urine Ketones Negative (Negative); Urine Protein 30 (1+) mg/dL (Neg-Trace)
[2024-07-20 10:39] LABS: Bacteria Urine None Seen (None Seen); Hyaline Casts Urine 0-2 /LPF (0-2); RBC Urine 0-2 /HPF (0-2); Squamous Epithelial Cell Urine 0-2 /HPF (0-2); WBC Urine 0-5 /HPF (0-5)
[2024-07-20 10:57] LABS: Estimated Average Glucose 189 mg/dL; Hemoglobin A1C 249.5519 umol/L; Hemoglobin A1c % 8.2 % (<6.0); Total Hemoglobin (HGBA1C) 3752.1575 umol/L
[2024-07-20 11:02] LABS: Alanine Aminotransferase 59 U/L (0-40); Alkaline Phosphatase 36 U/L (39-117); Anion Gap 10 (12-20); Aspartate Amino Transferase 34 U/L (5-37); Bilirubin Total 0.2 mg/dL (0.0-1.0); Blood Urea Nitrogen 18 mg/dL (9-16); Calcium 8.6 mg/dL (8.4-10.2); Carbon Dioxide 23 mmol/L (22-29); Chloride 111 mmol/L (96-108); Cholesterol 170 mg/dL (<200); Estimated Glomerular Filt Rate > 60; Glucose Fasting 123 mg/dL (60-99); HDL Cholesterol 42 mg/dL (>40); LDL Cholesterol Calculated 110 mg/dL (<100); Sodium 140 mmol/L (135-145); Total Protein 7.3 g/dL (6.5-8.0); Triglycerides 91 mg/dL (<150)
[2024-07-20 11:13] LABS: Prostate Specific Antigen Scr 0.96 ng/mL (<0.05-4.0)
[2024-07-20 11:16] LABS: Microalbum/Creatinine Ratio Ur 278.2 ug/mg cr (<30)
== END 2024-07-20 08:42 | disposition home or self-care (01) ==
LOC: HO.10HDL 08:41
PROVIDERS: Visit Provider Internal Medicine
DX: E11.65 Type 2 diabetes mellitus with hyperglycemia (principal); I10 Essential (primary) hypertension; E78.00 Pure hypercholesterolemia, unspecified; Z12.5 Encounter for screening for malignant neoplasm of prostate
CPT/HCPCS: 36415; 80053; 80061; 81001; 82043; 82570; 83036; 84153; 85025

== ENCOUNTER 2024-08-09 07:55 | Outpatient (AMB) | payer MEDICARE, SELFPAY ==
--- OUTSIDE RECORDS SUMMARY | 2024-08-09 07:59 | XMS_ITS ---
Author Organization [facility] Address [address] [place] [address] Care Team Providers Care Wireless Development Manager Name Role Phone Tj Bird MD Primary Care Provider Al Vigil [phone] ALLERGIES No Known Allergies REASON FOR VISIT [...] No Points 0 Interpretation Negative VITAL SIGNS Blood pressure systolic 00 mm Hg 02/03/20 24 Blood pressure diastolic 00 mm Hg 024 Height 73 in 02/03/2024 Weight 196 lbs 02/03/2024 BMI 25.86 kg/m2 02/03/2024 Encounters Encounter Location Date Provider Diagnosis [facility] [address] [place] [phone] 02/03/2024 Al Martins Elevated liver function tests [...]
--- OUTSIDE RECORDS SUMMARY | 2024-08-09 07:59 | XMS_ITS | Patient Health Record ---
Author Organization [facility] Address [address] [place] [address] Care Team Providers Care Qa Automation Architect Name Role Phone Tj Bird MD Primary Care Provider Al Vigil Unavailable [phone] ALLERGIES No Known Allergies REASON FOR REFERRAL [...] W/U Status Risk SNOMED Code Notes Problem Elevated liver function tests (R79.89) Active confirmed 107191995 Problem Fatty liver (K76.0) Active confirmed 253979597 Problem Change in bowel function (R19.4) Active confirmed 01052366 Problem Alcoholic liver disease (K70.9) Active confirmed 31589970 Problem Constipation, unspecified constipation type (K59.00) Active confirmed 00153002 VITAL SIGNS Blood pressure diastolic 00 mm Hg 02/03/2024 Height 73 in 02/03/2024 Blood pressure systolic 00 mm Hg 02/03/2024 Weight 196 lbs 02/03/2024 BMI 25.86 kg/m2 02/03/2024 Encounters Encounter Location Date Provider Diagnosis [facility] [address] [place] [address] 02/03/2024 Al Martins Elevated liver function tests [...] Date MEDICARE OF [place] [address] [place] [address] [phone] [id number] REINIER LOUIS Self - patient is the insured [employer] ATTN CLAIMS [address] [place] [address] [id number] REINIER LOUIS Self - patient is the insured MEDICAL (GENERAL) HISTORY Medical History History ICD Code Screening Colonoscopy,09/2006--hyperplast ic polyp, internal hemorrhoids Denies [place],CVA,Lung disease,renal disease NIDDM Left LE DVT in [...]
[2024-08-09 08:10] LABS: ~PT, ~INR - Anti Coag Clinic 1.9 (0.9-1.1)
--- NOTE | 2024-08-09 08:14 | MHC.OFFVISCO ---
Intake Intake Visit Reasons: Anticoagulation Allergies latex [Latex] Allergy (Mild, Verified 08/09/24 08:04) ALLERGIC TO POWDER glipizide [GLIPIZIDE] Allergy (Unknown, Verified 08/09/24 08:04) MUSCLES WEAK Medication List - Last Reconciled 08/09/24 by Glenis Salinas, RN amlodipine 2.5 mg PO DAILY amoxicillin 2,000 mg PO blood sugar diagnostic (FreeStyle Lite Strips) As directed gemfibrozil 600 mg PO BID lancets (FreeStyle Lancets) As directed losartan 50 mg PO DAILY metformin 500 mg PO BID xikuauqd-kss-KM-lycopen-lutein 0.4 mg-300 mcg- 250 mcg (Centrum Silver) 1 tab PO DAILY omega-3 fatty acids (Fish Oil Concentrate) PO omeprazole 20 mg PO DAILY warfarin 5 mg See Protocol PO DAILY Nursing Note INR: 1.9 in therapeutic range of 1.8-2.5 Medications and supplements reviewed No changes in health, diet, medications, or supplements, Denies any signs and symptoms of bleeding or bruising or clotting. Bleeding, bruising, clotting discussed Nutritional guidance given Dose: same dose of 10mg X 4 days and 5mg X 3 days (Mon, Wed & Fri) F/U INR: 4 weeks Patient verbalizes understanding of instructions given Anti-Coag Initial Assessment Social Hx Patient Tobacco Use Status: Never used Tobacco alcohol intake: current Alcohol intake frequency: holidays/special occasions only Coding Level of Care Code Est Patient Level 1 Diagnoses Current use of anticoagulant therapy Z79.01 Results AMB INR Fingerstick AMB INR Fingerstick 1.9 Last Edit by Glenis Salinas RN on 08/09/24 08:10 interface delay Assessment & Plan Assessment & Plan (1) Current use of anticoagulant therapy: Code(s): Z79.01 - support staff (current) use of anticoagulants Category: Medical
== END 2024-08-09 08:16 | disposition home or self-care (01) ==
LOC: HO.ACS 07:55
PROVIDERS: PCP Internal Medicine; Visit Provider Internal Medicine
DX: Z79.01 Long term (current) use of anticoagulants (principal)

== ENCOUNTER → 2024-08-09 07:55 | Outpatient (BNVA) | payer MEDICARE, SELFPAY | PROVIDERS: PCP Internal Medicine; Visit Provider Internal Medicine | DX: I26.99 Other pulmonary embolism without acute cor pulmonale (principal); Z79.01 Long term (current) use of anticoagulants; Z51.81 Encounter for therapeutic drug level monitoring | CPT/HCPCS: 85610; 99211 ==

== ENCOUNTER 2024-08-23 08:05 | Outpatient (AMB) | payer MEDICARE, SELFPAY ==
--- OUTSIDE RECORDS SUMMARY | 2024-08-23 08:09 | XMS_ITS ---
Author Organization [facility] Address [address] [place] [phone] Care Team Providers Care Contract Specialist Name Role Phone Tj Bird MD Primary Care Provider Al Vigil [phone] Allergies No Known Allergies REASON FOR VISIT Patient presents today for elevated lft's Medications Medication SIG (Take, Route, Frequency, Duration) Notes Start Date End Date Status Losartan Potassium 50 MG TAKE 1 TABLET B Y MOUTH EVERY DAY Oral for 90 Active Centrum Silver Adult 50+ Active Fish Oil Active metFORMIN HCl Active Warfarin Sodium Acti ve Gemfibrozil Active Omeprazole 20 MG 1 capsule Orally Once a day Active Social History Alcohol Screen Question Answer Notes Did you have a drink containing alcohol in the p ast year? No Points 0 Interpretation Negative Section Notes: Nonsmoker; few beers daily, but cut down dramatically summer Vital Signs Blood pressure systolic 00 mm Hg 02/03/20 24 Blood pressure diastolic 00 mm Hg 024 Height 73 in 02/03/2024 Weight 196 lbs 02/03/2024 BMI 25.86 kg/m2 02/03/2024 Encounters Encounter Location Date Provider Diagnosis [facility] [address] [place] [phone] 02/03/2024 Al Martins Elevated liver function tests R79.89 and Fatty liver K76.0 Assessments Encounter Date Diagnosis (ICD Code) Assessment Notes Treatment Notes Treatment Clinical Notes Section Notes 02/03/2024 Elevated liver function tests (ICD-10 - R79.89) Continue to avoid alcohol Overall, Reinier appears well. His significant decrease in his alcohol use has clearly helped his liver laboratories to normalize. We did review that he needs to continue avoiding alcohol long-term both in regard to his underlying fatty liver, and also in regard to his overall health. We did review that watching his diet, losing weight, and maintaining good control of his diabetes will help maintain a healthy liver as well. I don't think he needs any further workup in regard to his liver at this time. I did advised to continue to followup with you for periodic liver tests. We did review that he will be due for a followup screening colonoscopy in 2025. I will see him otherwise on a p.r.n. basis. Reinier was comfortable with this plan. Thank you again for allowing me to participate in Reinier's care. I shall continue to keep you advised of his progress. 02/03/2024 Fatty liver (ICD-10 - K76.0) Overall, Reinier appears well. His significant decrease in his alcohol use has clearly helped his liver laboratories to normalize. We did review that he needs to continue avoiding alcohol long-term both in regard to his underlying fatty liver, and also in regard to his overall health. We did review that watching his diet, losing weight, and maintaining good control of his diabetes will help maintain a healthy liver as well. I don't think he needs any further workup in regard to his liver at this time. I did advised to continue to followup with you for periodic liver tests. We did review that he will be due for a followup screening colonoscopy in 2025. I will see him otherwise on a p.r.n. basis. Reinier was comfortable with this plan. Thank you again for allowing me to participate in Reinier's care. I shall continue to keep you advised of his progress. 02/03/2024 Other Repeat colonoscopy in 2025 Overall, Reinier appears well. His significant decrease in his alcohol use has clearly helped his liver laboratories to normalize. We did review that he needs to continue avoiding alcohol long-term both in regard to his underlying fatty liver, and also in regard to his overall health. We did review that watching his diet, losing weight, and maintaining good control of his diabetes will help maintain a healthy liver as well. I don't think he needs any further workup in regard to his liver at this time. I did advised to continue to followup with you for periodic liver tests. We did review that he will be due for a followup screening colonoscopy in 2025. I will see him otherwise on a p.r.n. basis. Reinier was comfortable with this plan. Thank you again for allowing me to participate in Reinier's care. I shall continue to keep you advised of his progress. Plan Of Treatment Treatment Notes Assessment Notes Elevated liver function tests Continue t o avoid alcohol Other Repeat colonoscopy i n 2025 Next Appt Details Follow Up: prn, Reason: Progress Notes * REINIER LOUIS WDOB: (68 yo M)Acc No.[id number]:02/03/2024 Progress Notes Patient:?REINIER LOUIS W Provider:?Al Martins MD :1955???Age:68 Y???Sex:Male Malik e:02/03/2024 Address: [address], [place], [facility] Pcp:Tj Bird MD Subjective: * Chief Complaints: * ???Patient presents today fo r elevated lft's * HPI: ???incontinence:? I saw Reinier in followup today in regard to his previously elevated LFTs in relation to fatty liver and some alcohol related liver issues. ?Since I last saw Reinier in January of 2023 he reports that he has been feeling well. He describes a significantly diminished use of alcohol since that time. He describes having one or 2 beers per week and occasional small amount of alcohol if he goes to a wedding. Prior to that he had been having at least several beers every day. He enjoys a good appetite and denies any significant heartburn or dysphagia. His bowel movements have been regular and without any signs of bleeding. He denies abdominal pain, jaundice, increasing abdominal girth, pruritus, fatigue, edema, nor weight loss. ?His most recent laboratories from just last month revealed a hemoglobin of 13.2 with a normal MCV and platelet count, a normal liver profile, normal iron studies, and a normal B12 level. * ROS:?General/Constitutional:?Change in appetite?denies.?Chills?denies.?Fatigue?denies.?Ophthalmologic:?Comments?all negative.?ENT:?Comments?all negative.?Respiratory:?hemoptysis?denies.?Cough?denies.?Cardiovascular:?Chest pain?denies.?Orthopnea?denies.?Gastrointestinal:?Comments?See HPI for details.?Genitourinary:?Hematuria?denies.?Dysuria?denies.?Musculoskeletal:?Painful joints?both hips.?Weakness?denies.?Skin:?Itching?denies.?Rash?denies.?Neurologic:?Headache?denies.?Seizures?denies.?Psychiatric:?Comments?all negative.? * Medical History:? * Surgical History:?Appendecto my Left hip replacement Diagnostic laparoscopy for relief of a small bowel intussusception with Dr. Patino. No resection done.Everything appeared WNL. 2019 * Hospitalization/Major Diagno stic Procedure:?No Hospitalization History. * Family History:?Father: dece ased, diagnosed with HTN (hypertension), Diabetes, Heart disease.?Mother: , diagnosed with HTN (hypertension), Diabetes, Heart disease.? No colorectal cancer nor IBD. * Social History:?Tobacco Use:?Tobacco Use/Smoking?Are you a: nonsmoker.?Drugs/Alcohol:?Alcohol Screen?Did you have a drink containing alcohol in the past year??No,?Points?0,?Interpretation?Negative.?Miscellaneous:?Marital status: . 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 ???Nonsmoker; few beers daily, but cut down dramatically summer. * Medications:?TakingGemfibroz il Omeprazole 20 MG Capsule Delayed Release 1 capsule Orally Once a dayWarfarin Sodium metFORMIN HCl Centrum Silver Adult 50+ Fish Oil Losartan Potassium 50 MG Tablet TAKE 1 TABLET BY MOUTH EVERY DAY Oral Taking Gemfibrozil Taking Omeprazole 20 MG Capsule Delayed Release 1 capsule Orally Once a dayTaking Warfarin Sodium Taking metFORMIN HCl Taking Centrum Silver Adult 50+ Taking Fish Oil Taking Losartan Potassium 50 MG Tablet TAKE 1 TABLET BY MOUTH EVERY DAY Oral DiscontinuedVitamin B12 100 MCG Tablet as directed Orally amLODIPine Besylate Medication List reviewed and reconciled with the patientDiscontinued Vitamin B12 100 MCG Tablet as directed Orally Discontinued amLODIPine Besylate Medication List reviewed and reconciled with the patient * Allergies:?N.K.D.A.yes[Aller gies Verified] Objective: * Vitals:?Wt: 196 lbs, Ht: 73 in, BMI:25.86 Index, BP: 00/00 mm Hg. * Examination: ???General Examination: ?GENERAL APPEARANCE:?pleasant, well nourished, well developed, in no acute distress.?EYES:?sclera non-icteric.?ORAL CAVITY:?mucosa moist.?NECK/THYROID:?no cervical lymphadenopathy, neck supple.?SKIN:?nonjaundiced, no spider angiomata.?HEART:?S1, S2 normal.?LUNGS:?clear to auscultation bilaterally.?ABDOMEN:?normal bowel sounds, no guarding or rigidity, no guarding or rigidity, no masses palpable, soft, nontender, nondistended.?EXTREMITIES:?no edema.?NEUROLOGIC:?alert and oriented.? Assessment: * Assessment: 1.?Elevated liver function t ests - R79.89 (Primary)?2.?Fatty liver - K76.0? Overall, Reinier appears well. His significant decrease in his alcohol use has clearly helped his liver laboratories to normalize. We did review that he needs to continue avoiding alcohol long-term both in regard to his underlying fatty liver, and also in regard to his overall health. We did review that watching his diet, losing weight, and maintaining good control of his diabetes will help maintain a healthy liver as well. I don't think he needs any further workup in regard to his liver at this time. I did advised to continue to followup with you for periodic liver tests. We did review that he will be due for a followup screening colonoscopy in 2025. I will see him otherwise on a p.r.n. basis. Reinier was comfortable with this plan. Thank you again for allowing me to participate in Reinier's care. I shall continue to keep you advised of his progress. Plan: * Treatment: 2.?Others? Notes: Repeat colonoscopy in 2025?? * Procedure Codes:?3017F COLOR ECTAL CA SCREEN DOC [id number] TOBACCO [id number] BP SCR NOT PRFRM REC REASON NOS * Preventive Medicine:? ??Counseling:?Care goal follow-up plan:?Above Normal BMI Follow-up?Giving encouragement to exercise,?BMI management provided?Yes.? ??Screenings:?Fall Risk Screening?Fall Risk Assessment:?No falls in the past year.? * Follow Up:?prn * * Sign off status: Completed true * Provider:?Al Martins MD Date:? 024 Generated for John baltazar/Abbey/eTransmitting on:?08/23/2024 08:08 AM EDT History and Physical Notes * HPI (History of Present Illness) Category Sub-Category Detail Notes Category Not es incontinence I saw Reinier in followup today in regard to his previously elevated LFTs in relation to fatty liver and some alcohol related liver issues. Since I last saw Reinier in January of 2023 he reports that he has been feeling well. He describes a significantly diminished use of alcohol since that time. He describes having one or 2 beers per week and occasional small amount of alcohol if he goes to a wedding. Prior to that he had been having at least several beers every day. He enjoys a good appetite and denies any significant heartburn or dysphagia. His bowel movements have been regular and without any signs of bleeding. He denies abdominal pain, jaundice, increasing abdominal girth, pruritus, fatigue, edema, nor weight loss. His most recent laboratories from just last month revealed a hemoglobin of 13.2 with a normal MCV and platelet count, a normal liver profile, normal iron studies, and a normal B12 level. Examination Category Sub-Category Detail Notes Category Not es General Examination GENERAL APPEARANCE: pleasant , well [...]
--- OUTSIDE RECORDS SUMMARY | 2024-08-23 08:09 | XMS_ITS | Patient Health Record ---
Author Organization [facility] Address [address] [place] [address] Care Team Providers Care Senior Director Finance Name Role Phone Tj Bird MD Primary Care Provider Liz herrera Lakshmi Al Unavailable [phone] Allergies No Known Allergies Reason For Referral No Information Medications Medication SIG (Take, Route, Frequency, Duration) Notes Start Date End Date Status Gemfibrozil Active Losartan Potassium 50 MG TAKE 1 TABLET B Y MOUTH EVERY DAY Oral for 90 Active Centrum Silver Adult 50+ Active Fish Oil Active metFORMIN HCl Active Omeprazole 20 MG 1 capsule Orally Once a day Active Warfarin Sodium Acti ve Social History Alcohol Screen Question Answer Notes Did you have a drink containing alcohol in the p ast year? No Points 0 Interpretation Negative Section Notes: Nonsmoker; 3-4 beers QD Nonsmoker; few beers daily, but cut down dramatically summer Nonsmoker; few beers daily, but cut down dramatically summer Problems Problem Type SNOMED Code ICD Code Onset Dates Problem Status W/U Status Risk Notes Problem [id number] Elevated liver function tests (R79.89) Active confirmed Problem 611200872 Fatty liver (K76.0) Active confirmed Problem 26019153 Change in bowel function (R19.4) Active confirmed Problem 56376042 Alcoholic liver disease (K70.9) Active confirmed Problem 04480838 Constipation, unspecified constipation type (K59.00) Active confirmed Vital Signs Blood pressure diastolic 00 mm Hg 02/03/2024 Height 73 in 02/03/2024 Blood pressure systolic 00 mm Hg 02/03/2024 Weight 196 lbs 02/03/2024 BMI 25.86 kg/m2 02/03/2024 Encounters Encounter Location Date Provider Diagnosis [facility] [address] [place] [address] 02/03/2024 Al Martins Elevated liver function tests [...] advised of his progress. Plan Of Treatment Pending Test Test Name Order Date LIVER PROFILE 12/04/2022 LIVER PROFILE 01/31/2023 LIVER PROFILE 11/12/2022 CBC w DIFF 12/04/2022 CBC w DIFF 11/12/2022 FLUOR. ANTINUCLEAR AB SCREEN (MARISA) 11/2022 Prothrombin [...] Date MEDICARE OF [place] [address] [facility] [place] [address] [id number] REINIER LOUIS Self - patient is the insured [employer] ATTN CLAIMS [address] [place] [address] [id number] REINIER LOUIS Self - patient is the insured Medical (General) History Medical History History ICD Code Screening Colonoscopy,09/2006--hyperplast ic polyp, internal hemorrhoids Denies [place],CVA,Lung disease,renal disease NIDDM Left LE DVT in [...] Appendectomy Left hip replacement Diagnostic laparoscopy for r michelle of a small bowel intussusception with Dr. Patino. No resection done.Everything appeared WNL. 2019
[2024-08-23 08:14] VITALS: BP 140/82; PULSE 71; BMI 27.5
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
== END 2024-08-23 08:54 | disposition home or self-care (01) ==
LOC: HO.HCS 08:05
PROVIDERS: PCP Internal Medicine; Visit Provider Nurse Practitioner Family
DX: R07.2 Precordial pain (principal); R06.02 Shortness of breath; E78.00 Pure hypercholesterolemia, unspecified; I10 Essential (primary) hypertension; R53.82 Chronic fatigue, unspecified; E11.9 Type 2 diabetes mellitus without complications
CPT/HCPCS: 93010; 99213; G2211

== ENCOUNTER → 2024-08-23 08:05 | Outpatient (BNVA) | payer MEDICARE, SELFPAY | PROVIDERS: PCP Internal Medicine; Visit Provider Nurse Practitioner Family | DX: R07.2 Precordial pain (principal); R06.02 Shortness of breath; I10 Essential (primary) hypertension; E78.00 Pure hypercholesterolemia, unspecified; R53.83 Other fatigue; E11.9 Type 2 diabetes mellitus without complications | CPT/HCPCS: 93005; 99212 ==

== ENCOUNTER 2024-09-06 08:13 | Outpatient (AMB) | payer MEDICARE, SELFPAY ==
--- NOTE | 2024-09-06 08:35 | MHC.OFFVISCO ---
Intake Intake Visit Reasons: Anticoagulation Allergies latex [Latex] Allergy (Mild, Verified 09/06/24 08:22) ALLERGIC TO POWDER glipizide [GLIPIZIDE] Allergy (Unknown, Verified 09/06/24 08:22) MUSCLES WEAK Medication List - Last Reconciled 09/06/24 by Glenis Salinas, RN amlodipine 2.5 mg PO DAILY amoxicillin 2,000 mg PO blood sugar diagnostic (FreeStyle Lite Strips) As directed gemfibrozil 600 mg PO BID lancets (FreeStyle Lancets) As directed losartan 50 mg PO DAILY metformin 500 mg PO BID wjyzqviv-shk-FN-lycopen-lutein 0.4 mg-300 mcg- 250 mcg (Centrum Silver) 1 tab PO DAILY omega-3 fatty acids (Fish Oil Concentrate) PO omeprazole 20 mg PO DAILY warfarin 5 mg See Protocol PO DAILY Nursing Note INR: 4.2?out of therapeutic range of 1.8-2.5 Pt states is out of town and he is eating less Medications and supplements reviewed Patient status: well Medications or supplements: no changes Diet: decreased appetite Denies any signs and symptoms of bleeding or clotting or unusual bruising Bleeding, bruising, clotting discussed Nutritional guidance given: to have a serving of greens today. Pt states he will have an omelet with spinach this morning and then a serving of broccoli later today or tomorrow Dose: hold today's dose of 5mg then resume usual dose of 10mg X 4 days and 5mg X 3 days F/U INR Date: 1 week?? Patient verbalizing understanding of instructions given. 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
[2024-09-06 08:38] LABS: Prothrombin Time Whole Bld POC 50.4 sec (11.1-13.5); ~PT, ~INR - Anti Coag Clinic 4.2 (0.9-1.1)
== END 2024-09-06 08:38 | disposition home or self-care (01) ==
LOC: HO.ACS 08:13
PROVIDERS: PCP Internal Medicine; Visit Provider Internal Medicine Medical Oncology
DX: Z79.01 Long term (current) use of anticoagulants (principal)

== ENCOUNTER → 2024-09-06 08:13 | Outpatient (BNVA) | payer MEDICARE, SELFPAY | PROVIDERS: PCP Internal Medicine; Visit Provider Internal Medicine Medical Oncology | DX: I26.99 Other pulmonary embolism without acute cor pulmonale (principal); Z79.01 Long term (current) use of anticoagulants; Z51.81 Encounter for therapeutic drug level monitoring | CPT/HCPCS: 85610; 99211 ==

== ENCOUNTER 2024-09-13 08:09 | Outpatient (AMB) | payer MEDICARE, SELFPAY ==
--- OUTSIDE RECORDS SUMMARY | 2024-09-13 08:23 | XMS_ITS | Patient Health Record ---
Author Organization [facility] Address [address] [place] [address] Care Team Providers Care Refuse Collector Name Role Phone Tj Bird MD Primary Care Provider Liz herrera Lakshmi Al Unavailable [phone] Allergies No Known Allergies Reason For Referral [...] Problem Status W/U Status Risk Notes Problem 602650436 Elevated liver function tests (R79.89) Active confirmed Problem 767987433 Fatty liver (K76.0) Active confirmed Problem 32705961 Change in bowel function (R19.4) Active confirmed Problem 27422763 Alcoholic liver disease (K70.9) Active confirmed Problem 00405229 Constipation, unspecified constipation type (K59.00) Active confirmed Vital Signs Blood pressure diastolic 00 mm Hg 02/03/2024 Height 73 in 02/03/2024 Blood pressure systolic 00 mm Hg 02/03/2024 Weight 196 lbs 02/03/2024 BMI 25.86 kg/m2 02/03/2024 Encounters Encounter Location Date Provider Diagnosis [facility] [address] [place] [address] 02/03/2024 Al Martins Elevated liver function tests [...] Date MEDICARE OF [place] [address] [facility] [place] [address] [phone] [id number] REINIER LOUIS Self - patient is the insured [employer] ATT[employer] CLAIMS [address] [place] [address] [id number] REINIER LOUIS Self - patient is the insured Medical (General) History Medical History History ICD Code Screening Colonoscopy,09/2006--hyperplast ic polyp, internal hemorrhoids Denies VA,CVA,Lung disease,renal disease NIDDM Left LE DVT in [...]
--- OUTSIDE RECORDS SUMMARY | 2024-09-13 08:23 | XMS_ITS ---
Author Organization [facility] Address [address] [place] [address] Care Team Providers Care Clipper And Turner Name Role Phone Tj Bird MD Primary Care Provider Al Vigil [phone] Allergies No Known Allergies REASON FOR VISIT [...] 02/03/2024 Encounters Encounter Location Date Provider Diagnosis [facility] [address] [place] [phone] 02/03/2024 Al Martins Elevated liver function tests [...] * REINIER LOUIS WDOB: (68 yo M)Acc No.[id number]:02/03/2024 Progress Notes Patient:?REINIER LOUIS W Provider:?Al Martins MD :1955???Age:68 Y???Sex:Male Malik e:02/03/2024 Address: [address] [place], [id number] Pcp:Tj Bird MD Subjective: * Chief Complaints: [...] in the past year??No,?Points?0,?Interpretation?Negative.?Miscellaneous:?Marital status: . 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 ???Nonsmoker; few beers daily, but cut [...] Procedure Codes:?3017F COLOR ECTAL CA SCREEN DOC [id number] TOBACCO [id number]-[id number] BP SCR NOT PRFRM REC REASON NOS * Preventive Medicine:? ??Counseling:?Care goal follow-up plan:?Above Normal BMI Follow-up?Giving encouragement to exercise,?BMI management provided?Yes.? ??Screenings:?Fall Risk Screening?Fall Risk Assessment:?No falls in the past year.? * Follow Up:?prn * * Sign off status: Completed true * Provider:?Al Martins MD Date:? 024 Generated for John baltazar/Abbey/eTransmitting on:?09/13/2024 08:23 AM EDT History and Physical Notes * [...]
[2024-09-13 08:29] LABS: Prothrombin Time Whole Bld POC 19.5 sec (11.1-13.5); ~PT, ~INR - Anti Coag Clinic 1.6 (0.9-1.1)
--- NOTE | 2024-09-13 08:36 | MHC.OFFVISCO ---
Intake Intake Visit Reasons: Anticoagulation Allergies latex [Latex] Allergy (Mild, Verified 09/06/24 08:22) ALLERGIC TO POWDER glipizide [GLIPIZIDE] Allergy (Unknown, Verified 09/06/24 08:22) MUSCLES WEAK Nursing Note Pt has stopped ETOH and his blood sugars and INR values have been labile- possibly due to liver detox/healing processes. INR 1.6 out of therapeutic range 1.8-2.5 Just ate spinach yesterday (over compensated a little) PREVIOUS INR 4.2 Medications and supplements reviewed Patient status: Well- waiting to see new PCP Medications or supplements: no changes Diet: had spinach Denies any signs and symptoms of bleeding or clotting or unusual bruising Bleeding, bruising, clotting discussed Nutritional guidance given: avoid greens x 3 days- eat orange and reds to raise the INR Dose: keep same dose for now and adjust diet per pt request F/U INR Date: 10mg x 4 days/ 5mg mwf?? Patient verbalizing understanding of instructions given read back Anti-Coag Initial Assessment Social Hx Patient Tobacco Use Status: Never used Tobacco alcohol intake: current Alcohol intake frequency: holidays/special occasions only Coding Level of Care Code Est Patient Level 1 Diagnoses Current use of anticoagulant therapy Z79.01 Results AMB INR Fingerstick AMB INR Fingerstick 1.6 Last Edit by Kimber Patel RN on 09/13/24 08:32 Assessment & Plan Assessment & Plan (1) Current use of anticoagulant therapy: Code(s): Z79.01 - group home (current) use of anticoagulants Category: Medical
== END 2024-09-13 08:42 | disposition home or self-care (01) ==
LOC: HO.ACS 08:09
PROVIDERS: PCP Internal Medicine; Visit Provider Internal Medicine Medical Oncology
DX: Z79.01 Long term (current) use of anticoagulants (principal)

== ENCOUNTER → 2024-09-13 08:09 | Outpatient (BNVA) | payer MEDICARE, SELFPAY | PROVIDERS: PCP Internal Medicine; Visit Provider Internal Medicine Medical Oncology | DX: I26.99 Other pulmonary embolism without acute cor pulmonale (principal); Z51.81 Encounter for therapeutic drug level monitoring; Z79.01 Long term (current) use of anticoagulants | CPT/HCPCS: 85610; 99211 ==

== ENCOUNTER → 2024-09-15 20:30 | Outpatient (REF) | payer MEDICARE, SELFPAY ==
--- OUTSIDE RECORDS SUMMARY | 2024-09-15 21:38 | XMS_ITS | Patient Health Record ---
Author Organization [facility] Address [address] [place] [address] Care Team Providers Care Clinical Abstractor Name Role Phone Tj Bird MD Primary Care Provider Liz herrera Lakshmi Al Unavailable [phone] Allergies No Known Allergies Reason For Referral [...] Problem Status W/U Status Risk Notes Problem 702927781 Elevated liver function tests (R79.89) Active confirmed Problem 147870502 Fatty liver (K76.0) Active confirmed Problem 73814948 Change in bowel function (R19.4) Active confirmed Problem 83008230 Alcoholic liver disease (K70.9) Active confirmed Problem 37736692 Constipation, unspecified constipation type (K59.00) Active confirmed Vital Signs Blood pressure diastolic 00 mm Hg 02/03/2024 Height 73 in 02/03/2024 Blood pressure systolic 00 mm Hg 02/03/2024 Weight 196 lbs 02/03/2024 BMI 25.86 kg/m2 02/03/2024 Encounters Encounter Location Date Provider Diagnosis [facility] [address] [place] [address] 02/03/2024 Al Martins Elevated liver function tests [...] Date MED[place]ARE OF [place] [address] [facility] [place] [address] [id number] REINIER LOUIS Self - patient is the insured MED[employer] ATTN CLAIMS [address] [place] [address] [phone] [id number] REINIER LOUIS Self - patient is the insured Medical (General) History Medical History History ICD Code Screening Colonoscopy,09/2006--hyperplast ic polyp, internal hemorrhoids Denies PR,CVA,Lung disease,renal disease NIDDM Left LE DVT in [...]
--- OUTSIDE RECORDS SUMMARY | 2024-09-15 21:38 | XMS_ITS ---
Author Organization [facility] Address [address] [place] [address] Care Team Providers Care Acidizer Water Well Name Role Phone Tj Bird MD Primary Care Provider Al Vigil [phone] Allergies No Known Allergies REASON FOR VISIT [...] 02/03/2024 Encounters Encounter Location Date Provider Diagnosis [facility] [address] [place] [phone] 02/03/2024 Al Martins Elevated liver function tests [...] * REINIER LOUIS WDOB: (68 yo M)Acc No.[id number]:02/03/2024 Progress Notes Patient:?REINIER LOUIS W Provider:?Al Martins MD :1955???Age:68 Y???Sex:Male Malik e:02/03/2024 Address: [address], [id number] Pcp:Tj Bird MD Subjective: * Chief Complaints: [...] in the past year??No,?Points?0,?Interpretation?Negative.?Miscellaneous:?Marital status: . 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 ???Nonsmoker; few beers daily, but cut [...] Procedure Codes:?3017F COLOR ECTAL CA SCREEN DOC [id number] TOBACCO [id number] BP SCR NOT PRFRM REC REASON NOS * Preventive Medicine:? ??Counseling:?Care goal follow-up plan:?Above Normal BMI Follow-up?Giving encouragement to exercise,?BMI management provided?Yes.? ??Screenings:?Fall Risk Screening?Fall Risk Assessment:?No falls in the past year.? * Follow Up:?prn * * Sign off status: Completed true * Provider:?Al Martins MD Date:? 024 Generated for John baltazar/Abbey/eTransmitting on:?09/15/2024 09:38 PM EDT History and Physical Notes * HPI [...]
== END ==
LOC: HO.SL 20:30
PROVIDERS: PCP Internal Medicine; Visit Provider Nurse Practitioner Family
DX: G47.10 Hypersomnia, unspecified (principal); R53.82 Chronic fatigue, unspecified
CPT/HCPCS: 95810

== ENCOUNTER → 2024-09-15 23:14 | Outpatient (BNV) | payer MEDICARE, SELFPAY | PROVIDERS: PCP Internal Medicine; Visit Provider Internal Medicine | DX: G47.10 Hypersomnia, unspecified (principal) | CPT/HCPCS: 95810 ==

== ENCOUNTER 2024-10-05 08:02 | Outpatient (AMB) | payer MEDICARE, SELFPAY ==
[2024-10-05 08:09] LABS: Prothrombin Time Whole Bld POC 19.8 sec (11.1-13.5); ~PT, ~INR - Anti Coag Clinic 1.6 (0.9-1.1)
--- NOTE | 2024-10-05 08:13 | MHC.OFFVISCO ---
Intake Intake Visit Reasons: Anticoagulation Allergies latex [Latex] Allergy (Mild, Verified 10/05/24 08:04) ALLERGIC TO POWDER glipizide [GLIPIZIDE] Allergy (Unknown, Verified 10/05/24 08:04) MUSCLES WEAK Medication List - Last Reconciled 10/05/24 by Glenis Salinas, RN amlodipine 2.5 mg PO DAILY amoxicillin 2,000 mg PO blood sugar diagnostic (FreeStyle Lite Strips) As directed gemfibrozil 600 mg PO BID lancets (FreeStyle Lancets) As directed losartan 50 mg PO DAILY metformin 500 mg PO BID ezdcmweo-mzv-IY-lycopen-lutein 0.4 mg-300 mcg- 250 mcg (Centrum Silver) 1 tab PO DAILY omega-3 fatty acids (Fish Oil Concentrate) PO omeprazole 20 mg PO DAILY warfarin 5 mg See Protocol PO DAILY Nursing Note INR: 1.6?out of therapeutic range of 1.8-2.5 Medications and supplements reviewed Patient status: well Medications or supplements: no change Diet: usual diet for pt Denies any signs and symptoms of bleeding or clotting or unusual bruising Bleeding, bruising, clotting discussed Nutritional guidance given: food list discussed, pt to have 2-3 servings of foods that raise the INR Dose: increase tomorrow's dose to 7.5mg then resume usual dose of 10mg X 4 days and 5mg X 3 days (M/W/F). Today pt will take usual dose of 10mg. F/U INR Date: 2 weeks?? Patient verbalizing understanding of instructions given. Anti-Coag Initial Assessment Social Hx Patient Tobacco Use Status: Never used Tobacco alcohol intake: current Alcohol intake frequency: holidays/special occasions only Coding Level of Care Code Est Patient Level 1 Diagnoses Current use of anticoagulant therapy Z79.01 Results AMB INR Fingerstick AMB INR Fingerstick 1.6 Last Edit by Glenis Salinas RN on 10/05/24 08:08 interface delay Assessment & Plan Assessment & Plan (1) Current use of anticoagulant therapy: Code(s): Z79.01 - [facility] (current) use of anticoagulants Category: Medical
== END 2024-10-05 08:18 | disposition home or self-care (01) ==
LOC: HO.ACS 08:02
PROVIDERS: PCP Internal Medicine; Visit Provider Internal Medicine Medical Oncology
DX: Z79.01 Long term (current) use of anticoagulants (principal)

== ENCOUNTER → 2024-10-05 08:02 | Outpatient (BNVA) | payer MEDICARE, SELFPAY | PROVIDERS: PCP Internal Medicine; Visit Provider Internal Medicine Medical Oncology | DX: I26.99 Other pulmonary embolism without acute cor pulmonale (principal); Z79.01 Long term (current) use of anticoagulants; Z51.81 Encounter for therapeutic drug level monitoring | CPT/HCPCS: 85610; 99211 ==

== ENCOUNTER 2024-10-15 09:36 | Outpatient (AMB) | payer MEDICARE, SELFPAY ==
[2024-10-15 08:37] VITALS: BP 138/80; PULSE 57; TEMP 36.5; O2SAT 98; BMI 27.4
--- NOTE | 2024-10-15 08:37 | A.OFFPC_ITS ---
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 Melting Required: No Accompanied by: Self / Same As Patient Allergies latex [Latex] Allergy (Mild, Verified 10/15/24 08:37) ALLERGIC TO POWDER glipizide [GLIPIZIDE] Allergy (Unknown, Verified 10/15/24 08:37) MUSCLES WEAK Tobacco use date assessed: 10/15/24 Fall risk assessment: 1 Fall in past year Last assessed Fall Risk: 10/15/24 Dental Screening Dental Screen Date: 10/15/24 Did you have a dental visit in the last 12 months?: Yes Did you have a dental problem in the last 6 months where you did not have access to dental care?: No HPI HPI Comments History of Present Illness Details This is a 69 year old male with a past medical history of diabetes, hypertension, hyperlipidemia, knee pain, DVT/PE presenting for follow up DM-On metformin 500mg twice daily. Last A1C 8.2%. No increase in medications. Willing if still elevated. He is due for repeat. CV-on amlodipine, warfarin. History of DVT and PE. Does not was to consider NOAC. Follows with cardiology. Chronic fatigue-is seeing sleep medicine. Some supine apnea noted not meeting criteria for diagnosis of INDY. Colonoscopy ROS CONSTITUTIONAL: Denies weight loss, fever and chills. HEENT: Denies changes in vision and hearing. RESPIRATORY: Denies SOB and cough. CV: Denies palpitations and CP GI: Denies abdominal pain, nausea, vomiting and diarrhea. : Denies dysuria and urinary frequency. MSK: Denies new myalgia and joint pain. SKIN: Denies rash and pruritus. NEUROLOGICAL: Denies headache PSYCHIATRIC: Denies recent changes in mood. PHYSICAL EXAM: GENERAL: Alert and oriented x 3. NAD EYES: EOMI. Anicteric. HENT: Moist mucous membranes. No scleral icterus. No cervical lymphadenopathy. LUNGS: Clear to auscultation bilaterally. CARDIOVASCULAR: Regular rate and rhythm. No murmur. No JVD. ABDOMEN: Soft, non-tender +bs EXTREMITIES: No edema. Non-tender. SKIN: No rashes or lesions. Warm. NEUROLOGIC: No focal neurological deficits. CN II-XII grossly intact PSYCHIATRIC: Cooperative. Appropriate mood and affect [facility] Medical History Hypercholesteremia History of blood clots Diabetes Hypertension Surgical History History of colonoscopy (~08/07/15) History of appendectomy S/P hip replacement History of gastric surgery Family History Father CAD (coronary artery disease) Mother Diabetes Social History Housing: House Alcohol intake: current Alcohol intake frequency: holidays/special occasions only Patient Tobacco Use Status: Never used Tobacco e-Cigarette/Vaping Use: Never Used service: No Current occupational status: retired Current occupation: [employer] Cognitive needs: No Hearing needs: No Vision needs: Yes (rx glasses) Questionnaire PHQ-9 Over the last 2 weeks, how often have you been bothered by any of the following problems? 1. Little interest or pleasure in doing things: not at all 2. Feeling down, depressed, or hopeless: not at all 3. Trouble falling or staying asleep, or sleeping too much: not at all 4. Feeling tired or having little energy: not at all 5. Poor appetite or overeating: not at all 6. Feeling bad about yourself - or that you are a failure or have let yourself or your family down: not at all 7. Trouble concentrating on things, such as reading the newspaper or watching television: not at all 8. Moving or speaking so slowly that other people could have noticed. Or the opposite - being so fidgety or restless that you have been moving around a lot more than usual: not at all 9. Thoughts that you would be better off or of hurting yourself in some way: not at all Total score: 0 Depression Screening Interpretation: Negative Depression Screening Done: Yes 83719 - PHQ-9 Billing: Yes Source: Developed by Drs. Al Multani, Kisha B.W. Jeffery Hernandez and colleagues, with an educational ania from [employer]. Thrive Questionnaire Date Thrive assessed: 10/15/24 I am a: Patient Within the past 12 months, did the food you bought not last and you didn't have the money to get more?: Never true Within the past 12 months, did you worry whether your food would run out before you got money to buy more?: Never true Do you have trouble paying for medicines?: No Do you have trouble getting transportation to medical appointments?: No Do you have trouble paying your heating and electricity bill?: No Do you have trouble taking care of your child, family member or friend?: No Do you have trouble with day-to-day activities such as bathing, preparing meals, shopping, managing finances, etc.?: No Are you currently unemployed and looking for a job?: No Are you interested in more education?: No THRIVE Score: 0 AUDIT C Alcohol Use Questionnaire (AUDIT-C) 1. How often do you have a drink containing alcohol?: Monthly or less 2. How many drinks containing alcohol do you have on a typical day when you are drinking?: 1 or 2 3. How often do you have six or more drinks on one occasion?: Less than monthly Total Score: 2 CHASE-7 AMB Questionnaire CHASE-7 Date CHASE - 7 assessed: 10/15/24 Feeling nervous, anxious, or on edge: 0 = Not at all Not being able to stop or control worryin = Not at all Worrying too much about different things: 0 = Not at all Trouble relaxin = Not at all Being so restless that it is hard to sit still: 0 = Not at all Becoming easily annoyed or irritable: 0 = Not at all Feeling afraid as if something awful might happen: 0 = Not at all Total CHASE-7 score (0-4 normal; 5-9 mild; 10-14 moderate; 15-21 severe): 0 Source: Developed by Drs. Al Multani, Jeffery Riley and colleagues, with an educational ania from [employer]. Physical exam (Primary Care) Vital Signs: Last Vital Signs Temp 97.7 F 10/15/24 08:37 Pulse 57 10/15/24 08:37 BP 138/80 10/15/24 08:37 Pulse Ox 98 10/15/24 08:37 Oxygen Delivery Method Room Air 10/15/24 08:37 BMI result Body Mass Index 27.4 Tobacco/Smoking Status: Tobacco use Status Tobacco use date assessed 10/15/24 10/15/24 08:39 Patient Tobacco Use Status Never used Tobacco 10/15/24 08:39 e-Cigarette/Vaping Use Never Used 10/15/24 08:39 PHQ-9: PHQ-9 Score PHQ-9: Total score 0 10/15/24 09:54 Depression Screening Interpretation: Negative Thrive Assessment: Date of Thrive Assessment Date Thrive assessed 10/15/24 10/15/24 08:39 Coding Level of Care Code New Pt Level 4 (22442) Complex EM visit Add On G2211 Diagnoses Primary hypertension I10 Hypertension type: primary hypertension Hypercholesteremia E78.00 Type 2 diabetes mellitus with hyperglycemia, without long-term current use of insulin E11.65 Diabetes mellitus type: type 2 Diabetes mellitus usp insulin use: without terminal worker use Diabetes mellitus complication status: with hyperglycemia Fatigue, unspecified type R53.83 Fatigue type: unspecified Additional Codes PHQ-9 - 09810 - PHQ-9 Billing: Yes ([id number]) Assessment & Plan Assessment & Plan (1) Hypertension: Code(s): I10 - Essential (primary) hypertension Category: Medical Qualifiers: Hypertension type: primary hypertension Qualified Code(s): I10 - Essential (primary) hypertension (2) Hypercholesteremia: Code(s): E78.00 - Pure hypercholesterolemia, unspecified Category: Medical (3) Diabetes: Code(s): E11.9 - Type 2 diabetes mellitus without complications Category: Medical Qualifiers: Diabetes mellitus type: type 2 Diabetes mellitus usp insulin use: without terminal worker use Diabetes mellitus complication status: with hyperglycemia Qualified Code(s): E11.65 - Type 2 diabetes mellitus with hyperglycemia (4) Fatigue: Code(s): R53.83 - Other fatigue Category: Medical Qualifiers: Fatigue type: unspecified Qualified Code(s): R53.83 - Other fatigue Plan 69 year old male to establish care Past medical, surgical, social reviewed Diabetes-due for A1C. Will increase metformin if still elevated dental prophylaxis sent Orders: Orders Comprehensive Met. Panel Today E11.9 - Type 2 diabetes mellitus without complications Comprehensive Met. Panel 6 Months D64.9 - Anemia, unspecified, E11.9 - Type 2 diabetes mellitus without complications, E78.00 - Pure hypercholesterolemia, unspecified, I10 - Essential (primary) hypertension TSH reflex Free T4 Today E11.9 - Type 2 diabetes mellitus without complications, I10 - Essential (primary) hypertension, R53.83 - Other fatigue Lyme IgG/IgM w/reflex to WB Today R53.83 - Other fatigue Hemoglobin A1c Today E11.9 - Type 2 diabetes mellitus without complications Hemoglobin A1c 6 Months D64.9 - Anemia, unspecified, E11.9 - Type 2 diabetes mellitus without complications, E78.00 - Pure hypercholesterolemia, unspecified, I10 - Essential (primary) hypertension Lipid Panel 6 Months D64.9 - Anemia, unspecified, E11.9 - Type 2 diabetes mellitus without complications, E78.00 - Pure hypercholesterolemia, unspecified, I10 - Essential (primary) hypertension IRON PROFILE 6 Months D64.9 - Anemia, unspecified, E11.9 - Type 2 diabetes mellitus without complications, E78.00 - Pure hypercholesterolemia, unspecified, I10 - Essential (primary) hypertension Vitamin B12 and Folate Today E11.9 - Type 2 diabetes mellitus without complications, I10 - Essential (primary) hypertension, R53.83 - Other fatigue Medications: New amoxicillin one hour prior to dental work 2,000 mg (4 x 500 mg) PO ONCE 4 tabs 0RF
--- OUTSIDE RECORDS SUMMARY | 2024-10-15 09:56 | XMS_ITS ---
Author Organization [facility] Address [address] [place] [id number] Care Team Providers Care Music Professionals Name Role Phone Tj Bird MD Primary Care Provider Al Vigil [phone] Allergies No Known Allergies REASON FOR VISIT [...] 02/03/2024 Encounters Encounter Location Date Provider Diagnosis [facility] [address] [place] [phone] 02/03/2024 Al Martins Elevated liver function tests [...] * REINIER LOUIS WDOB: (68 yo M)Acc No.[id number]:02/03/2024 Progress Notes Patient:?REINIER LOUIS W Provider:?Al Martins MD :1955???Age:68 Y???Sex:Male Malik e:02/03/2024 Address: [address] [place], [facility] Pcp:Tj Bird MD Subjective: * Chief Complaints: [...] in the past year??No,?Points?0,?Interpretation?Negative.?Miscellaneous:?Marital status: . 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 ???Nonsmoker; few beers daily, but cut [...] Procedure Codes:?3017F COLOR ECTAL CA SCREEN DOC [id number] TOBACCO [id number] BP SCR NOT PRFRM REC REASON NOS * Preventive Medicine:? ??Counseling:?Care goal follow-up plan:?Above Normal BMI Follow-up?Giving encouragement to exercise,?BMI management provided?Yes.? ??Screenings:?Fall Risk Screening?Fall Risk Assessment:?No falls in the past year.? * Follow Up:?prn * * Sign off status: Completed true * Provider:?Al Martins MD Date:? 024 Generated for John baltazar/Abbey/eTransmitting on:?10/15/2024 09:56 AM EDT History and Physical Notes * [...]
--- OUTSIDE RECORDS SUMMARY | 2024-10-15 09:56 | XMS_ITS | Patient Health Record ---
Author Organization [facility] Address [address] [place] [address] Care Team Providers Care Telephone Cleaner Name Role Phone Tj Bird MD Primary Care Provider Liz herrera Lakshmi Al Unavailable [phone] Allergies No Known Allergies Reason For Referral [...] Problem Status W/U Status Risk Notes Problem 044240983 Elevated liver function tests (R79.89) Active confirmed Problem 180203337 Fatty liver (K76.0) Active confirmed Problem 23226442 Change in bowel function (R19.4) Active confirmed Problem 82122240 Alcoholic liver disease (K70.9) Active confirmed Problem 29406868 Constipation, unspecified constipation type (K59.00) Active confirmed Vital Signs Blood pressure diastolic 00 mm Hg 02/03/2024 Height 73 in 02/03/2024 Blood pressure systolic 00 mm Hg 02/03/2024 Weight 196 lbs 02/03/2024 BMI 25.86 kg/m2 02/03/2024 Encounters Encounter Location Date Provider Diagnosis [facility] [address] [place] [address] 02/03/2024 Al Martins Elevated liver function tests [...] Date MEDICARE OF [place] [address] [facility] [place] [address] [id number] REINIER LOUIS Self - patient is the insured [employer] ATTN CLAIMS [address] [place] [address] [phone] [id number] REINIER LOUIS Self - patient is the insured Medical (General) History Medical History History ICD Code Screening Colonoscopy,09/2006--hyperplast ic polyp, internal hemorrhoids Denies [place],CVA,Lung disease,renal disease NIDDM Left LE DVT in [...]
== END 2024-10-15 10:19 | disposition home or self-care (01) ==
LOC: HO.HMCHD 09:36
PROVIDERS: PCP Internal Medicine; Visit Provider Internal Medicine
DX: I10 Essential (primary) hypertension (principal); E78.00 Pure hypercholesterolemia, unspecified; E11.65 Type 2 diabetes mellitus with hyperglycemia; R53.83 Other fatigue

== ENCOUNTER → 2024-10-15 09:36 | Outpatient (BNVA) | payer MEDICARE, SELFPAY | PROVIDERS: PCP Internal Medicine; Visit Provider Internal Medicine | DX: Z13.89 Encounter for screening for other disorder (principal) | CPT/HCPCS: 96127; 99202 ==

== ENCOUNTER 2024-10-15 10:26 | Outpatient (REF) | payer MEDICARE, SELFPAY ==
[2024-10-15 12:05] LABS: Estimated Average Glucose 174 mg/dL; Hemoglobin A1C 211.1493 umol/L; Hemoglobin A1c % 7.7 % (<6.0); Total Hemoglobin (HGBA1C) 3505.9726 umol/L
[2024-10-15 12:13] LABS: Alanine Aminotransferase 130 U/L (0-40); Albumin Level 4.8 g/dL (3.5-5.0); Alkaline Phosphatase 39 U/L (39-117); Anion Gap 10 (12-20); Aspartate Amino Transferase 65 U/L (5-37); Bilirubin Total 0.6 mg/dL (0.0-1.0); Blood Urea Nitrogen 14 mg/dL (9-16); Calcium 9.8 mg/dL (8.4-10.2); Carbon Dioxide 28 mmol/L (22-29); Chloride 106 mmol/L (96-108); Estimated Glomerular Filt Rate > 60; Glucose Random 142 mg/dL (60-115); Potassium 4.8 mmol/L (3.3-5.1); Sodium 139 mmol/L (135-145)
[2024-10-15 12:38] LABS: Vitamin B12 313 pg/mL (200-900)
[2024-10-19 04:58] LABS: Lyme Abs Screen <0.90 index
== END 2024-10-15 10:27 | disposition home or self-care (01) ==
LOC: HO.10HDL 10:26
PROVIDERS: Visit Provider Internal Medicine
DX: I10 Essential (primary) hypertension (principal); E78.00 Pure hypercholesterolemia, unspecified; E11.65 Type 2 diabetes mellitus with hyperglycemia; R53.83 Other fatigue; D64.9 Anemia, unspecified
CPT/HCPCS: 36415; 80053; 82607; 82746; 83036; 84443; 86617; 86618; 96127; 99202

== ENCOUNTER 2024-10-19 07:56 | Outpatient (AMB) | payer MEDICARE, SELFPAY ==
--- OUTSIDE RECORDS SUMMARY | 2024-10-19 07:58 | XMS_ITS | Patient Health Record ---
Author Organization [facility] Address [address] [place] [address] Care Team Providers Care Xerox Machine Operator Name Role Phone Tj Bird MD Primary Care Provider Liz herrera Lakshmi Al Unavailable [phone] Allergies No Known Allergies Reason For Referral [...] Problem Status W/U Status Risk Notes Problem 122582469 Elevated liver function tests (R79.89) Active confirmed Problem 379014802 Fatty liver (K76.0) Active confirmed Problem 53652229 Change in bowel function (R19.4) Active confirmed Problem 70746407 Alcoholic liver disease (K70.9) Active confirmed Problem 01717075 Constipation, unspecified constipation type (K59.00) Active confirmed Vital Signs Blood pressure diastolic 00 mm Hg 02/03/2024 Height 73 in 02/03/2024 Blood pressure systolic 00 mm Hg 02/03/2024 Weight 196 lbs 02/03/2024 BMI 25.86 kg/m2 02/03/2024 Encounters Encounter Location Date Provider Diagnosis [facility] [address] [place] [address] 02/03/2024 Al Martins Elevated liver function tests [...] Date MEDICARE OF [place] [address] [facility] [place] [address] [id number] REINIER LOUIS Self - patient is the insured MED[employer] ATTN CLAIMS [address] [place] [address] [id number] REINIER LOUIS Self - patient is the insured Medical (General) History Medical History History ICD Code Screening Colonoscopy,09/2006--hyperplast ic polyp, internal hemorrhoids Denies [place],CVA,Lung disease,renal disease NIDDM Left LE DVT in [...]
--- OUTSIDE RECORDS SUMMARY | 2024-10-19 07:58 | XMS_ITS ---
Author Organization [facility] Address [address] [place] [address] Care Team Providers Care Healthcare Educator Name Role Phone Tj Bird MD Primary Care Provider Al Vigil [phone] Allergies No Known Allergies REASON FOR VISIT [...] 02/03/2024 Encounters Encounter Location Date Provider Diagnosis [facility] [address] [place] [phone] 02/03/2024 Al Martins Elevated liver function tests [...] * REINIER LOUIS WDOB: (68 yo M)Acc No.[id number]:02/03/2024 Progress Notes Patient:?REINIER LOUIS W Provider:?Al Martins MD :1955???Age:68 Y???Sex:Male Malik e:02/03/2024 Address: [address], [address], [facility] Pcp:Tj Bird MD Subjective: * Chief Complaints: [...] in the past year??No,?Points?0,?Interpretation?Negative.?Miscellaneous:?Marital status: . 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 ???Nonsmoker; few beers daily, but cut [...] Procedure Codes:?3017F COLOR ECTAL CA SCREEN DOC [id number] TOBACCO [id number] BP SCR NOT PRFRM REC REASON NOS * Preventive Medicine:? ??Counseling:?Care goal follow-up plan:?Above Normal BMI Follow-up?Giving encouragement to exercise,?BMI management provided?Yes.? ??Screenings:?Fall Risk Screening?Fall Risk Assessment:?No falls in the past year.? * Follow Up:?prn * * Sign off status: Completed true * Provider:?Al Martins MD Date:? 024 Generated for John baltazar/Abbey/eTransmitting on:?10/19/2024 07:58 AM EDT History and Physical Notes * [...]
[2024-10-19 08:09] LABS: Prothrombin Time Whole Bld POC 30.9 sec (11.1-13.5); ~PT, ~INR - Anti Coag Clinic 2.6 (0.9-1.1)
--- NOTE | 2024-10-19 08:16 | MHC.OFFVISCO ---
Intake Intake Visit Reasons: Anticoagulation Allergies latex [Latex] Allergy (Mild, Verified 10/19/24 08:03) ALLERGIC TO POWDER glipizide [GLIPIZIDE] Allergy (Unknown, Verified 10/19/24 08:03) MUSCLES WEAK Medication List - Last Reconciled 10/19/24 by Edelmira Hodges, RN amlodipine 2.5 mg PO DAILY amoxicillin 2,000 mg (4 x 500 mg) PO ONCE blood sugar diagnostic (FreeStyle Lite Strips) As directed gemfibrozil 600 mg PO BID lancets (FreeStyle Lancets) As directed losartan 50 mg PO DAILY metformin 1,000 mg (2 x 500 mg) PO BID afhohvvk-nys-XD-lycopen-lutein 0.4 mg-300 mcg- 250 mcg (Centrum Silver) 1 tab PO DAILY omega-3 fatty acids (Fish Oil Concentrate) PO omeprazole 20 mg PO DAILY warfarin 5 mg See Protocol PO DAILY Nursing Note NO CP,SOB,DIET/MED CHANGES,FALLS OR SX OF BLEEDING. CONTINUE PRESENT DOSE AND FOLLOW-UP IN 3 WEKS AFTER RETURNING FROM [facility]. GOOD UNDERSTANDING OF DOSING INSTR. Anti-Coag Initial Assessment Social Hx Patient Tobacco Use Status: Never used Tobacco alcohol intake: current Alcohol intake frequency: holidays/special occasions only Coding Level of Care Code Est Patient Level 1 Diagnoses Current use of anticoagulant therapy Z79.01 Assessment & Plan Assessment & Plan (1) Current use of anticoagulant therapy: Code(s): Z79.01 - half-way (current) use of anticoagulants Category: Medical
== END 2024-10-19 08:21 | disposition home or self-care (01) ==
LOC: HO.ACS 07:56
PROVIDERS: PCP Internal Medicine; Visit Provider Internal Medicine Medical Oncology
DX: Z79.01 Long term (current) use of anticoagulants (principal)

== ENCOUNTER → 2024-10-19 07:56 | Outpatient (BNVA) | payer MEDICARE, SELFPAY | PROVIDERS: PCP Internal Medicine; Visit Provider Internal Medicine Medical Oncology | DX: I26.99 Other pulmonary embolism without acute cor pulmonale (principal); Z79.01 Long term (current) use of anticoagulants; Z51.81 Encounter for therapeutic drug level monitoring | CPT/HCPCS: 85610; 99211 ==

== ENCOUNTER 2024-11-05 09:44 | Outpatient (AMB) | payer MEDICARE, SELFPAY ==
[2024-11-05 09:50] VITALS: BP 130/82; PULSE 74; O2SAT 96; BMI 27.2
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
== END 2024-11-05 11:11 | disposition home or self-care (01) ==
LOC: HO.HSMS 09:45
PROVIDERS: PCP Internal Medicine; Visit Provider Physician Assistant Medical
DX: G47.10 Hypersomnia, unspecified (principal); G47.19 Other hypersomnia; G25.2 Other specified forms of tremor; D50.9 Iron deficiency anemia, unspecified
CPT/HCPCS: 99204

== ENCOUNTER → 2024-11-05 09:44 | Outpatient (BNVA) | payer MEDICARE, SELFPAY | PROVIDERS: PCP Internal Medicine; Visit Provider Physician Assistant Medical | DX: G47.19 Other hypersomnia (principal); G25.2 Other specified forms of tremor; D50.9 Iron deficiency anemia, unspecified; R53.83 Other fatigue; H93.13 Tinnitus, bilateral | CPT/HCPCS: 99202 ==

== ENCOUNTER 2024-11-09 08:00 | Outpatient (AMB) | payer MEDICARE, SELFPAY ==
--- OUTSIDE RECORDS SUMMARY | 2024-11-09 08:02 | XMS_ITS | Patient Health Record ---
Author Organization 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 Name Role Phone Tj Bird MD Primary Care Provider Liz herrera Lakshmi Al Unavailable [phone] Allergies No Known Allergies Reason For Referral [...] Problem Status W/U Status Risk Notes Problem 433901271 Elevated liver function tests (R79.89) Active confirmed Problem 656541479 Fatty liver (K76.0) Active confirmed Problem 22414299 Change in bowel function (R19.4) Active confirmed Problem 82417377 Alcoholic liver disease (K70.9) Active confirmed Problem 05634227 Constipation, unspecified constipation type (K59.00) Active confirmed Vital Signs Blood pressure diastolic 00 mm Hg 02/03/2024 Height 73 in 02/03/2024 Blood pressure systolic 00 mm Hg 02/03/2024 Weight 196 lbs 02/03/2024 BMI 25.86 kg/m2 02/03/2024 Encounters Encounter Location Date Provider Diagnosis [facility] [address] [place] [address] 02/03/2024 Al Martins Elevated liver function tests [...] Date MEDICARE [place] [address] [facility] [address] [id number] REINIER LOUIS Self - patient is the insured [employer] ATTN CLAIMS [address] [place] [address] [phone] [id number] REINIER LOUIS Self - patient is the insured Medical (General) History Medical History History ICD Code Screening Colonoscopy,09/2006--hyperplast ic polyp, internal hemorrhoids Denies [place],CVA,Lung disease,renal disease NIDDM Left LE DVT in [...]
--- NOTE | 2024-11-09 08:14 | MHC.OFFVISCO ---
Intake Intake Visit Reasons: Anticoagulation Allergies latex [Latex] Allergy (Mild, Verified 11/09/24 08:00) ALLERGIC TO POWDER glipizide [GLIPIZIDE] Allergy (Unknown, Verified 11/09/24 08:00) MUSCLES WEAK Medication List - Last Reconciled 11/09/24 by Kimber Patel RN amlodipine 2.5 mg PO DAILY amoxicillin 2,000 mg (4 x 500 mg) PO ONCE blood sugar diagnostic (FreeStyle Lite Strips) As directed ferrous sulfate 325 mg PO DAILY 3 months MDD 325mg gemfibrozil 600 mg PO BID lancets (FreeStyle Lancets) As directed losartan 25 mg PO BID melatonin-pyridoxal phos (B6) 2.5 mg- 338 mcg 1 tab sublingual BEDTIME MDD 5mg metformin 1,000 mg (2 x 500 mg) PO BID yaiizski-roh-WZ-lycopen-lutein 0.4 mg-300 mcg- 250 mcg (Centrum Silver) 1 tab PO DAILY omega-3 fatty acids (Fish Oil Concentrate) PO omeprazole 20 mg PO DAILY warfarin 5 mg See Protocol PO DAILY Nursing Note INR: 3.3 ALMOST therapeutic range- Was away on vacation Medications and supplements reviewed No changes in health, diet, medications, or supplements, Denies any signs and symptoms of bleeding or bruising or clotting. Bleeding, bruising, clotting discussed Nutritional guidance given - resume weekly Dose: 5mg today ( 5mg x 4 days) then resume 5mg x 3 days/ 10mg x 4days F/U INR: 2 weeks Patient verbalizes understanding of instructions given Anti-Coag Initial Assessment Social Hx Patient Tobacco Use Status: Never used Tobacco alcohol intake: current Alcohol intake frequency: holidays/special occasions only Coding Level of Care Code Est Patient Level 1 Diagnoses Current use of anticoagulant therapy Z79.01 Results AMB INR Fingerstick AMB INR Fingerstick 3.3 Last Edit by Kimber Patel RN on 11/09/24 08:10 MANAUAL ENTRY Assessment & Plan Assessment & Plan (1) Current use of anticoagulant therapy: Code(s): Z79.01 - 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
[2024-11-09 08:17] LABS: Prothrombin Time Whole Bld POC 39.1 sec (11.1-13.5); ~PT, ~INR - Anti Coag Clinic 3.3 (0.9-1.1)
== END 2024-11-09 08:19 | disposition home or self-care (01) ==
LOC: HO.ACS 08:00
PROVIDERS: PCP Internal Medicine; Visit Provider Internal Medicine Medical Oncology
DX: Z79.01 Long term (current) use of anticoagulants (principal)

== ENCOUNTER → 2024-11-09 08:00 | Outpatient (BNVA) | payer MEDICARE, SELFPAY | PROVIDERS: PCP Internal Medicine; Visit Provider Internal Medicine Medical Oncology | DX: I26.99 Other pulmonary embolism without acute cor pulmonale (principal); Z79.01 Long term (current) use of anticoagulants; Z51.81 Encounter for therapeutic drug level monitoring | CPT/HCPCS: 85610; 99211 ==

== ENCOUNTER 2024-11-24 07:59 | Outpatient (AMB) | payer MEDICARE, SELFPAY ==
--- NOTE | 2024-11-24 08:06 | MHC.OFFVISCO ---
Intake Intake Visit Reasons: Anticoagulation Allergies latex (Latex) Allergy (Mild, Verified 11/24/24 08:00) ALLERGIC TO POWDER glipizide (GLIPIZIDE) Allergy (Unknown, Verified 11/24/24 08:00) MUSCLES WEAK Medication List - Last Reconciled 11/24/24 by Juanita Ibarra, RN amlodipine 2.5 mg PO DAILY amoxicillin 2,000 mg (4 x 500 mg) PO ONCE ferrous sulfate 325 mg PO DAILY 3 months MDD 325mg FreeStyle Lancets (lancets) once daily NS FreeStyle Lite Strips (blood sugar diagnostic) once daily NS gemfibrozil 600 mg PO BID losartan 25 mg (1/2 x 50 mg) PO BID melatonin-pyridoxal phos (B6) 2.5 mg- 338 mcg 1 tab sublingual BEDTIME MDD 5mg metformin 1,000 mg (2 x 500 mg) PO BID dgvmalqk-wbs-OC-lycopen-lutein 0.4 mg-300 mcg- 250 mcg (Centrum Silver) 1 tab PO DAILY omega-3 fatty acids (Fish Oil Concentrate) PO omeprazole 20 mg PO DAILY warfarin 5 mg See Protocol PO DAILY Nursing Note INR: 2.0- in therapeutic range of 1.8- 2.5 Medications and supplements reviewed- recently started iron No changes in health, diet, medications, or supplements, Denies any signs and symptoms of bleeding or bruising or clotting. Bleeding, bruising, clotting discussed Nutritional guidance given Dose: cont reg dosing- 5mg x 3, 10mg x 4 F/U INR: pt req 3 weeks Patient verbalizes understanding of instructions given Anti-Coag Initial Assessment Social Hx Patient Tobacco Use Status: Never used Tobacco alcohol intake: current Alcohol intake frequency: holidays/special occasions only Coding Level of Care Code Est Patient Level 1 Diagnoses Current use of anticoagulant therapy Z79.01 Assessment & Plan Assessment & Plan (1) Current use of anticoagulant therapy: Code(s): Z79.01 - rn long term care (current) use of anticoagulants Category: Medical
[2024-11-24 08:07] LABS: Prothrombin Time Whole Bld POC 23.7 sec (11.1-13.5)
--- OUTSIDE RECORDS SUMMARY | 2024-11-24 08:08 | XMS_ITS | Patient Health Record ---
Author Organization [facility] Address [address] [place] [address] Care Team Providers Care Minilab Operator Name Role Phone Tj Bird MD Primary Care Provider Liz herrera Lakshmi Al Unavailable [phone] Allergies No Known Allergies Reason For Referral [...] Problem Status W/U Status Risk Notes Problem [id number] Elevated liver function tests (R79.89) Active confirmed Problem 164691249 Fatty liver (K76.0) Active confirmed Problem 88027728 Change in bowel function (R19.4) Active confirmed Problem 16832860 Alcoholic liver disease (K70.9) Active confirmed Problem 51400342 Constipation, unspecified constipation type (K59.00) Active confirmed Vital Signs Blood pressure diastolic 00 mm Hg 02/03/2024 Height 73 in 02/03/2024 Blood pressure systolic 00 mm Hg 02/03/2024 Weight 196 lbs 02/03/2024 BMI 25.86 kg/m2 02/03/2024 Encounters Encounter Location Date Provider Diagnosis [facility] [address] [place] [address] 02/03/2024 Al Martins Elevated liver function tests [...] Date MEDICARE OF [place] [address] [facility] [place] [address] [id number] REINIER LOUIS Self - patient is the insured MED[employer] ATTN CLAIMS [address] [place] [address] [id number] REINIER LOUIS Self - patient is the insured Medical (General) History Medical History History ICD Code Screening Colonoscopy,09/2006--hyperplast ic polyp, internal hemorrhoids Denies [place],CVA,Lung disease,renal disease NIDDM Left LE DVT in [...]
== END 2024-11-24 08:13 | disposition home or self-care (01) ==
LOC: HO.ACS 07:59
PROVIDERS: PCP Internal Medicine; Visit Provider Internal Medicine Medical Oncology
DX: Z79.01 Long term (current) use of anticoagulants (principal)

== ENCOUNTER → 2024-11-24 07:59 | Outpatient (BNVA) | payer MEDICARE, SELFPAY | PROVIDERS: PCP Internal Medicine; Visit Provider Internal Medicine Medical Oncology | DX: I26.99 Other pulmonary embolism without acute cor pulmonale (principal); Z79.01 Long term (current) use of anticoagulants; Z51.81 Encounter for therapeutic drug level monitoring | CPT/HCPCS: 85610; 99211 ==

== ENCOUNTER 2024-12-08 07:47 | Outpatient (REF) | payer MEDICARE, SELFPAY ==
--- NOTE | ~2024-12-08 | US_ITS ---
EXAMINATION: US ABDOMEN LIMITED CLINICAL INFORMATION: Abnormal findings on blood chemistry. COMPARISON: September 26, 2022. TECHNIQUE: Real-time ultrasound right upper quadrant abdomen, limited using grayscale technique. FINDINGS: PANCREAS: No peripancreatic fluid collections. LIVER: Liver measures 16 cm by the technologist. Increased echotexture. No nodular surface. No solid or cystic lesion detected. No intrahepatic biliary ductal dilatation. GALLBLADDER: Fluid-filled. No pericholecystic fluid collection or gallbladder wall thickening. COMMON BILE DUCT: 7 mm. RIGHT KIDNEY: 10 cm. Normal echotexture. Normal renal cortical thickness. No hydronephrosis. There is a 1.1 cm anechoic lesion with focal calcification at the corticomedullary junction midportion. No flow on color Doppler interrogation. . FREE FLUID: None. US/US abdomen limited IMPRESSION: Hepatomegaly and steatosis. No cholelithiasis. No ascites. 1.1 cm probable partially calcified cystic lesion, right kidney. Electronically signed by: Archie Pruitt MD 12/08/2024 11:19 AM EDT
--- OUTSIDE RECORDS SUMMARY | 2024-12-08 07:50 | XMS_ITS | Patient Health Record ---
Author Organization [facility] Address [address] [place] [address] Care Team Providers Care Molded Grid And Parts Inspector Name Role Phone Tj Bird MD Primary Care Provider Liz herrera Lakshmi Al Unavailable [phone] Allergies No Known Allergies Reason For Referral [...] Problem Status W/U Status Risk Notes Problem 923484672 Elevated liver function tests (R79.89) Active confirmed Problem 017948358 Fatty liver (K76.0) Active confirmed Problem 86286901 Change in bowel function (R19.4) Active confirmed Problem 84483894 Alcoholic liver disease (K70.9) Active confirmed Problem 24697422 Constipation, unspecified constipation type (K59.00) Active confirmed Vital Signs Blood pressure diastolic 00 mm Hg 02/03/2024 Height 73 in 02/03/2024 Blood pressure systolic 00 mm Hg 02/03/2024 Weight 196 lbs 02/03/2024 BMI 25.86 kg/m2 02/03/2024 Encounters Encounter Location Date Provider Diagnosis [facility] [address] [place] [address] 02/03/2024 Al Martins Elevated liver function tests [...] 01/31/2023 LIVER PROFILE 11/12/2022 CBC w DIFF 11/12/2022 CBC w DIFF [...] Date MED[place]ARE OF [place] [address] [facility] [place] [address] [id number] REINIER LOUIS Self - patient is the insured MED[employer] ATTN CLAIMS [address] [place] [address] [id number] REINIER LOUIS Self - patient is the insured Medical (General) History Medical History History ICD Code Screening Colonoscopy,09/2006--hyperplast ic polyp, internal hemorrhoids Denies [place],CVA,Lung disease,renal disease NIDDM Left LE DVT in [...]
== END 2024-12-08 07:48 | disposition home or self-care (01) ==
LOC: HO.US 07:47
PROVIDERS: PCP Internal Medicine; Visit Provider Internal Medicine
DX: R79.89 Other specified abnormal findings of blood chemistry (principal)
CPT/HCPCS: 76705

== ENCOUNTER → 2024-12-08 07:52 | Outpatient (BNV) | payer MEDICARE, SELFPAY | PROVIDERS: PCP Internal Medicine; Visit Provider Radiology Diagnostic Radiology | DX: R16.0 Hepatomegaly, not elsewhere classified (principal) | CPT/HCPCS: 76705 ==

== ENCOUNTER 2024-12-09 11:18 | Outpatient (REF) | payer MEDICARE, SELFPAY ==
--- OUTSIDE RECORDS SUMMARY | 2024-12-09 12:10 | XMS_ITS | Patient Health Record ---
Author Organization [facility] Address [address] [place] [address] Care Team Providers Care Heatset Winder Operator Name Role Phone Tj Bird MD Primary Care Provider Liz herrera Lakshmi Al Unavailable [phone] Allergies No Known Allergies Reason For Referral [...] Problem Status W/U Status Risk Notes Problem 869558260 Elevated liver function tests (R79.89) Active confirmed Problem 765929618 Fatty liver (K76.0) Active confirmed Problem 98419018 Change in bowel function (R19.4) Active confirmed Problem 29772222 Alcoholic liver disease (K70.9) Active confirmed Problem 44269295 Constipation, unspecified constipation type (K59.00) Active confirmed Vital Signs Blood pressure diastolic 00 mm Hg 02/03/2024 Height 73 in 02/03/2024 Blood pressure systolic 00 mm Hg 02/03/2024 Weight 196 lbs 02/03/2024 BMI 25.86 kg/m2 02/03/2024 Encounters Encounter Location Date Provider Diagnosis [facility] [address] [place] [address] 02/03/2024 Al Martins Elevated liver function tests [...] Test Test Name Order Date LIVER PROFILE 11/12/2022 LIVER PROFILE 12/04/2022 LIVER PROFILE 01/31/2023 CBC w DIFF 11/12/2022 CBC w DIFF 12/04/2022 FLUOR. ANTINUCLEAR AB SCREEN (MARISA) 11/2022 Prothrombin Time INR 12/04/2022 Prothrombin Time INR 11/12/2022 IRON PROFILE 11/12/2022 Ferritin 11/12/2022 Alpha 1 [...] Date [place]ARE [place] [address] [facility] [place] [address] [id number] REINIER LOUIS Self - patient is the insured MED[employer] ATTN CLAIMS [address] [place] [address] [id number] REINIER LOUIS Self - patient is the insured Medical (General) History Medical History History ICD Code Screening Colonoscopy,09/2006--hyperplast ic polyp, internal hemorrhoids Denies [place],CVA,Lung disease,renal disease NIDDM Left LE DVT in [...]
[2024-12-09 12:35] LABS: Hemoglobin A1C 200.4080 umol/L; Total Hemoglobin (HGBA1C) 3343.8143 umol/L
[2024-12-09 13:17] LABS: Iron 191 mcg/dL (45-160); Percent Iron Saturation 45 % (15-50); Total Iron Binding Capacity 426 mcg/dL (228-428); Unsaturated Iron Binding 235 ug/dL
[2024-12-09 13:33] LABS: Ferritin 98 ng/mL (20-250)
[2024-12-09 13:47] LABS: Folate 14.2 ng/mL (> or = 4.0); Vitamin B12 334 pg/mL (200-900)
[2024-12-09 14:20] LABS: Cannabinoid Screen Urine Not Detected (Not Detect)
== END 2024-12-09 11:19 | disposition home or self-care (01) ==
LOC: HO.LAB 11:18
PROVIDERS: PCP Internal Medicine; Visit Provider Physician Assistant Medical
DX: D50.9 Iron deficiency anemia, unspecified (principal); G47.19 Other hypersomnia; R53.83 Other fatigue; G47.9 Sleep disorder, unspecified
CPT/HCPCS: 80307; 82306; 82607; 82728; 82746; 83036; 83090; 83540; 83921

== ENCOUNTER 2024-12-15 08:03 | Outpatient (AMB) | payer MEDICARE, SELFPAY ==
--- OUTSIDE RECORDS SUMMARY | 2024-12-15 08:05 | XMS_ITS | Patient Health Record ---
Author Organization [facility] Address [address] [place] [address] Care Team Providers Care Tailor Apprentice Name Role Phone Tj Bird MD Primary Care Provider Liz herrera Lakshmi Al Unavailable [phone] Allergies No Known Allergies Reason For Referral [...] Problem Status W/U Status Risk Notes Problem 130405779 Elevated liver function tests (R79.89) Active confirmed Problem 948516670 Fatty liver (K76.0) Active confirmed Problem 73962413 Change in bowel function (R19.4) Active confirmed Problem 75016547 Alcoholic liver disease (K70.9) Active confirmed Problem 97227109 Constipation, unspecified constipation type (K59.00) Active confirmed Vital Signs Blood pressure diastolic 00 mm Hg 02/03/2024 Height 73 in 02/03/2024 Blood pressure systolic 00 mm Hg 02/03/2024 Weight 196 lbs 02/03/2024 BMI 25.86 kg/m2 02/03/2024 Encounters Encounter Location Date Provider Diagnosis [facility] [address] [place] [address] 02/03/2024 Al Martins Elevated liver function tests [...] 02/03/2024 Fatty liver (ICD-10 - K76.0) Overall, Reniier appears well. His significant decrease in his [...] Date [place] [address] [facility] [place] [address] [id number] REINIER LOUIS Self - patient is the insured MED[employer] ATTN CLAIMS [address] [place] [address] [phone] [id number] REINIER LOUIS Self - patient is the insured Medical (General) History Medical History History ICD Code Screening Colonoscopy,09/2006--hyperplast ic polyp, internal hemorrhoids Denies [place],CVA,Lung disease,renal disease NIDDM Left LE DVT in [...]
[2024-12-15 08:12] LABS: Prothrombin Time Whole Bld POC 19.5 sec (11.1-13.5); ~PT, ~INR - Anti Coag Clinic 1.6 (0.9-1.1)
--- NOTE | 2024-12-15 08:21 | MHC.OFFVISCO ---
Intake Intake Visit Reasons: Anticoagulation Allergies latex (Latex) Allergy (Mild, Verified 12/15/24 08:04) ALLERGIC TO POWDER glipizide (GLIPIZIDE) Allergy (Unknown, Verified 12/15/24 08:04) MUSCLES WEAK Medication List - Last Reconciled 12/15/24 by Edelmira Hodges, RN amlodipine 2.5 mg PO DAILY amoxicillin 2,000 mg (4 x 500 mg) PO ONCE ferrous sulfate 325 mg PO DAILY 3 months MDD 325mg FreeStyle Lancets (lancets) once daily NS FreeStyle Lite Strips (blood sugar diagnostic) once daily NS gemfibrozil 600 mg PO BID losartan 25 mg (1/2 x 50 mg) PO BID melatonin-pyridoxal phos (B6) 2.5 mg- 338 mcg 1 tab sublingual BEDTIME MDD 5mg metformin 1,000 mg (2 x 500 mg) PO BID luilbryr-nfz-XE-lycopen-lutein 0.4 mg-300 mcg- 250 mcg (Centrum Silver) 1 tab PO DAILY omega-3 fatty acids (Fish Oil Concentrate) PO omeprazole 20 mg PO DAILY warfarin 5 mg See Protocol PO DAILY Nursing Note NO MISSED DOSES,CP,SOB,DIET/MED CHANGES,FALLS OR SX OF BLEEDING. BOOST TO 7.5MGM TODAY AND FOLLOW-UP IN 2 WEEKS. NO GREENS 2-3 DAYS GOOD UNDERSTANDING OF DOSING INSTR. 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
== END 2024-12-15 08:26 | disposition home or self-care (01) ==
LOC: HO.ACS 08:03
PROVIDERS: PCP Internal Medicine; Visit Provider Internal Medicine Medical Oncology
DX: Z79.01 Long term (current) use of anticoagulants (principal)

== ENCOUNTER → 2024-12-15 08:03 | Outpatient (BNVA) | payer MEDICARE, SELFPAY | PROVIDERS: PCP Internal Medicine; Visit Provider Internal Medicine Medical Oncology | DX: I26.99 Other pulmonary embolism without acute cor pulmonale (principal); Z79.01 Long term (current) use of anticoagulants; Z51.81 Encounter for therapeutic drug level monitoring | CPT/HCPCS: 85610; 99211 ==

== ENCOUNTER 2024-12-29 08:10 | Outpatient (AMB) | payer MEDICARE, SELFPAY ==
--- OUTSIDE RECORDS SUMMARY | 2024-12-29 08:16 | XMS_ITS | Patient Health Record ---
Author Organization [facility] Address [address] [place] [address] Care Team Providers Care Spring Crater Name Role Phone Marge (RETIRED) Tj BUTTS Primary Care Provide r Unavailable Al Martins Unavailable [phone] Allergies No Known Allergies Reason For Referral [...] Problem Status W/U Status Risk Notes Problem 894061503 Elevated liver function tests (R79.89) Active confirmed Problem 693049880 Fatty liver (K76.0) Active confirmed Problem 70170792 Change in bowel function (R19.4) Active confirmed Problem 55296076 Alcoholic liver disease (K70.9) Active confirmed Problem 23769884 Constipation, unspecified constipation type (K59.00) Active confirmed Vital Signs Blood pressure diastolic 00 mm Hg 02/03/2024 Height 73 in 02/03/2024 Blood pressure systolic 00 mm Hg 02/03/2024 Weight 196 lbs 02/03/2024 BMI 25.86 kg/m2 02/03/2024 Encounters Encounter Location Date Provider Diagnosis [facility] [address] [place] [address] 02/03/2024 Al Martins Elevated liver function tests [...] Date MEDICARE OF [place] [address] [place] [address] [id number] HERIBERTOREINIER Santiago Self - patient is the insured MED[employer] ATTN CLAIMS [address] [place] [address] [id number] REINIER LOUIS Self - patient is the insured Medical (General) History Medical History History ICD Code Screening Colonoscopy,09/2006--hyperplast ic polyp, internal hemorrhoids Denies NH,CVA,Lung disease,renal disease NIDDM Left LE DVT in 2007--has an IVC filter HTN Hyperlipidemia 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
--- OUTSIDE RECORDS SUMMARY | 2024-12-29 08:16 | XMS_ITS | Encounter Summary ---
Author Organization [facility] Address [address] [place] [address] Phone Care Team Providers Care Counter Attendant Name Role Phone Tj Bird MD Primary Care Provider Encounter Details Date Type Department Care Team (Late st Contact Info) Description 06/13/2017 Procedure Pass [facility] PERIOPERATIVE DEPT 2013 [place] [address] Social History Tobacco Use Types Packs/Day Years Used Date Smoking Tobacco: Never Smokeless Tobacco: Never Alcohol Use Standard Drinks/Week Comments Yes 4 (1 standard drink = 0.6 oz pur e alcohol) Sex and Gender Information Value Date Recorded Sex Assigned at Male 06/16/2017 9:36 AM EST Legal Sex Male 10:41 AM EST Gender Identity Male 06/16/2017 9:36 AM EST Sexual Orientation Straight 06/16/2017 9: 36 AM EST documented as of this encounter Plan of Treatment Not on file documented as of this encounter Visit Diagnoses Not on filedocumented in this encounter Care Teams Counter Attendant Relationship Specialty Start Date End Date Tj Bird MD [address] [place] [address] [place] [address] PCP - General Internal Medicine 06/14/15 documented as of this encounter Additional Source Comments The information contained in this document represents components of the legal health record. It is not the complete legal health record.[facility]
--- NOTE | 2024-12-29 08:37 | MHC.OFFVISCO ---
Intake Intake Visit Reasons: Anticoagulation Allergies latex (Latex) Allergy (Mild, Verified 12/29/24 08:26) ALLERGIC TO POWDER glipizide (GLIPIZIDE) Allergy (Unknown, Verified 12/29/24 08:26) MUSCLES WEAK Medication List - Last Reconciled 12/29/24 by Juanita Ibarra, RN amlodipine 2.5 mg PO DAILY amoxicillin 2,000 mg (4 x 500 mg) PO ONCE cyanocobalamin (vitamin B-12) 1,000 mcg PO BEDTIME ferrous sulfate 325 mg PO DAILY 3 months MDD 325mg FreeStyle Lancets (lancets) once daily NS FreeStyle Lite Strips (blood sugar diagnostic) once daily NS gemfibrozil 600 mg PO BID losartan 25 mg (1/2 x 50 mg) PO BID mecobalamin (vitamin B12) 1,000 mcg PO DAILY 3 months MDD 1000mcg melatonin-pyridoxal phos (B6) 2.5 mg- 338 mcg 1 tab sublingual BEDTIME MDD 5mg metformin 1,000 mg (2 x 500 mg) PO BID yszlnixp-gvr-YT-lycopen-lutein 0.4 mg-300 mcg- 250 mcg (Centrum Silver) 1 tab PO DAILY omega-3 fatty acids (Fish Oil Concentrate) PO omeprazole 20 mg PO DAILY warfarin 5 mg See Protocol PO DAILY Nursing Note INR: 2.4- in therapeutic range of 1.8-2.5 Medications and supplements reviewed - taking vit B 12- no interaction with warfarin per micromedex No changes in health, diet, medications, or supplements, Denies any signs and symptoms of bleeding or bruising or clotting. 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
[2024-12-29 08:38] LABS: Prothrombin Time Whole Bld POC 29.1 sec (11.1-13.5); ~PT, ~INR - Anti Coag Clinic 2.4 (0.9-1.1)
== END 2024-12-29 08:44 | disposition home or self-care (01) ==
LOC: HO.ACS 08:10
PROVIDERS: PCP Internal Medicine; Visit Provider Internal Medicine Medical Oncology
DX: Z79.01 Long term (current) use of anticoagulants (principal)

== ENCOUNTER → 2024-12-29 08:10 | Outpatient (BNVA) | payer MEDICARE, SELFPAY | PROVIDERS: PCP Internal Medicine; Visit Provider Internal Medicine Medical Oncology | DX: I26.99 Other pulmonary embolism without acute cor pulmonale (principal); Z79.01 Long term (current) use of anticoagulants; Z51.81 Encounter for therapeutic drug level monitoring | CPT/HCPCS: 85610; 99211 ==

== ENCOUNTER → 2025-01-02 20:30 | Outpatient (REF) | payer MEDICARE, SELFPAY ==
--- OUTSIDE RECORDS SUMMARY | 2025-01-02 21:49 | XMS_ITS | Patient Health Record ---
Author Organization [facility] Address [address] [place] [address] Care Team Providers Care Rail Flaw Detector Operator Name Role Phone Marge (RETIRED) Tj BUTTS Primary Care Provide r Unavailable Al Martins Unavailable [phone] Allergies No Known Allergies Reason For Referral [...] Problem Status W/U Status Risk Notes Problem [id number] Elevated liver function tests (R79.89) Active confirmed Problem 732282442 Fatty liver (K76.0) Active confirmed Problem 30733662 Change in bowel function (R19.4) Active confirmed Problem 39061503 Alcoholic liver disease (K70.9) Active confirmed Problem 42150621 Constipation, unspecified constipation type (K59.00) Active confirmed Vital Signs Blood pressure diastolic 00 mm Hg 02/03/2024 Height 73 in 02/03/2024 Blood pressure systolic 00 mm Hg 02/03/2024 Weight 196 lbs 02/03/2024 BMI 25.86 kg/m2 02/03/2024 Encounters Encounter Location Date Provider Diagnosis [facility] [address] [place] [address] 02/03/2024 Al Martins Elevated liver function tests [...] [place] [address] [place] [address] [phone] [id number] HERIBERTOREINIER Santiago Self - patient is the insured [employer] ATTN CLAIMS [address] [place] [address] [id number] REINIER LOUIS Self - patient is the insured Medical (General) History Medical History History ICD Code Screening Colonoscopy,09/2006--hyperplast ic polyp, internal hemorrhoids Denies [place],CVA,Lung disease,renal disease NIDDM Left LE DVT in [...]
== END ==
LOC: HO.SL 20:30
PROVIDERS: PCP Internal Medicine; Visit Provider Physician Assistant Medical
DX: G47.19 Other hypersomnia (principal); Z79.01 Long term (current) use of anticoagulants; Z79.899 Other long term (current) drug therapy
CPT/HCPCS: 95805; 95810

== ENCOUNTER → 2025-01-02 21:47 | Outpatient (BNV) | payer MEDICARE, SELFPAY | PROVIDERS: PCP Internal Medicine; Visit Provider Psychiatry & Neurology Neurology | DX: G47.19 Other hypersomnia (principal) | CPT/HCPCS: 95810 ==

== ENCOUNTER 2025-01-03 | Outpatient (REF) | payer MEDICARE, SELFPAY ==
[2025-01-03 13:21] LABS: Cannabinoid Screen Urine Not Detected (Not Detect)
== END 2025-01-03 00:01 | disposition home or self-care (01) ==
LOC: HO.LAB
PROVIDERS: PCP Internal Medicine; Visit Provider Physician Assistant Medical
DX: G47.10 Hypersomnia, unspecified (principal)
CPT/HCPCS: 80307

== ENCOUNTER 2025-01-19 07:58 | Outpatient (AMB) | payer MEDICARE, SELFPAY ==
--- OUTSIDE RECORDS SUMMARY | 2025-01-19 07:59 | XMS_ITS | Patient Health Record ---
Author Organization [facility] Address [address] [place] [address] Care Team Providers Care Mountain Or Glacier Guide Name Role Phone Marge (RETIRED) Tj BUTTS Primary Care Provide r Unavailable Al Martins Unavailable [phone] Allergies No Known Allergies Reason For Referral [...] Problem Status W/U Status Risk Notes Problem 632358312 Elevated liver function tests (R79.89) Active confirmed Problem 449323361 Fatty liver (K76.0) Active confirmed Problem 70317276 Change in bowel function (R19.4) Active confirmed Problem 86746247 Alcoholic liver disease (K70.9) Active confirmed Problem 97133733 Constipation, unspecified constipation type (K59.00) Active confirmed Vital Signs Blood pressure diastolic 00 mm Hg 02/03/2024 Height 73 in 02/03/2024 Blood pressure systolic 00 mm Hg 02/03/2024 Weight 196 lbs 02/03/2024 BMI 25.86 kg/m2 02/03/2024 Encounters Encounter Location Date Provider Diagnosis [facility] [address] [place] [address] 02/03/2024 Al Martins Elevated liver function tests [...] [place] [address] [place] [address] [id number] HERIBERTOREINIER Santiago Self - patient is the insured MED[employer] ATTN CLAIMS [address] [place] [address] [id number] REINIER LOUIS Self - patient is the [...]
--- OUTSIDE RECORDS SUMMARY | 2025-01-19 07:59 | XMS_ITS | Encounter Summary ---
Author Organization [facility] Address [address] [place] [address] Phone Care Team Providers Care Pharmaceutical Officer Name Role Phone Tj Bird MD Primary Care Provider Encounter Details Date Type Department Care Team (Late st Contact Info) Description 06/13/2017 Procedure Pass [facility] PERIOPERATIVE DEPT [address] [place] [address] Social History Tobacco Use Types Packs/Day Years [...] on filedocumented in this encounter Care Teams Pharmaceutical Officer Relationship Specialty Start Date End Date Tj Bird MD [address] [place] [address] [place] [address] PCP - General Internal Medicine 06/14/15 documented as of this encounter Additional Source Comments The information contained in this document represents components of the legal health record. It is not the complete legal health record.[facility]
[2025-01-19 08:09] LABS: Prothrombin Time Whole Bld POC 24.6 sec (11.1-13.5); ~PT, ~INR - Anti Coag Clinic 2.0 (0.9-1.1)
--- NOTE | 2025-01-19 08:12 | MHC.OFFVISCO ---
Intake Intake Visit Reasons: Anticoagulation Allergies latex (Latex) Allergy (Mild, Verified 01/19/25 08:13) ALLERGIC TO POWDER glipizide (GLIPIZIDE) Allergy (Unknown, Verified 01/19/25 08:13) MUSCLES WEAK Medication List - Last Reconciled 01/19/25 by Edelmira Hodges, RN amlodipine 2.5 mg PO DAILY amoxicillin 2,000 mg (4 x 500 mg) PO ONCE cyanocobalamin (vitamin B-12) 1,000 mcg PO BEDTIME ferrous sulfate 325 mg PO DAILY 3 months MDD 325mg FreeStyle Lancets (lancets) once daily NS FreeStyle Lite Strips (blood sugar diagnostic) once daily NS gemfibrozil 600 mg PO BID losartan 25 mg (1/2 x 50 mg) PO BID mecobalamin (vitamin B12) 1,000 mcg PO DAILY 3 months MDD 1000mcg melatonin-pyridoxal phos (B6) 2.5 mg- 338 mcg 1 tab sublingual BEDTIME MDD 5mg metformin 1,000 mg (2 x 500 mg) PO BID jtamsbjr-cwv-FX-lycopen-lutein 0.4 mg-300 mcg- 250 mcg (Centrum Silver) 1 tab PO DAILY omega-3 fatty acids (Fish Oil Concentrate) PO omeprazole 20 mg PO DAILY warfarin 5 mg See Protocol PO DAILY Nursing Note NO CP,SOB,DIET/MED CHANGES,FALLS OR SX OF BLEEDING. CONTINUE PRESENT DOSE AND FOLLOW-UP IN 3 WEEKS GOOD UNDERSTANDING OF DOSING INSTR. 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
== END 2025-01-19 08:15 | disposition home or self-care (01) ==
LOC: HO.ACS 07:58
PROVIDERS: PCP Internal Medicine; Visit Provider Internal Medicine Medical Oncology
DX: Z79.01 Long term (current) use of anticoagulants (principal)

== ENCOUNTER → 2025-01-19 07:58 | Outpatient (BNVA) | payer MEDICARE, SELFPAY | PROVIDERS: PCP Internal Medicine; Visit Provider Internal Medicine Medical Oncology | DX: Z51.81 Encounter for therapeutic drug level monitoring (principal); Z79.01 Long term (current) use of anticoagulants | CPT/HCPCS: 85610; 99211 ==

== ENCOUNTER 2025-02-09 08:07 | Outpatient (AMB) | payer MEDICARE, SELFPAY ==
--- NOTE | 2025-02-09 08:30 | MHC.OFFVISCO ---
Intake Intake Visit Reasons: Anticoagulation Allergies latex (Latex) Allergy (Mild, Verified 02/09/25 08:25) ALLERGIC TO POWDER glipizide (GLIPIZIDE) Allergy (Unknown, Verified 02/09/25 08:25) MUSCLES WEAK Medication List - Last Reconciled 02/09/25 by Juanita Ibarra, RN amlodipine 2.5 mg PO DAILY amoxicillin 2,000 mg (4 x 500 mg) PO ONCE cyanocobalamin (vitamin B-12) 1,000 mcg PO BEDTIME ferrous sulfate 325 mg PO DAILY 3 months MDD 325mg FreeStyle Lancets (lancets) once daily NS FreeStyle Lite Strips (blood sugar diagnostic) once daily NS gemfibrozil 600 mg PO BID losartan 25 mg (1/2 x 50 mg) PO BID mecobalamin (vitamin B12) 1,000 mcg PO DAILY 3 months MDD 1000mcg melatonin-pyridoxal phos (B6) 2.5 mg- 338 mcg 1 tab sublingual BEDTIME MDD 5mg metformin 1,000 mg (2 x 500 mg) PO BID rbofqnyc-rrm-VU-lycopen-lutein 0.4 mg-300 mcg- 250 mcg (Centrum Silver) 1 tab PO DAILY omega-3 fatty acids (Fish Oil Concentrate) PO omeprazole 20 mg PO DAILY warfarin 5 mg See Protocol PO DAILY Nursing Note INR: 1.8- in therapeutic range 1.8-2.5 Medications and supplements reviewed on vit B 12- no interaction per micromedex No changes in health, diet, medications, or supplements, Denies any signs and symptoms of bleeding or bruising or clotting. 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
[2025-02-09 08:31] LABS: Prothrombin Time Whole Bld POC 22.0 sec (11.1-13.5); ~PT, ~INR - Anti Coag Clinic 1.8 (0.9-1.1)
--- OUTSIDE RECORDS SUMMARY | 2025-02-09 08:34 | XMS_ITS | Encounter Summary ---
Author Organization [facility] Address [address] [place] [address] Phone Care Team Providers Care Package Sealer Machine Name Role Phone Tj Bird MD Primary Care Provider Encounter Details Date Type Department Care Team (Late st Contact Info) Description 06/13/2017 Procedure Pass [facility] PERIOPERATIVE DEPT [address] [place] [address] Social History Tobacco Use Types Packs/Day Years [...] on filedocumented in this encounter Care Teams Package Sealer Machine Relationship Specialty Start Date End Date Tj Bird MD [address] [place] [address] [place] [address] PCP - General Internal Medicine 06/14/15 documented as of this encounter Additional Source Comments The information contained in this document represents components of the legal health record. It is not the complete legal health record.[facility]
--- OUTSIDE RECORDS SUMMARY | 2025-02-09 08:34 | XMS_ITS | Patient Health Record ---
Author Organization [facility] Address [address] [place] [address] Care Team Providers Care Screw Eye Assembler Name Role Phone Marge (RETIRED) Tj BUTTS Primary Care Provide r Unavailable Al Martins Unavailable [phone] Allergies No Known Allergies Reason For Referral [...] Problem Status W/U Status Risk Notes Problem [id number] Elevated liver function tests (R79.89) Active confirmed Problem 686766924 Fatty liver (K76.0) Active confirmed Problem 40268039 Change in bowel function (R19.4) Active confirmed Problem 57145138 Alcoholic liver disease (K70.9) Active confirmed Problem 12412447 Constipation, unspecified constipation type (K59.00) Active confirmed Plan Of Treatment Pending Test Test Name Order Date LIVER PROFILE 12/04/2022 LIVER PROFILE 01/31/2023 LIVER PROFILE 11/12/2022 CBC w DIFF 12/04/2022 CBC w DIFF 11/12/2022 FLUOR. ANTINUCLEAR AB SCREEN (MARISA) /0 11/2022 Prothrombin Time INR 11/12/2022 Prothrombin Time [...] [place] [address] [place] [address] [id number] REINIER LOUIS Self - patient is the insured [employer] ATTN CLAIMS [address] [place] [address] [phone] [id number] REINIER LOUIS Self - patient is the [...]
--- OUTSIDE RECORDS SUMMARY | 2025-02-09 08:34 | XMS_ITS | Encounter Summary ---
Author Organization [facility] Address [address] [place] [address] Phone Care Team Providers Care Head Shipper Name Role Phone Tj Bird MD Primary Care Provider Encounter Details Date Type Department Care Team (Late st Contact Info) Description 08/01/2016 [facility]phone [facility] [employer] [address], [address] [place] [address] Chery Cespedes [place] Social History Tobacco Use Types Packs/Day Years Used Date Smoking Tobacco: Never Smokeless Tobacco: Never Alcohol Use Standard Drinks/Week Comments Yes 4 (1 standard drink = 0.6 oz pure alcohol) previous 4 beers per day, prior to May 2016 Sex and Gender Information Value Date Recorded Sex Assigned at Male 06/16/2017 9:36 AM EST Legal Sex Male 10:41 AM EST Gender Identity Male 06/16/2017 9:36 AM EST Sexual Orientation Straight 06/16/2017 9: 36 AM EST documented as of this encounter Plan of Treatment Not on file documented as of this encounter Visit Diagnoses Not on filedocumented in this encounter Care Teams Head Shipper Relationship Specialty Start Date End Date Tj Bird MD [address] [place] [address] [place] [address] PCP - General Internal Medicine 06/14/15 documented as of this encounter Additional Source Comments The information contained in this document represents components of the legal health record. It is not the complete legal health record.[facility]
--- OUTSIDE RECORDS SUMMARY | 2025-02-09 08:34 | XMS_ITS | Encounter Summary ---
Author Organization [facility] Address [address] [place] [address] Phone Care Team Providers Care Wood Dowel Machine Operator Name Role Phone Tj Bird MD Primary Care Provider Encounter Details Date Type Department Care Team (Late st Contact Info) Description 07/17/2016 Procedure Pass [facility] PERIOPERATIVE DEPT [address] [place] [address] Social History Tobacco Use Types Packs/Day Years [...] on filedocumented in this encounter Care Teams Wood Dowel Machine Operator Relationship Specialty Start Date End Date Tj Bird MD [address] [place] [address] [place] [address] PCP - General Internal Medicine 06/14/15 documented as of this encounter Additional Source Comments The information contained in this document represents components of the legal health record. It is not the complete legal health record.[facility]
--- OUTSIDE RECORDS SUMMARY | 2025-02-09 08:34 | XMS_ITS | Clinical Summary ---
Author Organization [facility] Address [address] [place] [address] Phone Care Team Providers Care Psych Therapist Name Role Phone Tj Bird MD Primary Care Provider Allergies Active Allergy Reactions Criticality Noted Date Comments Amoxicillin 06/24/2016 Pt doesn't remember reaction b/c it was a long time ago, but thinks it was possibly a rash? Latex, Natural Rubber Rash Low 06/24/2016 Medications valsartan (DIOVAN) 160 MG tablet Take 160 mg by mouth every morning. 3 05/18/2016 Active amLODIPine (NORVASC) 2.5 MG tablet Take 2.5 mg by mouth every morning. 3 05/12/2016 Active gemfibrozil (LOPID) 600 MG tablet Take 600 mg by mouth 2 (two) times a day. 3 05/12/2016 Active omeprazole (PRILOSEC) 20 MG capsule Take 20 mg by mouth every morning. 3 05/12/2016 Active metFORMIN (GLUCOPHAGE) 500 MG tablet Take 1,000 mg by mouth 2 (two) times a day. 3 04/09/2016 Active warfarin (COUMADIN) 5 MG tabletIndicatio ns:5MG: MON & THURS; 10MG on Sun, Tues, Wed, Fri, Sat Take by mouth as directed. Q Azael Friday 1(5MG) TAB PO QD w/ Every other day 2(5MG) TABS PO QD Indications: 5MG: MON & THURS; 10MG on Sun, Tues, Wed, Fri, Sat Active omega 5-iwu-cim-fish oil 360-1,200 mg CpDR Take 1 capsule by mouth daily. Active MULTIVIT-MIN/FA /LYCOPEN/LUTEIN (CENTRUM SILVER ULTRA MEN'S ORAL) Take 1 tablet by mouth daily. Active acetaminophen (TYLENOL) 500 MG tablet Take 2 tablets (1,000 mg total) by mouth every 8 (eight) hours. 07/20/2016 Active oxyCODONE 5 MG immediate release tablet Take 1-2 tablets (5-10 mg total) by mouth every 4 (four) hours as needed. Do not drive, do not operate heavy machinery. Do not make life altering decisions.par tial fill upon patient request. 30 tablet 05/29/2017 Active ENOXAPARIN SODIUM (LOVENOX SUBQ) Inject under the skin as directed. Active Active Problems Problem Noted Date Diagnosed Date Trochanteric bursitis of left hip 06/13/2017 Pre-operative examination 06/24/2016 Assessment & Plan (06/24/2016 2:13 PM EST): Cardiac Risk Estimation: Patient has no unstable cardiac disease, revised cardiac risk index = 0, estimated risk for major cardiac complications is 0.4%; Elizabeth estimated risk of perioperative [place] or cardiac arrest is <1%, can proceed to surgery without further cardiac risk stratification. Deep vein thrombosis prophylaxis: per orthopedic protocol, resume Coumadin after surgery for history of DVT and PE. 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 Current INR 1.4, got warfarin 4mg yesterday, would increase to 6mg today. Assessment & Plan (06/24/2016 2:14 PM EST): Hold Coumadin 5 days prior to surgery, resume after surgery. Constipation 06/24/2016 Overview (06/24/2016): During hospitalization for DVT in 2007 Assessment & Plan (07/19/2016 12:03 PM EST): Add scheduled miralax and senna Assessment & Plan (06/24/2016 2:14 PM EST): Recommend MiraLAX in addition to Senokot after surgery. Essential hypertension 06/24/2016 Overview (06/24/2016): On amlodipine and valsartan Assessment & Plan (07/19/2016 12:04 PM EST): BP at goal on valsartan and almodipine Assessment & Plan (06/24/2016 2:14 PM EST): Hold losartan morning of surgery, and use 130 as holding parameter postop. Continue amlodipine. Type 2 diabetes mellitus without complication Overview (06/24/2016): On metformin 1000mg bid, HA1C 7.7 06/16/15 Assessment & Plan (07/19/2016 12:56 PM EST): FSBS mildly elevated on lantus 12 and humalog 4 tid, would increase lantus to 14units and humalog to 6 tid Assessment & Plan (06/25/2016 10:28 AM EST): Diabetes is suboptimally controlled with metformin. Consider basal, nutritional and correctional insulin after surgery while holding the metformin. Suggest Lantus 20 units daily at bedtime, Humalog 6 units before each meals, plus Humalog sliding scale. Hyperlipidemia 06/24/2016 Overview (06/24/2016): On lopid Viral URI 06/24/2016 Assessment & Plan (06/24/2016 2:16 PM EST): Has been followed by PCP, symptoms partially improved with Flonase, still has chest congestion, PCP asked the patient to call if he is not better, a course of antibiotics will likely be prescribed per patient. Post-operative nausea and vomiting 06/24/2016 Overview (06/24/2016): At age 19 after appendectomy Resolved Problems Problem Noted Date Diagnosed Date Resolved Date Osteoarthritis of left hip 07/17/2016 0 06/13/2017 Assessment & Plan (07/19/2016 12:03 PM EST): Left RAUDEL 07/17, on warfarin Primary osteoarthritis of left hip 06/13/2017 Overview (06/24/2016): Resting pain, worse with standing Family History Medical History Relation Comments Anesthesia problems Sister Thrombosis Neg Hx Relation Status Comments Sister ponv Social History Tobacco Use Types Packs/Day Years Used Date Smoking Tobacco: Never Smokeless Tobacco: Never Tobacco Cessation:Counseling Given: No Alcohol Use Standard Drinks/Week Comments Yes 4 (1 standard drink = 0.6 oz pur e alcohol) Education Answer Date Recorded Are you interested in more education? Not on roxann e 10/04/2022 Are you concerned about learning? Not on file 10/04/2022 No 10/04/2022 No 10/04/2022 Digital Access Answer Date Recorded No 11/04/2022 No 11/04/2022 Reliable internet access at home? Not on file 11/04/2022 Device with a working camera? Not on file Sex and Gender Information Value Date Recorded Sex Assigned at Male 06/16/2017 9:36 AM EST Legal Sex Male 10:41 AM EST Gender Identity Male 06/16/2017 9:36 AM EST Sexual Orientation Straight 06/16/2017 9: 36 AM EST Last Filed Vital Signs Vital Sign Reading Time Taken Comments Blood Pressure 148/84 06/13/2017 4:58 PM EST Pulse 69 06/13/2017 4:58 PM EST Temperature 36.8 C (98.2 F) 06/13/2017 2:31 PM EST Respiratory Rate 16 06/13/2017 4:58 PM EST Oxygen Saturation 97% 06/13/2017 4:58 PM EST Inhaled Oxygen Concentration 21% 07/19/2016 3 :50 PM EST Weight 89.8 kg (198 lb) 06/22/2020 9:59 AM EST Height 185.4 cm (6' 1 ) 06/22/2020 9:59 AM EST Body Mass Index 26.12 06/22/2020 9:59 AM EST Plan of Treatment Health Maintenance Due Date Last Done Comments Adult Td,Tdap Booster 1955 BLOOD PRESSURE 1955 DEPRESSION SCREENING 1967 HEPATITIS C SCREENING 1973 LIPID PANEL 1973 PNEUMOCOCCAL VACCINES (50+ years) (1 of 2 - PCV) 1974 COLOGUARD 02/22/2000 COLONOSCOPY 02/22/2000 COLORECTAL CANCER SCREENING 02/22/2000 FIT TEST 02/22/2000 FOBT 02/22/2000 SIGMOIDOSCOPY 02/22/2000 VIRTUAL COLONOSCOPY 02/22/2000 ZOSTER VACCINES (1 of 2) 2005 DIABETIC EYE EXAM 06/24/2016 HEMOGLOBIN A1C 11/27/2017 05/29/2017, 06/24/2016 CREATININE LEVEL 05/29/2018 05/29/2017, 04/2017, 07/19/2016, Additional history exists POTASSIUM LEVEL 05/29/2018 05/29/2017, 07/10, 07/19/2016, Additional history exists COVID-19 VACCINE ( - 2023- season) 2024 09/02/2020 INFLUENZA VACCINE (#1) 2025 RSV VACCINE (1 - 1-dose 75+ series) 2030 SMOKING STATUS SCREENING (Once After 26 Yrs) Completed 08/15/2023 HEPATITIS A VACCINES Aged Out No long er eligible based on patient's age to complete this topic HIB VACCINES Aged Out No longer eligi ble based on patient's age to complete this topic MENINGOCOCCAL VACCINES (ACWY) Aged Out No longer eligible based on patient's age to complete this topic MENINGOCOCCAL VACCINES (B) Aged Out N o longer eligible based on patient's age to complete this topic Medical Devices Implanted Type Area Paramedical Aide Device Identifier Shelf Expiration Date Model / Serial / Lot Ivc Filter [employer] Acet Shell 60g Hip 06 Ea - [id number] Implanted:Qty: 1 on 07/17/2016 by Steven Marie MD at [facility] Left: Hip [employer] 03/23/2025 [id number] / / [id number] Neutral E1 Liner 36mm G Hip 11 Ea - [id number] Implanted:Qty: 1 on 07/17/2016 by Steven Marie MD at [facility] Left: Hip [employer] 01/23/2021 [id number] / / [id number] Tprlc [address] Distal Type1 Pps Ho 15.0 Hip 01 - [id number] Implanted:Qty: 1 on 07/17/2016 by Steven Marie MD at [facility] Left: Hip [employer] 05/02/2026 [id number] / / [id number] Implant Hip 36mm Femoral Head Biolox D Mod C2a Standard Neck Ea Hip 04 - [id number] Implanted:Qty: 1 on 07/17/2016 by Steven Marie MD at [facility] Left: Hip [employer] 05/20/2026 [id number] / / [id number] Procedures Procedure Name Priority Date/Time Associated Diagnosis Comments HEMOGLOBIN A1C Routine 05/29/2017 1:00 PM EST Trochanteric bursitis of left hip BASIC METABOLIC PANEL Routine 05/29/2017 1:00 PM EST Trochanteric bursitis of left hip from Last 3 Months or Most Recently Relevant to Health Maintenance Results * (ABNORMAL) Hemoglobin A1c (05/29/2017 1:00 PM EST) HEMOGLOBIN A1C 7.6(H) 4.3 - 5.6 % [facility] CALC MEAN BLD GLUC 171 mg/dL [facility] 05/29/2017 1:00 PM EST 05/29/2017 1:42 PM EST us Francy LÓPEZ LAB BLOOD ORDERABLES Salud l Result [facility] [address] [place] [address] * (ABNORMAL) Basic metabolic panel (05/29/2017 1:00 PM EST) Pathologist [facility] SODIUM 139 136 - 145 mmol/L [facility] CHLORIDE 101 95 - 106 mmol/L [facility] POTASSIUM 4.2 3.5 - 5.2 mmol/L [facility] CO2 24 20 - 31 mmol/L [facility] BUN 18 9 - 23 mg/dL [facility] CREATININE 1.09 0.50 - 1.30 mg/dL [facility] GLUCOSE 179(H) 74 - 106 mg/dL [facility] CALCIUM 9.0 8.7 - 10.4 mg/dL [facility] EGFR >60 >60 mL/min/1.7 3m2 [facility] Comment:The normal range for eGFR is >60 mL/min/1.73m2. ANION GAP 14 3 - 17 mmol/L [facility] 05/29/2017 1:00 PM EST 05/29/2017 1:42 PM EST Francy LÓPEZ LAB BLOOD ORDERABLES Salud brothers Result Performing Organization Address City/State/[facility] Co de Phone Number [facility] [address] [place] [address] from Last 3 Months or Most Recently Relevant to Health Maintenance Insurance MEDICARE PART A & B [employer] CROSS MEDEX SUPPLEMENT Advance Directives For more information, please contact: [phone] (9AM - 5PM [facility], Friday-Friday) Documents on File Type Date Recorded Patient Nurses Aide Expl anation Healthcare Proxy 07/23/2016 11:32 AM * Full Code (Presumed) (Latest Code Status on File) Date Activated Date Inactivated Comments 07/17/2016 3:32 PM 07/20/2016 5:26 PM * Full Code (Presumed) Date Activated Date Inactivated Comments 07/17/2016 8:40 AM 07/17/2016 3:32 PM Healthcare Agents on File Name Relationship Healthcare Agent Relationship Communication Jenny Francis Spouse .Primary Health Care Agent (Proxy form on file) Care Teams Psych Therapist Relationship Specialty Start Date End Date Tj Bird MD [address] [place] [address] [place] [address] PCP - General Internal Medicine 06/14/15 Additional Source Comments The information contained in this document represents components of the legal health record. It is not the complete legal health record.[facility]
== END 2025-02-09 09:07 | disposition home or self-care (01) ==
PROVIDERS: PCP Student in an Organized Health Care Education/Training Program; Visit Provider Internal Medicine Medical Oncology
DX: Z79.01 Long term (current) use of anticoagulants (principal)

== ENCOUNTER → 2025-02-09 08:07 | Outpatient (BNVA) | payer MEDICARE, SELFPAY | PROVIDERS: PCP Internal Medicine; Visit Provider Internal Medicine Medical Oncology | DX: Z51.81 Encounter for therapeutic drug level monitoring (principal); Z79.01 Long term (current) use of anticoagulants | CPT/HCPCS: 85610; 99211 ==

== ENCOUNTER 2025-02-10 07:51 | Outpatient (AMB) | payer MEDICARE, SELFPAY ==
[2025-02-10 07:53] VITALS: BP 132/84; PULSE 76; O2SAT 96; BMI 27.8
--- NOTE | 2025-02-10 07:53 | A.OFFVIS_ITS ---
Vital Signs 02/10/25 07:53 Height 6 ft Weight 205 lb 4 oz BMI 27.8 BP 132/84 Blood Pressure Location Rt brachial Position Sitting Pulse 76 Pulse Source Pulse Oximeter Pulse Oximetry (%) 96 Oxygen Delivery Method Room Air Intake Visit Reasons: 3m follow up Intake Note: Patient presents Follow up Hypersomnia medication. Labs/MLST in chart. ENT booked 09/2025. Patient states under a lot of stress and fatigue getting worse Allergies latex (Latex) Allergy (Mild, Verified 02/10/25 07:59) ALLERGIC TO POWDER glipizide (GLIPIZIDE) Allergy (Unknown, Verified 02/10/25 07:59) MUSCLES WEAK HPI Comments Details: 69 year old male presents for a follow up of Polysomnography and MSLT results for hypersomnia. HST 08/2024 and PSG 09/2024, AHI 2.6, and 3.1 respectively with normal 02 levels. 01/2025 MSLT sleep occured on 5/5 nap opportunities, and average sleep latencies 00:06:00 min with hypersomnia and SOREM /5. ESS score is 13 He continues to have chronic fatigue, tires easily with non-exertional activities. He is easily fatigued while driving will loop puller and take a 15min nap if he feels like he is going to fall asleep. He goes to bed at 6pm and wakes up at 4:30 am with2-3 bathroom breaks a night.He notices a crescendo/ decrescendo ringing and humming in ears bilaterally. His sister has Parkinsons with dementia at 66 year old. His memory is good. 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 He notices bilateral hand tremors LUE>RUE, which are worse in the morning and go away with action such as picking up tools or buttoning shirt.Denies RLS symptoms and migraines. He drinks one beer per day, and drinks plenty of water, walks about 3 miles daily. Reviewed Labs today and he is anemic, will evaluate. [facility] Medical History Hypercholesteremia History of blood clots Diabetes Hypertension Surgical History History of colonoscopy (~08/07/15) History of appendectomy S/P hip replacement History of gastric surgery Family History Father CAD (coronary artery disease) Mother Diabetes Social History Housing: House Alcohol intake: current Alcohol intake frequency: holidays/special occasions only Patient Tobacco Use Status: Never used Tobacco e-Cigarette/Vaping Use: Never Used service: No Current occupational status: retired Current occupation: [employer] Cognitive needs: No Hearing needs: No Vision needs: Yes (rx glasses) Physical Exam Vital Signs: Last Vital Signs Pulse 76 02/10/25 07:53 BP 132/84 02/10/25 07:53 Pulse Ox 96 02/10/25 07:53 Oxygen Delivery Method Room Air 02/10/25 07:53 BMI result Body Mass Index 27.8 bp slightly elevated Const General: cooperative, comfortable and no acute distress Nutritional Appearance: average body habitus Orientation/consciousness: patient oriented x3 HEENT Face and sinus: Yes normal facial exam and Yes face symmetric Teeth and gingiva: other (mallampti score of 3) Eyes Pupils: Equal, round and reactive pupils present Neck Neck: Yes full ROM Resp Effort & Inspection: normal respiratory effort and able to speak in complete sentences Neuro Other: hypophonia, UE action tremors L>R, gait antalgic General: patient oriented x3 and moves all extremities Cranial nerves: Yes Facial sensation intact/muscles of mastication intact, Yes Equal, round and reactive pupils present, Yes Normal accommodation reflex present, Yes Bilaterally intact EOM present, Yes Normal facial strength present, Yes Midline tongue present, Yes Ability to bilaterally rotate head present and Yes Ability to bilaterally elevate shoulders present Cognition (Neuro): normal cognition Gait exam (Neuro): Antalgic gait present and Other gait observations present (off balance ) Motor exam (neuro): 5/5 motor strength present throughout, Normal motor muscle tone present throughout, Tremors during motor activity present (LUE >RUE ) and Motor abnormalites present Coordination: [id number]-[id number] test normal Psych Appearance: grossly normal Mental Status: mental status grossly normal Thought process: Normal thought process present Thought content: Normal thought content present Results Reviewed Results Reviewed: HST 08/2024 and PSG 09/2024, AHI 2.6, and 3.1 respectively with normal 02 levels. 01/2025 MSLT sleep occured on 10/11 nap opportunities, and average sleep latencies 00:06:00 min with hypersomnia and SOREM 06/13. ESS score is 13 Assessment & Plan Assessment & Plan (1) Hypersomnia: Code(s): G47.10 - Hypersomnia, unspecified Category: Medical (2) Excessive daytime sleepiness: Code(s): G47.19 - Other hypersomnia Category: Medical (3) Action tremor: Comment: Essential - LUE >RUE unlikely Parkinsons. Code(s): G25.2 - Other specified forms of tremor Category: Medical (4) Anemia: Code(s): D64.9 - Anemia, unspecified Category: Medical Qualifiers: Anemia type: iron deficiency Iron deficiency anemia type: unspecified iron deficiency Qualified Code(s): D50.9 - Iron deficiency anemia, unspecified (5) Chronic anemia: Code(s): D64.9 - Anemia, unspecified Category: Medical Plan Hypersomnia MSLT + will complete labs and treat for anemia and f/u with stimulants if pt is amenable. ENT referral ringing in ears bilaterally. Labs reviewed with pt. today b12 low/ homocystein is high/ hgb and hct is low/ A1c is 7.6, defter to pcp. Will start him on B12 1000mcg, and refer to hematology as he is on Warfarin therapy. Anemia start 325mg ferrous sulfate daily with 1/2 glass of oj. F/u in 3 months Orders: Referrals Hematology & Oncology Referral D64.9 - Anemia, unspecified Medications: Refilled mecobalamin (vitamin B12) take one tablet daily at bedtime 1,000 mcg PO DAILY 90 tabs 0RF low b12 3 months MDD 1000mcg R79.89 - Other specified abnormal findings of blood chemistry ferrous sulfate take one tablet daily 325mg with 1/2 glass of orange juice at lunch time. 325 mg PO DAILY 90 tabs 3RF anemia 3 months MDD 325mg D64.9 - Anemia, unspecified Patient Instructions: Sleep Hygiene provided: set a scheduled bedtime and wake time to help regulate the circadian rhythm and balance the release of pituitary hormones. Sleep in a dark room, temperatures below 68 degrees, and no devices n bed. Limit caffeinated products 6 hours prior to bed, and limit fluids 2-4 hours prior to bed. Gentle night yoga, diffusing essential oils, and playing soft music can be relaxing. 5-10mg melatonin 325mg ferrous iron daily. Labs reviewed with pt. Coding Level of Care Code Est Pt Level 4 (40950) Diagnoses Hypersomnia G47.10 Excessive daytime sleepiness G47.19 Action tremor G25.2 Iron deficiency anemia, unspecified iron deficiency anemia type D50.9 Anemia type: iron deficiency Iron deficiency anemia type: unspecified iron deficiency Chronic anemia D64.9
--- OUTSIDE RECORDS SUMMARY | 2025-02-10 07:56 | XMS_ITS | Encounter Summary ---
Author Organization [facility] Address [address] [place] [address] Phone Care Team Providers Care Mastic Worker Name Role Phone Tj Bird MD Primary Care Provider Encounter Details Date Type Department Care Team (Late st Contact Info) Description 06/13/2017 Procedure Pass [facility] PERIOPERATIVE DEPT [address] [place] [address] Social History Tobacco Use Types Packs/Day Years [...] on filedocumented in this encounter Care Teams Mastic Worker Relationship Specialty Start Date End Date Tj Bird MD [address] [place] [address] [place] [address] PCP - General Internal Medicine 06/14/15 documented as of this encounter Additional Source Comments The information contained in this document represents components of the legal health record. It is not the complete legal health record.[facility]
--- OUTSIDE RECORDS SUMMARY | 2025-02-10 07:56 | XMS_ITS | Clinical Summary ---
Author Organization [facility] Address [email or web address] [place] [address] Phone Care Team Providers Care Trailer Sections Assembler Name Role Phone Tj Bird MD Primary [...] Sun, Tues, Wed, Fri, Sat Active omega 6-whp-ost-fish oil 360-1,200 mg CpDR Take 1 capsule [...] is 0.4%; Elizabeth estimated risk of perioperative [place] or cardiac arrest is <1%, can proceed [...] this topic Medical Devices Implanted Type Area Grip Wrapper Device Identifier Shelf Expiration Date Model / Serial / Lot Ivc Filter [employer] Acet Shell 60g Hip 06 Ea - [id number] Implanted:Qty: 1 on 07/17/2016 by Steven Marie MD at [facility] Left: Hip [employer] 03/23/2025 [id number] / / [id number] Neutral E1 Liner 36mm G Hip 11 Ea - [id number] Implanted:Qty: 1 on 07/17/2016 by Steven Marie MD at [facility] Left: Hip [employer] 01/23/2021 [id number] / / [id number] Tprlc [address] Distal Type1 Pps Ho 15.0 Hip 01 - [id number] Implanted:Qty: 1 on 07/17/2016 by Steven Marie MD at [facility] Left: Hip [employer] 05/02/2026 [id number] / / [id number] Implant Hip 36mm Femoral Head Biolox D Mod C2a Standard Neck Ea Hip 04 - [id number] Implanted:Qty: 1 on 07/17/2016 by Steven Marie MD at [facility] Left: Hip [employer] 05/20/2026 [id number] / / [id number] Procedures Procedure Name Priority Date/Time Associated Diagnosis Comments HEMOGLOBIN A1C Routine 05/29/2017 1:00 PM EST Trochanteric bursitis of left hip BASIC METABOLIC PANEL Routine 05/29/2017 1:00 PM EST Trochanteric bursitis of left hip from Last 3 Months or Most Recently Relevant to Health Maintenance Results * (ABNORMAL) Hemoglobin A1c (05/29/2017 1:00 PM EST) HEMOGLOBIN A1C 7.6(H) 4.3 - 5.6 % [facility] CALC MEAN BLD GLUC 171 mg/dL [facility] 05/29/2017 1:00 PM EST 05/29/2017 1:42 PM EST us Francy LÓPEZ LAB BLOOD ORDERABLES Salud l Result [facility] [address] [place] [address] * (ABNORMAL) Basic metabolic panel (05/29/2017 1:00 PM EST) Pathologist [facility] SODIUM 139 136 - 145 mmol/L [facility] CHLORIDE 101 95 - 106 mmol/L [facility] POTASSIUM 4.2 3.5 - 5.2 mmol/L [facility] CO2 24 20 - 31 mmol/L [facility] BUN 18 9 - 23 mg/dL [facility] CREATININE 1.09 0.50 - 1.30 mg/dL [facility] GLUCOSE 179(H) 74 - 106 mg/dL [facility] CALCIUM 9.0 8.7 - 10.4 mg/dL [facility] EGFR >60 >60 mL/min/1.7 3m2 [facility] Comment:The normal range for eGFR is >60 mL/min/1.73m2. ANION GAP 14 3 - 17 mmol/L [facility] 05/29/2017 1:00 PM EST 05/29/2017 1:42 PM EST Francy LÓPEZ LAB BLOOD ORDERABLES Salud brothers Result Performing Organization Address City/State/[facility] Co de Phone Number [facility] [address] [place] [address] from Last 3 Months or Most Recently Relevant to Health Maintenance Insurance MEDICARE PART A & B [employer] CROSS MEDEX SUPPLEMENT Advance Directives For more information, please contact: [phone] (9AM - 5PM [facility], Friday-Friday) Documents on File Type Date Recorded Patient Profile Grinder Expl anation Healthcare Proxy 07/23/2016 11:32 AM [...] Agent (Proxy form on file) Care Teams Trailer Sections Assembler Relationship Specialty Start Date End Date Tj Bird MD [address] [place] [address] [place] [address] PCP - General Internal Medicine 06/14/15 Additional Source Comments The information contained in this document represents components of the legal health record. It is not the complete legal health record.[facility]
--- OUTSIDE RECORDS SUMMARY | 2025-02-10 07:56 | XMS_ITS | Encounter Summary ---
Author Organization [facility] Address [address] [place] [address] Phone Care Team Providers Care Pantomimist Name Role Phone Tj Bird MD Primary Care Provider Encounter Details Date Type Department Care Team (Late st Contact Info) Description 08/01/2016 [facility]phone [facility] [employer] [address] [facility], [address] [place] [address] Chery Cespedes [place] Social History Tobacco Use [...] on filedocumented in this encounter Care Teams Pantomimist Relationship Specialty Start Date End Date Tj Bird MD [address] [place] [address] [place] [address] PCP - General Internal Medicine 06/14/15 documented as of this encounter Additional Source Comments The information contained in this document represents components of the legal health record. It is not the complete legal health record.[facility]
--- OUTSIDE RECORDS SUMMARY | 2025-02-10 07:57 | XMS_ITS | Patient Health Record ---
Author Organization [facility] Address [address] [place] [address] Care Team Providers Care Counter Top Assembler Name Role Phone Marge (RETIRED) Tj BUTTS Primary Care Provide r Unavailable Al Martins Unavailable [phone] Allergies No Known Allergies Reason For Referral [...] Problem Status W/U Status Risk Notes Problem [id number] Elevated liver function tests (R79.89) Active confirmed Problem 890198699 Fatty liver (K76.0) Active confirmed Problem 07664339 Change in bowel function (R19.4) Active confirmed Problem 11956736 Alcoholic liver disease (K70.9) Active confirmed Problem 95991054 Constipation, unspecified constipation type (K59.00) Active confirmed [...] [place] [address] [place] [address] [id number] REINIER LOUIS Self - patient is the insured [employer] ATTN CLAIMS [address] [place] [phone] [id number] REINIER LOUIS Self - patient is the [...]
--- OUTSIDE RECORDS SUMMARY | 2025-02-10 07:57 | XMS_ITS | Encounter Summary ---
Author Organization [facility] Address [address] [place] [address] Phone Care Team Providers Care Livestock Auctioneer Name Role Phone Tj Bird MD Primary Care Provider Encounter Details Date Type Department Care Team (Late st Contact Info) Description 07/17/2016 Procedure Pass [facility] PERIOPERATIVE DEPT [address] [place] [address] Social History Tobacco Use Types Packs/Day Years [...] on filedocumented in this encounter Care Teams Livestock Auctioneer Relationship Specialty Start Date End Date Tj Bird MD [address] [place] [address] [place] [address] PCP - General Internal Medicine 06/14/15 documented as of this encounter Additional Source Comments The information contained in this document represents components of the legal health record. It is not the complete legal health record.[facility]
== END 2025-02-10 08:39 | disposition home or self-care (01) ==
LOC: HO.HSMS 07:52
PROVIDERS: PCP Internal Medicine; Visit Provider Physician Assistant Medical
DX: G47.10 Hypersomnia, unspecified (principal); G47.19 Other hypersomnia; G25.2 Other specified forms of tremor; D50.9 Iron deficiency anemia, unspecified; D64.9 Anemia, unspecified
CPT/HCPCS: 99214

== ENCOUNTER → 2025-02-10 07:51 | Outpatient (BNVA) | payer MEDICARE, SELFPAY | PROVIDERS: PCP Internal Medicine; Visit Provider Physician Assistant Medical | DX: G47.19 Other hypersomnia (principal); G25.2 Other specified forms of tremor; D50.9 Iron deficiency anemia, unspecified; D64.9 Anemia, unspecified | CPT/HCPCS: 99212 ==

== ENCOUNTER 2025-02-11 07:51 | Outpatient (AMB) | payer MEDICARE, SELFPAY ==
--- NOTE | 2025-02-11 07:52 | A.OFFPC_ITS ---
Vital Signs 02/11/25 07:59 Height 6 ft Weight 204 lb BMI 27.7 BP 158/98 H Blood Pressure Location Rt brachial Position Sitting Respiration 18 Pulse 70 Pulse Source Pulse Oximeter Temp 97.9 F Temp Source Temporal Artery Scan Pulse Oximetry (%) 98 Oxygen Delivery Method Room Air Intake Visit Reasons: 3 Month F/U Production Miner Required: No Accompanied by: Self / Same As Patient Allergies latex (Latex) Allergy (Mild, Verified 02/11/25 07:53) ALLERGIC TO POWDER glipizide (GLIPIZIDE) Allergy (Unknown, Verified 02/11/25 07:53) MUSCLES WEAK Tobacco use date assessed: 10/15/24 Fall risk assessment: No Falls in past year Last assessed Fall Risk: 02/11/25 Dental Screening Dental Screen Date: 10/15/24 HPI HPI Comments History of Present Illness Details The patient is a 69-year-old male presenting with shortness of breath and chest heaviness. The patient reports experiencing fatigue and a sensation of chest heaviness over the past few weeks. He previously had a blood clot in 2007, which manifested in his legs and subsequently traveled to his lungs, although no damage was reported at that time. He describes the current chest heaviness as feeling like someone very heavy is sitting on his chest. Although the patient denies actual chest pain, he reports difficulty taking deep breaths at times. In addition to these symptoms, the patient notes worsened shortness of breath during physical activities, such as cutting the grass, which he could not complete due to significant exertional dyspnea. There is no reported fever, chills, or leg swelling, but he mentions new-onset problems with his knee. Despite his symptomatology, his oxygen saturation has been reportedly normal, and he has not experienced any flu-like symptoms except for a runny nose and occasional cough with heavy phlegm production. The patient's past medical history is significant for diabetes mellitus, which initially was well controlled while consuming alcohol regularly. However, after ceasing beer consumption, his morning blood glucose levels have risen significantly, sometimes reaching as high as 290 mg/dL. His last recorded A1c was 7.6%. He has hyperlipidemia with an elevated LDL from July, and fatty liver likely related to dietary habits. He reports no fevers, chills, or exposure to infectious illnesses and has a notably swollen right leg without pain, raising suspicion for DVT. 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; ceased drinking beer - Engages in physical activity (e.g., ya rd work) although impaired by current symptoms [facility] Medical History (Updated 02/11/25 @ 08:22 by Reilly Gutierrez MD) Leg swelling Hyperlipidemia Hypercholesteremia History of blood clots Diabetes Hypertension Surgical History History of colonoscopy (~08/07/15) History of appendectomy S/P hip replacement History of gastric surgery Family History Father CAD (coronary artery disease) Mother Diabetes Social History Housing: House Alcohol intake: current Alcohol intake frequency: holidays/special occasions only Patient Tobacco Use Status: Never used Tobacco e-Cigarette/Vaping Use: Never Used service: Yes Current occupational status: retired Cognitive needs: No Hearing needs: No Vision needs: Yes (rx glasses) Questionnaire Thrive Questionnaire Date Thrive assessed: 10/15/24 AUDIT C Alcohol Use Questionnaire (AUDIT-C) 1. How often do you have a drink containing alcohol?: Never 3. How often do you have six or more drinks on one occasion?: Never Total Score: 0 CHASE-7 AMB Questionnaire CHASE-7 Date CHASE - 7 assessed: 10/15/24 Source: Developed by Drs. Al Multani, Kisha Hernandez, Jeffery Stubbs and colleagues, with an educational ania from [employer]. Review of Systems Const Details: - Respiratory: Reports shortness of breath, chest heaviness - Cardiovascular: Denies chest pain - Musculoskeletal: Reports joint issues and stiffness, especially knees - General: Reports fatigue, denies fever or chills - Respiratory: Denies wheezing or productive cough, but occasionally produces phlegm All systems reviewed & are unremarkable except as noted in HPI and below Physical exam (Primary Care) Vital Signs: Last Vital Signs Temp 97.9 F 02/11/25 07:59 Pulse 70 02/11/25 07:59 Resp 18 02/11/25 07:59 BP 158/98 H 02/11/25 07:59 Pulse Ox 98 02/11/25 07:59 Oxygen Delivery Method Room Air 02/11/25 07:59 BMI result Body Mass Index 27.7 Tobacco/Smoking Status: Tobacco use Status Tobacco use date assessed 10/15/24 02/11/25 08:02 Patient Tobacco Use Status Never used Tobacco 02/11/25 08:02 e-Cigarette/Vaping Use Never Used 02/11/25 08:02 Thrive Assessment: Date of Thrive Assessment Date Thrive assessed 10/15/24 02/11/25 08:02 Const Other: General: +Alert and oriented, Well nourished, No acute distress. Eye: Pupils are equal, round and reactive to light, Intact accommodation, Extraocular movements are intact, Normal conjunctiva, Vision unchanged. HENT: Normocephalic, Atraumatic, Tympanic membranes are clear, Normal hearing, Oral mucosa is moist, No pharyngeal erythema, Ear canals patent. Respiratory: Lungs CTA bilaterally, No wheeze, Respirations are non-labored, Shortness of breath noted. Cardiovascular: Regular rate, Regular rhythm, S1 auscultated, S2 auscultated, No murmur, Good pulses equal in all extremities, Normal peripheral perfusion, No edema. Gastrointestinal: Soft, Non-tender, Non-distended, Normal bowel sounds, No organomegaly, History of enlarged fatty liver. Musculoskeletal: Normal range of motion, Normal strength, No tenderness, Swelling noted in the right leg, No deformity, Normal gait. Integumentary: Warm, Dry, [place], Intact. Neurologic: Alert, Oriented, Normal sensory, Normal motor function, No focal defects, Cranial Nerves II-XII are grossly intact, Normal deep tendon reflexes. Psychiatric: Cooperative, Appropriate mood & affect, Normal judgment. Coding Level of Care Code Est Pt Level 4 (85994) Complex EM visit Add On G2211 Diagnoses Shortness of breath R06.02 Type 2 diabetes mellitus with hyperglycemia, without long-term current use of insulin E11.65 Diabetes mellitus complication status: with hyperglycemia Diabetes mellitus acquisition associate insulin use: without acquisition associate use Diabetes mellitus type: type 2 Hyperlipidemia, unspecified hyperlipidemia type E78.5 Hyperlipidemia type: unspecified Primary hypertension I10 Hypertension type: primary hypertension Leg swelling M79.89 Assessment & Plan Assessment & Plan (1) Shortness of breath: Comment: - Evaluate for possible recurrent PE given history of DVT and PE (Wells Score 7.5 High Risk) - Etiology include PE, infectious - Recommend evaluation in emergency room for PE evaluation given eleavted socre, but will also order a CXR as requested by patient Code(s): R06.02 - Shortness of breath Category: Medical (2) Diabetes: Comment: - Monitor blood glucose levels; considering adding glipizide based on A1c re- evaluation - Target A1c under 7.5% to prevent complications Code(s): E11.9 - Type 2 diabetes mellitus without complications Category: Medical Qualifiers: Diabetes mellitus complication status: with hyperglycemia Diabetes mellitus acquisition associate insulin use: without halfway use Diabetes mellitus type: type 2 Qualified Code(s): E11.65 - Type 2 diabetes mellitus with hyperglycemia (3) Hyperlipidemia: Comment: - Evaluate need for statin therapy based on updated cholesterol levels - Discuss side effects and administer medication as necessary Code(s): E78.5 - Hyperlipidemia, unspecified Category: Medical Qualifiers: Hyperlipidemia type: unspecified Qualified Code(s): E78.5 - Hyperlipidemia, unspecified (4) Hypertension: Comment: - Continue current antihypertensive medication regimen, as blood pressure is well-controlled Code(s): I10 - Essential (primary) hypertension Category: Medical Qualifiers: Hypertension type: primary hypertension Qualified Code(s): I10 - Essential (primary) hypertension (5) Leg swelling: Comment: - Urgent evaluation of right leg swelling to prevent progression to PE (Given prior history) Code(s): M79.89 - Other specified soft tissue disorders Category: Medical Plan: 6. Fatty liver - Dietary counseling to reduce liver fat content - Monitor liver function tests during follow-up Plan During the consultation, I emphasized the importance of promptly addressing symptoms of chest heaviness and shortness of breath due to the patient's history of pulmonary embolism and deep vein thrombosis. I advised to visit the emergency room for evaluation but on his persistance a chest X-ray was ordered to rule out pulmonary congestion or infections, considering current symptoms and past histories. We discussed the risks of untreated DVT and the importance of imaging the swollen right leg. I explained the patient's need for enhanced glucose control and potential adjustment to glipizide if A1c remained elevated. There was a discussion on the side effects of glipizide, primarily hypoglycemia. We reviewed the significance of statin therapy based on updated cholesterol results to mitigate cardiovascular events. Preventive measures include annual flu shots and lifestyle modifications for liver health. Follow-ups are scheduled for both glucose monitoring and lipid panel adjustments. I instructed the patient to seek emergency care if symptoms worsen. Orders: Orders Hemoglobin A1c Today E11.65 - Type 2 diabetes mellitus with hyperglycemia Lipid Panel Today E78.5 - Hyperlipidemia, unspecified SARS-CoV2/FLU/RSV Today R06.02 - Shortness of breath XR chest 2V Today R06.02 - Shortness of breath Patient Instructions: - Visit emergency room for PE & DVT evaluation given leg swelling, elevated Wells [place] - Get a chest X-ray to check for any problems in your lungs - Monitor your blood sugar levels regularly and keep track of the readings - Make changes to your diet to help manage your blood sugar and liver health - Be aware of any changes in your symptoms and seek immediate help if your breathing worsens - Consider getting a flu shot when available - Schedule follow-ups for blood work to check cholesterol and blood sugar levels - Contact my office if you have any questions or changes in your symptoms
--- OUTSIDE RECORDS SUMMARY | 2025-02-11 07:54 | XMS_ITS | Encounter Summary ---
Author Organization [facility] Address [address] [place] [address] Phone Care Team Providers Care Top Dyeing Machine Tender Name Role Phone Tj Bird MD Primary Care Provider Encounter Details Date Type Department Care Team (Late st Contact Info) Description 06/13/2017 Procedure Pass [facility] PERIOPERATIVE DEPT [address] [place] [address] Social History Tobacco Use Types Packs/Day Years [...] on filedocumented in this encounter Care Teams Top Dyeing Machine Tender Relationship Specialty Start Date End Date Tj Bird MD [address] [place] [address] [place] [address] PCP - General Internal Medicine 06/14/15 documented as of this encounter Additional Source Comments The information contained in this document represents components of the legal health record. It is not the complete legal health record.[facility]
--- OUTSIDE RECORDS SUMMARY | 2025-02-11 07:55 | XMS_ITS | Patient Health Record ---
Author Organization [facility] Address [address] [place] [address] Care Team Providers Care Rvda Master Certified Rv Technician Name Role Phone Marge (RETIRED) Tj BUTTS Primary Care Provide r Unavailable Al Martins Unavailable [phone] Allergies No Known Allergies Reason For Referral [...] Problem Status W/U Status Risk Notes Problem [id number] Elevated liver function tests (R79.89) Active confirmed Problem 586633393 Fatty liver (K76.0) Active confirmed Problem 71386517 Change in bowel function (R19.4) Active confirmed Problem 67826914 Alcoholic liver disease (K70.9) Active confirmed Problem 64595567 Constipation, unspecified constipation type (K59.00) Active confirmed [...] [place] [address] [place] [address] [id number] REINIER LOUIS Self - patient is the insured [employer] ATTN CLAIMS [address] [place] [address] [phone] [id number] REINIER LOUIS Self - patient is the insured Medical (General) History Medical History History ICD Code Screening Colonoscopy,09/2006--hyperplast ic polyp, internal hemorrhoids Denies [place],CVA,Lung disease,renal disease NIDDM Left LE DVT in [...]
--- OUTSIDE RECORDS SUMMARY | 2025-02-11 07:55 | XMS_ITS | Encounter Summary ---
Author Organization [facility] Address [address] [place] [address] Phone Care Team Providers Care Personnel Arbitrator Name Role Phone Tj Bird MD Primary Care Provider Encounter Details Date Type Department Care Team (Late st Contact Info) Description 07/17/2016 Procedure Pass [facility] PERIOPERATIVE DEPT [address] [place] [address] Social History Tobacco Use Types Packs/Day Years [...] on filedocumented in this encounter Care Teams Personnel Arbitrator Relationship Specialty Start Date End Date jT Bird MD [address] [place] [address] [place] [address] PCP - General Internal Medicine 06/14/15 documented as of this encounter Additional Source Comments The information contained in this document represents components of the legal health record. It is not the complete legal health record.[facility]
--- OUTSIDE RECORDS SUMMARY | 2025-02-11 07:55 | XMS_ITS | Clinical Summary ---
Author Organization [facility] Address [address] [place] [address] Phone Care Team Providers Care Seam Rubber Name Role Phone Tj Bird MD Primary [...] Sun, Tues, Wed, Fri, Sat Active omega 2-csx-zdv-fish oil 360-1,200 mg CpDR Take 1 capsule [...] is 0.4%; Elizabeth estimated risk of perioperative NM or cardiac arrest is <1%, can proceed [...] this topic Medical Devices Implanted Type Area Road Cleaner Device Identifier Shelf Expiration Date Model / Serial / Lot Ivc Filter [employer] Acet Shell 60g Hip 06 Ea - [id number] Implanted:Qty: 1 on 07/17/2016 by Steven Marie MD at [facility] Left: Hip [employer] 03/23/2025 [id number] / / [id number] Neutral E1 Liner 36mm G Hip 11 Ea - [id number] Implanted:Qty: 1 on 07/17/2016 by Steven Marie MD at [facility] Left: Hip [employer] 01/23/2021 [id number] / / [id number] Tprlc [address] Distal Type1 Pps Ho 15.0 Hip 01 - [id number] Implanted:Qty: 1 on 07/17/2016 by Steven Marie MD at [facility] Left: Hip [employer] 05/02/2026 [id number] / / [id number] Implant Hip 36mm Femoral Head [employer] D Mod C2a Standard Neck Ea Hip 04 - [id number] Implanted:Qty: 1 on 07/17/2016 by Steven Marie MD at [facility] Left: Hip [employer] 05/20/2026 [id number] / / [id number] Procedures Procedure Name Priority Date/Time Associated Diagnosis Comments HEMOGLOBIN A1C Routine 05/29/2017 1:00 PM EST Trochanteric bursitis of left hip BASIC METABOLIC PANEL Routine 05/29/2017 1:00 PM EST Trochanteric bursitis of left hip from Last 3 Months or Most Recently Relevant to Health Maintenance Results * (ABNORMAL) Hemoglobin A1c (05/29/2017 1:00 PM EST) HEMOGLOBIN A1C 7.6(H) 4.3 - 5.6 % [facility] CALC MEAN BLD GLUC 171 mg/dL [facility] 05/29/2017 1:00 PM EST 05/29/2017 1:42 PM EST us Francy LÓPEZ LAB BLOOD ORDERABLES Salud l Result [facility] [address] [place] [address] * (ABNORMAL) Basic metabolic panel (05/29/2017 1:00 PM EST) Pathologist [facility] SODIUM 139 136 - 145 mmol/L [facility] CHLORIDE 101 95 - 106 mmol/L [facility] POTASSIUM 4.2 3.5 - 5.2 mmol/L [facility] CO2 24 20 - 31 mmol/L [facility] BUN 18 9 - 23 mg/dL [facility] CREATININE 1.09 0.50 - 1.30 mg/dL [facility] GLUCOSE 179(H) 74 - 106 mg/dL [facility] CALCIUM 9.0 8.7 - 10.4 mg/dL [facility] EGFR >60 >60 mL/min/1.7 3m2 [facility] Comment:The normal range for eGFR is >60 mL/min/1.73m2. ANION GAP 14 3 - 17 mmol/L [facility] 05/29/2017 1:00 PM EST 05/29/2017 1:42 PM EST Francy LÓPEZ LAB BLOOD ORDERABLES Salud brothers Result Performing Organization Address City/State/[facility] Co de Phone Number [facility] [address] [place] [address] from Last 3 Months or Most Recently Relevant to Health Maintenance Insurance MEDICARE PART A & B [employer] SUPPLEMENT Advance Directives For more information, please contact: [phone] (9AM - 5PM [facility], Friday-Friday) Documents on File Type Date Recorded Patient Senior Tax Specialist Expl anation Healthcare Proxy 07/23/2016 11:32 AM [...] Agent (Proxy form on file) Care Teams Seam Rubber Relationship Specialty Start Date End Date Tj Bird MD [address] [place] [address] [place] [address] PCP - General Internal Medicine 06/14/15 Additional Source Comments The information contained in this document represents components of the legal health record. It is not the complete legal health record.[facility]
--- OUTSIDE RECORDS SUMMARY | 2025-02-11 07:55 | XMS_ITS | Encounter Summary ---
Author Organization [facility] Address [address] [place] [address] Phone Care Team Providers Care Mine Car Repairer Name Role Phone Tj Bird MD Primary Care Provider Encounter Details Date Type Department Care Team (Late st Contact Info) Description 08/01/2016 Telephone [facility] [employer] [address], [address] [place] [address] Chery Cespedes [place] Social History Tobacco Use [...] on filedocumented in this encounter Care Teams Mine Car Repairer Relationship Specialty Start Date End Date Tj Bird MD [address] [place] [address] [place] [address] PCP - General Internal Medicine 06/14/15 documented as of this encounter Additional Source Comments The information contained in this document represents components of the legal health record. It is not the complete legal health record.[facility]
[2025-02-11 07:59] VITALS: BP 158/98; PULSE 70; RESP 18; TEMP 36.6; O2SAT 98; BMI 27.7
== END 2025-02-11 09:00 | disposition home or self-care (01) ==
LOC: HO.HMCHD 07:52
PROVIDERS: PCP Student in an Organized Health Care Education/Training Program; Visit Provider Student in an Organized Health Care Education/Training Program
DX: R06.02 Shortness of breath (principal); E11.65 Type 2 diabetes mellitus with hyperglycemia; E78.5 Hyperlipidemia, unspecified; I10 Essential (primary) hypertension; M79.89 Other specified soft tissue disorders

== ENCOUNTER 2025-02-11 08:27 | Emergency (ER) | payer MEDICARE, SELFPAY ==
--- NOTE | 2025-02-11 | ECG_ITS ---
Test Reason : SOB Blood Pressure : */* mmHG Vent. Rate : 62 BPM Atrial Rate : 62 BPM P-R Int : 176 ms QRS Dur : 68 ms QT Int : 386 ms P-R-T Axes : * 5 28 degrees QTcB Int : 391 ms Normal sinus rhythm Normal ECG When compared with ECG of 10-Nov-2018 14:08, No significant change was found Referred By: Mateo Alonso Electronically Signed By: Zheng Waldron
--- NOTE | ~2025-02-11 | XR_ITS ---
EXAMINATION: XR CHEST 1 VIEW HISTORY: sob COMPARISON: Comparison is made with the prior examination dated 05/24/2022. FINDINGS: Two AP portable views of the chest performed at 9:31 AM are submitted. The lungs are expanded and clear. There is no pleural effusion, pneumothorax, or pulmonary vascular congestion. The heart is normal in size. There is mild degenerative disc disease of the spine. XR/XR chest 1V IMPRESSION: No acute cardiopulmonary abnormality. Electronically signed by: Al Escalona MD 02/11/2025 09:46 AM EDT
[2025-02-11 08:37] VITALS: BP 192/99; PULSE 62; RESP 18; TEMP 36.3; O2SAT 98; BMI 26.8
[2025-02-11 09:07] LABS: MANUAL DIFF FLAG NO
[2025-02-11 09:09] LABS: Hematocrit 36.6 % (42.0-52.0); Hemoglobin 13.0 g/dl (14.0-18.0); Imm Gran Abs Auto 0.00 X10*3/uL (0.00-0.03); Imm Gran Pct Auto 0.0 % (0.0-0.4); Lymphocytes Absolute Auto 1.1 X10*3/uL (1.2-4.9); Mean Corpuscular HGB Conc 35.5 g/dl (31.0-36.0); Mean Corpuscular Hemoglobin 31.3 pg (27.0-33.0); Mean Corpuscular Volume 88.0 fL (80.0-98.0); NRBC Abs Auto 0.000 X10*3/uL (0.0-0.012); NRBC Pct Auto 0.0 /100WBC (0.0-0.2); Platelet Count 224 X10*3/uL (160-400); Red Blood Count 4.16 X10*6/uL (4.60-5.80); White Blood Count 3.5 X10*3/uL (4.8-10.8)
--- NOTE | 2025-02-11 09:10 | PC.NURSE ---
Pt reports swelling to R LE with in front of knee; denies posterior knee pain or CP; no edema noted; no known injury; no recent travel; pt has hx of DVT and reports some SOB today; LS CTA; pt has palpable DP pulses; SR per tele
[2025-02-11 09:15] LABS: INTERNATIONAL NORM RATIO 1.5 (0.9-1.1); Prothrombin Time 17.3 SEC (10.9-12.4)
--- NOTE | 2025-02-11 09:19 | ED.GENADULT ---
HPI - General Adult General Chief complaint: General Medical Stated complaint: quest dvt r leg hx of clots Time Seen by Provider: 02/11/25 08:52 Source: patient Mode of arrival: ambulatory Limitations: no limitations History of Present Illness ED Provider: MARIBEL Campbell HPI narrative: This is a 69-year-old male past medical history significant for type 2 diabetes, hyperlipidemia, hypertension who presented to the emergency department after seeing his PCP this morning. Reports that he has been experiencing shortness of breath, cough for the past 2 days. In upon examination at his PCPs office his PCP thought that maybe his right lower extremity with slightly more swollen than his left so he was advised to come in to ensure that he did not have a blood clot. However, patient tells me he is on Coumadin for history of DVT he is med compliant and has never skipped a dose. He denies long travel or sedentary lifestyle. He denies chest pain, fevers, chills, nausea, vomiting, abdominal pain, vision changes, dizziness, weakness, severe lower extremity pain. Related Data Home Medications ?Medication ?Instructions ?Recorded ?Confirmed amlodipine 2.5 mg tablet 2.5 mg PO DAILY 11/20/20 11/09/24 vknwjogt-bpj-egzeb acid 0.4 1 tab PO DAILY 11/20/20 11/09/24 mg-lycopene 300 mcg-lutein 250 mcg tablet (Centrum Silver) omega-3 fatty acids [Fish Oil PO 11/20/20 11/09/24 Concentrate] losartan 50 mg tablet 50 mg PO ONCE 02/11/25 Previous Rx's ?Medication ?Instructions ?Recorded warfarin 5 mg tablet 5 mg PO DAILY #90 tabs 03/28/20 metformin 500 mg tablet 1,000 mg (2 x 500 mg) PO BID #360 10/18/24 tabs FreeStyle Lite Strips (blood sugar #100 ea 11/12/24 diagnostic) FreeStyle Lancets 28 gauge #100 ea 11/27/24 (lancets) gemfibrozil 600 mg tablet 600 mg PO BID #180 tabs 01/26/25 omeprazole 20 mg capsule,delayed 20 mg PO DAILY #90 caps 01/26/25 release ferrous sulfate 325 mg (65 mg 325 mg PO DAILY anemia 3 months 02/10/25 iron) tablet #90 tabs mecobalamin (vitamin B12) 1,000 1,000 mcg PO DAILY low b12 3 02/10/25 mcg chewable tablet months #90 tabs Allergies Allergy/AdvReac Type Severity Reaction Status Date / Time latex (Latex) Allergy Mild ALLERGIC Verified 02/11/25 08:41 TO POWDER glipizide (GLIPIZIDE) Allergy Unknown MUSCLES Verified 02/11/25 08:41 WEAK Review of Systems Review of Systems: Yes all other systems are reviewed and are negative PMFSH Past Medical History Attestation statement: The following information was validated with the patient. Source: old records reviewed and nursing notes reviewed Medical History Leg swelling Hyperlipidemia Hypercholesteremia History of blood clots Diabetes Hypertension Surgical History History of colonoscopy (~08/07/15) History of appendectomy S/P hip replacement History of gastric surgery Family History Family History Father CAD (coronary artery disease) Mother Diabetes Social History Social History Housing: House Alcohol intake: current Alcohol intake frequency: holidays/special occasions only Patient Tobacco Use Status: Never used Tobacco Smoked in Last 30 Days: No e-Cigarette/Vaping Use: Never Used Use of substances other than those prescribed or required for medical reasons: No Advance Directives: No Advance Directives Information Provided: Yes service: Yes Current occupational status: retired Cognitive needs: No Hearing needs: No Vision needs: Yes (rx glasses) Physical Exam ED Exam Exam: Appearance: Alert.? Oriented X3.? No acute distress.? Head: Normocephalic, atraumatic, no step-offs or deformities Eyes: Pupils equal, round and reactive to light.? Neck: Normal inspection.? Neck supple.? CVS: Normal heart rate and rhythm.? Pulses normal.? Respiratory: No respiratory distress.? Breath sounds normal.? Abdomen: Soft and nontender.? Skin: Skin warm and dry.? Normal skin color.? Normal skin turgor.? Extremities: No lower extremity edema, negative homans sign.? No calf ttp. 5/5 strength to bilateral upper and lower extremities Back: No midline tenderness, no C-spine tenderness, full range of motion, no CVA tenderness bilaterally Neuro: Oriented X 3.? No motor deficit.? No sensory deficit. CN 2-12 intact Vital Signs: Vital Signs - 24 hr 02/11/25 08:37 Temperature 97.4 F Pulse Rate 62 Respiratory Rate 18 Blood Pressure 192/99 H Pulse Oximetry 98 Oxygen Delivery Method Room Air BMI result Body Mass Index 26.8 vss Course Reevaluation(s) Reevaluation #1: Chest x-ray with no acute findings requiring intervention. Patient's CBC unremarkable. Chemistry no acute findings needing intervention. Troponin negative, nonischemic EKG. Patient's D-dimer is negative I have very low suspicion for DVT or PE as patient is adequately anticoagulated. Time: 09:51 Reevaluation #2: Patient is COVID negative. Influenza test pending. Time: 10:46 Reevaluation #3: Educated patient on diagnosis and treatment plan, answered all question, patient verbalizes understanding. At this time patient will be discharged home, advised to return with new or worsening symptoms. Educated on worrisome signs and symptoms and when to return. At this time I feel comfortable discharge home. Time: 10:47 Medical Decision Making Medical Decision Making [facility] Narrative: 0949 69-year-old male presents from PCP's office with cough, shortness of breath times 2-3 days and PCP thought his right lower extremity with slightly more swollen than his left. History of DVT on Coumadin. On exam Breath sounds clear. I do not appreciate any swelling to bilateral lower extremities, negative Homans sign bilaterally. Shortness of breath and cough likely secondary to bronchitis versus viral illness. Unlikely pneumonia. Will rule out flu, COVID. I do not suspect PE as he is adequately anticoagulated. Patient's lower extremity edema no appreciated by this provider. I do not suspect arterial or venous occlusion. No signs of acute threat to extremity. I do not suspect ACS or dissection. No signs of hypoxia or acute respiratory distress Plan labs, imaging, viral test Differential Diagnosis Differential Diagnoses: The differential diagnosis associated with the presentation includes ( Shortness of breath and cough likely secondary to bronchitis versus viral illness. Unlikely pneumonia. Will rule out flu, COVID. I do not suspect PE as he is adequately anticoagulated. Patient's lower extremity edema no appreciated by this provider. I do not suspect arterial or venous occlusio) Admission/Observation Consideration of admission/observation: Escalation of care including admission/observation considered Lab Data MDM Lab Attestation statement: I reviewed the patient's lab results. 02/11/25 09:02 02/11/25 09:02 Labs: Lab Results 02/11/25 02/11/25 Range/Units 09:02 10:12 WBC 3.5 L (4.8-10.8) X10*3/uL RBC 4.16 L (4.60-5.80) X10*6/uL Hgb 13.0 L (14.0-18.0) g/dl Hct 36.6 L (42.0-52.0) % MCV 88.0 (80.0-98.0) fL MCH 31.3 (27.0-33.0) pg MCHC 35.5 (31.0-36.0) g/dl RDW 14.1 (11.0-16.0) % Plt Count 224 (160-400) X10*3/uL MPV 9.5 (9.4-12.4) fL Immature Gran % (Auto) 0.0 (0.0-0.4) % Neut % (Auto) 56.3 (45-73) % Lymph % (Auto) 29.8 (20-40) % Hubbard % (Auto) 9.9 (2-11) % Eos % (Auto) 3.4 (0-4) % Baso % (Auto) 0.6 (0-2) % Lymph # (Auto) 1.1 L (1.2-4.9) X10*3/uL Hubbard # (Auto) 0.4 (0.1-1.2) X10*3/uL Eos # (Auto) 0.1 (0.0-0.4) X10*3/uL Baso # (Auto) 0.0 (0.0-0.2) X10*3/uL Abs Immat Gran (auto) 0.00 (0.00-0.03) X10*3/uL Absolute Neuts (auto) 2.0 (2.0-8.3) x10*3/uL Absolute Nucleated RBC 0.000 (0.0-0.012) X10*3/uL Nucleated RBC % (auto) 0.0 (0.0-0.2) /100WBC PT 17.3 H (10.9-12.4) SEC INR 1.5 H (0.9-1.1) D-Dimer High Sensitivty < 150 NG/ML Sodium 138 (135-145) mmol/L Potassium 3.9 (3.3-5.1) mmol/L Chloride 107 (96-108) mmol/L Carbon Dioxide 21 L (22-29) mmol/L Anion Gap 14 (12-20) BUN 12 (9-16) mg/dL Creatinine 1.02 (0.5-1.4) mg/dL Estim Creat Clear Calc 77.2 Estimated GFR > 60 Random Glucose 214 H (60-115) mg/dL Calcium 8.8 D (8.4-10.2) mg/dL Total Bilirubin 0.5 (0.0-1.0) mg/dL AST 41 H (5-37) U/L ALT 64 H (0-40) U/L Alkaline Phosphatase 41 (39-117) U/L Troponin I High Sens < 2.7 (<3.5-35.0) ng/L Total Protein 7.5 (6.5-8.0) g/dL Albumin 4.5 (3.5-5.0) g/dL COVID-19 (JALEESA) Negative (Negative) COVID-19 Clin Com See Note Independent Interpretation I performed an independent interpretation of an: EKG (Normal sinus rhythm Normal ECG When compared with ECG of 10-Nov-2018 14:08, No significant change was found) and Plain X-Ray (FINDINGS: Two AP portable views of the chest performed at 9:31 AM are submitted. The lungs are expanded and clear. There is no pleural effusion, pneumothorax, or pulmonary vascular congestion. The heart is normal in size. There is mild degenerative disc disease of the spine. ) Radiology Impression Discussion of test interpretation with radiology: I have reviewed the radiologist's reading. External Record Review External record reviewed: Inpatient record, Office record, Outpatient record, Prior outpatient labs, Prior outpatient radiology, Primary care record and Outside ED record Chronic Conditions Patient?s care impacted by: Diabetes, Hypertension and Other Critical Care Time Critical Care Time Critical Care Time: No Discharge Plan Discharge Clinical Impression: Current use of anticoagulant therapy, Upper respiratory infection Patient Disposition: Home, Self-Care Instructions: Upper Respiratory Infection (ED), Acute Bronchitis (ED) Additional Instructions: Take your medications as prescribed. If you were prescribed antibiotics today, it is important that you take your medication to their entirety, do not skip any doses, do not finish them early. Follow-up with your primary care provider this week. Return to the emergency department with new or worsening symptoms. Such as fevers, chills, chest pain, shortness of breath, nausea, vomiting, dizziness, headache, vision changes, lethargy In case of emergency call 911 Shortness of breath and cough are likely secondary to viral illness. Supportive measures are encouraged including Tylenol as needed. Drink plenty of fluids and get rest. EKG looked normal and your cardiac enzymes were unremarkable. Your screening test for a blood clot was negative therefore there is very low suspicion for clot to lower extremities or pulmonary embolism. You being on Coumadin also decrease his chances of blood clot. If you notice worsening swelling or shortness of breath please return. Your x-ray was unremarkable. Prescriptions: No Action metformin 500 mg tablet 1,000 mg PO BID Qty: 360 3RF (DME) FreeStyle Lite Strips Strip See Rx Instructions Not Applicable DAILY Qty: 100 2RF Rx Instructions: once daily (DME) lancets [FreeStyle Lancets] 28 gauge misc See Rx Instructions .ROUTE DAILY Qty: 100 3RF Rx Instructions: once daily gemfibrozil 600 mg tablet 600 mg PO BID Qty: 180 1RF omeprazole 20 mg capsule,delayed release(DR/EC) 20 mg PO DAILY Qty: 90 1RF warfarin 5 mg tablet 5 mg PO DAILY Qty: 90 0RF Protocol: Dose Management Condition: Friday (Week One) Dose/Route: 10 mg Instruction: 2 x 5 mg tablets Condition: Friday Dose/Route: 5 mg Instruction: 1 x 5 mg tablet Condition: Friday Dose/Route: 10 mg Instruction: 2 x 5 mg tablets Condition: Friday Dose/Route: 5 mg Instruction: 1 x 5 mg tablet Condition: Dose/Route: 10 mg Instruction: 2 x 5 mg tablets Condition: Friday Dose/Route: 5 mg Instruction: 1 x 5 mg tablet Condition: Friday Dose/Route: 10 mg Instruction: 2 x 5 mg tablets Condition: Friday (Week Two) Dose/Route: 10 mg Instruction: 2 x 5 mg tablets Condition: Friday Dose/Route: 5 mg Instruction: 1 x 5 mg tablet Condition: Friday Dose/Route: 10 mg Instruction: 2 x 5 mg tablets Condition: Friday Dose/Route: 5 mg Instruction: 1 x 5 mg tablet Condition: Dose/Route: 10 mg Instruction: 2 x 5 mg tablets Condition: Friday Dose/Route: 5 mg Instruction: 1 x 5 mg tablet Condition: Friday Dose/Route: 10 mg Instruction: 2 x 5 mg tablets Protocol Text: Adjustment Start Date: Friday02/09/25 INR Value: 1.8 INR Date: 02/09/25 Recheck Date: 03/02/25 Additional Instructions: cont reg dosing no greens for 2-3 daYS , eaT REDS to raise Rx Instructions: 10MG X 3, 5MGX4 amlodipine 2.5 mg tablet 2.5 mg PO DAILY omega-3 fatty acids PO Centrum Silver 0.4-300-250 mg-mcg-mcg tablet 1 tab PO DAILY losartan 50 mg tablet 50 mg PO ONCE mecobalamin (vitamin B12) 1,000 mcg tablet,chewable 1,000 mcg PO DAILY MDD 1000mcg 90 Days Qty: 90 0RF Rx Instructions: take one tablet daily at bedtime ferrous sulfate 325 mg (65 mg iron) tablet 325 mg PO DAILY MDD 325mg 90 Days Qty: 90 3RF Rx Instructions: take one tablet daily 325mg with 1/2 glass of orange juice at lunch time. Referrals: Frieda Meyers PA [Primary Care Provider, Internal Medicine] Print Language: Chinese
[2025-02-11 09:24] LABS: Alanine Aminotransferase 64 U/L (0-40); Albumin Level 4.5 g/dL (3.5-5.0); Alkaline Phosphatase 41 U/L (39-117); Anion Gap 14 (12-20); Aspartate Amino Transferase 41 U/L (5-37); Blood Urea Nitrogen 12 mg/dL (9-16); Calcium 8.8 mg/dL (8.4-10.2); Carbon Dioxide 21 mmol/L (22-29); Chloride 107 mmol/L (96-108); Creatinine Clr Calc Pharmacy 77.2; Estimated Glomerular Filt Rate > 60; Potassium 3.9 mmol/L (3.3-5.1); Sodium 138 mmol/L (135-145); Total Protein 7.5 g/dL (6.5-8.0)
[2025-02-11 09:31] LABS: Troponin-I High Sensitivity < 2.7 ng/L (<3.5-35.0)
[2025-02-11 09:33] LABS: D Dimer High Sensitivity < 150 NG/ML
[2025-02-11 10:40] LABS: COVID-19 Test Negative (Negative); IDNOW Serial# 58CA691E
[2025-02-11 10:48] LABS: IDNOW Serial# 55D5AD1C; Influenza B2 Negative (Negative)
[2025-02-11 11:19] VITALS: BP 156/78; PULSE 65; RESP 18; TEMP 36.2; O2SAT 98
[2025-02-11 11:20] VITALS: BP 156/78; PULSE 65; RESP 18; TEMP 36.2; O2SAT 98
== END 2025-02-11 11:22 | disposition home or self-care (01) ==
PROVIDERS: Physician Assistant; Emergency Provider Emergency Medicine; PCP Physician Assistant Medical
DX: J06.9 Acute upper respiratory infection, unspecified (principal); R06.02 Shortness of breath; R05.9 Cough, unspecified; Z86.718 Personal history of other venous thrombosis and embolism; Z79.01 Long term (current) use of anticoagulants; E11.8 Type 2 diabetes mellitus with unspecified complications; E78.5 Hyperlipidemia, unspecified; I10 Essential (primary) hypertension
CPT/HCPCS: 36415; 71045; 80053; 84484; 85025; 85379; 85610; 87502; 87635; 93005; 99212; 99284

== ENCOUNTER → 2025-02-11 09:03 | Outpatient (BNV) | payer MEDICARE, SELFPAY | PROVIDERS: Emergency Provider Emergency Medicine; PCP Physician Assistant Medical; Visit Provider Internal Medicine Cardiovascular Disease | DX: R06.02 Shortness of breath (principal) | CPT/HCPCS: 93010 ==

== ENCOUNTER → 2025-02-11 09:20 | Outpatient (BNV) | payer MEDICARE, SELFPAY | PROVIDERS: Emergency Provider Emergency Medicine; PCP Physician Assistant Medical; Visit Provider Radiology Diagnostic Radiology | DX: R06.02 Shortness of breath (principal) | CPT/HCPCS: 71045 ==

== ENCOUNTER 2025-03-02 08:11 | Outpatient (AMB) | payer MEDICARE, SELFPAY ==
[2025-03-02 08:35] LABS: Prothrombin Time Whole Bld POC 35.1 sec (11.1-13.5); ~PT, ~INR - Anti Coag Clinic 2.9 (0.9-1.1)
--- NOTE | 2025-03-02 08:42 | MHC.OFFVISCO ---
Intake Intake Visit Reasons: Anticoagulation Allergies latex (Latex) Allergy (Mild, Verified 03/02/25 08:29) ALLERGIC TO POWDER glipizide (GLIPIZIDE) Allergy (Unknown, Verified 03/02/25 08:29) MUSCLES WEAK Medication List - Last Reconciled 03/02/25 by Edelmira Hodges, RN amlodipine 2.5 mg PO DAILY ferrous sulfate 325 mg PO DAILY 3 months MDD 325mg FreeStyle Lancets (lancets) once daily NS FreeStyle Lite Strips (blood sugar diagnostic) once daily NS gemfibrozil 600 mg PO BID losartan 50 mg PO ONCE mecobalamin (vitamin B12) 1,000 mcg PO DAILY 3 months MDD 1000mcg metformin 1,000 mg (2 x 500 mg) PO BID lrztuzxa-vtn-GS-lycopen-lutein 0.4 mg-300 mcg- 250 mcg (Centrum Silver) 1 tab PO DAILY omega-3 fatty acids (Fish Oil Concentrate) PO omeprazole 20 mg PO DAILY warfarin 5 mg See Protocol PO DAILY Nursing Note NO CP,SOB,DIET/MED CHANGES,FALLS OR SX OF BLEEDING. HOLD WARFARIN TODAY THEN RESUME USUAL DOSE AND FOLLOW-UP IN 2 WEEKS. GOOD UNDERSTANDING OF DOSING INSTR. LEAVING ON 03/05 FOR LAZARO Anti-Coag Initial Assessment Social Hx Patient Tobacco Use Status: Never used Tobacco alcohol intake: current Alcohol intake frequency: holidays/special occasions only Coding Level of Care Code Est Patient Level 1 Diagnoses Current use of anticoagulant therapy Z79.01 Assessment & Plan Assessment & Plan (1) Current use of anticoagulant therapy: Code(s): Z79.01 - half-way (current) use of anticoagulants Category: Medical
== END 2025-03-02 08:44 | disposition home or self-care (01) ==
PROVIDERS: PCP Student in an Organized Health Care Education/Training Program; Visit Provider Internal Medicine Medical Oncology
DX: Z79.01 Long term (current) use of anticoagulants (principal)

== ENCOUNTER → 2025-03-02 08:11 | Outpatient (BNVA) | payer MEDICARE, SELFPAY | PROVIDERS: PCP Student in an Organized Health Care Education/Training Program; Visit Provider Internal Medicine Medical Oncology | DX: Z51.81 Encounter for therapeutic drug level monitoring (principal); Z79.01 Long term (current) use of anticoagulants | CPT/HCPCS: 85610; 99211 ==

== ENCOUNTER 2025-03-16 08:11 | Outpatient (AMB) | payer MEDICARE, SELFPAY ==
[2025-03-16 08:31] LABS: Prothrombin Time Whole Bld POC 27.6 sec (11.1-13.5); ~PT, ~INR - Anti Coag Clinic 2.3 (0.9-1.1)
--- NOTE | 2025-03-16 08:31 | MHC.OFFVISCO ---
Intake Intake Visit Reasons: Anticoagulation Allergies latex (Latex) Allergy (Mild, Verified 03/16/25 08:23) ALLERGIC TO POWDER glipizide (GLIPIZIDE) Allergy (Unknown, Verified 03/16/25 08:23) MUSCLES WEAK Medication List - Last Reconciled 03/16/25 by Juanita Ibarra, RN amlodipine 2.5 mg PO DAILY ferrous sulfate 325 mg PO DAILY 3 months MDD 325mg FreeStyle Lancets (lancets) once daily NS FreeStyle Lite Strips (blood sugar diagnostic) once daily NS gemfibrozil 600 mg PO BID losartan 50 mg PO ONCE mecobalamin (vitamin B12) 1,000 mcg PO DAILY 3 months MDD 1000mcg metformin 1,000 mg (2 x 500 mg) PO BID ixojmshh-exu-LZ-lycopen-lutein 0.4 mg-300 mcg- 250 mcg (Centrum Silver) 1 tab PO DAILY omega-3 fatty acids (Fish Oil Concentrate) PO omeprazole 20 mg PO DAILY warfarin 5 mg See Protocol PO DAILY Nursing Note INR: 2.3- in therapeutic range 1.8-2.5 Medications and supplements reviewed- no changes No changes in health, diet, medications, or supplements, Denies any signs and symptoms of bleeding or bruising or clotting. Bleeding, bruising, clotting discussed Nutritional guidance given Dose: 5mg x 3, 10mg x 4 F/U INR: 3 weeks Patient verbalizes understanding of instructions given Anti-Coag Initial Assessment Social Hx Patient Tobacco Use Status: Never used Tobacco alcohol intake: current Alcohol intake frequency: holidays/special occasions only Coding Level of Care Code Est Patient Level 1 Diagnoses Current use of anticoagulant therapy Z79.01 Assessment & Plan Assessment & Plan (1) Current use of anticoagulant therapy: Code(s): Z79.01 - rn long term care (current) use of anticoagulants Category: Medical
== END 2025-03-16 08:40 | disposition home or self-care (01) ==
LOC: HO.ACS 08:11
PROVIDERS: PCP Student in an Organized Health Care Education/Training Program; Visit Provider Internal Medicine Medical Oncology
DX: Z79.01 Long term (current) use of anticoagulants (principal)

== ENCOUNTER → 2025-03-16 08:11 | Outpatient (BNVA) | payer MEDICARE, SELFPAY | PROVIDERS: PCP Student in an Organized Health Care Education/Training Program; Visit Provider Internal Medicine Medical Oncology | DX: N28.1 Cyst of kidney, acquired (principal); Z51.81 Encounter for therapeutic drug level monitoring; Z79.01 Long term (current) use of anticoagulants | CPT/HCPCS: 81003; 85610; 99202; 99211 ==

== ENCOUNTER 2025-03-16 08:49 | Outpatient (AMB) | payer MEDICARE, SELFPAY ==
--- NOTE | 2025-03-16 08:49 | A.OFFVIS_ITS ---
Intake Visit Reasons: Kidney Cyst Intake Note: New Patient is present for kidney cyst Urology Rx:none Blood Thinners: warfarin Imaging completed: ABD ultrasound 12/08/24 Flight Superintendent Required: No Accompanied by: Self / Same As Patient Allergies latex (Latex) Allergy (Mild, Verified 03/16/25 08:52) ALLERGIC TO POWDER glipizide (GLIPIZIDE) Allergy (Unknown, Verified 03/16/25 08:52) MUSCLES WEAK HPI Comments Details: Darrius is a pleasant male. 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 He is a patient of Dr. Casas. He is seen for the following urologic conditions - renal cyst Renal cyst Found on ultrasound 1.1 cm right side calcified Repeat imaging in 12 month Noted 1+ glucose in urine this morning Discussed carb controlled On metformin Did tell me morning sugars have been over 160 [facility] Medical History Leg swelling Hyperlipidemia Hypercholesteremia History of blood clots Diabetes Hypertension Surgical History History of colonoscopy (~08/07/15) History of appendectomy S/P hip replacement History of gastric surgery Family History Father CAD (coronary artery disease) Mother Diabetes Social History Housing: House Alcohol intake: current Alcohol intake frequency: holidays/special occasions only Patient Tobacco Use Status: Never used Tobacco e-Cigarette/Vaping Use: Never Used service: Yes Current occupational status: retired Cognitive needs: No Hearing needs: No Vision needs: Yes (rx glasses) Review of Systems Const Denies chills and Denies fever(s) Card Reports no additional complaints and Denies syncope Resp Denies cough GI Denies abdominal pain and Denies heartburn Reports as per HPI and Denies change in libido Neuro Denies syncope Psych Denies change in libido Endo Denies change in libido Physical Exam Const General: cooperative, healthy appearing, comfortable and no acute distress Orientation/consciousness: patient oriented x3 HEENT Face and sinus: Yes normal facial exam Mouth: moist mucous membranes Neck Neck: Yes normal visual inspection, Yes full ROM and Yes trachea midline Chest Chest palpation & inspection: normal inspection of the chest Resp Effort & Inspection: normal respiratory effort, able to speak in complete sentences and no respiratory distress GI Inspection: Yes normal to inspection Back/Spine/Pelvis Cervical Spine: normal cervical lordosis Thoracic/Lumbar Spine: thoracic and lumbar spine normal to inspection Skin General skin exam: no rashes or lesions noted Neuro General: patient oriented x3, gait normal, tone normal and moves all extremities Extrem General: Yes normal to inspection and Yes capillary refill normal Assessment & Plan Assessment & Plan (1) Cyst, kidney, acquired: Code(s): N28.1 - Cyst of kidney, acquired Category: Medical Plan Repeat imaging 12 month Orders: Orders US renal BI 12 Months N28.1 - Cyst of kidney, acquired Patient Instructions: This note is constructed using voice recognition software. While every effort has been made to ensure accuracy health safety and environment manager errors may have been included. Imaging studies, laboratory and physical exam results were discussed and reviewed in detail. No major barriers to patient understanding were identified. An opportunity to ask questions regarding the treatment plan was provided. All questions were answered. The patient expressed understanding and agreement with the above treatment plan. The patient is aware they should contact our office by phone for worsening of their current condition or the appearance of new urologic symptoms. Compliance is encouraged with any medications and followup testing that is ordered. It is a privilege to participate in the urologic care of your patient. If you have any questions or concerns regarding treatment for the above conditions, or other urologic issues, please do not hesitate to contact me. The office tel ephone contact is [phone]. Sincerely, Dr Hill Donohue MD, [facility] - Urology Compassionate Specialist Care for the Genitourinary System Coding Level of Care Code New Pt Level 3 (19033) Diagnoses Cyst, kidney, acquired N28.1
== END 2025-03-16 09:27 | disposition home or self-care (01) ==
LOC: HO.HUSH 08:49
PROVIDERS: PCP Internal Medicine; Visit Provider Urology
DX: N28.1 Cyst of kidney, acquired (principal); Z13.9 Encounter for screening, unspecified
CPT/HCPCS: 99203

== ENCOUNTER → 2025-03-18 14:25 | Outpatient (BNV) | payer MEDICARE, SELFPAY | PROVIDERS: Visit Provider Nurse Practitioner Family | DX: D64.9 Anemia, unspecified (principal); D72.819 Decreased white blood cell count, unspecified; D75.89 Other specified diseases of blood and blood-forming organs | CPT/HCPCS: 99204 ==

== ENCOUNTER 2025-04-06 08:06 | Outpatient (AMB) | payer MEDICARE, SELFPAY ==
--- NOTE | 2025-04-06 08:13 | MHC.OFFVISCO ---
Intake Intake Visit Reasons: Anticoagulation Allergies latex (Latex) Allergy (Mild, Verified 04/06/25 08:07) ALLERGIC TO POWDER glipizide (GLIPIZIDE) Allergy (Unknown, Verified 04/06/25 08:07) MUSCLES WEAK Medication List - Last Reconciled 04/06/25 by Juanita Ibarra RN amlodipine 2.5 mg PO DAILY FreeStyle Lancets (lancets) once daily NS FreeStyle Lite Strips (blood sugar diagnostic) once daily NS gemfibrozil 600 mg PO BID losartan 50 mg PO ONCE mecobalamin (vitamin B12) 1,000 mcg PO DAILY 3 months MDD 1000mcg metformin 1,000 mg (2 x 500 mg) PO BID hnxsrjqx-cji-ST-lycopen-lutein 0.4 mg-300 mcg- 250 mcg (Centrum Silver) 1 tab PO DAILY omega-3 fatty acids (Fish Oil Concentrate) PO omeprazole 20 mg PO DAILY warfarin 5 mg See Protocol PO DAILY Nursing Note INR: 1.8- in therapeutic range of 1.8-2.5 Medications and supplements reviewed- no changes No changes in health, diet, medications, or supplements, Denies any signs and symptoms of bleeding or bruising or clotting. Bleeding, bruising, clotting discussed Nutritional guidance given - no greens for 2 days, will eat reds to raise Dose: 5mg x 3, 10mg x 4 F/U INR: 3 weeks Patient verbalizes understanding of instructions given Anti-Coag Initial Assessment Social Hx Patient Tobacco Use Status: Never used Tobacco alcohol intake: current Alcohol intake frequency: holidays/special occasions only Coding Level of Care Code Est Patient Level 1 Diagnoses Current use of anticoagulant therapy Z79.01 Results AMB INR Fingerstick AMB INR Fingerstick 1.8 Last Edit by Juanita Ibarra RN on 04/06/25 08:15 interface delay Assessment & Plan Assessment & Plan (1) Current use of anticoagulant therapy: Code(s): 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
--- OUTSIDE RECORDS SUMMARY | 2025-04-06 08:17 | XMS_ITS | Encounter Summary ---
Author Organization [facility] Address [address] [place] [address] Phone Care Team Providers Care Clerical Administrator Name Role Phone Tj Bird MD Primary Care Provider Encounter Details Date Type Department Care Team (Late st Contact Info) Description 06/13/2017 Procedure Pass [facility]IOPER[facility] DEPT [address] [place] [address] Social History Tobacco Use Types Packs/Day Years [...] on filedocumented in this encounter Care Teams Clerical Administrator Relationship Specialty Start Date End Date Tj Bird MD [address] [place] [address] [place] [id number] PCP - General Internal Medicine 06/14/15 documented as of this encounter Additional Source Comments The information contained in this document represents components of the legal health record. It is not the complete legal health record.[facility]
--- OUTSIDE RECORDS SUMMARY | 2025-04-06 08:17 | XMS_ITS | Encounter Summary ---
Author Organization [facility] Address [address] [place] [address] Phone Care Team Providers Care Associate Director Financial Aid Name Role Phone Tj Bird MD Primary Care Provider Encounter Details Date Type Department Care Team (Late st Contact Info) Description 08/01/2016 Telephone [facility] [employer] [address] [facility], [address] [place] [address] Chery Cespedes [place] Social History Tobacco Use [...] on filedocumented in this encounter Care Teams Associate Director Financial Aid Relationship Specialty Start Date End Date Tj Bird MD [address] [place] [address] [place] [address] PCP - General Internal Medicine 06/14/15 documented as of this encounter Additional Source Comments The information contained in this document represents components of the legal health record. It is not the complete legal health record.[facility]
--- OUTSIDE RECORDS SUMMARY | 2025-04-06 08:17 | XMS_ITS | Encounter Summary ---
Author Organization [facility] Address [address] [place] [address] Phone Care Team Providers Care Spanish Lecturer Name Role Phone Tj Bird MD Primary Care Provider Encounter Details Date Type Department Care Team (Late st Contact Info) Description 07/17/2016 Procedure Pass [facility] PERIOPERATIVE DEPT [address] [place] [address] Social History Tobacco Use Types Packs/Day Years [...] on filedocumented in this encounter Care Teams Spanish Lecturer Relationship Specialty Start Date End Date Tj Bird MD [address] [place] [address] [place] [address] PCP - General Internal Medicine 06/14/15 documented as of this encounter Additional Source Comments The information contained in this document represents components of the legal health record. It is not the complete legal health record.[facility]
--- OUTSIDE RECORDS SUMMARY | 2025-04-06 08:17 | XMS_ITS | Clinical Summary ---
Author Organization [facility] Address [address] [place] [address] Phone Care Team Providers Care Crane Rigger Name Role Phone Tj Bird MD Primary [...] Sun, Tues, Wed, Fri, Sat Active omega 6-xxz-dce-fish oil 360-1,200 mg CpDR Take 1 capsule [...] is 0.4%; Elizabeth estimated risk of perioperative DC or cardiac arrest is <1%, can proceed [...] 05/29/2018 05/29/2017, 07/10, 07/19/2016, Additional history exists INFLUENZA VACCINE (#1) 2025 COVID-19 VACCINE (2 - 2024- season) 2025 09/02/2020 RSV VACCINE (1 - 1-dose 75+ series) [...] this topic Medical Devices Implanted Type Area Tandem Mill Sticker Device Identifier Shelf Expiration Date Model / Serial / Lot Ivc Filter G[employer] P[employer] Acet Shell 60g Hip 06 Ea - [id number] Implanted:Qty: 1 on 07/17/2016 by Steven Marie MD at [facility] Left: Hip [employer] 03/23/2025 [id number] / / [id number] Neutral E1 Liner 36mm G Hip 11 Ea - [id number] Implanted:Qty: 1 on 07/17/2016 by Steven Marie MD at [facility] Left: Hip [employer] 01/23/2021 [id number] / / [id number] Tprlc [address] Distal Type1 Pps Ho 15.0 Hip 01 - [id number] Implanted:Qty: 1 on 07/17/2016 by Steven Marie MD at [facility] Left: Hip [employer] 05/02/2026 [id number] / / [id number] Implant Hip 36mm Femoral Head Biolox D Mod C2a Standard Neck Ea Hip 04 - [id number] Implanted:Qty: 1 on 07/17/2016 by Steven Marie MD at [facility] Left: Hip [employer] 05/20/2026 [id number] / / [id number] Procedures Procedure Name Priority Date/Time Associated Diagnosis Comments HEMOGLOBIN A1C Routine 05/29/2017 1:00 PM EST Trochanteric bursitis of left hip BASIC METABOLIC PANEL Routine 05/29/2017 1:00 PM EST Trochanteric bursitis of left hip from Last 3 Months or Most Recently Relevant to Health Maintenance Results * (ABNORMAL) Hemoglobin A1c (05/29/2017 1:00 PM EST) HEMOGLOBIN A1C 7.6(H) 4.3 - 5.6 % [facility] CALC MEAN BLD GLUC 171 mg/dL [facility] 05/29/2017 1:00 PM EST 05/29/2017 1:42 PM EST us Francy LÓPEZ LAB BLOOD ORDERABLES Salud l Result [facility] [address] [place] [address] * (ABNORMAL) Basic metabolic panel (05/29/2017 1:00 PM EST) Pathologist [facility] SODIUM 139 136 - 145 mmol/L [facility] CHLORIDE 101 95 - 106 mmol/L [facility] POTASSIUM 4.2 3.5 - 5.2 mmol/L [facility] CO2 24 20 - 31 mmol/L [facility] BUN 18 9 - 23 mg/dL [facility] CREATININE 1.09 0.50 - 1.30 mg/dL [facility] GLUCOSE 179(H) 74 - 106 mg/dL [facility] CALCIUM 9.0 8.7 - 10.4 mg/dL [facility] EGFR >60 >60 mL/min/1.7 3m2 [facility] Comment:The normal range for eGFR is >60 mL/min/1.73m2. ANION GAP 14 3 - 17 mmol/L [facility] 05/29/2017 1:00 PM EST 05/29/2017 1:42 PM EST Francy LÓPEZ LAB BLOOD ORDERABLES Salud brothers Result Performing Organization Address City/State/[facility] Co de Phone Number [facility] [address] [place] [address] from Last 3 Months or Most Recently Relevant to Health Maintenance Insurance MEDICARE PART A & B [employer] MEDEX SUPPLEMENT Advance Directives For more information, please contact: [phone] (9AM - 5PM [facility], Friday-Friday) Documents on File Type Date Recorded Patient Staffing Coordinator Expl anation Healthcare Proxy 07/23/2016 11:32 AM [...] Agent (Proxy form on file) Care Teams Crane Rigger Relationship Specialty Start Date End Date Tj Bird MD [address] [place] [address] [place] [address] PCP - General Internal Medicine 06/14/15 Additional Source Comments The information contained in this document represents components of the legal health record. It is not the complete legal health record.[facility]
--- OUTSIDE RECORDS SUMMARY | 2025-04-06 08:18 | XMS_ITS | Patient Health Record ---
Author Organization [facility] Address [address] [place] [address] Care Team Providers Care Flat Spring Assembler Name Role Phone Marge (RETIRED) Tj BUTTS Primary Care Provide r Al Kearney Unavailable [phone] Allergies No Known Allergies Reason For Referral No Information Medications Medication SIG (Take, Route, Frequency, Duration) Notes Start Date End Date Status Gemfibrozil Active Losartan Potassium 50 MG TAKE 1 TABLET B Y MOUTH EVERY DAY Oral; Duration: 90 Active Centrum Silver Adult 50+ Active [...] Problem Status W/U Status Risk Notes Problem Elevated liver enzymes level (082730760) Elevated liver function tests (R79.89) Active confirmed Problem Fatty liver (651265969) Fatty liver (K76.0) Active confirmed Problem Altered bowel function (64252531) Change in bowel function (R19.4) Active confirmed Problem Alcoholic liver disease (13661321) Alcoholic liver disease (K70.9) Active confirmed Problem Constipation (95254844) Constipation, unspecified constipation type (K59.00) Active confirmed [...] Date MEDICARE OF [place] [address] [place] [address] [id number] REINIER LOUIS Self - patient is the insured MEDEX ATTN CLAIMS [address] [place] [address] [id number] REINIER LOUIS Self - patient is the insured Medical (General) History Medical History History ICD Code Screening Colonoscopy,09/2006--hyperplast ic polyp, internal hemorrhoids Denies [place],CVA,Lung disease,renal disease NIDDM Left LE DVT in [...] Left hip replacement Diagnostic laparoscopy for r elief of a small bowel intussusception with Dr. Patino. No resection done.Everything appeared WNL. 2019
[2025-04-06 10:14] LABS: Prothrombin Time Whole Bld POC 21.8 sec (11.1-13.5); ~PT, ~INR - Anti Coag Clinic 1.8 (0.9-1.1)
== END 2025-04-06 08:20 | disposition home or self-care (01) ==
LOC: HO.ACS 08:06
PROVIDERS: PCP Student in an Organized Health Care Education/Training Program; Visit Provider Internal Medicine Medical Oncology
DX: Z79.01 Long term (current) use of anticoagulants (principal)

== ENCOUNTER → 2025-04-06 08:06 | Outpatient (BNVA) | payer MEDICARE, SELFPAY | PROVIDERS: PCP Student in an Organized Health Care Education/Training Program; Visit Provider Internal Medicine Medical Oncology | DX: I26.99 Other pulmonary embolism without acute cor pulmonale (principal); Z79.01 Long term (current) use of anticoagulants; Z51.81 Encounter for therapeutic drug level monitoring | CPT/HCPCS: 85610; 99211 ==

== ENCOUNTER 2025-04-19 08:12 | Outpatient (REF) | payer MEDICARE, SELFPAY ==
--- OUTSIDE RECORDS SUMMARY | 2025-04-19 08:16 | XMS_ITS | Encounter Summary ---
Author Organization [facility] Address [address] [place] [address] Phone Care Team Providers Care Garbage Truck Driver Name Role Phone Tj Bird MD Primary Care Provider Encounter Details Date Type Department Care Team (Late st Contact Info) Description 08/01/2016 Telephone [facility] Orthopedic [employer] [address] [facility], [address] [place] [address] Chery Cespedes [place] Social History Tobacco Use [...] on filedocumented in this encounter Care Teams Garbage Truck Driver Relationship Specialty Start Date End Date Tj Bird MD [address] [place] [address] [place] [address] PCP - General Internal Medicine 06/14/15 documented as of this encounter Additional Source Comments The information contained in this document represents components of the legal health record. It is not the complete legal health record.[facility]
--- OUTSIDE RECORDS SUMMARY | 2025-04-19 08:16 | XMS_ITS | Encounter Summary ---
Author Organization [facility] Address [address] [place] [address] Phone Care Team Providers Care Nicker Name Role Phone Tj Bird MD Primary Care Provider Encounter Details Date Type Department Care Team (Late st Contact Info) Description 07/17/2016 Procedure Pass [facility] PERIOPERATIVE DEPT [address] [place] [address] Social History Tobacco Use Types Packs/Day Years [...] on filedocumented in this encounter Care Teams Nicker Relationship Specialty Start Date End Date Tj Bird MD [address] [place] [address] [place] [address] PCP - General Internal Medicine 06/14/15 documented as of this encounter Additional Source Comments The information contained in this document represents components of the legal health record. It is not the complete legal health record.[facility]
--- OUTSIDE RECORDS SUMMARY | 2025-04-19 08:16 | XMS_ITS | Patient Health Record ---
Author Organization [facility] Address [address] [place] [address] Care Team Providers Care Academic Advisor Name Role Phone Marge (RETIRED) Tj BUTTS Primary Care Provide r Al Kearney Unavailable [phone] Allergies No Known Allergies Reason For Referral [...] Risk Notes Problem Elevated liver enzymes level (870620041) Elevated liver function tests (R79.89) Active confirmed Problem Fatty liver (519571630) Fatty liver (K76.0) Active confirmed Problem Altered bowel function (09705385) Change in bowel function (R19.4) Active confirmed Problem Alcoholic liver disease (28051652) Alcoholic liver disease (K70.9) Active confirmed Problem Constipation (27304947) Constipation, unspecified constipation type (K59.00) Active confirmed [...] Date MEDICARE OF [place] [address] [place] [address] [phone] [id number] REINIER LOUIS Self - patient is the insured MEDEX ATTN CLAIMS [address] [place] [address] [phone] [id number] REINIER LOUIS Self - patient is the insured Medical (General) History Medical History History ICD Code Screening Colonoscopy,09/2006--hyperplast ic polyp, internal hemorrhoids Denies ID,CVA,Lung disease,renal disease NIDDM Left LE DVT in [...]
--- OUTSIDE RECORDS SUMMARY | 2025-04-19 08:16 | XMS_ITS | Encounter Summary ---
Author Organization [facility] Address [address] [place] [address] Phone Care Team Providers Care Semiconductor Engineer Name Role Phone Tj Bird MD Primary Care Provider Encounter Details Date Type Department Care Team (Late st Contact Info) Description 06/13/2017 Procedure Pass [facility] PERIOPERATIVE DEPT [address] [place] [address] Social History Tobacco Use Types Packs/Day Years [...] on filedocumented in this encounter Care Teams Semiconductor Engineer Relationship Specialty Start Date End Date Tj Bird MD [address] [place] [address] [place] [address] PCP - General Internal Medicine 06/14/15 documented as of this encounter Additional Source Comments The information contained in this document represents components of the legal health record. It is not the complete legal health record.[facility]
--- OUTSIDE RECORDS SUMMARY | 2025-04-19 08:16 | XMS_ITS | Clinical Summary ---
Author Organization [facility] Address [address] [place] [address] Phone Care Team Providers Care Button Clamper Name Role Phone Tj Bird MD Primary [...] Sun, Tues, Wed, Fri, Sat Active omega 4-ibe-dpq-fish oil 360-1,200 mg CpDR Take 1 capsule [...] is 0.4%; Elizabeth estimated risk of perioperative NC or cardiac arrest is <1%, can proceed [...] on patient's age to complete this topic IPV VACCINES Aged Out No longer eligi ble based on patient's age to complete this topic MENINGOCOCCAL VACCINES (ACWY) Aged Out No longer eligible based on patient's age to complete this topic MENINGOCOCCAL VACCINES (B) Aged Out N o longer eligible based on patient's age to complete this topic Medical Devices Implanted Type Area Elevator Attendant Device Identifier Shelf Expiration Date Model / Serial / Lot Ivc Filter G[employer] P[employer] Acet Shell 60g Hip 06 Ea - [id number] Implanted:Qty: 1 on 07/17/2016 by Steven Marie MD at [facility] Left: Hip [employer] 03/23/2025 [id number] / / [id number] Neutral E1 Liner 36mm G Hip 11 Ea - [id number] Implanted:Qty: 1 on 07/17/2016 by Steven Marie MD at [facility] Left: Hip [employer] 01/23/2021 [id number] / / [id number] Tprlc [address] Distal Type1 Pps Ho 15.0 Hip 01 - [id number] Implanted:Qty: 1 on 07/17/2016 by Steven Marie MD at [facility] Left: Hip [employer] 05/02/2026 [id number] / / [id number] Implant Hip 36mm Femoral Head Biolox D Mod C2a Standard Neck Ea Hip 04 - [id number] Implanted:Qty: 1 on 07/17/2016 by Steven Marie MD at [facility] Left: Hip [employer] 05/20/2026 [id number] / / [id number] Procedures Procedure Name Priority Date/Time Associated Diagnosis Comments HEMOGLOBIN A1C Routine 05/29/2017 1:00 PM EST Trochanteric bursitis of left hip BASIC METABOLIC PANEL (BMP) Routine 05/29/2017 1:00 PM EST Trochanteric bursitis of left hip from Last 3 Months or Most Recently Relevant to Health Maintenance Results * (ABNORMAL) Hemoglobin A1c (05/29/2017 1:00 PM EST) HEMOGLOBIN A1C 7.6(H) 4.3 - 5.6 % [facility] CALC MEAN BLD GLUC 171 mg/dL [facility] 05/29/2017 1:00 PM EST 05/29/2017 1:42 PM EST us Francy LÓPEZ LAB BLOOD BKR ORDERABLES Final Result [facility] [address] [place] [address] * (ABNORMAL) Basic metabolic panel (05/29/2017 1:00 PM EST) SODIUM 139 136 - 145 mmol/L [facility] CHLORIDE 101 95 - 106 mmol/L [facility] POTASSIUM 4.2 3.5 - 5.2 mmol/L [facility] CO2 24 20 - 31 mmol/L [facility] BUN 18 9 - 23 mg/dL [facility] CREATININE 1.09 0.50 - 1.30 mg/dL [facility] GLUCOSE 179(H) 74 - 106 mg/dL [facility] CALCIUM 9.0 8.7 - 10.4 mg/dL [facility] EGFR >60 >60 mL/min/1.7 3m2 [facility] Comment:The normal range for eGFR is >60 mL/min/1.73m2. ANION GAP 14 3 - 17 mmol/L [facility] 05/29/2017 1:00 PM EST 05/29/2017 1:42 PM EST Francy LÓPEZ LAB BLOOD BKR ORDERABLES Final Result [facility] [address] [place] [address] from Last 3 Months or Most Recently Relevant to Health Maintenance Insurance [place] [id number] [employer] MEDEX SUPPLEMENT Advance Directives For more information, please contact: [phone] (9AM - 5PM [facility], Friday-Friday) Documents on File Type Date Recorded Patient Relocation Director Expl anation Healthcare Proxy 07/23/2016 11:32 AM [...] Agent (Proxy form on file) Care Teams Button Clamper Relationship Specialty Start Date End Date Tj Bird MD [address] [place] [address] [place] [address] PCP - General Internal Medicine 06/14/15 Additional Source Comments The information contained in this document represents components of the legal health record. It is not the complete legal health record.[facility]
[2025-04-19 08:31] LABS: MANUAL DIFF FLAG NO
[2025-04-19 09:12] LABS: Resp Syncy Virus RNA Qual PCR NEGATIVE (Negative); SARS COV2 PCR INHOUSE NEGATIVE (Negative)
[2025-04-19 09:43] LABS: Hematocrit 39.5 % (42.0-52.0); Hemoglobin 13.2 g/dl (14.0-18.0); Imm Gran Abs Auto 0.01 X10*3/uL (0.00-0.03); Imm Gran Pct Auto 0.3 % (0.0-0.4); Lymphocytes Absolute Auto 1.3 X10*3/uL (1.2-4.9); Mean Corpuscular HGB Conc 33.4 g/dl (31.0-36.0); Mean Corpuscular Hemoglobin 29.9 pg (27.0-33.0); Mean Corpuscular Volume 89.6 fL (80.0-98.0); NRBC Abs Auto 0.000 X10*3/uL (0.0-0.012); NRBC Pct Auto 0.0 /100WBC (0.0-0.2); Platelet Count 264 X10*3/uL (160-400); Red Blood Count 4.41 X10*6/uL (4.60-5.80); White Blood Count 3.8 X10*3/uL (4.8-10.8)
[2025-04-19 09:54] LABS: Alanine Aminotransferase 56 U/L (0-40); Albumin Level 4.6 g/dL (3.5-5.0); Alkaline Phosphatase 42 U/L (39-117); Anion Gap 13 (12-20); Aspartate Amino Transferase 46 U/L (5-37); Blood Urea Nitrogen 17 mg/dL (9-16); Calcium 9.7 mg/dL (8.4-10.2); Carbon Dioxide 27 mmol/L (22-29); Chloride 104 mmol/L (96-108); Cholesterol 198 mg/dL (<200); Estimated Glomerular Filt Rate > 60; HDL Cholesterol 47 mg/dL (>40); Potassium 4.5 mmol/L (3.3-5.1); Sodium 139 mmol/L (135-145); Total Protein 8.0 g/dL (6.5-8.0); Triglycerides 163 mg/dL (<150)
== END 2025-04-19 08:13 | disposition home or self-care (01) ==
LOC: HO.LAB 08:12
PROVIDERS: PCP Student in an Organized Health Care Education/Training Program; Visit Provider Internal Medicine Medical Oncology
DX: E11.65 Type 2 diabetes mellitus with hyperglycemia (principal); D64.9 Anemia, unspecified; E78.5 Hyperlipidemia, unspecified; R06.02 Shortness of breath
CPT/HCPCS: 36415; 80053; 80061; 83036; 85025; 87637

== ENCOUNTER 2025-04-27 08:15 | Outpatient (AMB) | payer MEDICARE, SELFPAY ==
[2025-04-27 08:27] LABS: Prothrombin Time Whole Bld POC 18.7 sec (11.1-13.5); ~PT, ~INR - Anti Coag Clinic 1.6 (0.9-1.1)
--- NOTE | 2025-04-27 08:39 | MHC.OFFVISCO ---
Intake Intake Visit Reasons: Anticoagulation Allergies latex (Latex) Allergy (Mild, Verified 04/27/25 08:20) ALLERGIC TO POWDER glipizide (GLIPIZIDE) Allergy (Unknown, Verified 04/27/25 08:20) MUSCLES WEAK Medication List - Last Reconciled 04/27/25 by Edelmira Hodges, RN amlodipine 2.5 mg PO DAILY empagliflozin (Jardiance) 10 mg PO DAILY FreeStyle Lancets (lancets) once daily NS FreeStyle Lite Strips (blood sugar diagnostic) once daily NS gemfibrozil 600 mg PO BID losartan 50 mg PO ONCE mecobalamin (vitamin B12) 1,000 mcg PO DAILY 3 months MDD 1000mcg metformin 1,000 mg (2 x 500 mg) PO BID sqmobfle-rxq-QU-lycopen-lutein 0.4 mg-300 mcg- 250 mcg (Centrum Silver) 1 tab PO DAILY omega-3 fatty acids (Fish Oil Concentrate) 1,000 mg PO DAILY MRX1 omeprazole 20 mg PO DAILY warfarin 5 mg See Protocol PO DAILY Nursing Note NO CP,SOB,DIET/MED CHANGES,FALLS OR SX OF BLEEDING. BOOST TODAY TO 7.5MGM THEN RESUME USUAL DOSE AND FOLLOW-UP IN 2 WEEKS GOOD UNDERSTANDING OF DOSING INSTR. Anti-Coag Initial Assessment Social Hx Patient Tobacco Use Status: Never used Tobacco alcohol intake: current Alcohol intake frequency: holidays/special occasions only Coding Level of Care Code Est Patient Level 1 Diagnoses Current use of anticoagulant therapy Z79.01 Assessment & Plan Assessment & Plan (1) Current use of anticoagulant therapy: Code(s): Z79.01 - assistant terminal manager (current) use of anticoagulants Category: Medical
--- OUTSIDE RECORDS SUMMARY | 2025-04-27 15:52 | XMS_ITS | Patient Health Record ---
Author Organization [facility] Address [address] [place] [address] Care Team Providers Care Harness Cleaner Name Role Phone Marge (RETIRED) Tj BUTTS Primary Care Provide r Al Kearney Unavailable [phone] Allergies No Known Allergies Reason For Referral No Information Medications Medication SIG (Take, Route, Frequency, Duration) Notes Start Date End Date Status Gemfibrozil Active Losartan Potassium 50 MG Tablet TAKE 1 TABLET BY MOUTH EVERY DAY Oral; Duration: 90 Active Centrum Silver Adult 50+ Active Fish Oil Active metFORMIN HCl Active Omeprazole 20 MG Capsule Delayed Release 1 capsule Orally Once a day Active Warfarin Sodium Acti ve Social History Social History Drugs/Alcohol: Social Info Question Answer Notes Alcohol Screen Did you have a drink containing alcohol in the past year? 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; Section Notes: Nonsmoker; 3-4 beers QD Nonsmoker; few beers daily, but cut down dramatically summer Nonsmoker; few beers daily, but cut down dramatically summer Problems Problem Type SNOMED Code ICD Code Onset Dates Problem Status W/U Status Risk Notes Problem Elevated liver enzymes level (353731616) Elevated liver function tests (R79.89) Active confirmed Problem Fatty liver (935473981) Fatty liver (K76.0) Active confirmed Problem Altered bowel function (57400337) Change in bowel function (R19.4) Active confirmed Problem Alcoholic liver disease (17866207) Alcoholic liver disease (K70.9) Active confirmed Problem Constipation (35066210) Constipation, unspecified constipation type (K59.00) Active confirmed Plan Of Treatment Pending Test Test Name Order Date LIVER PROFILE 01/31/2023 LIVER PROFILE 11/12/2022 LIVER PROFILE 12/04/2022 CBC w DIFF 12/04/2022 CBC w DIFF [...] Date MEDICARE OF [place] [address] [place] [address] [phone] [id number] HERIBERTOREINIER Santiago Self - patient is the insured MEDEX ATTN CLAIMS [address] [place] [address] [id number] HERIBERTOREINIER Santiago Self - patient is the insured Medical (General) History Medical History History ICD Code Screening Colonoscopy,09/2006--hyperplast ic polyp, internal hemorrhoids Denies [place],CVA,Lung disease,renal disease NIDDM Left LE DVT in [...]
--- OUTSIDE RECORDS SUMMARY | 2025-04-27 15:52 | XMS_ITS | Encounter Summary ---
Author Organization [facility] Address [address] [place] [address] Phone Care Team Providers Care Sand Caster Name Role Phone Tj Bird MD Primary Care Provider Encounter Details Date Type Department Care Team (Late st Contact Info) Description 08/01/2016 [facility]phone [facility] [employer] [address], [address] [place] [address] Chery Cespedes [place] Social History Tobacco Use [...] on filedocumented in this encounter Care Teams Sand Caster Relationship Specialty Start Date End Date Tj Bird MD [address] [place] [address] [place] [address] PCP - General Internal Medicine 06/14/15 documented as of this encounter Additional Source Comments The information contained in this document represents components of the legal health record. It is not the complete legal health record.[facility]
--- OUTSIDE RECORDS SUMMARY | 2025-04-27 15:52 | XMS_ITS | Encounter Summary ---
Author Organization [facility] Address [address] [place] [address] Phone Care Team Providers Care Die Keeper Name Role Phone Tj Bird MD Primary Care Provider Encounter Details Date Type Department Care Team (Late st Contact Info) Description 06/13/2017 Procedure Pass [facility] PERIOPERATIVE DEPT [address] [place] [address] Social History Tobacco Use Types Packs/Day Years [...] on filedocumented in this encounter Care Teams Die Keeper Relationship Specialty Start Date End Date Tj Bird MD [address] [place] [address] [place] [address] PCP - General Internal Medicine 06/14/15 documented as of this encounter Additional Source Comments The information contained in this document represents components of the legal health record. It is not the complete legal health record.[facility]
--- OUTSIDE RECORDS SUMMARY | 2025-04-27 15:52 | XMS_ITS | Clinical Summary ---
Author Organization [facility] Address [address] [place] [address] Phone Care Team Providers Care Rehabilitation Counselor Name Role Phone Tj Bird MD Primary [...] Sun, Tues, Wed, Fri, Sat Active omega 5-bnz-nbl-fish oil 360-1,200 mg CpDR Take 1 capsule [...] this topic Medical Devices Implanted Type Area Rope Maker Device Identifier Shelf Expiration Date Model / Serial / Lot Ivc Filter G7 [employer] Acet Shell 60g Hip 06 Ea - [id number] Implanted:Qty: 1 on 07/17/2016 by Steven Marie MD at [facility] Left: Hip [employer] 03/23/2025 [id number] / / [id number] G7 Neutral E1 Liner 36mm G Hip 11 Ea - [id number] Implanted:Qty: 1 on 07/17/2016 by Steven Marie MD at [facility] Left: Hip [employer] 01/23/2021 [id number] / / [id number] Tprlc 133 Mp Rdcd Distal Type1 Pps Ho 15.0 Hip 01 - [id number] Implanted:Qty: 1 on 07/17/2016 by Steven Marie MD at [facility] Left: Hip [employer] 05/02/2026 [id number] / / [id number] Implant Hip 36mm Femoral Head Biolox D Mod C2a Standard Neck Ea Hip 04 - [id number] Implanted:Qty: 1 on 07/17/2016 by Steven Marie MD at [facility] Left: Hip [employer] 05/20/2026 [id number] / / [id number] Procedures Procedure Name Priority Date/Time Associated Diagnosis Comments HEMOGLOBIN A1C Routine 05/29/2017 1:00 PM EST Trochanteric bursitis of left hip BASIC METABOLIC PANEL (BMP) Routine 05/29/2017 1:00 PM EST Trochanteric bursitis of left hip from Last 3 Months or Most Recently Relevant to Health Maintenance Results * (ABNORMAL) Hemoglobin A1c (05/29/2017 1:00 PM EST) HEMOGLOBIN A1C 7.6(H) 4.3 - 5.6 % [facility] CALC MEAN BLD GLUC 171 mg/dL [facility] 05/29/2017 1:00 PM EST 05/29/2017 1:42 PM EST us Francy LÓPEZ LAB BLOOD BKR ORDERABLES Final Result [facility] [address] [place] [address] * (ABNORMAL) Basic metabolic panel (05/29/2017 1:00 PM EST) SODIUM 139 136 - 145 mmol/L [facility] CHLORIDE 101 95 - 106 mmol/L [facility] POTASSIUM 4.2 3.5 - 5.2 mmol/L [facility] CO2 24 20 - 31 mmol/L [facility] BUN 18 9 - 23 mg/dL [facility] CREATININE 1.09 0.50 - 1.30 mg/dL [facility] GLUCOSE 179(H) 74 - 106 mg/dL [facility] CALCIUM 9.0 8.7 - 10.4 mg/dL [facility] EGFR >60 >60 mL/min/1.7 3m2 [facility] Comment:The normal range for eGFR is >60 mL/min/1.73m2. ANION GAP 14 3 - 17 mmol/L [facility] 05/29/2017 1:00 PM EST 05/29/2017 1:42 PM EST Francy LÓPEZ LAB BLOOD BKR ORDERABLES Final Result Performing Organization Address City/State/[facility] Co de Phone Number [facility] [address] [place] [address] from Last 3 Months or Most Recently Relevant to Health Maintenance Insurance MEDICARE PART A & B [employer] MEDEX SUPPLEMENT Advance Directives For more information, please contact: [phone] (9AM - 5PM [facility], Friday-Friday) Documents on File Type Date Recorded Patient Antique Furniture Repairer Expl anation Healthcare Proxy 07/23/2016 11:32 AM [...] Agent (Proxy form on file) Care Teams Rehabilitation Counselor Relationship Specialty Start Date End Date Tj Bird MD [address] [place] [address] [place] [address] PCP - General Internal Medicine 06/14/15 Additional Source Comments The information contained in this document represents components of the legal health record. It is not the complete legal health record.[facility]
--- OUTSIDE RECORDS SUMMARY | 2025-04-27 15:52 | XMS_ITS | Encounter Summary ---
Author Organization [facility] Address [address] [place] [address] Phone Care Team Providers Care Treatment Plant Mechanic Name Role Phone Tj Bird MD Primary Care Provider Encounter Details Date Type Department Care Team (Late st Contact Info) Description 07/17/2016 Procedure Pass [facility] PERIOPER[facility]IVE DEPT [address] [place] [address] Social History Tobacco Use Types Packs/Day Years [...] on filedocumented in this encounter Care Teams Treatment Plant Mechanic Relationship Specialty Start Date End Date Tj Bird MD [address] [place] [address] [place] [address] PCP - General Internal Medicine 06/14/15 documented as of this encounter Additional Source Comments The information contained in this document represents components of the legal health record. It is not the complete legal health record.[facility]
== END 2025-04-27 08:45 | disposition home or self-care (01) ==
LOC: HO.ACS 08:15
PROVIDERS: PCP Student in an Organized Health Care Education/Training Program; Visit Provider Internal Medicine Medical Oncology
DX: Z79.01 Long term (current) use of anticoagulants (principal)

== ENCOUNTER → 2025-04-27 08:15 | Outpatient (BNVA) | payer MEDICARE, SELFPAY | PROVIDERS: PCP Student in an Organized Health Care Education/Training Program; Visit Provider Internal Medicine Medical Oncology | DX: I26.99 Other pulmonary embolism without acute cor pulmonale (principal); Z51.81 Encounter for therapeutic drug level monitoring; Z79.01 Long term (current) use of anticoagulants | CPT/HCPCS: 85610; 99211 ==

== ENCOUNTER → 2025-05-11 08:05 | Outpatient (BNVA) | payer MEDICARE, SELFPAY | PROVIDERS: PCP Student in an Organized Health Care Education/Training Program; Visit Provider Internal Medicine Medical Oncology | DX: I26.99 Other pulmonary embolism without acute cor pulmonale (principal); Z51.81 Encounter for therapeutic drug level monitoring; Z79.01 Long term (current) use of anticoagulants | CPT/HCPCS: 85610; 99211 ==

== ENCOUNTER 2025-05-13 07:53 | Outpatient (AMB) | payer MEDICARE, SELFPAY ==
--- NOTE | 2025-05-13 07:55 | MHC.PC.OV ---
Vital Signs 05/13/25 08:05 Height 6 ft 0.44 in Weight 198 lb BMI 26.5 BP 162/100 H Blood Pressure Location Lt brachial Position Sitting Respiration 18 Pulse 86 Pulse Source Pulse Oximeter Temp 98.7 F Temp Source Temporal Artery Scan Pulse Oximetry (%) 98 Oxygen Delivery Method Room Air Intake Visit Reasons: 3 month f/u Right Of Way Clearer Required: No Accompanied by: Self / Same As Patient Allergies latex (Latex) Allergy (Mild, Verified 05/13/25 07:55) ALLERGIC TO POWDER glipizide (GLIPIZIDE) Allergy (Unknown, Verified 05/13/25 07:55) MUSCLES WEAK Medication List - Last Reconciled 05/13/25 by Reilly Gutierrez MD amlodipine 5 mg PO BID 90 days empagliflozin (Jardiance) 10 mg PO DAILY FreeStyle Lancets (lancets) once daily NS FreeStyle Lite Strips (blood sugar diagnostic) once daily NS gemfibrozil 600 mg PO BID losartan 50 mg PO ONCE mecobalamin (vitamin B12) 1,000 mcg PO DAILY 3 months MDD 1000mcg metformin 1,000 mg (2 x 500 mg) PO BID fzpbqqmq-hxo-YJ-lycopen-lutein 0.4 mg-300 mcg- 250 mcg (Centrum Silver) 1 tab PO DAILY omega-3 fatty acids (Fish Oil Concentrate) 1,000 mg PO DAILY MRX1 omeprazole 20 mg PO DAILY warfarin 5 mg See Protocol PO DAILY Tobacco use date assessed: 10/15/24 Fall risk assessment: No Falls in past year Last assessed Fall Risk: 05/13/25 Dental Screening Dental Screen Date: 10/15/24 HPI HPI Comments History of Present Illness Details History of Present Illness The patient is a 70 year old male presenting for management of his chronic conditions, primarily type 2 diabetes and hypertension. Regarding his diabetes, his most recent HbA1c was 8.2% and a recent blood sugar reading was 202 mg/dL. He is on the maximum dose of metformin at 1000 mg twice daily and was prescribed Jardiance, but has not been taking it due to fear of side effects, including liver problems and respiratory failure, after reading the medication guide. His blood pressure is uncontrolled, with recent readings in the 170s. He is currently taking amlodipine 2.5 mg twice a day and losartan 50 mg. The patient attributes his elevated blood pressure to stress, a recent job loss, a sedentary lifestyle, and a diet high in sweets. He has a history of hyperlipidemia with a total cholesterol of 200 mg/dL, LDL of 119 mg/dL, and triglycerides of 163 mg/dL. He also has a history of recurrent pulmonary embolisms and is on warfarin, which is managed by a separate clinic; his last INR was subtherapeutic at 1.6. He was previously concerned about a liver cyst, but an ultrasound confirmed hepatic steatosis and a 1.1 cm focal calcification on his kidney. Medical History: - Type 2 Diabetes Mellitus - Hypertension - Hyperlipidemia - Hepatic Steatosis (fatty liver) - History of recurrent pulmonary embolism - Renal cyst (1.1 cm focal calcification) - Gastroesophageal reflux disease Medications: - Amlodipine 2.5 mg twice daily for hypertension - Losartan 50 mg for hypertension - Metformin 1000 mg twice daily for diabetes - Warfarin once daily for history of pulmonary embolism - Omeprazole for acid reflux (patient is unsure if still taking) Diagnostic Results: - Labs: - HbA1c: 8.2% - Blood sugar: 202 (recent value) - LDL cholesterol: 119 mg/dL - Triglycerides: 163 mg/dL - Total cholesterol: 200 mg/dL - INR: 1.6 (subtherapeutic) - Imaging: - Ultrasound: Revealed hepatic steatosis and a 1.1 cm focal calcification on the kidney; no cyst on the liver. 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 - Functional Status: He reports being largely sedentary since nursing home, spending much of his time sitting at home and watching TV. - Activity/Exercise: He notes a significant drop in his blood sugar (from 167 to 122 mg/dL) after engaging in strenuous activity like shoveling snow. - Diet: His diet is high in sweets, which are readily available in his home. - Stressors: He reports stress related to his home life and quitting his job. Health Maintenance - Counseled on diet, recommending a Mediterranean diet high in protein and low in carbohydrates to manage diabetes, hypertension, and hyperlipidemia. - Encouraged increased physical activity, reinforcing his own positive experience with exercise lowering his blood sugar. - Recommended increased frequency of blood glucose monitoring; a new prescription will be sent to allow for testing up to four times per day. - Follow-up scheduled in 3 months for reassessment and to review repeat lab work, including an HbA1c. Patient was informed and verbally consented to the use of an ambient scribe for clinic note documentation during this visit. Vital signs reviewed. Comprehensive history, review of systems, and physical exam completed. Medications, allergies, and problem list reviewed and updated. Counseling provided on nutrition, regular exercise, sleep hygiene, and moderation of alcohol use. Discussed age-appropriate screenings (mammogram, colonoscopy, Pap, bone density) and immunizations (flu, COVID, shingles, Tdap). Screened for depression, fall risk, and home safety; no current concerns. Discussed stress management, dental and vision care, and importance of ongoing preventive follow-up. Routine labs ordered for metabolic and lipid screening. Patient educated on healthy lifestyle and agrees with the plan. [facility] Medical History Leg swelling Hyperlipidemia Hypercholesteremia History of blood clots Diabetes Hypertension Surgical History History of colonoscopy (~08/07/15) History of appendectomy S/P hip replacement History of gastric surgery Family History Father CAD (coronary artery disease) Mother Diabetes Social History Household Members: Spouse Housing: House Alcohol intake: current Alcohol intake frequency: holidays/special occasions only Patient Tobacco Use Status: Never used Tobacco e-Cigarette/Vaping Use: Never Used service: Yes Current occupational status: retired Cognitive needs: No Hearing needs: No Vision needs: Yes (rx glasses) Questionnaire Thrive Questionnaire Date Thrive assessed: 10/15/24 CHASE-7 AMB Questionnaire CHASE-7 Date CHASE - 7 assessed: 10/15/24 Source: Developed by Drs. Al Multani, Kisha Hernandez, Jeffery Stubbs and colleagues, with an educational ania from [employer]. Review of Systems Narrative Review of Systems - Genitourinary: Reports polyuria. All systems reviewed & are unremarkable except as reviewed in HPI and above Physical exam (Primary Care) Vital Signs: Last Vital Signs Temp 98.7 F 05/13/25 08:05 Pulse 86 05/13/25 08:05 Resp 18 05/13/25 08:05 BP 162/100 H 05/13/25 08:05 Pulse Ox 98 05/13/25 08:05 Oxygen Delivery Method Room Air 05/13/25 08:05 BMI result Body Mass Index 26.5 Tobacco/Smoking Status: Tobacco use Status Tobacco use date assessed 10/15/24 05/13/25 07:57 Patient Tobacco Use Status Never used Tobacco 05/13/25 07:57 e-Cigarette/Vaping Use Never Used 05/13/25 07:57 Thrive Assessment: Date of Thrive Assessment Date Thrive assessed 10/15/24 05/13/25 07:57 Narrative Physical Exam General: +Alert and oriented, Well nourished, No acute distress. Eye: Pupils are equal, round and reactive to light, Intact accommodation, Extraocular movements are intact, Normal conjunctiva, Vision unchanged. HENT: Normocephalic, Atraumatic, Tympanic membranes are clear, Normal hearing, Oral mucosa is moist, No pharyngeal erythema, Ear canals patent. Respiratory: Lungs CTA bilaterally, No wheeze, Respirations are non-labored. Cardiovascular: Regular rate, Regular rhythm, S1 auscultated, S2 auscultated, No murmur, Good pulses equal in all extremities, Normal peripheral perfusion, No edema. Gastrointestinal: Soft, Non-tender, Non-distended, Normal bowel sounds, No organomegaly, Hepatic steatosis noted. Musculoskeletal: Normal range of motion, Normal strength, No tenderness, No swelling, No deformity, Normal gait. Integumentary: Warm, Dry, [place], Intact. Neurologic: Alert, Oriented, Normal sensory, Normal motor function, No focal defects, Cranial Nerves II-XII are grossly intact, Normal deep tendon reflexes. Psychiatric: Cooperative, Appropriate mood & affect, Normal judgment. Coding Level of Care Code Est Pt Level 4 (28517) Complex visit Add On G2211 Diagnoses Type 2 diabetes mellitus with hyperglycemia, without long-term current use of insulin E11.65 Diabetes mellitus type: type 2 Diabetes mellitus terminal superintendent insulin use: without terminal superintendent use Diabetes mellitus complication status: with hyperglycemia Primary hypertension I10 Hypertension type: primary hypertension Hyperlipidemia, unspecified hyperlipidemia type E78.5 Hyperlipidemia type: unspecified Current use of anticoagulant therapy Z79.01 Assessment & Plan Assessment & Plan (1) Diabetes: Comment: - The patient's HbA1c is elevated at 8.2% despite being on the maximum dose of metformin. - He has been nonadherent to Jardiance due to fear of side effects. - After extensive counseling on the risks of uncontrolled diabetes and the benefits of Jardiance, he has agreed to start the medication. - A new prescription for Jardiance will be sent. - A prescription for glucose test strips for testing up to four times a day will be provided. - Plan to recheck HbA1c in three months. Code(s): E11.9 - Type 2 diabetes mellitus without complications Category: Medical Qualifiers: Diabetes mellitus type: type 2 Diabetes mellitus jail insulin use: without terminal superintendent use Diabetes mellitus complication status: with hyperglycemia Qualified Code(s): E11.65 - Type 2 diabetes mellitus with hyperglycemia (2) Hypertension: Comment: - Blood pressure is markedly elevated, with readings in the 170s. - The patient's diet and sedentary lifestyle are significant contributing factors. - The plan is to increase his amlodipine from 2.5 mg twice a day to 5 mg twice a day. Code(s): I10 - Essential (primary) hypertension Category: Medical Qualifiers: Hypertension type: primary hypertension Qualified Code(s): I10 - Essential (primary) hypertension (3) Hyperlipidemia: Comment: - His lipid panel is notable for elevated LDL (119 mg/dL) and triglycerides (163 mg/dL). - Management will focus on lifestyle and dietary modifications, including adopting a low-carbohydrate, Mediterranean diet. - Continue gemfibrozil Code(s): E78.5 - Hyperlipidemia, unspecified Category: Medical Qualifiers: Hyperlipidemia type: unspecified Qualified Code(s): E78.5 - Hyperlipidemia, unspecified (4) Current use of anticoagulant therapy: Comment: 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 - His most recent INR was subtherapeutic at 1.6. - He will continue to follow up with the anticoagulation clinic for dose adjustments. 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 - Encouraged increased physical activity, reinforcing his own positive experience with exercise lowering his blood sugar. - Recommended increased frequency of blood glucose monitoring; a new prescription will be sent to allow for testing up to four times per day. - Follow-up scheduled in 3 months for reassessment and to review repeat lab work, including an HbA1c. Patient was informed and verbally consented to the use of an ambient scribe for clinic note documentation during this visit. Plan I discussed the patient's uncontrolled type 2 diabetes and hypertension at length. I addressed his nonadherence to Jardiance, which was based on misinformation and fear of side effects. I clarified that his liver condition is fatty liver, not a cyst, and that his cyst is renal and benign. I explained the significant risks of his high blood sugar and blood pressure, including damage to his liver, kidneys, heart, and brain. After discussing the risks and benefits, the patient agreed to a trial of Jardiance. We also discussed increasing his amlodipine dose to 5 mg twice a day. I emphasized that lifestyle changes, including adopting a Mediterranean diet and increasing physical activity, are a critical component of his treatment plan, as medications alone are not sufficient. He understands the plan and agreed to follow up in three months with labs completed beforehand. Orders: Orders Hemoglobin A1c 3 Months E11.65 - Type 2 diabetes mellitus with hyperglycemia Medications: New amlodipine 5 mg PO BID 180 tabs 0RF 90 days empagliflozin (Jardiance) 10 mg PO DAILY 90 tabs 0RF Changed From FreeStyle Lancets (lancets) once daily 100 ea 3RF NS E11.65 - Type 2 diabetes mellitus with hyperglycemia To FreeStyle Lancets (lancets) Use 1 lancet 4 times a day to check blood sugars 100 ea 3RF NS E11.65 - Type 2 diabetes mellitus with hyperglycemia From FreeStyle Lite Strips (blood sugar diagnostic) once daily 100 ea 2RF NS E11.65 - Type 2 diabetes mellitus with hyperglycemia To FreeStyle Lite Strips (blood sugar diagnostic) Use 1 strip to check your sugar, four times a day 100 ea 2RF NS E11.65 - Type 2 diabetes mellitus with hyperglycemia Discontinued amlodipine Discontinued Reason: Doctor's Order 2.5 mg PO BID 90 days 180 tabs 1RF Patient Instructions: - Begin taking Jardiance as prescribed to help lower your blood sugar. - Your dose of amlodipine has been increased to 5 mg twice a day for your high blood pressure. - Continue taking your metformin, losartan, and warfarin as you have been. - It is very important to change your diet. - Avoid sweets and processed foods, and try to follow a Mediterranean diet (high protein, low carbohydrates). - Find ways to be more physically active, as this will help control your blood sugar and blood pressure. - You can check your blood sugar up to 4 times a day. - Continue to follow up with the clinic that manages your warfarin blood thinner. - Please schedule a follow-up appointment for 3 months from now. - You will need to have blood work done one week before that visit.
[2025-05-13 08:05] VITALS: BP 162/100; PULSE 86; RESP 18; TEMP 37.1; O2SAT 98; BMI 26.5
== END 2025-05-13 08:32 | disposition home or self-care (01) ==
PROVIDERS: PCP Student in an Organized Health Care Education/Training Program; Visit Provider Student in an Organized Health Care Education/Training Program
DX: E11.65 Type 2 diabetes mellitus with hyperglycemia (principal); I10 Essential (primary) hypertension; E78.5 Hyperlipidemia, unspecified; Z79.01 Long term (current) use of anticoagulants

== ENCOUNTER → 2025-05-13 07:53 | Outpatient (BNVA) | payer MEDICARE, SELFPAY | PROVIDERS: PCP Internal Medicine; Visit Provider Student in an Organized Health Care Education/Training Program | DX: E11.65 Type 2 diabetes mellitus with hyperglycemia (principal); I10 Essential (primary) hypertension; E78.5 Hyperlipidemia, unspecified; Z79.01 Long term (current) use of anticoagulants | CPT/HCPCS: 99212 ==

== ENCOUNTER 2025-05-23 08:15 | Outpatient (AMB) | payer MEDICARE, SELFPAY ==
[2025-05-23 08:38] LABS: Prothrombin Time Whole Bld POC 24.4 sec (11.1-13.5); ~PT, ~INR - Anti Coag Clinic 2.0 (0.9-1.1)
--- NOTE | 2025-05-23 08:46 | MHC.OFFVISCO ---
Intake Intake Visit Reasons: Anticoagulation Allergies latex (Latex) Allergy (Mild, Verified 05/23/25 08:30) ALLERGIC TO POWDER glipizide (GLIPIZIDE) Allergy (Unknown, Verified 05/23/25 08:30) MUSCLES WEAK Medication List - Last Reconciled 05/23/25 by Kimber Patel RN amlodipine 5 mg PO BID 90 days empagliflozin (Jardiance) 10 mg PO DAILY FreeStyle Lancets (lancets) Use 1 lancet 4 times a day to check blood sugars NS FreeStyle Lite Strips (blood sugar diagnostic) Use 1 strip to check your sugar, four times a day NS gemfibrozil 600 mg PO BID losartan 50 mg PO ONCE mecobalamin (vitamin B12) 1,000 mcg PO DAILY 3 months MDD 1000mcg metformin 1,000 mg (2 x 500 mg) PO BID ziuudwcx-jwn-HP-lycopen-lutein 0.4 mg-300 mcg- 250 mcg (Centrum Silver) 1 tab PO DAILY omega-3 fatty acids (Fish Oil Concentrate) 1,000 mg PO DAILY MRX1 omeprazole 20 mg PO DAILY warfarin 5 mg See Protocol PO DAILY Nursing Note INR: 2.0 in therapeutic range *Blood sugars 140s-180 on several diabetic meds Medications and supplements reviewed No changes in health, diet, medications, or supplements, Denies any signs and symptoms of bleeding or bruising or clotting. Bleeding, bruising, clotting discussed Nutritional guidance given- eat mix of d vegetables Dose: 10mg x 4 days 5mg x 3 days F/U INR: 2 weeks Patient verbalizes understanding of instructions given Anti-Coag Initial Assessment Social Hx Patient Tobacco Use Status: Never used Tobacco alcohol intake: current Alcohol intake frequency: holidays/special occasions only Questionnaires HAS-BLED Does the patient had uncontrolled Hypertension?: No Does the patient have renal disease?: No Does the patient have liver disease?: No Does the patient have a history of stroke?: No Has the patient had major bleeding or predisposition to bleeding?: No Does the patient have labile INRs?: No Is the patient over 65 years of age?: Yes Is the patient on medications that gives them a predisposition to bleeding?: Yes Does the patient use alcohol?: No HAS-BLED Score: 2 CHADSVASC Age: 66-74 Gender: Male Does the patient have a history of CHF?: No Does the patient have a history of Hypertension?: Yes Does the patient have a history of Stroke/TIA/Thromboembolism?: Yes Does the patient have a history of Vascular Disease (prior AK, PAD or aortic plaque)?: No Does the patient have a history of Diabetes?: Yes CHADS VACS Score: 5 Aime Prediction Score Rsk VTE Active Cancer: No Previous VTE, excluding superficial vein thrombosis: Yes Reduced mobility: No Already known Thrombophilic Condition: Yes With-in last month Trauma and/or Surgery: No Elderly 70 year or older: Yes Heart and/or Respiratory Failure: No Acute Myocardial infarction and/or Ischemic Stroke: No Acute Infection and/or Rheumatologic Disorder: No Obesity (BMI 30 or greater): No Ongoing Hormonal Treatment: No Score: 7 Aime Score less than 4; Low Risk of VTE Aime Score 4 or greater; High Risk of VTE Coding Level of Care Code Est Patient Level 1 Diagnoses Current use of anticoagulant therapy Z79.01 Assessment & Plan Assessment & Plan (1) Current use of anticoagulant therapy: Comment: 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 - His most recent INR was subtherapeutic at 1.6. - He will continue to follow up with the anticoagulation clinic for dose adjustments. 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
--- OUTSIDE RECORDS SUMMARY | 2025-05-23 08:51 | XMS_ITS | Encounter Summary ---
Author Organization [facility] Address [address] [place] [address] Phone Care Team Providers Care Hi Lo Driver Name Role Phone Tj Bird MD Primary Care Provider Encounter Details Date Type Department Care Team (Late st Contact Info) Description 08/01/2016 Telephone [facility] [email or web address] [address], [address] [place] [address] Chery Cespedes MA Social History Tobacco Use [...] 9:36 AM EST Sexual Orientation Straight 06/16/2017 9 :36 AM EST documented as of this encounter Plan of Treatment Not on file documented as of this encounter Visit Diagnoses Not on filedocumented in this encounter Care Teams Hi Lo Driver Relationship Specialty Start Date End Date Tj Bird MD [address] [place] [address] [place] [address] PCP - General Internal Medicine 06/14/15 documented as of this encounter Additional Source Comments The information contained in this document represents components of the legal health record. It is not the complete legal health record.[facility]
--- OUTSIDE RECORDS SUMMARY | 2025-05-23 08:51 | XMS_ITS | Clinical Summary ---
Author Organization [facility] Address [address] [place] [address] Phone Care Team Providers Care Telecom Billing Analyst Name Role Phone Tj Bird MD [...] Sun, Tues, Wed, Fri, Sat Active omega 3-pep-sls-fish oil 360-1,200 mg CpDR Take 1 capsule [...] is 0.4%; Elizabeth estimated risk of perioperative [place] or cardiac arrest is <1%, can proceed [...] this topic Medical Devices Implanted Type Area Planning Coordinator Device Identifier Shelf Expiration Date Model / Serial / Lot Ivc Filter G7 Pps Ltd Acet Shell 60g Hip 06 Ea - [id number] Implanted:Qty: 1 on 07/17/2016 by Steven Marie MD at [facility] Left: Hip [employer] 03/23/2025 [id number] / / [id number] Neutral E1 Liner 36mm G Hip 11 Ea - [id number] Implanted:Qty: 1 on 07/17/2016 by Steven Marie MD at [facility] Left: Hip [employer] 01/23/2021 [id number] / / [id number] Tprlc [address] Distal Type1 Pps Ho 15.0 Hip 01 - [id number] Implanted:Qty: 1 on 07/17/2016 by Steven Marie MD at [facility] Left: Hip [employer] 05/02/2026 [id number] / / [id number] Implant Hip 36mm Femoral Head Biolox D Mod C2a Standard Neck Ea Hip 04 - [id number] Implanted:Qty: 1 on 07/17/2016 by Steven Marie MD at [facility] Left: Hip [employer] 05/20/2026 [id number] / / [id number] Procedures Procedure Name Priority Date/Time Associated Diagnosis Comments HEMOGLOBIN A1C Routine 05/29/2017 1:00 PM EST Trochanteric bursitis of left hip BASIC METABOLIC PANEL (BMP) Routine 05/29/2017 1:00 PM EST Trochanteric bursitis of left hip from Last 3 Months or Most Recently Relevant to Health Maintenance Results * (ABNORMAL) Hemoglobin A1c (05/29/2017 1:00 PM EST) HEMOGLOBIN A1C 7.6(H) 4.3 - 5.6 % [facility] CALC MEAN BLD GLUC 171 mg/dL [facility] 05/29/2017 1:00 PM EST 05/29/2017 1:42 PM EST us Francy LÓPEZ LAB BLOOD BKR ORDERABLES Final Result [facility] [address] [place] [address] * (ABNORMAL) Basic metabolic panel (05/29/2017 1:00 PM EST) SODIUM 139 136 - 145 mmol/L [facility] CHLORIDE 101 95 - 106 mmol/L [facility] POTASSIUM 4.2 3.5 - 5.2 mmol/L [facility] CO2 24 20 - 31 mmol/L [facility] BUN 18 9 - 23 mg/dL [facility] CREATININE 1.09 0.50 - 1.30 mg/dL [facility] GLUCOSE 179(H) 74 - 106 mg/dL [facility] CALCIUM 9.0 8.7 - 10.4 mg/dL [facility] EGFR >60 >60 mL/min/1.7 3m2 [facility] Comment:The normal range for eGFR is >60 mL/min/1.73m2. ANION GAP 14 3 - 17 mmol/L [facility] 05/29/2017 1:00 PM EST 05/29/2017 1:42 PM EST Francy LÓPEZ LAB BLOOD BKR ORDERABLES Final Result Performing Organization Address City/State/[facility] Co de Phone Number [facility] [address] [place] [address] from Last 3 Months or Most Recently Relevant to Health Maintenance Insurance MEDICARE PART A & B [employer] MEDEX SUPPLEMENT Advance Directives For more information, please contact: [phone] (9AM - 5PM [facility], Friday-Friday) Documents on File Type Date Recorded Patient 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 It is not the complete legal health record.[facility]
--- OUTSIDE RECORDS SUMMARY | 2025-05-23 08:51 | XMS_ITS | Encounter Summary ---
Author Organization [facility] Address [address] [place] [address] Phone Care Team Providers Care Student Development Advisor Name Role Phone Tj Bird MD Primary Care Provider Encounter Details Date Type Department Care Team (Late st Contact Info) Description 07/17/2016 Procedure Pass [facility] PERIOPERATIVE DEPT [address] [place] [address] Social History Tobacco Use Types Packs/Day Years [...] on filedocumented in this encounter Care Teams Student Development Advisor Relationship Specialty Start Date End Date Tj Bird MD [address] [place] [address] [place] [address] PCP - General Internal Medicine 06/14/15 documented as of this encounter Additional Source Comments The information contained in this document represents components of the legal health record. It is not the complete legal health record.[facility]
--- OUTSIDE RECORDS SUMMARY | 2025-05-23 08:52 | XMS_ITS | Patient Health Record ---
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; Section Notes: Nonsmoker; 3-4 beers QD Nonsmoker; few beers daily, but cut down dramatically summer Nonsmoker; few beers daily, but cut down dramatically summer Problems Problem Type SNOMED Code ICD Code Onset Dates Problem Status W/U Status Risk Notes Problem Elevated liver enzymes level (055306640) Elevated liver function tests (R79.89) Active confirmed Problem Fatty liver (584137399) Fatty liver (K76.0) Active confirmed Problem Altered bowel function (39083909) Change in bowel function (R19.4) Active confirmed Problem Alcoholic liver disease (61467979) Alcoholic liver disease (K70.9) Active confirmed Problem Constipation (33535537) Constipation, unspecified constipation type (K59.00) Active confirmed [...] Date MEDICARE OF [place] [address] [place] [address] [id number] HERIBERTOREINIER Santiago Self - patient is the insured MEDEX ATTN CLAIMS [address] [place] [address] [id number] HERIBERTOREINIER Santiago Self - patient is the insured Medical (General) History Medical History History ICD Code Screening Colonoscopy,09/2006--hyperplast ic polyp, internal hemorrhoids Denies GA,CVA,Lung disease,renal disease NIDDM Left LE DVT in [...]
--- OUTSIDE RECORDS SUMMARY | 2025-05-23 08:52 | XMS_ITS | Encounter Summary ---
Author Organization [facility] Address [address] [place] [address] Phone Care Team Providers Care Vehicle Leasing And Rental Manager Name Role Phone Tj Bird MD Primary Care Provider Encounter Details Date Type Department Care Team (Late st Contact Info) Description 06/13/2017 Procedure Pass [facility] PERIOPERATIVE DEPT [address] [place] [address] Social History Tobacco Use Types Packs/Day Years [...] on filedocumented in this encounter Care Teams Vehicle Leasing And Rental Manager Relationship Specialty Start Date End Date Tj Bird MD [address] [place] [address] [place] [address] PCP - General Internal Medicine 06/14/15 documented as of this encounter Additional Source Comments The information contained in this document represents components of the legal health record. It is not the complete legal health record.[facility]
== END 2025-05-23 08:51 | disposition home or self-care (01) ==
LOC: HO.ACS 08:15
PROVIDERS: PCP Student in an Organized Health Care Education/Training Program; Visit Provider Internal Medicine Medical Oncology
DX: Z79.01 Long term (current) use of anticoagulants (principal)

== ENCOUNTER → 2025-05-23 08:15 | Outpatient (BNVA) | payer MEDICARE, SELFPAY | PROVIDERS: PCP Student in an Organized Health Care Education/Training Program; Visit Provider Internal Medicine Medical Oncology | DX: I26.99 Other pulmonary embolism without acute cor pulmonale (principal); Z51.81 Encounter for therapeutic drug level monitoring; Z79.01 Long term (current) use of anticoagulants | CPT/HCPCS: 85610; 99211 ==

== ENCOUNTER 2025-05-26 07:58 | Outpatient (AMB) | payer MEDICARE, SELFPAY ==
[2025-05-26 08:03] VITALS: BP 138/84; PULSE 78; O2SAT 98; BMI 27.2
--- NOTE | 2025-05-26 08:03 | MHC.OFFVIS ---
Vital Signs 05/26/25 08:03 Height 6 ft Weight 200 lb 8 oz BMI 27.2 BP 138/84 Blood Pressure Location Rt brachial Position Sitting Pulse 78 Pulse Source Pulse Oximeter Pulse Oximetry (%) 98 Oxygen Delivery Method Room Air Intake Visit Reasons: 3 mo follow up Intake Note: Patient presents follow up Hypersomnia. Giovani notes in chart. Allergies latex (Latex) Allergy (Mild, Verified 05/26/25 08:05) ALLERGIC TO POWDER glipizide (GLIPIZIDE) Allergy (Unknown, Verified 05/26/25 08:05) MUSCLES WEAK HPI Comments Details: 69 year old male presents for a follow up of Polysomnography and MSLT results for hypersomnia. HST 08/2024 and PSG 09/2024, AHI 2.6, and 3.1 respectively with normal 02 levels. 01/2025 MSLT sleep occurred on 5/ opportunities, and average sleep latencies 00:06:00 min, dx of hypersomnia due to metabolic or mood, or nutritional disorder. SOREM 06/13. ESS score is 13 He continues to have chronic fatigue, tires easily with non-exertional activities. He is easily fatigued while driving will cotton puller and take a 15min nap if he feels like he is going to fall asleep. He goes to bed at 6pm and wakes up at 4:30 am with 2-3 bathroom breaks a night.He notices a crescendo/ decrescendo ringing and humming in ears bilaterally, bp has improved today 138/84. His sister 66 years of age has Parkinsons with early onset dementia. Denies parasomnias, v/a hallucinations, irritable mood. 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 He notices bilateral hand tremors LUE>RUE, which are worse in the morning and go away with actions such as picking up tools or buttoning his shirt, handwriting is terrible. Continues to have bilateral RLS symptoms of paresthesias due to bilateral peripheral neuropathy, A1c is 8.2. Denies headaches and or vision changes. Diet is poor, and drinks one beer per day, is mindful of water intake, drinks plenty of water, and has started to walk about 2-3 miles daily. Reviewed Labs today and he continues to be anemic, saturation is 12 and has daily fatigue. [facility] Medical History (Updated 05/29/25 @ 13:43 by Humphrey Andino PA-C) Snoring Leg swelling Hyperlipidemia Hypercholesteremia History of blood clots Diabetes Hypertension Surgical History History of colonoscopy (~08/07/15) History of appendectomy S/P hip replacement History of gastric surgery Family History Father CAD (coronary artery disease) Mother Diabetes Social History Household Members: Spouse Housing: House Alcohol intake: current Alcohol intake frequency: holidays/special occasions only Patient Tobacco Use Status: Never used Tobacco e-Cigarette/Vaping Use: Never Used service: Yes Current occupational status: retired Cognitive needs: No Hearing needs: No Vision needs: Yes (rx glasses) Physical Exam Vital Signs: Last Vital Signs Pulse 78 05/26/25 08:03 BP 138/84 05/26/25 08:03 Pulse Ox 98 05/26/25 08:03 Oxygen Delivery Method Room Air 05/26/25 08:03 BMI result Body Mass Index 27.2 bp slightly elevated Const General: cooperative, comfortable and no acute distress Nutritional Appearance: average body habitus Orientation/consciousness: patient oriented x3 HEENT Face and sinus: Yes normal facial exam and Yes face symmetric Teeth and gingiva: other (mallampti score of 3) Eyes Pupils: Equal, round and reactive pupils present Neck Neck: Yes full ROM Resp Effort & Inspection: normal respiratory effort and able to speak in complete sentences Neuro Other: hypophonia, UE action tremors L>R, gait antalgic General: patient oriented x3 and moves all extremities Cranial nerves: Yes Facial sensation intact/muscles of mastication intact, Yes Equal, round and reactive pupils present, Yes Normal accommodation reflex present, Yes Bilaterally intact EOM present, Yes Normal facial strength present, Yes Midline tongue present, Yes Ability to bilaterally rotate head present and Yes Ability to bilaterally elevate shoulders present Cognition (Neuro): normal cognition Gait exam (Neuro): Antalgic gait present and Other gait observations present (off balance ) Motor exam (neuro): 10/11 motor strength present throughout, Normal motor muscle tone present throughout, Tremors during motor activity present (LUE >RUE ) and Motor abnormalites present Coordination: ruprwg-jg-kouk test normal Psych Appearance: grossly normal Mental Status: mental status grossly normal Thought process: Normal thought process present Thought content: Normal thought content present Results Reviewed Results Reviewed: MSLT 01/2025 no evidence of narcolepsy, obstructive sleep apnea or sleep movement disorders, avg sleep onset was 6:00min. Dx is hypersomnia due to mood disorders, metabolic nutritional disorders, other. SOREM latency was 6:00 min and when given 5 opportunities to nap, sleep occured on all 5/5 opportunites. Labs reviewed with pt A1c is 8.2. Assessment & Plan Assessment & Plan (1) Hypersomnia: Comment: mslt reviewed with pt no evidence of INDY /Hyper somnia Code(s): G47.10 - Hypersomnia, unspecified Category: Medical (2) Excessive daytime sleepiness: Code(s): G47.19 - Other hypersomnia Category: Medical (3) Anemia: Code(s): D64.9 - Anemia, unspecified Category: Medical Qualifiers: Anemia type: iron deficiency Iron deficiency anemia type: unspecified iron deficiency Qualified Code(s): D50.9 - Iron deficiency anemia, unspecified (4) Fatigue: Code(s): R53.83 - Other fatigue Category: Medical Qualifiers: Fatigue type: unspecified Qualified Code(s): R53.83 - Other fatigue (5) Action tremor: Comment: Essential - LUE >RUE unlikely Parkinsons. Code(s): G25.2 - Other specified forms of tremor Category: Medical (6) Chronic anemia: Code(s): D64.9 - Anemia, unspecified Category: Medical (7) Snoring: Code(s): R06.83 - Snoring Category: Medical Plan: sleep dentistry Plan Hypersomnia MSLT + will complete labs and treat for anemia and f/u with stimulants if pt is amenable. Pt declines. ENT referral ringing in ears bilaterally, manage bp per pcp. Snoring is mild to moderate will refer to sleep dentistry for an evaluation for oral appliance / mandibular device. Labs reviewed with pt. today b12 low/ homocystein is high/ hgb and hct is low/ A1c is 8.2, with bilateral peripheral neuropathy and pareshtesias, may elevate feet and wear compression stockings as needed, defter to pcp. Continue on B12 1000mcg, and refer to hematology as he is on Warfarin therapy. Iron saturation is 12. F/u up in 6 months. Orders: Referrals Dentistry Referral R06.83 - Snoring Medications: Refilled mecobalamin (vitamin B12) take one tablet daily at bedtime 1,000 mcg PO DAILY 90 tabs 3RF low b12 3 months MDD 1000mcg R79.89 - Other specified abnormal findings of blood chemistry Patient Instructions: MSLT 01/2025 no evidence of narcolepsy, obstructive sleep apnea or sleep movement disorders, avg sleep onset was 6:00min. Dx is hypersomnia due to mood disorders, metabolic nutritional disorders, other. SOREM latency was 6:00 min and when given 5 opportunities to nap, sleep occured on all 5/5 opportunites. Pt is being followed with Endocrine for elevations in A1c. and BP per pcp. Coding Level of Care Code Est Pt Level 4 (74756) Diagnoses Hypersomnia G47.10 Excessive daytime sleepiness G47.19 Iron deficiency anemia, unspecified iron deficiency anemia type D50.9 Anemia type: iron deficiency Iron deficiency anemia type: unspecified iron deficiency Fatigue, unspecified type R53.83 Fatigue type: unspecified Action tremor G25.2 Chronic anemia D64.9 Snoring R06.83
--- OUTSIDE RECORDS SUMMARY | 2025-05-26 08:04 | XMS_ITS | Patient Health Record ---
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 [id number] retired; Section Notes: Nonsmoker; 3-4 beers QD Nonsmoker; few beers daily, but cut down dramatically summer Nonsmoker; few beers daily, but cut down dramatically summer Problems Problem Type SNOMED Code ICD Code Onset Dates Problem Status W/U Status Risk Notes Problem Elevated liver enzymes level (198803050) Elevated liver function tests (R79.89) Active confirmed Problem Fatty liver (951938883) Fatty liver (K76.0) Active confirmed Problem Altered bowel function (10032666) Change in bowel function (R19.4) Active confirmed Problem Alcoholic liver disease (64247378) Alcoholic liver disease (K70.9) Active confirmed Problem Constipation (56611673) Constipation, unspecified constipation type (K59.00) Active confirmed [...] Test Test Name Order Date COLONOSCOPY 07/26/2015 Next Appt Details Provider Name:Al Berry Lakshmi , 07/07/2025 09:20:00 AM, [address] [place] [address], [address], [place], [address], Insurance Providers Payer Name Payer Address Payer Phone Subscriber Number Group Number Insured Name Patient Relationship to Insured Coverage Start Date Coverage End Date MEDICARE OF [place] [address] [place] [address] [id number] REINIER LOUIS Self - patient is the insured MEDEX ATTN CLAIMS [address] [place] [address] [id number] REINIER LOUIS Self - patient is the insured Medical (General) History Medical History History ICD Code Screening Colonoscopy,09/2006--hyperplast ic polyp, internal hemorrhoids Denies CT,CVA,Lung disease,renal disease NIDDM Left LE DVT in [...]
== END 2025-05-26 08:56 | disposition home or self-care (01) ==
LOC: HO.HSMS 07:58
PROVIDERS: PCP Internal Medicine; Visit Provider Physician Assistant Medical
DX: G47.10 Hypersomnia, unspecified (principal); G47.19 Other hypersomnia; D50.9 Iron deficiency anemia, unspecified; R53.83 Other fatigue; G25.2 Other specified forms of tremor; D64.9 Anemia, unspecified; R06.83 Snoring
CPT/HCPCS: 99214

== ENCOUNTER → 2025-05-26 07:58 | Outpatient (BNVA) | payer MEDICARE, SELFPAY | PROVIDERS: PCP Internal Medicine; Visit Provider Physician Assistant Medical | DX: G47.10 Hypersomnia, unspecified (principal); G47.19 Other hypersomnia; R06.83 Snoring; D50.9 Iron deficiency anemia, unspecified; R53.83 Other fatigue; G25.2 Other specified forms of tremor | CPT/HCPCS: 99212 ==

== ENCOUNTER 2025-06-06 07:44 | Outpatient (AMB) | payer MEDICARE, SELFPAY ==
--- OUTSIDE RECORDS SUMMARY | 2025-06-06 07:46 | XMS_ITS | Encounter Summary ---
Author Organization [facility] Address [address] [place] [address] Phone Care Team Providers Care Patient Accounts Specialist Name Role Phone Tj Bird MD Primary Care Provider Encounter Details Date Type Department Care Team (Late st Contact Info) Description 06/13/2017 Procedure Pass [facility] PERIOPERATIVE DEPT [address] [place] [address] Social History Tobacco Use Types Packs/Day Years [...] on filedocumented in this encounter Care Teams Patient Accounts Specialist Relationship Specialty Start Date End Date Tj Bird MD [address] [place] [address] [place] [address] PCP - General Internal Medicine 06/14/15 documented as of this encounter Additional Source Comments The information contained in this document represents components of the legal health record. It is not the complete legal health record.[facility]
--- OUTSIDE RECORDS SUMMARY | 2025-06-06 07:46 | XMS_ITS | Clinical Summary ---
Author Organization [facility] Address [address] [place] [address] Phone Care Team Providers Care Office Administrator Name Role Phone Tj Bird MD [...] Sun, Tues, Wed, Fri, Sat Active omega 9-ujh-gos-fish oil 360-1,200 mg CpDR Take 1 capsule [...] is 0.4%; Elizabeth estimated risk of perioperative [place] or cardiac arrest is <1%, can proceed [...] this topic Medical Devices Implanted Type Area Director Phone Device Identifier Shelf Expiration Date Model / Serial / Lot Ivc Filter G[employer] Acet Shell 60g Hip 06 Ea - [id number] Implanted:Qty: 1 on 07/17/2016 by Steven Marie MD at [facility] Left: Hip [employer] 03/23/2025 [id number] / / [id number] Neutral E1 Liner 36mm G Hip 11 Ea - [id number] Implanted:Qty: 1 on 07/17/2016 by Steven Marie MD at [facility] Left: Hip [employer] 01/23/2021 [id number] / / [id number] Tprlc [address] Distal Type1 Pps Ho 15.0 Hip 01 - [id number] Implanted:Qty: 1 on 07/17/2016 by Steven Marie MD at [facility] Left: Hip [employer] 05/02/2026 [id number] / / [id number] Implant Hip 36mm Femoral Head [employer] D Mod C2a Standard Neck Ea Hip 04 - [id number] Implanted:Qty: 1 on 07/17/2016 by Steven Marie MD at [facility] Left: Hip [employer] 05/20/2026 [id number] / / [id number] Procedures Procedure Name Priority Date/Time Associated Diagnosis Comments HEMOGLOBIN A1C Routine 05/29/2017 1:00 PM EST Trochanteric bursitis of left hip BASIC METABOLIC PANEL (BMP) Routine 05/29/2017 1:00 PM EST Trochanteric bursitis of left hip from Last 3 Months or Most Recently Relevant to Health Maintenance Results * (ABNORMAL) Hemoglobin A1c (05/29/2017 1:00 PM EST) HEMOGLOBIN A1C 7.6(H) 4.3 - 5.6 % [facility] CALC MEAN BLD GLUC 171 mg/dL [facility] 05/29/2017 1:00 PM EST 05/29/2017 1:42 PM EST us Francy LÓPEZ LAB BLOOD BKR ORDERABLES Final Result [facility] [address] [place] [address] * (ABNORMAL) Basic metabolic panel (05/29/2017 1:00 PM EST) SODIUM 139 136 - 145 mmol/L [facility] CHLORIDE 101 95 - 106 mmol/L [facility] POTASSIUM 4.2 3.5 - 5.2 mmol/L [facility] CO2 24 20 - 31 mmol/L [facility] BUN 18 9 - 23 mg/dL [facility] CREATININE 1.09 0.50 - 1.30 mg/dL [facility] GLUCOSE 179(H) 74 - 106 mg/dL [facility] CALCIUM 9.0 8.7 - 10.4 mg/dL [facility] EGFR >60 >60 mL/min/1.7 3m2 [facility] Comment:The normal range for eGFR is >60 mL/min/1.73m2. ANION GAP 14 3 - 17 mmol/L [facility] 05/29/2017 1:00 PM EST 05/29/2017 1:42 PM EST Francy LÓPEZ LAB BLOOD BKR ORDERABLES Final Result Performing Organization Address City/State/[facility] Co de Phone Number [facility] [address] [place] [address] from Last 3 Months or Most Recently Relevant to Health Maintenance Insurance MEDICARE PART A & B [employer] MEDEX SUPPLEMENT Advance Directives For more information, please contact: [phone] (9AM - 5PM 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 It is not the complete legal health record.[facility]
--- OUTSIDE RECORDS SUMMARY | 2025-06-06 07:46 | XMS_ITS | Encounter Summary ---
Author Organization [facility] Address [address] [place] [address] Phone Care Team Providers Care Shaper Hand Name Role Phone Tj Bird MD Primary Care Provider Encounter Details Date Type Department Care Team (Late st Contact Info) Description 07/17/2016 Procedure Pass [facility] PERIOPERATIVE DEPT [address] [place] [address] Social History Tobacco Use Types Packs/Day Years [...] on filedocumented in this encounter Care Teams Shaper Hand Relationship Specialty Start Date End Date Tj Bird MD [address] [place] [address] [place] [address] PCP - General Internal Medicine 06/14/15 documented as of this encounter Additional Source Comments The information contained in this document represents components of the legal health record. It is not the complete legal health record.[facility]
--- OUTSIDE RECORDS SUMMARY | 2025-06-06 07:46 | XMS_ITS | Patient Health Record ---
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; Section Notes: Nonsmoker; 3-4 beers QD Nonsmoker; few beers daily, but cut down dramatically summer Nonsmoker; few beers daily, but cut down dramatically summer Problems Problem Type SNOMED Code ICD Code Onset Dates Problem Status W/U Status Risk Notes Problem Elevated liver enzymes level (329529196) Elevated liver function tests (R79.89) Active confirmed Problem Fatty liver (836782024) Fatty liver (K76.0) Active confirmed Problem Altered bowel function (52298487) Change in bowel function (R19.4) Active confirmed Problem Alcoholic liver disease (06853631) Alcoholic liver disease (K70.9) Active confirmed Problem Constipation (90444268) Constipation, unspecified constipation type (K59.00) Active confirmed [...] Name:Al Berry Lakshmi , 07/07/2025 09:20:00 AM, [address] [place] [address], [address], [place], [address], Insurance Providers Payer Name Payer Address Payer Phone Subscriber Number Group Number Insured Name Patient Relationship to Insured Coverage Start Date Coverage End Date MEDICARE OF [place] [address] [facility] [place] [address] [phone] [id number] REINIER [place] Self - patient is the insured [employer] ATT[employer] CLAIMS [address] [place] [address] [id number] REINIER [place] Self - patient is the [...]
--- OUTSIDE RECORDS SUMMARY | 2025-06-06 07:46 | XMS_ITS | Encounter Summary ---
Author Organization [facility] Address [address] [place] [address] Phone Care Team Providers Care Bonding Equipment Operator Name Role Phone Tj Bird MD Primary Care Provider Encounter Details Date Type Department Care Team (Late st Contact Info) Description 08/01/2016 Telephone [facility] [employer] [employer] [address] [facility], [address] [place] [address] Chery Cespedes [place] Social History Tobacco Use [...] on filedocumented in this encounter Care Teams Bonding Equipment Operator Relationship Specialty Start Date End Date Tj Bird MD [address] [place] [address] [place] [id number] PCP - General Internal Medicine 06/14/15 documented as of this encounter Additional Source Comments The information contained in this document represents components of the legal health record. It is not the complete legal health record.[facility]
[2025-06-06 07:50] LABS: Prothrombin Time Whole Bld POC 27.5 sec (11.1-13.5); ~PT, ~INR - Anti Coag Clinic 2.3 (0.9-1.1)
--- NOTE | 2025-06-06 08:00 | MHC.OFFVISCO ---
Intake Intake Visit Reasons: Anticoagulation Allergies latex (Latex) Allergy (Mild, Verified 06/06/25 07:44) ALLERGIC TO POWDER glipizide (GLIPIZIDE) Allergy (Unknown, Verified 06/06/25 07:44) MUSCLES WEAK Medication List - Last Reconciled 06/06/25 by Kimber Patel RN amlodipine 5 mg PO BID 90 days empagliflozin (Jardiance) 10 mg PO DAILY FreeStyle Lancets (lancets) Use 4 lancets a day to check sguars 4 times a day to check blood sugars NS FreeStyle Lite Strips (blood sugar diagnostic) Use 1 strip to check your sugar, four times a day NS gemfibrozil 600 mg PO BID losartan 50 mg PO ONCE mecobalamin (vitamin B12) 1,000 mcg PO DAILY 3 months MDD 1000mcg metformin 1,000 mg (2 x 500 mg) PO BID itsaawue-wjl-DZ-lycopen-lutein 0.4 mg-300 mcg- 250 mcg (Centrum Silver) 1 tab PO DAILY omega-3 fatty acids (Fish Oil Concentrate) 1,000 mg PO DAILY MRX1 omeprazole 20 mg PO DAILY warfarin 5 mg See Protocol PO DAILY Nursing Note INR: 2.3 in therapeutic range Medications and supplements reviewed Trying mediterranean diet along with cranberry and tumeric- he will be eating more greens Bruising/redspot/ swelling from injury on knee States since rm experiences pain left arm and sob -mild chest pain - his md stated he may experience theses symptoms - pt still enc to get check out or ER Denies any signs and symptoms of bleeding or bruising or clotting. Bleeding, bruising, clotting discussed Nutritional guidance given - keep up weekly greens Dose:keep same for now 5mg x 3 days/ 10mg x 4 days F/U INR: 2 weeks Patient verbalizes understanding of instructions given Anti-Coag Initial Assessment Social Hx Patient Tobacco Use Status: Never used Tobacco alcohol intake: current Alcohol intake frequency: holidays/special occasions only Coding Level of Care Code Est Patient Level 1 Diagnoses Current use of anticoagulant therapy Z79.01 Results AMB INR Fingerstick AMB INR Fingerstick 2.3 Last Edit by Kimber Patel RN on 06/06/25 07:51 MANUAL ENTRY Assessment & Plan Assessment & Plan (1) Current use of anticoagulant therapy: Comment: 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 - His most recent INR was subtherapeutic at 1.6. - He will continue to follow up with the anticoagulation clinic for dose adjustments. Code(s): Z79.01 - terminologist (current) use of anticoagulants Category: Medical
== END 2025-06-06 08:06 | disposition home or self-care (01) ==
LOC: HO.ACS 07:44
PROVIDERS: PCP Internal Medicine; Visit Provider Internal Medicine Medical Oncology
DX: Z79.01 Long term (current) use of anticoagulants (principal)

== ENCOUNTER → 2025-06-06 07:44 | Outpatient (BNVA) | payer MEDICARE, SELFPAY | PROVIDERS: PCP Internal Medicine; Visit Provider Internal Medicine Medical Oncology | DX: I26.99 Other pulmonary embolism without acute cor pulmonale (principal); Z51.81 Encounter for therapeutic drug level monitoring; Z79.01 Long term (current) use of anticoagulants | CPT/HCPCS: 85610; 99211 ==